=== PATIENT | female | born 1935 | race Caucasian/White ===

== ENCOUNTER → 2019-11-18 11:30 | Outpatient (BNVA) | payer MEDICARE, OTHER, SELFPAY | PROVIDERS: PCP Internal Medicine; Referring Provider Internal Medicine; Visit Provider Internal Medicine | DX: Z95.2 Presence of prosthetic heart valve (principal); Z51.81 Encounter for therapeutic drug level monitoring; Z79.01 Long term (current) use of anticoagulants | CPT/HCPCS: 85610; 99211 ==

== ENCOUNTER → 2019-12-05 10:07 | Outpatient (BNVA) | payer MEDICARE, OTHER, SELFPAY | PROVIDERS: PCP Internal Medicine; Referring Provider Internal Medicine; Visit Provider Internal Medicine | DX: Z95.2 Presence of prosthetic heart valve (principal); Z51.81 Encounter for therapeutic drug level monitoring; Z79.01 Long term (current) use of anticoagulants | CPT/HCPCS: 85610; 99211 ==

== ENCOUNTER → 2019-12-26 10:04 | Outpatient (BNVA) | payer MEDICARE, OTHER, SELFPAY | PROVIDERS: PCP Internal Medicine; Visit Provider Internal Medicine | DX: Z95.2 Presence of prosthetic heart valve (principal); Z51.81 Encounter for therapeutic drug level monitoring; Z79.01 Long term (current) use of anticoagulants | CPT/HCPCS: 85610; 99211 ==

== ENCOUNTER → 2020-01-22 09:48 | Outpatient (BNVA) | payer MEDICARE, OTHER, SELFPAY | PROVIDERS: PCP Internal Medicine; Visit Provider Internal Medicine | DX: Z95.2 Presence of prosthetic heart valve (principal); Z51.81 Encounter for therapeutic drug level monitoring; Z79.01 Long term (current) use of anticoagulants | CPT/HCPCS: 85610; 99211 ==

== ENCOUNTER → 2020-02-12 10:02 | Outpatient (BNVA) | payer MEDICARE, OTHER, SELFPAY | PROVIDERS: PCP Internal Medicine; Visit Provider Internal Medicine | DX: Z95.2 Presence of prosthetic heart valve (principal); Z51.81 Encounter for therapeutic drug level monitoring; Z79.01 Long term (current) use of anticoagulants | CPT/HCPCS: 85610; 99211 ==

== ENCOUNTER → 2020-03-11 10:12 | Outpatient (BNVA) | payer MEDICARE, OTHER, SELFPAY | PROVIDERS: PCP Internal Medicine; Visit Provider Internal Medicine | DX: Z95.2 Presence of prosthetic heart valve (principal); Z51.81 Encounter for therapeutic drug level monitoring; Z79.01 Long term (current) use of anticoagulants | CPT/HCPCS: 85610; 99211 ==

== ENCOUNTER → 2020-04-01 10:33 | Outpatient (BNVA) | payer MEDICARE, OTHER, SELFPAY | PROVIDERS: PCP Internal Medicine; Visit Provider Internal Medicine | DX: Z95.2 Presence of prosthetic heart valve (principal); Z51.81 Encounter for therapeutic drug level monitoring; Z79.01 Long term (current) use of anticoagulants | CPT/HCPCS: 85610; 99211 ==

== ENCOUNTER → 2020-04-22 10:35 | Outpatient (BNVA) | payer MEDICARE, OTHER, SELFPAY | PROVIDERS: PCP Internal Medicine; Visit Provider Internal Medicine | DX: Z95.2 Presence of prosthetic heart valve (principal); Z51.81 Encounter for therapeutic drug level monitoring; Z79.01 Long term (current) use of anticoagulants | CPT/HCPCS: 85610; 99211 ==

== ENCOUNTER → 2020-04-24 14:15 | Outpatient (BNVA) | payer MEDICARE, OTHER, SELFPAY | PROVIDERS: PCP Internal Medicine; Visit Provider Internal Medicine | DX: Z95.2 Presence of prosthetic heart valve (principal); Z51.81 Encounter for therapeutic drug level monitoring; Z79.01 Long term (current) use of anticoagulants | CPT/HCPCS: 85610; 99211 ==

== ENCOUNTER → 2020-04-29 11:00 | Outpatient (BNVA) | payer MEDICARE, OTHER, SELFPAY | PROVIDERS: PCP Internal Medicine; Visit Provider Internal Medicine | DX: Z95.2 Presence of prosthetic heart valve (principal); Z51.81 Encounter for therapeutic drug level monitoring; Z79.01 Long term (current) use of anticoagulants | CPT/HCPCS: 85610; 99211 ==

== ENCOUNTER → 2020-05-07 11:15 | Outpatient (BNVA) | payer MEDICARE, OTHER, SELFPAY | PROVIDERS: PCP Internal Medicine; Visit Provider Internal Medicine | DX: Z95.2 Presence of prosthetic heart valve (principal); Z51.81 Encounter for therapeutic drug level monitoring; Z79.01 Long term (current) use of anticoagulants | CPT/HCPCS: 85610; 99211 ==

== ENCOUNTER → 2020-05-21 11:20 | Outpatient (BNVA) | payer MEDICARE, OTHER, SELFPAY | PROVIDERS: PCP Internal Medicine; Visit Provider Internal Medicine | DX: Z95.2 Presence of prosthetic heart valve (principal); Z79.01 Long term (current) use of anticoagulants; Z51.81 Encounter for therapeutic drug level monitoring | CPT/HCPCS: 85610; 99211 ==

== ENCOUNTER → 2020-06-11 11:15 | Outpatient (BNVA) | payer MEDICARE, OTHER, SELFPAY | PROVIDERS: PCP Internal Medicine; Visit Provider Internal Medicine | DX: Z95.2 Presence of prosthetic heart valve (principal); Z51.81 Encounter for therapeutic drug level monitoring; Z79.01 Long term (current) use of anticoagulants | CPT/HCPCS: 85610; 99211 ==

== ENCOUNTER → 2020-07-02 11:05 | Outpatient (BNVA) | payer MEDICARE, OTHER, SELFPAY | PROVIDERS: PCP Internal Medicine; Visit Provider Internal Medicine | DX: Z95.2 Presence of prosthetic heart valve (principal); Z51.81 Encounter for therapeutic drug level monitoring; Z79.01 Long term (current) use of anticoagulants | CPT/HCPCS: 85610; 99211 ==

== ENCOUNTER → 2020-07-23 11:04 | Outpatient (BNVA) | payer MEDICARE, OTHER, SELFPAY | PROVIDERS: PCP Internal Medicine; Visit Provider Internal Medicine | DX: Z95.2 Presence of prosthetic heart valve (principal); Z51.81 Encounter for therapeutic drug level monitoring; Z79.01 Long term (current) use of anticoagulants | CPT/HCPCS: 85610; 99211 ==

== ENCOUNTER → 2020-08-05 11:15 | Outpatient (BNVA) | payer MEDICARE, OTHER, SELFPAY | PROVIDERS: PCP Internal Medicine; Visit Provider Internal Medicine | DX: Z95.2 Presence of prosthetic heart valve (principal); Z51.81 Encounter for therapeutic drug level monitoring; Z79.01 Long term (current) use of anticoagulants | CPT/HCPCS: 85610; 99211 ==

== ENCOUNTER → 2020-08-19 10:54 | Outpatient (BNVA) | payer MEDICARE, OTHER, SELFPAY | PROVIDERS: PCP Internal Medicine; Visit Provider Internal Medicine | DX: Z95.2 Presence of prosthetic heart valve (principal); Z51.81 Encounter for therapeutic drug level monitoring; Z79.01 Long term (current) use of anticoagulants | CPT/HCPCS: 85610; 99211 ==

== ENCOUNTER → 2020-09-02 11:11 | Outpatient (BNVA) | payer MEDICARE, OTHER, SELFPAY | PROVIDERS: PCP Internal Medicine; Visit Provider Internal Medicine | DX: Z95.2 Presence of prosthetic heart valve (principal); Z51.81 Encounter for therapeutic drug level monitoring; Z79.01 Long term (current) use of anticoagulants | CPT/HCPCS: 85610; 99211 ==

== ENCOUNTER → 2020-09-09 09:13 | Outpatient (BNVA) | payer MEDICARE, OTHER, SELFPAY | PROVIDERS: PCP Internal Medicine; Visit Provider Internal Medicine | DX: Z95.2 Presence of prosthetic heart valve (principal); Z51.81 Encounter for therapeutic drug level monitoring; Z79.01 Long term (current) use of anticoagulants | CPT/HCPCS: 85610; 99211 ==

== ENCOUNTER → 2020-09-14 10:35 | Outpatient (BNVA) | payer MEDICARE, OTHER, SELFPAY | PROVIDERS: PCP Internal Medicine; Visit Provider Internal Medicine | DX: Z95.2 Presence of prosthetic heart valve (principal); Z51.81 Encounter for therapeutic drug level monitoring; Z79.01 Long term (current) use of anticoagulants | CPT/HCPCS: 85610; 99211 ==

== ENCOUNTER → 2020-09-28 11:21 | Outpatient (BNVA) | payer MEDICARE, OTHER, SELFPAY | PROVIDERS: PCP Internal Medicine; Visit Provider Internal Medicine | DX: Z95.2 Presence of prosthetic heart valve (principal); Z51.81 Encounter for therapeutic drug level monitoring; Z79.01 Long term (current) use of anticoagulants | CPT/HCPCS: 85610; 99211 ==

== ENCOUNTER → 2020-10-21 11:13 | Outpatient (BNVA) | payer MEDICARE, OTHER, SELFPAY | PROVIDERS: PCP Internal Medicine; Visit Provider Internal Medicine | DX: Z95.2 Presence of prosthetic heart valve (principal); Z51.81 Encounter for therapeutic drug level monitoring; Z79.01 Long term (current) use of anticoagulants | CPT/HCPCS: 85610; 99211 ==

== ENCOUNTER → 2020-10-23 10:37 | Outpatient (BNVA) | payer MEDICARE, OTHER, SELFPAY | PROVIDERS: PCP Internal Medicine; Visit Provider Internal Medicine | DX: Z95.2 Presence of prosthetic heart valve (principal); Z51.81 Encounter for therapeutic drug level monitoring; Z79.01 Long term (current) use of anticoagulants | CPT/HCPCS: 85610; 99211 ==

== ENCOUNTER → 2020-11-06 10:48 | Outpatient (BNVA) | payer MEDICARE, OTHER, SELFPAY | PROVIDERS: PCP Internal Medicine; Visit Provider Internal Medicine | DX: Z95.2 Presence of prosthetic heart valve (principal); Z51.81 Encounter for therapeutic drug level monitoring; Z79.01 Long term (current) use of anticoagulants | CPT/HCPCS: 85610; 99211 ==

== ENCOUNTER → 2020-11-20 11:04 | Outpatient (BNVA) | payer MEDICARE, OTHER, SELFPAY | PROVIDERS: PCP Internal Medicine; Visit Provider Internal Medicine | DX: Z95.2 Presence of prosthetic heart valve (principal); Z51.81 Encounter for therapeutic drug level monitoring; Z79.01 Long term (current) use of anticoagulants | CPT/HCPCS: 85610; 99211 ==

== ENCOUNTER → 2020-11-27 11:12 | Outpatient (BNVA) | payer MEDICARE, OTHER, SELFPAY | PROVIDERS: PCP Internal Medicine; Visit Provider Internal Medicine | DX: Z95.2 Presence of prosthetic heart valve (principal); Z51.81 Encounter for therapeutic drug level monitoring; Z79.01 Long term (current) use of anticoagulants | CPT/HCPCS: 85610; 99211 ==

== ENCOUNTER → 2020-12-11 11:19 | Outpatient (BNVA) | payer MEDICARE, OTHER, SELFPAY | PROVIDERS: PCP Internal Medicine; Visit Provider Internal Medicine | DX: Z95.2 Presence of prosthetic heart valve (principal); Z51.81 Encounter for therapeutic drug level monitoring; Z79.01 Long term (current) use of anticoagulants | CPT/HCPCS: 85610; 99211 ==

== ENCOUNTER → 2020-12-17 11:17 | Outpatient (BNVA) | payer MEDICARE, OTHER, SELFPAY | PROVIDERS: PCP Internal Medicine; Visit Provider Internal Medicine | DX: Z95.2 Presence of prosthetic heart valve (principal); Z51.81 Encounter for therapeutic drug level monitoring; Z79.01 Long term (current) use of anticoagulants | CPT/HCPCS: 85610; 99211 ==

== ENCOUNTER → 2020-12-25 11:05 | Outpatient (BNVA) | payer MEDICARE, OTHER, SELFPAY | PROVIDERS: PCP Internal Medicine; Visit Provider Internal Medicine | DX: Z95.2 Presence of prosthetic heart valve (principal); Z51.81 Encounter for therapeutic drug level monitoring; Z79.01 Long term (current) use of anticoagulants | CPT/HCPCS: 85610; 99211 ==

== ENCOUNTER → 2021-01-04 11:33 | Outpatient (BNVA) | payer MEDICARE, OTHER, SELFPAY | PROVIDERS: PCP Internal Medicine; Visit Provider Internal Medicine | DX: Z95.2 Presence of prosthetic heart valve (principal); Z51.81 Encounter for therapeutic drug level monitoring; Z79.01 Long term (current) use of anticoagulants | CPT/HCPCS: 85610; 99211 ==

== ENCOUNTER → 2021-01-21 11:05 | Outpatient (BNVA) | payer MEDICARE, OTHER, SELFPAY | PROVIDERS: PCP Internal Medicine; Visit Provider Internal Medicine | DX: Z95.2 Presence of prosthetic heart valve (principal); Z51.81 Encounter for therapeutic drug level monitoring; Z79.01 Long term (current) use of anticoagulants | CPT/HCPCS: 85610; 99211 ==

== ENCOUNTER → 2021-02-04 11:20 | Outpatient (BNVA) | payer MEDICARE, OTHER, SELFPAY | PROVIDERS: PCP Internal Medicine; Visit Provider Internal Medicine | DX: Z95.2 Presence of prosthetic heart valve (principal); Z51.81 Encounter for therapeutic drug level monitoring; Z79.01 Long term (current) use of anticoagulants | CPT/HCPCS: 85610; 99211 ==

== ENCOUNTER → 2021-02-18 11:06 | Outpatient (BNVA) | payer MEDICARE, OTHER, SELFPAY | PROVIDERS: PCP Internal Medicine; Visit Provider Internal Medicine | DX: Z95.2 Presence of prosthetic heart valve (principal); Z51.81 Encounter for therapeutic drug level monitoring; Z79.01 Long term (current) use of anticoagulants | CPT/HCPCS: 85610; 99211 ==

== ENCOUNTER → 2021-03-11 10:59 | Outpatient (BNVA) | payer MEDICARE, OTHER, SELFPAY | PROVIDERS: PCP Internal Medicine; Visit Provider Internal Medicine | DX: Z95.2 Presence of prosthetic heart valve (principal); Z51.81 Encounter for therapeutic drug level monitoring; Z79.01 Long term (current) use of anticoagulants | CPT/HCPCS: 85610; 99211 ==

== ENCOUNTER → 2021-03-29 09:49 | Outpatient (BNVA) | payer MEDICARE, OTHER, SELFPAY | PROVIDERS: PCP Internal Medicine; Visit Provider Internal Medicine | DX: Z95.2 Presence of prosthetic heart valve (principal); Z51.81 Encounter for therapeutic drug level monitoring; Z79.01 Long term (current) use of anticoagulants | CPT/HCPCS: 85610; 99211 ==

== ENCOUNTER → 2021-04-22 10:58 | Outpatient (BNVA) | payer MEDICARE, OTHER, SELFPAY | PROVIDERS: PCP Internal Medicine; Visit Provider Internal Medicine | DX: Z95.2 Presence of prosthetic heart valve (principal); Z51.81 Encounter for therapeutic drug level monitoring; Z79.01 Long term (current) use of anticoagulants | CPT/HCPCS: 85610; 99211 ==

== ENCOUNTER → 2021-04-29 11:17 | Outpatient (BNVA) | payer MEDICARE, OTHER, SELFPAY | PROVIDERS: PCP Internal Medicine; Visit Provider Internal Medicine | DX: Z95.2 Presence of prosthetic heart valve (principal); Z79.01 Long term (current) use of anticoagulants; Z51.81 Encounter for therapeutic drug level monitoring | CPT/HCPCS: 85610; 99211 ==

== ENCOUNTER → 2021-05-10 11:49 | Outpatient (BNVA) | payer MEDICARE, OTHER, SELFPAY | PROVIDERS: PCP Internal Medicine; Visit Provider Internal Medicine | DX: Z95.2 Presence of prosthetic heart valve (principal); Z51.81 Encounter for therapeutic drug level monitoring; Z79.01 Long term (current) use of anticoagulants | CPT/HCPCS: Q3014 ==

== ENCOUNTER 2021-05-13 11:35 | Outpatient (REF) | payer MEDICARE, OTHER, SELFPAY ==
[2021-05-13 11:47] LABS: INTERNATIONAL NORM RATIO 2.8 (0.9-1.1); Prothrombin Time 32.8 SEC (9.9-13.0)
== END 2021-05-13 11:36 | disposition home or self-care (01) ==
LOC: HO.LHD 11:35
PROVIDERS: Visit Provider Internal Medicine
DX: I48.91 Unspecified atrial fibrillation (principal); Z95.2 Presence of prosthetic heart valve; Z51.81 Encounter for therapeutic drug level monitoring; Z79.01 Long term (current) use of anticoagulants
CPT/HCPCS: 36415; 85610; Q3014

== ENCOUNTER 2021-05-21 10:42 | Emergency (ER) | payer MEDICARE, OTHER, SELFPAY ==
--- NOTE | ~2021-05-21 | CT_ITS ---
EXAMINATION: CT CERVICAL SPINE WITHOUT CONTRAST CLINICAL INFORMATION: Atraumatic neck pain for 3 weeks. COMPARISON: None TECHNIQUE: Multiple axial images of the cervical spine were obtained without the administration of intravenous contrast. Coronal and sagittal reformatted images were obtained. This CT examination was performed using dose optimization techniques as appropriate, variously including the following: *Automated exposure control *Adjustment of mA and/or kV according to patient size (this includes techniques or standardized protocols for targeted exams where dose is matched to indication/reason for exam; i.e. extremities or head) *Use of iterative reconstruction technique DLP: 314.36 mGy-cm FINDINGS: There is normal cervical lordosis and spinal alignment. Mild multilevel degenerative disc disease is seen from C4-C5 to C7-T1 with disc space narrowing and marginal osteophyte formation. Small posterior osteophytes are seen at C5-C6 and C7-T1 mildly narrowing the spinal canal at those levels. Mild bilateral neural foraminal narrowing is seen at C5-C6. Multilevel mild to moderate bilateral facet arthropathy is seen. Facet fusion is seen on the left at C3-C4 and on the right at C5-C6. The spinous processes are intact. Corticated nuchal calcifications are noted at several levels. The odontoid process is intact with mild articular degenerative changes. The prevertebral soft tissues and cervical soft tissues are unremarkable. There is no lymphadenopathy. The thyroid gland is unremarkable. The visualized lung apices are clear. CT/CT cervical spine wo con IMPRESSION: 1. Multilevel degenerative changes as detailed above without acute abnormality. If pain persists or worsens, MRI should be considered to better assess the spinal canal and nerve roots. Fleischner guidelines were followed.
--- NOTE | ~2021-05-21 | CT_ITS ---
EXAMINATION: CT LUMBAR SPINE WITHOUT CONTRAST CLINICAL INFORMATION: Atraumatic low back pain for 3 weeks. COMPARISON: CTA of the abdomen and pelvis dated 10/14/2015 TECHNIQUE: Multiple axial images of the lumbar spine were obtained without the administration of intravenous contrast. Coronal and sagittal reformatted images were obtained. This CT examination was performed using dose optimization techniques as appropriate, variously including the following: *Automated exposure control *Adjustment of mA and/or kV according to patient size (this includes techniques or standardized protocols for targeted exams where dose is matched to indication/reason for exam; i.e. extremities or head) *Use of iterative reconstruction technique DLP; 318.38 mGy-cm FINDINGS: There is generalized osteopenia. Mild multilevel degenerative disc disease is seen at T11-T12, T12-L1, L3-L4 and L4-L5. There is a superior endplate compression deformity at L1 of approximately 35% and inferior compression deformity at L3 of approximately 20%. Adjacent vacuum discs are seen at these levels as well as at T11-T12. The remainder the vertebral bodies are intact. Small generalized disc bulge with disc osteophyte complexes are seen at L3-L4 and L4-L5 causing mild narrowing of the spinal canal and neural foramina bilaterally. Mild to moderate multilevel bilateral facet arthropathy is seen from L2-L3 and L5-S1. The spinous processes are intact. Mild bilateral sacroiliac degenerative joint changes are seen. Moderate to severe atherosclerosis is seen in the abdominal aorta and iliac vessels without significant dilatation. No significant intra-abdominal abnormality. CT/CT lumbar spine wo con IMPRESSION: 1. Generalized osteopenia. L1 and L3 vertebral body compression deformities do not demonstrate acute features, but were not seen on the 2016 CT scan. 2. Multilevel degenerative changes as detailed above have not mildly increased compared to the 2016 CT scan as well.
[2021-05-21 11:06] VITALS: BP 108/50; PULSE 65; RESP 17; TEMP 36.9; O2SAT 96; BMI 23.0
[2021-05-21] MEDS: diazePAM 2 MG TABLET 5 MG PO (12:07)
--- NOTE | 2021-05-21 12:20 | ED.BACK ---
HPI - Back Pain/Injury General Chief Complaint: Back Pain/Injury <EMILEE Osuna Last Filed: 05/21/21 14:01> Stated Complaint: neck and back pain, diff moving <EMILEE Osuna Last Filed: 05/21/21 14:01> Time Seen by Provider: 05/21/21 11:28 <EMILEE Osuna Last Filed: 05/21/21 14:01> Source: patient <EMILEE Osuna Last Filed: 05/21/21 14:01> Mode of arrival: wheelchair <EMILEE Osuna Last Filed: 05/21/21 14:01> Limitations: no limitations <EMILEE Osuna Last Filed: 05/21/21 14:01> History of Present Illness HPI Narrative: 85-year-old female with a past medical history of hypertension, atrial fibrillation currently on warfarin taking as prescribed, hypothyroidism, pseudogout an arthritis presenting to the ED with complaints of atraumatic neck pain and atraumatic lower back pain for the past 3 weeks that has been persistent and unchanged. She reports that she cannot recall what she was doing with this pain started. Although she denies any actual falls. She reports that she was seen by her primary care provider and they told her that it was all muscular in sent her home with tizanidine and oxycodone she reports she has been taking as prescribed and she is having mild to no symptomatic relief. She denies any fevers, chills, dizziness, headaches, neck stiffness, sore throat, nasal congestion, rhinorrhea, chest pain or shortness of breath, dyspnea on exertion, orthopnea, palpitations, paresthesias, nausea/vomiting/diarrhea constipation, black or bloody stools, urinary/bowel incontinence, urinary/bowel retention, dysuria, hematuria, abnormal vaginal discharge, recent falls or trauma, recent travel, recent sick contacts, rashes, saddle anesthesias, focal weakness or general weakness, lower extremity edema or calf tenderness or any other symptoms complaints or concerns at this time. She denies any IV drug usage. <EMILEE Osuna Last Filed: 05/21/21 14:01> MD elicited complaint: other (neck and back pain ) <EMILEE Osuna Last Filed: 05/21/21 14:01> Pertinent past history: arthritis <EMILEE Osuna - Last Filed: 05/21/21 14:01> Onset (ago): week(s) (3) <EMILEE Osuna - Last Filed: 05/21/21 14:01> Timing: constant <EMILEE Osuna - Last Filed: 05/21/21 14:01> Severity: moderate <EMILEE Osuna - Last Filed: 05/21/21 14:01> Quality: aching <EMILEE Osuna - Last Filed: 05/21/21 14:01> Location: lumbar spine (and cervical spine ) <EMILEE Osuna - Last Filed: 05/21/21 14:01> Radiation: none <EMILEE Osuna - Last Filed: 05/21/21 14:01> Exacerbating factors: movement, supine positioning, sitting upright, walking and lifting <EMILEE Osuna - Last Filed: 05/21/21 14:01> Relieving factors: none <EMILEE Osuna - Last Filed: 05/21/21 14:01> Context: unknown <EMILEE Osuna - Last Filed: 05/21/21 14:01> Associated symptoms: denies other symptoms <EMILEE Osuna - Last Filed: 05/21/21 14:01> Treatments prior to arrival: other (he has tried tizanidine and oxycodone and mild to no symptomatic relief per patient ) <EMILEE Osuna - Last Filed: 05/21/21 14:01> Work related injury: No <EMILEE Osuna - Last Filed: 05/21/21 14:01> Related Data Home Medications: Home Medications Medication Instructions Recorded Confirmed atorvastatin 40 mg tablet mg PO 12/26/19 05/13/21 fluticasone 250 mcg-salmeterol 50 1 ea PO Q12H 12/26/19 05/13/21 mcg/dose blistr powdr for inhalation levothyroxine 50 mcg tablet 50 mcg PO DAILY 12/26/19 05/13/21 sacubitril 97 mg-valsartan 103 mg 1 tab PO BID 12/26/19 05/13/21 tablet amoxicillin 500 mg capsule 2,000 mg PO 07/23/20 05/13/21 carvedilol 25 mg tablet 25 mg PO BID 12/25/20 05/13/21 dapagliflozin 10 mg tablet 10 mg PO DAILY 12/25/20 05/13/21 (Farxiga) furosemide 40 mg tablet 40 mg PO DAILY 12/25/20 05/13/21 sacubitril 49 mg-valsartan 51 mg 1 tab PO BID 02/18/21 05/13/21 tablet (Entresto) tizanidine 2 mg capsule 2 mg PO DAILY PRN cap 05/06/21 05/13/21 Previous Rx's Medication Instructions Recorded warfarin 2.5 mg tablet 2.5 mg PO DAILY #90 tab 11/18/19 diazepam 5 mg tablet (Valium) 5 mg PO TID PRN #14 tab 05/21/21 <EMILEE Osuna - Last Filed: 05/21/21 14:01> Allergies/Adverse Reactions: Allergies Allergy/AdvReac Type Severity Reaction Status Date / Time Iodinated Contrast Media Allergy Unknown HIVES Verified 05/21/21 11:11 [CONTRAST, IV] mite-Dermatophagoides Allergy Unknown UNKNOWN Verified 05/21/21 11:11 farinae, joleen [DUST MITES] mold [MOLD] Allergy Unknown UNKNOWN Verified 05/21/21 11:11 Sulfa (Sulfonamide AdvReac Intermediate UNKNOWN Verified 05/21/21 11:11 Antibiotics) DUST Allergy Unknown UNKNOWN Uncoded 05/21/21 11:11 <EMILEE Osuna - Last Filed: 05/21/21 14:01> Review of Systems Review of Systems: Constitutional : No trauma, No Weight loss, No Fever, No Chills, ENT/Mouth : No Hearing loss, No Ear Pain, No Nasal Congestion, No Sinus Pain, No Hoarseness, No sore throat, No Rhinorrhea, No Swallowing Difficulty Cardiovascular : No Chest Pain, No SOB Respiratory : No Cough, No Dyspnea Gastrointestinal : No Nausea, No Vomiting, No Diarrhea, No abdominal Pain, No Hematochezia, No Melena Genitourinary : No Dysuria, No Urinary Frequency, No Hematuria, No Urinary or Bowel Incontinence/retention Musculoskeletal : + Back pain, + neck pain, No joint stiffness, No joint swelling Skin : No Skin Lesions, No rash or signs of infection Neuro : No Weakness, No radiation, No Numbness, No Paresthesias, No headache, no loss of bowel or bladder incontinence, no saddle anesthesia, Focal weakness, No radiation Denies history of IV drug usage. <EMILEE Osuna - Last Filed: 05/21/21 14:01> Yes all other systems are reviewed and are negative <EMILEE Osuna - Last Filed: 05/21/21 14:01> [facility] Past Medical History Attestation statement: The following information was validated with the patient. <EMILEE Osuna - Last Filed: 05/21/21 14:01> Medical History: Medical History A-fib Active asthma <EMILEE Osuna - Last Filed: 05/21/21 14:01> Surgical History: Surgical History Heart valve replaced <EMILEE Osuna - Last Filed: 05/21/21 14:01> Social History Social History: Social History Advance Directives: Yes Advance Directives Information Provided: Yes Advance Directives on File: No <EMILEE Osuna - Last Filed: 05/21/21 14:01> Physical Exam Vital Signs: Vital Signs: Last Vital Signs Temp 98.5 F 05/21/21 15:37 Pulse 68 05/21/21 15:37 Resp 16 05/21/21 15:37 BP 133/49 L 05/21/21 15:37 Pulse Ox 97 05/21/21 15:37 BMI result Body Mass Index 23.0 vital signs have been reviewed as normal and appeared to be correct. Blood pressure 108/50. Heart rate normal. Respiration rate normal. Temperature normal. Oxygen saturation normal. <EMILEE Osuna - Last Filed: 05/21/21 14:01> Vital Signs: Last Vital Signs Temp 98.5 F 05/21/21 15:37 Pulse 68 05/21/21 15:37 Resp 16 05/21/21 15:37 BP 133/49 L 05/21/21 15:37 Pulse Ox 97 05/21/21 15:37 BMI result Body Mass Index 23.0 <EMILEE Osborne Last Filed: 05/21/21 16:07> Appearance: Alert. Oriented X3. No acute distress. Head: Normal external exam. Normocephalic. Atraumatic. Eyes: PERRLA. EOMI. Conjunctiva and sclera normal. Eyelids normal. ENT: Pharynx normal. Uvula midline. Moist mucous membranes. No trismus noted. No drooling noted. No muffled voice noted. Neck: Normal inspection. Neck supple. FROM. No adenopathy. Thyroid Normal. Trachea midline. No meningeal signs. No neck mass noted. Tender to palpation of bilateral paracervical musculature and mid cervical tenderness. No step-offs or deformities noted. Patient neuro intact bilaterally and distally on all 4 extremities. Reflexes intact bilaterally and distally in all 4 extremities. No rashes/lesion/induration/fluctuance or signs of infection noted. No edema noted. CVS: Normal heart rate and rhythm. Heart sound normal. No murmurs noted. Pulses normal throughout. Respiratory: No respiratory distress. Painless inspiration. Breath sounds normal. No wheezes/rales/rhonchi noted. Chest nontender. No accessory muscle usage noted or decreased air movement noted. Abdomen: Soft and nontender. Bowel sounds normal in all 4 quadrants. No distention noted. No organomegaly noted. No visible injury noted. Back: No CVA tenderness. Full range of motion noted. No obvious deformities, or edema. Mild para-spinal muscular tenderness from lumbar region to coccyx. Full ROM in back and lower extremities. 5/5 strength hip extension/flexion, abduction, adduction. Mild Lumbar pain with hip flexion against resistance. Straight leg raise test negative on right; Straight leg raise test negative on left; Reflexes normal ankle and knee bilaterally; EHL motor strength normal bilaterally. No rashes/lesion/induration/fluctuance or signs infection noted. Skin: Skin warm and dry. Normal skin color. Normal skin turgor. No rashes/lesions/lacerations noted. Extremities: No lower extremity edema. No calf tenderness is noted. Extremities exhibit normal range of motion. Extremities nontender. Neuro: Oriented X 3. No motor deficit. No sensory deficit. Reflexes normal. Patient has a normal steady gait. Vascular: +2 radial pulses bilaterally. +2 distal pedal pulses bilateral. No cyanosis noted to upper lower extremity fingernails or toenails. Normal capillary refill noted to upper and lower extremity. <EMILEE Osuna Last Filed: 05/21/21 14:01> Course Course Course Narrative: 11:50am - Pt c likely muscular pain, but could be herniated disc. Neuro exam shows no deficits. Not c/w vascular etiology, perivertebral / other soft tissue neck / airway infection, or spinal fx / process. Not c/w AAA/epidural abscess/dissection.No high risk Hx (Incont, fever, immunosupp, recent surgery/LP, coag, signif trauma, wt loss, puls mass, hx/o Ca, TB, or IVDU) to warrant MRI. Not c/w Pyelo/UTI/kidney stone/spinal fx. Not cauda equina syndrome. Will obtain a CT scan of cervical spine and CT scan of lumbar spine. Provide 5 mg of Valium then re-evaluate. <EMILEE Osuna - Last Filed: 05/21/21 14:01> Reevaluation(s) Reevaluation #1: - Sign out to PIERCE Gotti pending CT scan of cervical spine and CT scan of lumbar spine and UA. <EMILEE Osuna - Last Filed: 05/21/21 14:01> Time: 13:59 <EMILEE Osuna - Last Filed: 05/21/21 14:01> Reevaluation #2: CT of the cervical spine with multilevel degenerative changes however no acute abnormalities noted. Recommend MRI of pain persists. CT of the lumbar spine shows generalized osteopenia there are L1 and L3 vertebral body compression deformities that do not demonstrate acute fractures. Again multilevel degenerative changes noted on CT of the lumbar spine. I have attached resolved to patient's discharge. Low suspicion for cauda equina as patient has no saddle paresthesias no changes in bowel habits no weakness. At this time patient will be discharged home with PCP follow-up. Advised to return with new or worsening symptoms. Patient unable to give us a urine, no urinary symptoms. She will be discharged at this time. <EMILEE Osborne Last Filed: 05/21/21 16:07> Time: 16:06 <EMILEE Osborne Last Filed: 05/21/21 16:07> MDM - Back Pain/Injury Medical Records Attestation: I reviewed the patient's medical records. <MEILEE Osuna Last Filed: 05/21/21 14:01> Lab Data Labs: Lab Results 05/21/21 Range/Units 14:54 PT 29.3 H (9.9-13.0) SEC INR 2.5 H (0.9-1.1) <EMILEE Osuna - Last Filed: 05/21/21 14:01> Lab Results 05/21/21 Range/Units 14:54 PT 29.3 H (9.9-13.0) SEC INR 2.5 H (0.9-1.1) <EMILEE Osborne Last Filed: 05/21/21 16:07> Imaging Data CT scan cervical spine/lumbar spine without contrast: Attestation: I personally reviewed and interpreted this imaging study as follows: <EMILEE Osuna Last Filed: 05/21/21 14:01> Critical Care Time Critical Care Time Critical Care Time: No <EMILEE Osborne - Last Filed: 05/21/21 16:07> Discharge Plan Discharge Clinical Impression: Cervical muscle strain, Lumbar spine strain <EMILEE Osuna Last Filed: 05/21/21 14:01> Patient Disposition: Home, Self-Care <EMILEE Osuna - Last Filed: 05/21/21 14:01> Instructions: Cervical Strain (DC), Back Pain (ED) <EMILEE Osuna Last Filed: 05/21/21 14:01> Additional Instructions: Take your medications as prescribed. If you were prescribed antibiotics today, it is important that you take your medication to their entirety, do not skip any doses, do not finish them early. Follow-up with your primary care provider this week. Return to the emergency department with new or worsening symptoms. Such as fevers, chills, chest pain, shortness of breath, nausea, vomiting, dizziness, headache, vision changes, lethargy, changes in bowel habits, inability to control urine or bowel, numbness or tingling. In case of emergency call 911 Your PT today was 29.3 Your INR today was 2.5 <EMILEE Osuna Last Filed: 05/21/21 14:01> Prescriptions: New diazepam [Valium] 5 mg tablet 5 mg PO TID PRN (Reason: muscle spasm) Qty: 14 0RF No Action tizanidine 2 mg capsule 2 mg PO DAILY PRN0RF warfarin 2.5 mg tablet 2.5 mg PO DAILY Qty: 90 0RF Protocol: Dose Management Condition: Monday (Week One) Dose/Route: 5 mg Instruction: 2 x 2.5 mg tablets Condition: Monday Dose/Route: 5 mg Instruction: 2 x 2.5 mg tablets Condition: Monday Dose/Route: 2.5 mg Instruction: 1 x 2.5 mg tablet Condition: Monday Dose/Route: 5 mg Instruction: 2 x 2.5 mg tablets Condition: Dose/Route: 5 mg Instruction: 2 x 2.5 mg tablets Condition: Monday Dose/Route: 5 mg Instruction: 2 x 2.5 mg tablets Condition: Monday Dose/Route: 5 mg Instruction: 2 x 2.5 mg tablets Condition: Monday (Week Two) Dose/Route: 5 mg Instruction: 2 x 2.5 mg tablets Condition: Monday Dose/Route: 5 mg Instruction: 2 x 2.5 mg tablets Condition: Monday Dose/Route: 2.5 mg Instruction: 1 x 2.5 mg tablet Condition: Monday Dose/Route: 5 mg Instruction: 2 x 2.5 mg tablets Condition: Dose/Route: 5 mg Instruction: 2 x 2.5 mg tablets Condition: Monday Dose/Route: 5 mg Instruction: 2 x 2.5 mg tablets Condition: Monday Dose/Route: 5 mg Instruction: 2 x 2.5 mg tablets Protocol Text: Adjustment Start Date: 05/13/21 INR Value: 2.8 INR Date: 05/13/21 Recheck Date: 05/20/21 Additional Instructions: KEEP DOSE THE SAME WHILE TAKING TYLENOL / EAT A MIX OF REDS AND GREENS Rx Instructions: 5MG DAILY EXCEPT 2.5MG fluticasone propion-salmeterol 250-50 mcg/dose blister with device 1 ea PO Q12H 0RF levothyroxine 50 mcg tablet 50 mcg PO DAILY 0RF atorvastatin 40 mg tablet PO 0RF Entresto 97-103 mg tablet 1 tab PO BID 0RF amoxicillin 500 mg capsule 2,000 mg PO 0RF furosemide 40 mg tablet 40 mg PO DAILY 0RF carvedilol 25 mg tablet 25 mg PO BID 0RF Farxiga 10 mg tablet 10 mg PO DAILY 0RF Entresto 49-51 mg tablet 1 tab PO BID 0RF <EMILEE Osuna - Last Filed: 05/21/21 14:01> Referrals: Ilsa Green MD [Primary Care Provider] - 2 days <EMILEE Osuna - Last Filed: 05/21/21 14:01> Print Language: Hungarian <EMILEE Osuna - Last Filed: 05/21/21 14:01>
[2021-05-21 15:18] LABS: INTERNATIONAL NORM RATIO 2.5 (0.9-1.1); Prothrombin Time 29.3 SEC (9.9-13.0)
[2021-05-21 15:37] VITALS: BP 133/49; PULSE 68; RESP 16; TEMP 36.9; O2SAT 97
--- NOTE | 2021-05-21 16:21 | PC.NURSE ---
PT AMBULATORY TO THE BATHROOM, GAIT STEADY. FRIEND AT BEDSIDE. PROVIDER UPDATED PATIENT ON RESULTS OF SCAN. PLAN IS FOR DC HOME. PT AGREEABLE TO PLAN. PT AWAKE, ALERT AND ORIENTED X 3. SKIN WARM AND DRY. RESP UNLABORED. DENIES N/V. DENIES PAIN PRESENTLY.
== END 2021-05-21 16:24 | disposition home or self-care (01) ==
PROVIDERS: Physician Assistant; Emergency Provider Emergency Medicine; PCP Internal Medicine
DX: M54.2 Cervicalgia (principal); M54.50 Low back pain, unspecified; Z79.899 Other long term (current) drug therapy; Z79.01 Long term (current) use of anticoagulants
CPT/HCPCS: 36415; 72125; 72131; 85610; 99283; 99284

== ENCOUNTER → 2021-05-24 15:19 | Outpatient (BNVA) | payer MEDICARE, OTHER, SELFPAY | PROVIDERS: PCP Internal Medicine; Visit Provider Internal Medicine | DX: Z95.2 Presence of prosthetic heart valve (principal); Z79.01 Long term (current) use of anticoagulants; Z51.81 Encounter for therapeutic drug level monitoring | CPT/HCPCS: Q3014 ==

== ENCOUNTER 2021-05-28 12:23 | Outpatient (REF) | payer MEDICARE, OTHER, SELFPAY ==
[2021-05-28 11:28] LABS: Prothrombin Time 46.5 SEC (9.9-13.0)
== END 2021-05-28 12:24 | disposition home or self-care (01) ==
LOC: HO.LHD 12:23
PROVIDERS: Visit Provider Internal Medicine
DX: I48.91 Unspecified atrial fibrillation (principal)
CPT/HCPCS: 36415; 85610

== ENCOUNTER 2021-06-01 14:48 | Emergency (ER) | payer MEDICARE, OTHER, SELFPAY ==
--- NOTE | ~2021-06-01 | XR_ITS ---
EXAMINATION: XR KNEE, RIGHT CLINICAL INFORMATION: Pain, swelling, pseudogout COMPARISON: Radiographs right knee 09/27/2018 TECHNIQUE: Four views of the right knee. FINDINGS: No fracture, dislocation, destructive process. No focal joint narrowing or erosive change or definite chondrocalcinosis. There is mild thickening distal quadriceps with spurring at the superior patellar pole similar to prior imaging. There is likely small suprapatellar effusion. Hoffa's fat pad appears normal. 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 XR/XR knee RT 4V IMPRESSION: 1. No fracture, destructive process, or focal joint narrowing. 2. Probable small suprapatellar effusion with mild thickening distal quadriceps and spurring superior patellar pole.
[2021-06-01 14:57] VITALS: BP 118/64; BP 146/61; PULSE 64; PULSE 69; RESP 16; TEMP 36.9; O2SAT 94; O2SAT 95; BMI 23.0
--- NOTE | 2021-06-01 15:00 | PC.NURSE ---
pt a&ox3, vss, c/o back and neck pain for ~3w worse today, decreased mobility at home. pt lives at home w . labs drawn, IV placed - infiltrated, and removed.
--- NOTE | 2021-06-01 15:14 | ED_ITS ---
HPI - General Adult General Chief complaint: Back Pain/Injury <EMILEE Griffiths - Last Filed: 06/01/21 23:58> Stated complaint: BACK/NECK PAIN NO KNOWN INJURY <EMILEE Griffiths - Last Filed: 06/01/21 23:58> Time Seen by Provider: 06/01/21 15:12 <EMILEE Griffiths - Last Filed: 06/01/21 23:58> Source: patient, EMS and old records reviewed <EMILEE Griffiths - Last Filed: 06/01/21 23:58> Mode of arrival: EMS <EMILEE Griffiths - Last Filed: 06/01/21 23:58> Limitations: no limitations <EMILEE Griffiths Last Filed: 06/01/21 23:58> History of Present Illness HPI narrative: 85 y/o female with a history of aortic valve replacement on Coumadin, HTN, hypothyroidism, AFib, asthma, history of pseudogout in the knee who presents to the ER with ongoing nontraumatic neck pain, lower back pain and right knee pain that has been going on for several weeks. She states she had to call 911 today because the pain was so bad she could not get up out of her recliner chair. She denies any falls or trauma. She was recently seen in this ER on May 21 with similar complaints. She had CT scans of the cervical spine, lumbar spine which showed multilevel degenerative changes of the neck and osteopenia with L1 and L3 vertebral body compression deformities but no acute fractures. She was discharged with oral diazepam and oxycodone for muscle spasm and pain control. She reports mild and brief improvement with these measures but pain has per sisted overall. <EMILEE Griffiths - Last Filed: 06/01/21 23:58> MD complaint: Neck pain, back pain, knee pain <EMILEE Griffiths Last Filed: 06/01/21 23:58> Onset (ago): week(s) <EMILEE Griffiths - Last Filed: 06/01/21 23:58> Location: neck, back, right and lower extremity <EMILEE Griffiths Last Filed: 06/01/21 23:58> Radiation: non-radiation <EMILEE Griffiths - Last Filed: 06/01/21 23:58> Severity: severe <EMILEE Griffiths - Last Filed: 06/01/21 23:58> Severity scale (1-10): 8 <EMILEE Griffiths - Last Filed: 06/01/21 23:58> Quality: aching and sharp <EMILEE Griffiths - Last Filed: 06/01/21 23:58> Pain Consistency: constant <EMILEE Griffiths - Last Filed: 06/01/21 23:58> Relieving factors: medication <EMILEE Griffiths - Last Filed: 06/01/21 23:58> Exacerbating factors: movement <EMILEE Griffiths - Last Filed: 06/01/21 23:58> Associated symptoms: denies other symptoms <EMILEE Griffiths Last Filed: 06/01/21 23:58> Treatments prior to arrival: other (Acetaminophen) <EMILEE Griffiths - Last Filed: 06/01/21 23:58> Related Data Home medications: Home Medications Medication Instructions Recorded Confirmed atorvastatin 40 mg tablet 40 mg PO BEDTIME 12/26/19 06/01/21 fluticasone 250 mcg-salmeterol 50 1 ea PO Q12H 12/26/19 06/01/21 mcg/dose blistr powdr for inhalation levothyroxine 50 mcg tablet 50 mcg PO SUMOTUWETH12/26/19 06/01/21 sacubitril 97 mg-valsartan 103 mg 1 tab PO BID 12/26/19 06/01/21 tablet carvedilol 25 mg tablet 25 mg PO BID 12/25/20 06/01/21 dapagliflozin 10 mg tablet 10 mg PO DAILY 12/25/20 06/01/21 (Farxiga) furosemide 20 mg tablet 20 mg PO DAILY 05/24/21 06/01/21 acetaminophen 500 mg tablet 500 mg PO BID 06/01/21 06/01/21 fexofenadine 180 mg tablet 180 mg PO DAILY 06/01/21 06/01/21 ketorolac 0.5 % eye drops 1 drp OPHTHALMIC-LEFT BID 06/01/21 06/01/21 warfarin 2.5 mg tablet 5 mg PO SUMOWETHFRSA 06/01/21 06/01/21 warfarin 2.5 mg tablet (Jantoven) 2.5 tab PO TU 06/01/21 06/01/21 <EMILEE Griffiths - Last Filed: 06/01/21 23:58> Allergies/adverse reactions: Allergies Allergy/AdvReac Type Severity Reaction Status Date / Time Iodinated Contrast Media Allergy Unknown HIVES Verified 06/01/21 14:56 [CONTRAST, IV] mite-Dermatophagoides Allergy Unknown UNKNOWN Verified 06/01/21 14:56 farinae, joleen [DUST MITES] mold [MOLD] Allergy Unknown UNKNOWN Verified 06/01/21 14:56 Sulfa (Sulfonamide AdvReac Intermediate UNKNOWN Verified 06/01/21 14:56 Antibiotics) DUST Allergy Unknown UNKNOWN Uncoded 05/24/21 15:20 <EMILEE Griffiths - Last Filed: 06/01/21 23:58> PMFSH Past Medical History Medical History: Medical History A-fib Active asthma Hypothyroid Pacemaker <EMILEE Griffiths - Last Filed: 06/01/21 23:58> Surgical History: Surgical History Heart valve replaced <EMILEE Griffiths - Last Filed: 06/01/21 23:58> Social History Social History: Social History Alcohol intake: current Alcohol type: wine Patient Tobacco Use Status: Never used Tobacco Use of substances other than those prescribed or required for medical reasons: No Advance Directives: No Advance Directives Information Provided: No <EMILEE Griffiths - Last Filed: 06/01/21 23:58> Physical Exam ED Vital Signs: Vital Signs - 24 hr 06/01/21 16:35 06/01/21 18:39 06/01/21 19:04 Temperature 99.5 F Pulse Rate 71 75 95 Respiratory Rate 18 14 16 Blood Pressure 147/65 H 146/69 H 148/63 H Pulse Oximetry 97 93 94 06/01/21 20:16 06/01/21 22:21 06/02/21 00:38 Temperature Pulse Rate 70 70 Respiratory Rate 16 16 18 Blood Pressure 147/67 H 123/44 L Pulse Oximetry 95 94 95 06/02/21 07:03 06/02/21 07:46 06/02/21 10:03 Temperature 98.0 F 97.8 F Pulse Rate 73 73 61 Respiratory Rate 16 15 Blood Pressure 137/58 L 137/58 L 133/62 Pulse Oximetry 96 96 95 06/02/21 15:14 Temperature 97.6 F Pulse Rate 67 Respiratory Rate 16 Blood Pressure 117/52 L Pulse Oximetry 95 BMI result Body Mass Index 23.0 <EMILEE Griffiths - Last Filed: 06/01/21 23:58> Vital Signs - 24 hr 06/01/21 16:35 06/01/21 18:39 06/01/21 19:04 Temperature 99.5 F Pulse Rate 71 75 95 Respiratory Rate 18 14 16 Blood Pressure 147/65 H 146/69 H 148/63 H Pulse Oximetry 97 93 94 06/01/21 20:16 06/01/21 22:21 06/02/21 00:38 Temperature Pulse Rate 70 70 Respiratory Rate 16 16 18 Blood Pressure 147/67 H 123/44 L Pulse Oximetry 95 94 95 06/02/21 07:03 06/02/21 07:46 06/02/21 10:03 Temperature 98.0 F 97.8 F Pulse Rate 73 73 61 Respiratory Rate 16 15 Blood Pressure 137/58 L 137/58 L 133/62 Pulse Oximetry 96 96 95 06/02/21 15:14 Temperature 97.6 F Pulse Rate 67 Respiratory Rate 16 Blood Pressure 117/52 L Pulse Oximetry 95 BMI result Body Mass Index 23.0 <EMILEE Dotson - Last Filed: 06/02/21 08:55> Appearance: Alert. Oriented X3. No acute distress. Kyphotic Eyes: Pupils equal, round and reactive to light. ENT: Pharynx normal. Neck: Patient is sitting and kyphotic position with extreme limited motion of the neck, pain with rotation of the head to the right more than left. She has palpable muscle spasm of the superior trapezius, no midline tenderness. CVS: Normal heart rate and rhythm. Audible systolic click murmur Respiratory: No respiratory distress. Breath sounds normal. Abdomen: Soft and nontender. +BS x4 Back: Diffuse soft tissue and midline tenderness of the lumbar area. Skin: Skin warm and dry. Normal skin color. Normal skin turgor. No rashes. Extremities: Distal lower extremities with chronic venous stasis changes, trace lower extremity edema. Mild bilateral knee swelling with significant tenderness of the right knee joint. Right knee is warm with minimal erythema medially. Pain with movement beyond 30 degrees and when fully extending. Neuro: Oriented X 3. No motor deficit. No sensory deficit. Gait not tested due to pain <EMILEE Griffiths - Last Filed: 06/01/21 23:58> Course Course Course Narrative: 85-year-old female with multiple comorbidities including aortic valve replacement on Coumadin, HTN, hypothyroidism, arthritis, asthma, AFib, ps eudogout who presents to the ER from home via EMS with multiple acute on chronic pain complaints including pain in the neck, lower back, knee joints. She was here for the same on 05/[address] scans done. She was discharged home with benzodiazepines and narcotic pain medication to help with her pain. She reported brief improvement. Today pain is so severe she is unable to mobilize at home. Her right knee is slightly warm with minimal erythema, does not appear to be a septic joint. Will plan to get x-rays to assess for effusion. Will get basic lab workup. Anticipate she will require placement to short-term rehab given her significant low limited mobility at home. <EMILEE Griffiths - Last Filed: 06/01/21 23:58> Reevaluation(s) Reevaluation #1: H&H is at her baseline mild anemia. Chemistry showing mild hypokalemia, 3.1. Will give 40 mEq use of oral KCl. Her renal function is normal. Her urinalysis is still pending. Her COVID screening is positive for COVID. She did get 2 COVID vaccinations and is not exhibiting any signs or symptoms of COVID at this time. She is saturating 95-97% on room air and has no cough or respiratory complaints. She denies fever or chills. X-ray of the right knee shows no fracture, destructive process, or focal joint narrowing. There is a probable small suprapatellar effusion with mild thickening distal quadriceps and spurring superior patellar pole. Her INR today is 4.0. She has a history of pseudogout. Unsafe to attempt to tap of a small effusion. Will treat with pain control and immobilization. Will also give short trial of prednisone given age and limited use of NSAIDS. She will need physical therapy. At this time she feels unsafe for discharge home given her pain and limited mobility. Will get physical therapy consult for tomorrow and get case management consult. Physician observation started at 6:35. Patient placed in physician observation because patient is awaiting PT evaluation for possible placement to short-term rehab, jail facility At the time observation was started patient's vital signs were stable. Patient is alert and oriented. Neuro exam is non-focal. CV: RRR and lungs are clear. Will continue to monitor. <EMILEE Griffiths - Last Filed: 06/01/21 23:58> H&H is at her baseline mild anemia. Chemistry showing mild hypokalemia, 3.1. Will give 40 mEq use of oral KCl. Her renal function is normal. Her urinalysis is still pending. Her COVID screening is positive for COVID. She did get 2 COVID vaccinations and is not exhibiting any signs or symptoms of COVID at this time. She is saturating 95-97% on room air and has no cough or respiratory complaints. She denies fever or chills. X-ray of the right knee shows no fracture, destructive process, or focal joint narrowing. There is a probable small suprapatellar effusion with mild thickening distal quadriceps and spurring superior patellar pole. Her INR today is 4.0. She has a history of pseudogout. Unsafe to attempt to tap of a small effusion. Will treat with pain control and immobilization. Will also give short trial of prednisone given age and limited use of NSAIDS. She will need physical therapy. At this time she feels unsafe for discharge home given her pain and limited mobility. Will get physical therapy consult for tomorrow and get case management consult. Physician observation started at 6:35. Patient placed in physician observation because patient is awaiting PT evaluation for possible placement to short-term rehab, jail facility At the time observation was started patient's vital signs were stable. Patient is alert and oriented. Neuro exam is non-focal. CV: RRR and lungs are clear. Will continue to monitor. 06/02/2021 0854: Patient is still under physician observation as we await a PT evaluation and CM placement. Repeat CBC, CMP, and coag studies ordered. Patient has no complaints at this time. Patient is COVID+ as of 06/01/2021. <EMILEE Dotson - Last Filed: 06/02/21 08:55> Medical Decision Making Lab Data Result diagrams: : 06/02/21 10:01 06/02/21 10:01 <EMILEE Griffiths - Last Filed: 06/01/21 23:58> Labs: Lab Results 06/01/21 06/01/21 06/01/21 Range/Units 15:23 15:49 15:49 WBC 6.8 (4.8-10.8) X10*3/uL RBC 3.72 L (4.20-5.50) X10*6/uL Hgb 11.5 L (12.0-16.0) g/dl Hct 36.2 L (37.0-47.0) % MCV 97.3 (80.0-98.0) fL MCH 30.9 (27.0-33.0) pg MCHC 31.8 (31.0-35.0) g/dl RDW 14.0 (11.0-16.0) % Plt Count 292 (160-400) X10*3/uL MPV 10.8 (9.4-12.3) fL Immature Gran % (Auto) 0.3 (0.0-0.4) % Neut % (Auto) 72.7 (45-73) % Lymph % (Auto) 10.8 L (20-40) % Stanton % (Auto) 12.3 H (2-11) % Eos % (Auto) 3.5 (0-4) % Baso % (Auto) 0.4 (0-2) % Lymph # (Auto) 0.7 L (1.2-4.9) X10*3/uL Stanton # (Auto) 0.8 (0.1-1.2) X10*3/uL Eos # (Auto) 0.2 (0.0-0.4) X10*3/uL Baso # (Auto) 0.0 (0.0-0.2) X10*3/uL Abs Immat Gran (auto) 0.02 (0.00-0.03) X10*3/uL Absolute Neuts (auto) 4.9 (2.0-8.3) x10*3/uL Absolute Nucleated RBC 0.000 (0.0-0.012) X10*3/uL Nucleated RBC % (auto) 0.0 (0.0-0.2) /100WBC PT 47.0 H (9.9-13.0) SEC INR 4.0 H (0.9-1.1) APTT 50.8 H (24.1-38.0) SEC Sodium (135-145) mmol/L Potassium (3.3-5.1) mmol/L Chloride (96-108) mmol/L Carbon Dioxide (22-29) mmol/L Anion Gap (12-20) BUN (9-16) mg/dL Creatinine (0.5-1.4) mg/dL Estim Creat Clear Calc Estimated GFR Random Glucose (60-115) mg/dL Calcium (8.4-10.2) mg/dL Magnesium (1.6-2.6) mg/dL Total Bilirubin (0.0-1.0) mg/dL Direct Bilirubin (0.0-0.5) mg/dL AST (5-31) U/L ALT (0-31) U/L Alkaline Phosphatase (39-117) U/L Total Protein (6.5-8.0) g/dL Albumin (3.5-5.0) g/dL COVID-19 (KADY) Positive A (Negative) COVID-19 Clin Com See Note 06/01/21 06/02/21 06/02/21 Range/Units 15:50 10:01 10:01 WBC 7.5 (4.8-10.8) X10*3/uL RBC 3.41 L (4.20-5.50) X10*6/uL Hgb 10.6 L (12.0-16.0) g/dl Hct 33.0 L (37.0-47.0) % MCV 96.8 (80.0-98.0) fL MCH 31.1 (27.0-33.0) pg MCHC 32.1 (31.0-35.0) g/dl RDW 13.8 (11.0-16.0) % Plt Count 256 (160-400) X10*3/uL MPV 11.0 (9.4-12.3) fL Immature Gran % (Auto) 0.3 (0.0-0.4) % Neut % (Auto) 80.2 H (45-73) % Lymph % (Auto) 7.4 L (20-40) % Stanton % (Auto) 12.0 H (2-11) % Eos % (Auto) 0.0 (0-4) % Baso % (Auto) 0.1 (0-2) % Lymph # (Auto) 0.6 L (1.2-4.9) X10*3/uL Stanton # (Auto) 0.9 (0.1-1.2) X10*3/uL Eos # (Auto) 0.0 (0.0-0.4) X10*3/uL Baso # (Auto) 0.0 (0.0-0.2) X10*3/uL Abs Immat Gran (auto) 0.02 (0.00-0.03) X10*3/uL Absolute Neuts (auto) 6.0 (2.0-8.3) x10*3/uL Absolute Nucleated RBC 0.000 (0.0-0.012) X10*3/uL Nucleated RBC % (auto) 0.0 (0.0-0.2) /100WBC PT Cancelled (9.9-13.0) SEC INR Cancelled (0.9-1.1) APTT (24.1-38.0) SEC Sodium 138 (135-145) mmol/L Potassium 3.1 L (3.3-5.1) mmol/L Chloride 102 (96-108) mmol/L Carbon Dioxide 23 (22-29) mmol/L Anion Gap 16 (12-20) BUN 16 (9-16) mg/dL Creatinine 0.76 (0.5-1.4) mg/dL Estim Creat Clear Calc 46.3 Estimated GFR > 60 Random Glucose 98 (60-115) mg/dL Calcium 9.6 (8.4-10.2) mg/dL Magnesium 1.9 (1.6-2.6) mg/dL Total Bilirubin 0.9 (0.0-1.0) mg/dL Direct Bilirubin 0.3 (0.0-0.5) mg/dL AST 22 (5-31) U/L ALT 10 (0-31) U/L Alkaline Phosphatase 112 (39-117) U/L Total Protein 7.7 (6.5-8.0) g/dL Albumin 4.1 (3.5-5.0) g/dL COVID-19 (KADY) (Negative) COVID-19 Clin Com 06/02/21 06/02/21 Range/Units 10:01 10:01 WBC (4.8-10.8) X10*3/uL RBC (4.20-5.50) X10*6/uL Hgb (12.0-16.0) g/dl Hct (37.0-47.0) % MCV (80.0-98.0) fL MCH (27.0-33.0) pg MCHC (31.0-35.0) g/dl RDW (11.0-16.0) % Plt Count (160-400) X10*3/uL MPV (9.4-12.3) fL Immature Gran % (Auto) (0.0-0.4) % Neut % (Auto) (45-73) % Lymph % (Auto) (20-40) % Stanton % (Auto) (2-11) % Eos % (Auto) (0-4) % Baso % (Auto) (0-2) % Lymph # (Auto) (1.2-4.9) X10*3/uL Stanton # (Auto) (0.1-1.2) X10*3/uL Eos # (Auto) (0.0-0.4) X10*3/uL Baso # (Auto) (0.0-0.2) X10*3/uL Abs Immat Gran (auto) (0.00-0.03) X10*3/uL Absolute Neuts (auto) (2.0-8.3) x10*3/uL Absolute Nucleated RBC (0.0-0.012) X10*3/uL Nucleated RBC % (auto) (0.0-0.2) /100WBC PT 44.1 H (9.9-13.0) SEC INR 3.8 H (0.9-1.1) APTT 46.4 H (24.1-38.0) SEC Sodium 138 (135-145) mmol/L Potassium 4.6 D (3.3-5.1) mmol/L Chloride 103 (96-108) mmol/L Carbon Dioxide 25 (22-29) mmol/L Anion Gap 15 (12-20) BUN 19 H (9-16) mg/dL Creatinine 0.73 (0.5-1.4) mg/dL Estim Creat Clear Calc 48.3 Estimated GFR > 60 Random Glucose 134 H (60-115) mg/dL Calcium 9.3 (8.4-10.2) mg/dL Magnesium (1.6-2.6) mg/dL Total Bilirubin 0.8 (0.0-1.0) mg/dL Direct Bilirubin (0.0-0.5) mg/dL AST 23 (5-31) U/L ALT 11 (0-31) U/L Alkaline Phosphatase 98 (39-117) U/L Total Protein 7.1 (6.5-8.0) g/dL Albumin 3.6 (3.5-5.0) g/dL COVID-19 ([facility]Y) (Negative) COVID-19 Clin Com <EMILEE Griffiths - Last Filed: 06/01/21 23:58> Lab Results 06/01/21 06/01/21 06/01/21 Range/Units 15:23 15:49 15:49 WBC 6.8 (4.8-10.8) X10*3/uL RBC 3.72 L (4.20-5.50) X10*6/uL Hgb 11.5 L (12.0-16.0) g/dl Hct 36.2 L (37.0-47.0) % MCV 97.3 (80.0-98.0) fL MCH 30.9 (27.0-33.0) pg MCHC 31.8 (31.0-35.0) g/dl RDW 14.0 (11.0-16.0) % Plt Count 292 (160-400) X10*3/uL MPV 10.8 (9.4-12.3) fL Immature Gran % (Auto) 0.3 (0.0-0.4) % Neut % (Auto) 72.7 (45-73) % Lymph % (Auto) 10.8 L (20-40) % Stanton % (Auto) 12.3 H (2-11) % Eos % (Auto) 3.5 (0-4) % Baso % (Auto) 0.4 (0-2) % Lymph # (Auto) 0.7 L (1.2-4.9) X10*3/uL Stanton # (Auto) 0.8 (0.1-1.2) X10*3/uL Eos # (Auto) 0.2 (0.0-0.4) X10*3/uL Baso # (Auto) 0.0 (0.0-0.2) X10*3/uL Abs Immat Gran (auto) 0.02 (0.00-0.03) X10*3/uL Absolute Neuts (auto) 4.9 (2.0-8.3) x10*3/uL Absolute Nucleated RBC 0.000 (0.0-0.012) X10*3/uL Nucleated RBC % (auto) 0.0 (0.0-0.2) /100WBC PT 47.0 H (9.9-13.0) SEC INR 4.0 H (0.9-1.1) APTT 50.8 H (24.1-38.0) SEC Sodium (135-145) mmol/L Potassium (3.3-5.1) mmol/L Chloride (96-108) mmol/L Carbon Dioxide (22-29) mmol/L Anion Gap (12-20) BUN (9-16) mg/dL Creatinine (0.5-1.4) mg/dL Estim Creat Clear Calc Estimated GFR Random Glucose (60-115) mg/dL Calcium (8.4-10.2) mg/dL Magnesium (1.6-2.6) mg/dL Total Bilirubin (0.0-1.0) mg/dL Direct Bilirubin (0.0-0.5) mg/dL AST (5-31) U/L ALT (0-31) U/L Alkaline Phosphatase (39-117) U/L Total Protein (6.5-8.0) g/dL Albumin (3.5-5.0) g/dL COVID-19 ([facility]) Positive A (Negative) COVID-19 Clin Com See Note 06/01/21 06/02/21 06/02/21 Range/Units 15:50 10:01 10:01 WBC 7.5 (4.8-10.8) X10*3/uL RBC 3.41 L (4.20-5.50) X10*6/uL Hgb 10.6 L (12.0-16.0) g/dl Hct 33.0 L (37.0-47.0) % MCV 96.8 (80.0-98.0) fL MCH 31.1 (27.0-33.0) pg MCHC 32.1 (31.0-35.0) g/dl RDW 13.8 (11.0-16.0) % Plt Count 256 (160-400) X10*3/uL MPV 11.0 (9.4-12.3) fL Immature Gran % (Auto) 0.3 (0.0-0.4) % Neut % (Auto) 80.2 H (45-73) % Lymph % (Auto) 7.4 L (20-40) % Stanton % (Auto) 12.0 H (2-11) % Eos % (Auto) 0.0 (0-4) % Baso % (Auto) 0.1 (0-2) % Lymph # (Auto) 0.6 L (1.2-4.9) X10*3/uL Stanton # (Auto) 0.9 (0.1-1.2) X10*3/uL Eos # (Auto) 0.0 (0.0-0.4) X10*3/uL Baso # (Auto) 0.0 (0.0-0.2) X10*3/uL Abs Immat Gran (auto) 0.02 (0.00-0.03) X10*3/uL Absolute Neuts (auto) 6.0 (2.0-8.3) x10*3/uL Absolute Nucleated RBC 0.000 (0.0-0.012) X10*3/uL Nucleated RBC % (auto) 0.0 (0.0-0.2) /100WBC PT Cancelled (9.9-13.0) SEC INR Cancelled (0.9-1.1) APTT (24.1-38.0) SEC Sodium 138 (135-145) mmol/L Potassium 3.1 L (3.3-5.1) mmol/L Chloride 102 (96-108) mmol/L Carbon Dioxide 23 (22-29) mmol/L Anion Gap 16 (12-20) BUN 16 (9-16) mg/dL Creatinine 0.76 (0.5-1.4) mg/dL Estim Creat Clear Calc 46.3 Estimated GFR > 60 Random Glucose 98 (60-115) mg/dL Calcium 9.6 (8.4-10.2) mg/dL Magnesium 1.9 (1.6-2.6) mg/dL Total Bilirubin 0.9 (0.0-1.0) mg/dL Direct Bilirubin 0.3 (0.0-0.5) mg/dL AST 22 (5-31) U/L ALT 10 (0-31) U/L Alkaline Phosphatase 112 (39-117) U/L Total Protein 7.7 (6.5-8.0) g/dL Albumin 4.1 (3.5-5.0) g/dL COVID-19 ([facility]) (Negative) COVID-19 Clin Com 06/02/21 06/02/21 Range/Units 10:01 10:01 WBC (4.8-10.8) X10*3/uL RBC (4.20-5.50) X10*6/uL Hgb (12.0-16.0) g/dl Hct (37.0-47.0) % MCV (80.0-98.0) fL MCH (27.0-33.0) pg MCHC (31.0-35.0) g/dl RDW (11.0-16.0) % Plt Count (160-400) X10*3/uL MPV (9.4-12.3) fL Immature Gran % (Auto) (0.0-0.4) % Neut % (Auto) (45-73) % Lymph % (Auto) (20-40) % Stanton % (Auto) (2-11) % Eos % (Auto) (0-4) % Baso % (Auto) (0-2) % Lymph # (Auto) (1.2-4.9) X10*3/uL Stanton # (Auto) (0.1-1.2) X10*3/uL Eos # (Auto) (0.0-0.4) X10*3/uL Baso # (Auto) (0.0-0.2) X10*3/uL Abs Immat Gran (auto) (0.00-0.03) X10*3/uL Absolute Neuts (auto) (2.0-8.3) x10*3/uL Absolute Nucleated RBC (0.0-0.012) X10*3/uL Nucleated RBC % (auto) (0.0-0.2) /100WBC PT 44.1 H (9.9-13.0) SEC INR 3.8 H (0.9-1.1) APTT 46.4 H (24.1-38.0) SEC Sodium 138 (135-145) mmol/L Potassium 4.6 D (3.3-5.1) mmol/L Chloride 103 (96-108) mmol/L Carbon Dioxide 25 (22-29) mmol/L Anion Gap 15 (12-20) BUN 19 H (9-16) mg/dL Creatinine 0.73 (0.5-1.4) mg/dL Estim Creat Clear Calc 48.3 Estimated GFR > 60 Random Glucose 134 H (60-115) mg/dL Calcium 9.3 (8.4-10.2) mg/dL Magnesium (1.6-2.6) mg/dL Total Bilirubin 0.8 (0.0-1.0) mg/dL Direct Bilirubin (0.0-0.5) mg/dL AST 23 (5-31) U/L ALT 11 (0-31) U/L Alkaline Phosphatase 98 (39-117) U/L Total Protein 7.1 (6.5-8.0) g/dL Albumin 3.6 (3.5-5.0) g/dL COVID-19 ([facility]) (Negative) COVID-19 Clin Com <EMILEE Dotson - Last Filed: 06/02/21 08:55> Discharge Plan Discharge Clinical Impression: Effusion of right knee, Supratherapeutic INR, Chronic low back pain, Cer vical muscle strain, COVID-19 <EMILEE Griffiths - Last Filed: 06/01/21 23:58> Patient Disposition: Still a Patient <EMILEE Griffiths - Last Filed: 06/01/21 23:58> Prescriptions: No Action warfarin [Jantoven] 2.5 mg tablet 2.5 tab PO TU 0RF warfarin 2.5 mg tablet 5 mg PO 0RF Protocol: Dose Management Condition: Monday (Week One) Dose/Route: 5 mg Instruction: 2 x 2.5 mg tablets Condition: Monday Dose/Route: 5 mg Instruction: 2 x 2.5 mg tablets Condition: Monday Dose/Route: 2.5 mg Instruction: 1 x 2.5 mg tablet Condition: Monday Dose/Route: 5 mg Instruction: 2 x 2.5 mg tablets Condition: Dose/Route: 5 mg Instruction: 2 x 2.5 mg tablets Condition: Monday Dose/Route: 5 mg Instruction: 2 x 2.5 mg tablets Condition: Monday Dose/Route: 5 mg Instruction: 2 x 2.5 mg tablets Condition: Monday (Week Two) Dose/Route: 5 mg Instruction: 2 x 2.5 mg tablets Condition: Monday Dose/Route: 5 mg Instruction: 2 x 2.5 mg tablets Condition: Monday Dose/Route: 2.5 mg Instruction: 1 x 2.5 mg tablet Condition: Monday Dose/Route: 5 mg Instruction: 2 x 2.5 mg tablets Condition: Dose/Route: 5 mg Instruction: 2 x 2.5 mg tablets Condition: Monday Dose/Route: 5 mg Instruction: 2 x 2.5 mg tablets Condition: Monday Dose/Route: 5 mg Instruction: 2 x 2.5 mg tablets Protocol Text: Adjustment Start Date: Monday05/24/21 INR Value: 2.5 INR Date: 05/21/21 Recheck Date: 05/31/21 Additional Instructions: CONT SAME DOSE , MODIFY DIET , CALL [facility] FOR FURTHER ASSESSMENT Rx Instructions: 5MG DAILY EXCEPT 2.5MG fexofenadine [Harini] 180 mg Tablet 180 mg PO DAILY 0RF acetaminophen 500 mg Tablet 500 mg PO BID 0RF ketorolac 0.5 % Drops 1 drp ophthalmic-Left BID 0RF fluticasone propion-salmeterol 250-50 mcg/dose blister with device 1 ea PO Q12H 0RF levothyroxine 50 mcg tablet 50 mcg PO SUMOTUWETHFR 0RF Label Comments: doesn't take on saturdays atorvastatin 40 mg tablet 40 mg PO BEDTIME 0RF Entresto 97-103 mg tablet 1 tab PO BID 0RF furosemide 20 mg tablet 20 mg PO DAILY 0RF carvedilol 25 mg tablet 25 mg PO BID 0RF Farxiga 10 mg tablet 10 mg PO DAILY 0RF <EMILEE Griffiths - Last Filed: 06/01/21 23:58>
[2021-06-01] MEDS: oxyCODONE HCl Immed Release 5 MG TABLET PO (15:34)
[2021-06-01] MEDS: Lidocaine 4 % Patch ADH..PATCH 1 PATCH TRANSDERMA (15:35)
[2021-06-01 15:42] LABS: COVID-19 Test Positive (Negative)
[2021-06-01 15:53] LABS: MANUAL DIFF FLAG NO
[2021-06-01 15:55] LABS: Basophils Percent Auto 0.4 % (0-2); Eosinophils Absolute Auto 0.2 X10*3/uL (0.0-0.4); Eosinophils Percent Auto 3.5 % (0-4); Hematocrit 36.2 % (37.0-47.0); Hemoglobin 11.5 g/dl (12.0-16.0); Imm Gran Abs Auto 0.02 X10*3/uL (0.00-0.03); Imm Gran Pct Auto 0.3 % (0.0-0.4); Lymphocytes Absolute Auto 0.7 X10*3/uL (1.2-4.9); Lymphocytes Percent Auto 10.8 % (20-40); Mean Corpuscular HGB Conc 31.8 g/dl (31.0-35.0); Mean Corpuscular Hemoglobin 30.9 pg (27.0-33.0); Mean Corpuscular Volume 97.3 fL (80.0-98.0); Mean Platelet Volume 10.8 fL (9.4-12.3); Monocytes Absolute Auto 0.8 X10*3/uL (0.1-1.2); Monocytes Percent Auto 12.3 % (2-11); Neutrophils Absolute Auto 4.9 x10*3/uL (2.0-8.3); Neutrophils Percent Auto 72.7 % (45-73); Platelet Count 292 X10*3/uL (160-400); Red Blood Count 3.72 X10*6/uL (4.20-5.50); White Blood Count 6.8 X10*3/uL (4.8-10.8)
[2021-06-01 16:04] LABS: Partial Thromboplastin Time 50.8 SEC (24.1-38.0)
[2021-06-01 16:20] LABS: Alanine Aminotransferase 10 U/L (0-31); Albumin Level 4.1 g/dL (3.5-5.0); Alkaline Phosphatase 112 U/L (39-117); Anion Gap 16 (12-20); Aspartate Amino Transferase 22 U/L (5-31); Bilirubin Direct 0.3 mg/dL (0.0-0.5); Bilirubin Total 0.9 mg/dL (0.0-1.0); Blood Urea Nitrogen 16 mg/dL (9-16); Calcium 9.6 mg/dL (8.4-10.2); Carbon Dioxide 23 mmol/L (22-29); Chloride 102 mmol/L (96-108); Creatinine Clr Calc Pharmacy 46.3; Estimated Glomerular Filt Rate > 60; Glucose Random 98 mg/dL (60-115); Magnesium 1.9 mg/dL (1.6-2.6); Potassium 3.1 mmol/L (3.3-5.1); Sodium 138 mmol/L (135-145); Total Protein 7.7 g/dL (6.5-8.0)
[2021-06-01 16:35] VITALS: BP 147/65; PULSE 71; RESP 18; O2SAT 97
[2021-06-01 18:39] VITALS: BP 146/69; PULSE 75; RESP 14; O2SAT 93
[2021-06-01 19:04] VITALS: BP 148/63; PULSE 95; RESP 16; TEMP 37.5; O2SAT 94
[2021-06-01] MEDS: Potassium Chloride Packet 20 MEQ PACKET 40 MEQ PO (19:10)
[2021-06-01] MEDS: predniSONE 20 MG TABLET PO (19:10)
--- NOTE | 2021-06-01 19:13 | PC.NURSE ---
pt a&ox3, vss - pt warm to touch, but not febrile, medicated per provider order. pt requesting phone to call . case management is attempting to find placement, pt consult in am, provider notified re diet request. no new orders at this time.
[2021-06-01 20:16] VITALS: BP 147/67; PULSE 70; RESP 16; O2SAT 95
--- NOTE | 2021-06-01 20:18 | MHC.CM.ED ---
Addendum entered by Rahel Obregon 06/01/21 21:22: Referrals placed with [facility] [place] and [place], the facilities that are contracted with [facility] and accept covid positive patients. Pt aware. Will follow in am. Original Note: CM met with A&Ox3 patient who lives with her , cares for him, uses no DME or services, but has them for her . Pt still drives locally. Daughter's live in [place] and [place]. Has HCP at home, but is unsure where. HCP reviewed, completed and signed. HCP/daughter Gabriella Charles ([phone]).Pt is Covid positive today. Asymptomatic. Fully vax/boosted x1/Pfizer. PT pending. Pt agreeable to STR. Pt tells CM that her is a bilateral LL amputation and has RECREATION LEADER M_F from 8-12 and 4-8pm through [employer]. Pt tells CM there is a cane, walker and wheelchair in her home and she used the walker today. Pt requested that CM call her with update and plan of care. CM called and spoke with , Hermes, who tells me the RECREATION LEADER is speaking with his maintenance and engineering manager to provide overnight care for her stacy. is aware of plan of care. CM suggested he call his daughter's, as if recommended, his will go to rehab for 1-2 weeks. aware that CM will call him in the morning with PT recommendations and plan of care for his . CM spoke with patient and explained that CM is caring for her and not her at this time and cannot make care arrangements for him. D/C plan pending PT recommendations, probably STR. Referrals placed that accept [facility] and Covid positive patients. Will need transportation. CM to follow for d/c needs.
--- NOTE | 2021-06-01 20:54 | PHA.MEDREC ---
Pharmacy Consult ? Medication Reconciliation Pharmacy has completed the medication reconciliation. No remarkable issues. Ashleigh Bah, JenniferD
[2021-06-01 22:21] VITALS: BP 123/44; PULSE 70; RESP 16; O2SAT 94
--- NOTE | 2021-06-01 22:36 | PC.NURSE ---
pt c/o increased pain with movement.
[2021-06-02] VITALS (7 sets, daily range): BP systolic 114–137; BP diastolic 52–62; PULSE 61–73; RESP 14–18; TEMP 36.4–36.7; O2SAT 95–96
[2021-06-02] MEDS: Levothyroxine Sodium 50 MCG TABLET PO (06:17)
--- NOTE | 2021-06-02 06:24 | PC.NURSE ---
I assumed nursing care of Raven at 2300. Since that time Raven has been sleeping. She wakes when I enter the room, however she has otherwise slept throughout the night. She continue to complain of neck pain - Lidocaine patch in place since prior to I assumed care. pt is awaiting a PT eval and verbalizes an understanding of this.
[2021-06-02] MEDS: Fluticasone/Vilanterol 100/25 BLST.W.DEV 1 PUFF INHALE (07:32)
[2021-06-02] MEDS: Furosemide 20 MG TABLET PO (07:33)
[2021-06-02] MEDS: predniSONE 20 MG TABLET PO (07:33)
[2021-06-02] MEDS: Sacubitril/Valsartan 97/103 1 TAB TABLET PO ×2 (07:33→23:07)
[2021-06-02] MEDS: Empagliflozin 10 MG TABLET PO (07:33)
[2021-06-02] MEDS: Loratadine 10 MG TABLET PO (07:34)
[2021-06-02] MEDS: Acetaminophen 325 MG TABLET 650 MG PO ×2 (07:34→22:31)
--- NOTE | 2021-06-02 08:41 | MHC.CM.ED ---
Addendum entered by Leslie Prince 06/02/21 13:14: [facility] doesn't have a bed today. But will re-eval tomorrow. [facility] and [facility] are both currently reviewing. Both of these are located in [place]. Original Note: Patient remains in ER. Physical therapy eval completed. Short term rehab is recommended. [place] has no bed availabity for Covid positive patients. Referral has been broadcasted within 50 miles of patient's residence. Continue to monitor for d/c needs.
[2021-06-02] MEDS: oxyCODONE HCl Immed Release 5 MG TABLET PO (09:45)
[2021-06-02 10:09] LABS: MANUAL DIFF FLAG NO
[2021-06-02 10:12] LABS: Basophils Percent Auto 0.1 % (0-2); Hemoglobin 10.6 g/dl (12.0-16.0); Imm Gran Abs Auto 0.02 X10*3/uL (0.00-0.03); Imm Gran Pct Auto 0.3 % (0.0-0.4); Lymphocytes Absolute Auto 0.6 X10*3/uL (1.2-4.9); Lymphocytes Percent Auto 7.4 % (20-40); Mean Corpuscular HGB Conc 32.1 g/dl (31.0-35.0); Mean Corpuscular Hemoglobin 31.1 pg (27.0-33.0); Mean Corpuscular Volume 96.8 fL (80.0-98.0); Monocytes Absolute Auto 0.9 X10*3/uL (0.1-1.2); Neutrophils Percent Auto 80.2 % (45-73); Platelet Count 256 X10*3/uL (160-400); Red Blood Count 3.41 X10*6/uL (4.20-5.50); Red Cell Distribution Width 13.8 % (11.0-16.0); White Blood Count 7.5 X10*3/uL (4.8-10.8)
[2021-06-02 10:22] LABS: INTERNATIONAL NORM RATIO 3.8 (0.9-1.1); Prothrombin Time 44.1 SEC (9.9-13.0)
[2021-06-02 10:24] LABS: Partial Thromboplastin Time 46.4 SEC (24.1-38.0)
[2021-06-02 10:33] LABS: Alanine Aminotransferase 11 U/L (0-31); Albumin Level 3.6 g/dL (3.5-5.0); Alkaline Phosphatase 98 U/L (39-117); Anion Gap 15 (12-20); Aspartate Amino Transferase 23 U/L (5-31); Bilirubin Total 0.8 mg/dL (0.0-1.0); Blood Urea Nitrogen 19 mg/dL (9-16); Calcium 9.3 mg/dL (8.4-10.2); Carbon Dioxide 25 mmol/L (22-29); Chloride 103 mmol/L (96-108); Creatinine Clr Calc Pharmacy 48.3; Estimated Glomerular Filt Rate > 60; Glucose Random 134 mg/dL (60-115); Potassium 4.6 mmol/L (3.3-5.1); Sodium 138 mmol/L (135-145); Total Protein 7.1 g/dL (6.5-8.0)
--- NOTE | 2021-06-02 15:58 | MHC.CM.ED ---
CM met with patient with regards to plan of care. Pt aware that [facility] is still working on a STR for her. Pt agreeable to search in [place]. [facility] will re-evaluate in the morning. Pt in good spirits, c/o only knee, back and neck pain. No Covid symptoms. Pt states she has spoken with her and her daughter. Her daughter is working on overnight CHAIR for him while he is in rehab. CM then called Hermes and updated him on plan of care. Hermes tells JAYNE that his daughter is working on CHAIR overnight coverage for him and that he had someone stay last night. CM told Hermes if he feels unsafe at home, he should come to the emergency room. Hermes acknowledges understanding. Hermes tells JAYNE he completed a home test and he is still negative Covid. CM to follow for d/c needs.
--- NOTE | 2021-06-02 22:05 | PC.NURSE ---
Pt is resting comfortably. Awaiting placement for short term rehab. No needs at this time. Will continue to monitor.
[2021-06-02 22:29] LABS: Appearance Urine CLEAR; Color Urine YELLOW; Glucose Urine UA >=1000 MG/DL (NEG); Leukocyte Esterase Urine NEG (NEG); Nitrite Urine NEG (NEG); PH 5.5 (5.0-8.0); UACC Culture Trigger NO; Urine Blood 2+ (NEG); Urine Ketones 5 MG/DL (NEG); Urine Protein NEG (NEG-TRACE)
[2021-06-02] MEDS: Atorvastatin Calcium 40 MG TABLET PO (22:32)
[2021-06-02 22:47] LABS: Bacteria Urine 1+ /LPF; Squamous Epithelial Cell Urine TRACE /LPF; WBC Urine 0-2 /HPF (0-4)
--- NOTE | 2021-06-03 02:49 | PC.NURSE ---
Pt used bed lynn and was boosted and bed. No further needs. Will continue to monitor.
[2021-06-03 05:14] VITALS: BP 106/44; PULSE 65; RESP 14; TEMP 36.7; O2SAT 94
[2021-06-03] MEDS: Levothyroxine Sodium 50 MCG TABLET PO (06:19)
[2021-06-03] MEDS: Acetaminophen 325 MG TABLET 650 MG PO (08:14)
[2021-06-03] MEDS: Sacubitril/Valsartan 97/103 1 TAB TABLET PO (08:14)
[2021-06-03] MEDS: predniSONE 20 MG TABLET PO (08:14)
[2021-06-03] MEDS: Furosemide 20 MG TABLET PO (08:15)
[2021-06-03] MEDS: Loratadine 10 MG TABLET PO (08:15)
[2021-06-03] MEDS: Fluticasone/Vilanterol 100/25 BLST.W.DEV 1 PUFF INHALE (08:16)
[2021-06-03] MEDS: Empagliflozin 10 MG TABLET PO (08:16)
[2021-06-03 08:25] VITALS: BP 117/84; PULSE 61; RESP 14; TEMP 36.6; O2SAT 98
--- NOTE | 2021-06-03 09:35 | PC.NURSE ---
PT WAS ABLE TO GET OOB TO BEDSIDE COMMODE WITH ASSIST OF ONE. SHE STATES SHE HAS BASELINE PAIN IN HER KNEE AND NECK
[2021-06-03 10:23] LABS: INTERNATIONAL NORM RATIO 3.8 (0.9-1.1); Prothrombin Time 44.8 SEC (9.9-13.0)
--- NOTE | 2021-06-03 10:38 | MHC.CM.ED ---
[facility] is unable to offer a bed. [facility] in [place] is able to offer a bed. Patient agreeable to bed. Patient can leave at 1230pm. Patient, Trey Mirza RN and Annabella HEBERT aware. [facility] booked. Med nec with chart. Continue to monitor for d/c needs.
--- NOTE | 2021-06-03 11:21 | PC.NURSE ---
report called to [facility] pt awaiting ambulace transfer to facility
--- NOTE | 2021-06-03 11:52 | PC.NURSE ---
ACCEPTED @ [facility], BY DR GONCALVES, [address] [place] [address], PHONE: [phone]
[2021-06-03 12:00] VITALS: BP 131/59; PULSE 65; RESP 18; O2SAT 96
[2021-06-03] MEDS: Lidocaine 4 % Patch ADH..PATCH 1 PATCH TRANSDERMA (12:29)
--- NOTE | 2021-06-03 12:30 | PC.NURSE ---
pt a&ox3, vss, lidocaine patch applied, pt awaiting transport.
== END 2021-06-03 12:58 | disposition skilled nursing facility (03) ==
PROVIDERS: Physician Assistant; Physician Assistant Medical; Emergency Provider Emergency Medicine; PCP Internal Medicine
DX: U07.1 COVID-19 (principal); M54.50 Low back pain, unspecified; M54.2 Cervicalgia; M25.461 Effusion, right knee; I10 Essential (primary) hypertension; Z79.899 Other long term (current) drug therapy; Z79.01 Long term (current) use of anticoagulants
CPT/HCPCS: 36415; 73564; 80048; 80053; 80076; 81001; 83735; 85025; 85610; 85730; 87635; 97162; 99285

== ENCOUNTER 2021-06-22 16:53 | Inpatient (IN) | payer MEDICARE, OTHER, SELFPAY ==
[2021-06-22] VITALS (11 sets, daily range): BP systolic 70–97; BP diastolic 38–53; PULSE 62–126; RESP 14–18; TEMP 36.5–36.6; O2SAT 96–100; BMI 22.6
--- NOTE | ~2021-06-22 | XR_ITS ---
EXAMINATION: XR CHEST CLINICAL INFORMATION: Pneumonia COMPARISON: CT chest 06/04/2020 TECHNIQUE: Frontal portable view of the chest was obtained. 5:55 PM FINDINGS: Status post median sternotomy. Annuloplasty ring. Pacemaker leads in right atrium and right ventricle. Heart size is normal. There are vascular calcifications of aorta. No acute abnormality. No pulmonary vascular congestion. No focal consolidation, pleural effusion or pneumothorax. XR/XR chest 1V IMPRESSION: No acute abnormality of the chest.
--- NOTE | ~2021-06-22 | XR_ITS ---
EXAMINATION: XR KNEE, RIGHT CLINICAL INFORMATION: Pain COMPARISON: Radiographs of the right knee 06/01/2021 TECHNIQUE: AP and lateral views of the right knee. FINDINGS: There is normal alignment. No acute fracture or dislocation. There is patellofemoral joint space narrowing with associated osteophyte formation. Again demonstrated is mild thickening of the distal quadriceps tendon and likely small suprapatellar joint effusion. Overlying soft tissues are intact. There are vascular calcifications. XR/XR knee RT 2V IMPRESSION: No acute bony abnormality of the right knee. Degenerative changes of the patellofemoral joint are again demonstrated. Unchanged mild thickening of the distal quadriceps tendon.
--- NOTE | ~2021-06-22 | CT_ITS ---
EXAMINATION: CT HEAD WITHOUT CONTRAST CLINICAL INFORMATION: High INR. Generalized weakness. COMPARISON: None. TECHNIQUE: Contiguous axial imaging was performed from the skull base to vertex without intravenous contrast. This CT examination was performed using dose optimization techniques as appropriate, variously including the following: * Automated exposure control * Adjustment of mA and/or kV according to patient size (this includes techniques or standardized protocols for targeted exams where dose is matched to indication/reason for exam; i.e. extremities or head) Use of iterative reconstruction technique DLP: 641 mGy-cm. FINDINGS: There is no evidence of acute intracranial hemorrhage or territorial infarction. No abnormal mass effect or midline shift is seen. Fraser to white matter differentiation is well preserved. No extra-axial fluid collections are identified. No hydrocephalus. Proportional prominence of the ventricles and sulcal spaces is consistent with mild volume loss. Patchy periventricular and deep white matter hypoattenuation is consistent with mild small vessel ischemic changes. The osseous structures and soft tissues are normal. The mastoid air cells and visualized portions of the paranasal sinuses are well aerated. CT/CT head/brain wo con IMPRESSION: No acute intracranial pathology.
--- NOTE | ~2021-06-22 | CT_ITS ---
EXAMINATION: CT ABDOMEN AND PELVIS WITHOUT CONTRAST CLINICAL INFORMATION: Acute kidney injury with colitis COMPARISON: CT abdomen pelvis 10/14/2015 TECHNIQUE: Multidetector volumetric imaging was performed from the superior aspect of the liver through the pubic symphysis. Sagittal and coronal reformatted images were obtained on the technologist's workstation. This CT examination was performed using dose optimization techniques as appropriate, variously including the following: *Automated exposure control *Adjustment of mA and/or kV according to patient size (this includes techniques or standardized protocols for targeted exams where dose is matched to indication/reason for exam; i.e. extremities or head) *Use of iterative reconstruction technique DLP: 703 mGy-cm FINDINGS: LUNG BASES: Bibasilar atelectasis. Cardiomegaly with marked left atrial enlargement. Partially imaged cardiac pacemaker leads terminating in the right atrium and ventricle. Coronary artery calcification. Partially imaged aortic valve prosthesis. ABDOMINAL AND PELVIC WALL: Unremarkable. LIVER AND BILIARY TREE: Unremarkable. GALLBLADDER: Unremarkable. PANCREAS: Unremarkable. SPLEEN: Unremarkable. ADRENAL GLANDS: Unremarkable. KIDNEYS AND URETERS: Right kidney is relatively atrophic with respect to the contralateral side which may reflect sequelae of chronic medical renal disease. Kidney is unremarkable. GASTROINTESTINAL TRACT: Colonic diverticulosis without findings to suggest diverticulitis. There is short segment focal colonic wall thickening involving the cecum new from remote priors with subtle infiltration of mesenteric fat. No findings to suggest appendicitis. VASCULAR: Atherosclerosis of the abdominal aorta and major branch vessels. LYMPH NODES/PERITONEUM: No lymphadenopathy. FREE FLUID: None. BLADDER: Unremarkable. PELVIC VISCERA: Unremarkable. OSSEOUS STRUCTURES: New age-indeterminate wedge compression deformities of the L3 vertebral body with approximately 50% height loss and the L1 vertebral body with approximately 20% height loss. Stable wedge compression deformity of the T11 vertebral body with 75% height loss. CT/CT abdomen pelvis wo con IMPRESSION: Focal short segment colonic wall thickening involving the cecum new from priors with subtle infiltration of the mesenteric fat. Differential considerations would include primary colonic malignancy or focal colitis. Correlation with colonoscopy is recommended when clinically appropriate. Right kidney is relatively atrophic with respect to the contralateral side which may reflect sequelae of chronic medical renal disease. New age-indeterminate wedge compression deformities of the L3 vertebral body with approximately 50% height loss and the L1 vertebral body with approximately 20% height loss. Cardiomegaly with marked left atrial enlargement.
--- NOTE | ~2021-06-22 | CT_ITS ---
EXAMINATION: CT ABDOMEN AND PELVIS WITHOUT CONTRAST CLINICAL INFORMATION: Ischemic colitis. COMPARISON: CT abdomen and pelvis from 06/22/2021. TECHNIQUE: Multidetector volumetric imaging was performed from the superior aspect of the liver through the pubic symphysis. Sagittal and coronal reformatted images were obtained on the technologist's workstation. This CT examination was performed using dose optimization techniques as appropriate, variously including the following: *Automated exposure control *Adjustment of mA and/or kV according to patient size (this includes techniques or standardized protocols for targeted exams where dose is matched to indication/reason for exam; i.e. extremities or head) *Use of iterative reconstruction technique DLP: 374 mGy-cm FINDINGS: LUNG BASES: Again noted is the cardiomegaly, replaced aortic and mitral valves and dual-chamber cardiac pacing leads in place. There is atherosclerotic disease of coronary arteries and thoracic aorta. No pericardial effusion. Small right pleural effusion is new compared to 06/22/2021. Mild atelectasis in lower lobes. Subsegmental atelectasis in the partially visualized middle lobe and inferior lingula. LIVER: The liver has normal size, shape, and attenuation. No evidence of liver mass. GALLBLADDER AND BILIARY TREE: Gallbladder is underdistended. No dilated bile ducts. No dilated bile ducts. PANCREAS: No acute findings within the atrophied pancreas. No edema, pancreatic ductal dilatation or mass. SPLEEN: Normal. ADRENAL GLANDS: Normal. KIDNEYS AND URETERS: No nephrolithiasis or hydronephrosis. Chronic moderate atrophy of the right kidney. BLADDER: Unremarkable. BOWEL AND PERITONEUM: Stomach and small bowel are unremarkable. No dilated bowel loops. No bowel wall edema or bowel wall hemorrhage. No residual wall thickening of the cecum. There are diverticula of the sigmoid colon without diverticulitis. No wall thickening of the rectum, which is mildly distended with fecal material. No bowel wall pneumatosis or pneumoperitoneum. No abdominal free fluid. ABDOMINAL WALL: Unremarkable. VASCULATURE: Atherosclerotic calcification of the abdominal aorta and iliofemoral vessels. No aortic aneurysm. There is atherosclerotic calcification of the SMA, splenic artery and renal arteries. LYMPH NODES: No pathologic sized lymph nodes in the abdomen or pelvis. No inguinal lymphadenopathy. PELVIC VISCERA: Uterus and adnexa are unremarkable. No pelvic free fluid. SKELETAL: No acute findings in the degenerated spine. Old, severe at T11 vertebral body compression fracture with approximately 75% anterior height loss. Mild anterior compression fracture of L1 vertebral body is unchanged compared to 06/22/2021. Again noted is moderate compression deformity involving superior and inferior endplates of L3. No new fractures. CT/CT abdomen pelvis wo con IMPRESSION: * No acute imaging abnormalities along the gastrointestinal tract. No evidence of enteritis, colitis or bowel obstruction. There are diverticula of the sigmoid colon without diverticulitis. * Cardiomegaly and atherosclerotic disease of coronary arteries. Small right pleural effusion is new compared to 06/22/2021. * Again noted are vertebral compression fractures. These are unchanged compared to 06/22/2021. * Chronic moderate atrophy of right kidney is likely secondary to vascular insufficiency.
--- NOTE | 2021-06-22 17:33 | ECG_ITS ---
Test Reason : HYPOTENSION Blood Pressure : / mmHG Vent. Rate : 062 BPM Atrial Rate : 064 BPM P-R Int : 000 ms QRS Dur : 170 ms QT Int : 534 ms P-R-T Axes : 000 051 232 degrees QTc Int : 542 ms Possible Atrial-paced rhythm Ventricular-paced rhythm Abnormal ECG No previous ECGs available Referred By: Generic ED Physician Electronically Signed By:ERICK NORMAN MD
--- NOTE | 2021-06-22 17:50 | ED.WEAKNESS ---
HPI - Weakness General Chief complaint: Weakness Stated complaint: n/v, weakness Time Seen by Provider: 06/22/21 17:45 Source: patient Mode of arrival: ambulatory Limitations: no limitations History of Present Illness HPI Narrative: Patient with history of aortic valve replacement on Coumadin, hypertension, hypothyroidism, AFib status post pacemaker, asthma, recent COVID 06/01 got better for last 1 week having diarrhea and increased weakness on arrival patient's blood pressure was 88/49 says she is not eating much no abdominal pain also complaining of slight nausea no vomiting no fever no chills no shortness of breath no cough Related Data Home Medications Medication Instructions Recorded Confirmed atorvastatin 40 mg tablet 40 mg PO BEDTIME 12/26/19 06/22/21 fluticasone 250 mcg-salmeterol 50 1 ea PO BID 12/26/19 06/22/21 mcg/dose blistr powdr for inhalation levothyroxine 50 mcg tablet 50 mcg PO SUMOTUWETHFR 12/26/19 06/22/21 sacubitril 97 mg-valsartan 103 mg 1 tab PO BID 12/26/19 06/22/21 tablet carvedilol 25 mg tablet 25 mg PO BID 12/25/20 06/22/21 furosemide 20 mg tablet 20 mg PO DAILY 05/24/21 06/22/21 acetaminophen 500 mg tablet 500 mg PO BID 06/01/21 06/22/21 fexofenadine 180 mg tablet 180 mg PO DAILY 06/01/21 06/22/21 ketorolac 0.5 % eye drops 1 drp OPHTHALMIC-LEFT BID 06/01/21 06/22/21 warfarin 2.5 mg tablet 5 mg PO SUMOWETHFRSA 06/01/21 06/22/21 warfarin 2.5 mg tablet (Jantoven) 2.5 tab PO TU 06/01/21 06/22/21 dapagliflozin 10 mg tablet 1 tab PO DAILY 06/22/21 06/22/21 (Farxiga) Allergies Allergy/AdvReac Type Severity Reaction Status Date / Time Iodinated Contrast Media Allergy Unknown HIVES Verified 06/22/21 17:26 [CONTRAST, IV] mite-Dermatophagoides Allergy Unknown UNKNOWN Verified 06/22/21 17:26 farinae, joleen [DUST MITES] mold [MOLD] Allergy Unknown UNKNOWN Verified 06/22/21 17:26 Sulfa (Sulfonamide AdvReac Intermediate UNKNOWN Verified 06/22/21 17:26 Antibiotics) DUST Allergy Unknown UNKNOWN Uncoded 05/24/21 15:20 [facility] Past Medical History Medical History A-fib Active asthma Hypothyroid Pacemaker Surgical History Heart valve replaced Social History Social History Alcohol intake: current Alcohol intake frequency: a few times a month Alcohol type: wine Patient Tobacco Use Status: Never used Tobacco Use of substances other than those prescribed or required for medical reasons: No Advance Directives: Yes Advance Directives on File: Yes Advance Directives Date on File: 06/02/21 Physical Exam Vital Signs: Vital Signs: Last Vital Signs Temp 97.8 F 06/22/21 19:42 Pulse 63 06/22/21 22:35 Resp 15 06/22/21 22:35 BP 89/41 L 06/22/21 22:35 Pulse Ox 99 06/22/21 23:16 BMI result Body Mass Index 22.6 Appearance: Alert. Oriented X3. No acute distress. Eyes: No pallor or icterus ENT: Pharynx normal. Oral Mucosa moist Neck: Normal inspection. Neck supple. CVS: Normal heart rate and rhythm. Pulses normal. Respiratory: No respiratory distress. Equal air entry bilateral, no wheezing/rales/rhonchi Abdomen: Soft and nontender. Bowel sounds are present, no mass palpable, no CVA tenderness Skin: Skin warm and dry. Normal skin color. Normal skin turgor. Extremities: No lower extremity edema. No calf tenderness Neuro: Oriented X 3. No motor deficit. No sensory deficit.No cerebellar signs , cranial nerves II-XII intact MDM - Weakness MDM Narrative Medical decision making narrative: Patient with increased weakness status post COVID infection the workup showed GEORGIE with creatinine of 1.61 from baseline of 0.7 received IV fluids blood pressure slightly improved patient asymptomatic with hypertension patient is not septic and cause of hypertension his medications and hypovolemia patient continued to have IV fluids slow hydration and p.o. fluids patient had urinated few times in the ER feels much better now had elevated INR of 15 but no active bleeding noticed will give p.o. vitamin K. Will admit the patient for observation after hydration patient's creatinine improved from 1.61to 1.34 CT scan of the head was negative CT of her abdomen also without any significant acute changes Lab Data Attestation: I reviewed the patient's lab results. Result diagrams: 06/22/21 18:15 06/22/21 21:37 Labs: Lab Results 06/22/21 06/22/21 06/22/21 Range/Units 18:15 18:15 18:15 WBC 5.1 (4.8-10.8) X10*3/uL RBC 3.49 L (4.20-5.50) X10*6/uL Hgb 10.8 L (12.0-16.0) g/dl Hct 32.6 L (37.0-47.0) % MCV 93.4 (80.0-98.0) fL MCH 30.9 (27.0-33.0) pg MCHC 33.1 (31.0-35.0) g/dl RDW 14.6 (11.0-16.0) % Plt Count 131 L D (160-400) X10*3/uL MPV 12.8 H (9.4-12.3) fL Immature Gran % (Auto) 0.4 (0.0-0.4) % Neut % (Auto) 74.5 H (45-73) % Lymph % (Auto) 13.3 L (20-40) % [place] % (Auto) 9.8 (2-11) % Eos % (Auto) 2.0 (0-4) % Baso % (Auto) 0.0 (0-2) % Lymph # (Auto) 0.7 L (1.2-4.9) X10*3/uL [place] # (Auto) 0.5 (0.1-1.2) X10*3/uL Eos # (Auto) 0.1 (0.0-0.4) X10*3/uL Baso # (Auto) 0.0 (0.0-0.2) X10*3/uL Abs Immat Gran (auto) 0.02 (0.00-0.03) X10*3/uL Absolute Neuts (auto) 3.8 (2.0-8.3) x10*3/uL Absolute Nucleated RBC 0.000 (0.0-0.012) X10*3/uL Nucleated RBC % (auto) 0.0 (0.0-0.2) /100WBC PT (9.9-13.0) SEC INR (0.9-1.1) Sodium 131 L (135-145) mmol/L Potassium 3.7 (3.3-5.1) mmol/L Chloride 100 (96-108) mmol/L Carbon Dioxide 19 L (22-29) mmol/L Anion Gap 16 (12-20) BUN 45 H D (9-16) mg/dL Creatinine 1.61 H (0.5-1.4) mg/dL Estim Creat Clear Calc 24.7 Estimated GFR 31 Random Glucose 98 (60-115) mg/dL Lactic Acid (0.5-2.0) mmol/L Calcium 8.1 L D (8.4-10.2) mg/dL Total Bilirubin 0.6 (0.0-1.0) mg/dL AST 26 (5-31) U/L ALT 13 (0-31) U/L Alkaline Phosphatase 91 (39-117) U/L Troponin I High Sens 31.0 H (<3.5-17.0) ng/L Total Protein 6.3 L (6.5-8.0) g/dL Albumin 3.4 L (3.5-5.0) g/dL Urine Color Urine Appearance Urine pH (5.0-8.0) Ur Specific [place] (1.005-1.025) Urine Protein (NEG-TRACE) MG/DL Urine Glucose (UA) (NEG) MG/DL Urine Ketones (NEG) MG/DL Urine Blood (NEG) Urine Nitrite (NEG) Ur Leukocyte Esterase (NEG) Urine RBC (0) /HPF Urine WBC (0-4) /HPF Ur Squamous Epith Cells /LPF Urine Bacteria /LPF COVID-19 (KADY) (Negative) COVID-19 Clin Com Influenza Type A (DEREK) (Negative) Influenza Type B (DEREK) (Negative) Influenza A & B Note 06/22/21 06/22/21 06/22/21 Range/Units 18:35 20:56 20:56 WBC (4.8-10.8) X10*3/uL RBC (4.20-5.50) X10*6/uL Hgb (12.0-16.0) g/dl Hct (37.0-47.0) % MCV (80.0-98.0) fL MCH (27.0-33.0) pg MCHC (31.0-35.0) g/dl RDW (11.0-16.0) % Plt Count (160-400) X10*3/uL MPV (9.4-12.3) fL Immature Gran % (Auto) (0.0-0.4) % Neut % (Auto) (45-73) % Lymph % (Auto) (20-40) % [place] % (Auto) (2-11) % Eos % (Auto) (0-4) % Baso % (Auto) (0-2) % Lymph # (Auto) (1.2-4.9) X10*3/uL [place] # (Auto) (0.1-1.2) X10*3/uL Eos # (Auto) (0.0-0.4) X10*3/uL Baso # (Auto) (0.0-0.2) X10*3/uL Abs Immat Gran (auto) (0.00-0.03) X10*3/uL Absolute Neuts (auto) (2.0-8.3) x10*3/uL Absolute Nucleated RBC (0.0-0.012) X10*3/uL Nucleated RBC % (auto) (0.0-0.2) /100WBC PT (9.9-13.0) SEC INR (0.9-1.1) Sodium (135-145) mmol/L Potassium (3.3-5.1) mmol/L Chloride (96-108) mmol/L Carbon Dioxide (22-29) mmol/L Anion Gap (12-20) BUN (9-16) mg/dL Creatinine (0.5-1.4) mg/dL Estim Creat Clear Calc Estimated GFR Random Glucose (60-115) mg/dL Lactic Acid 1.2 (0.5-2.0) mmol/L Calcium (8.4-10.2) mg/dL Total Bilirubin (0.0-1.0) mg/dL AST (5-31) U/L ALT (0-31) U/L Alkaline Phosphatase (39-117) U/L Troponin I High Sens (<3.5-17.0) ng/L Total Protein (6.5-8.0) g/dL Albumin (3.5-5.0) g/dL Urine Color Urine Appearance Urine pH (5.0-8.0) Ur Specific [place] (1.005-1.025) Urine Protein (NEG-TRACE) MG/DL Urine Glucose (UA) (NEG) MG/DL Urine Ketones (NEG) MG/DL Urine Blood (NEG) Urine Nitrite (NEG) Ur Leukocyte Esterase (NEG) Urine RBC (0) /HPF Urine WBC (0-4) /HPF Ur Squamous Epith Cells /LPF Urine Bacteria /LPF COVID-19 (KADY) Negative (Negative) COVID-19 Clin Com See Note Influenza Type A (DEREK) Negative (Negative) Influenza Type B (DEREK) Negative (Negative) Influenza A & B Note See Note 06/22/21 06/22/21 06/22/21 Range/Units 21:28 21:37 21:37 WBC (4.8-10.8) X10*3/uL RBC (4.20-5.50) X10*6/uL Hgb (12.0-16.0) g/dl Hct (37.0-47.0) % MCV (80.0-98.0) fL MCH (27.0-33.0) pg MCHC (31.0-35.0) g/dl RDW (11.0-16.0) % Plt Count (160-400) X10*3/uL MPV (9.4-12.3) fL Immature Gran % (Auto) (0.0-0.4) % Neut % (Auto) (45-73) % Lymph % (Auto) (20-40) % [place] % (Auto) (2-11) % Eos % (Auto) (0-4) % Baso % (Auto) (0-2) % Lymph # (Auto) (1.2-4.9) X10*3/uL [place] # (Auto) (0.1-1.2) X10*3/uL Eos # (Auto) (0.0-0.4) X10*3/uL Baso # (Auto) (0.0-0.2) X10*3/uL Abs Immat Gran (auto) (0.00-0.03) X10*3/uL Absolute Neuts (auto) (2.0-8.3) x10*3/uL Absolute Nucleated RBC (0.0-0.012) X10*3/uL Nucleated RBC % (auto) (0.0-0.2) /100WBC PT 181.7 H (9.9-13.0) SEC INR 15.1 H* D (0.9-1.1) Sodium 136 (135-145) mmol/L Potassium 4.3 (3.3-5.1) mmol/L Chloride 105 (96-108) mmol/L Carbon Dioxide 20 L (22-29) mmol/L Anion Gap 15 (12-20) BUN 40 H (9-16) mg/dL Creatinine 1.34 (0.5-1.4) mg/dL Estim Creat Clear Calc 29.8 Estimated GFR 38 Random Glucose 95 (60-115) mg/dL Lactic Acid (0.5-2.0) mmol/L Calcium 8.0 L (8.4-10.2) mg/dL Total Bilirubin (0.0-1.0) mg/dL AST (5-31) U/L ALT (0-31) U/L Alkaline Phosphatase (39-117) U/L Troponin I High Sens (<3.5-17.0) ng/L Total Protein (6.5-8.0) g/dL Albumin (3.5-5.0) g/dL Urine Color YELLOW Urine Appearance HAZY Urine pH 5.5 (5.0-8.0) Ur Specific [place] 1.010 (1.005-1.025) Urine Protein NEG (NEG-TRACE) MG/DL Urine Glucose (UA) 250 H (NEG) MG/DL Urine Ketones NEG (NEG) MG/DL Urine Blood TRACE (NEG) Urine Nitrite NEG (NEG) Ur Leukocyte Esterase 2+ H (NEG) Urine RBC 1-4 (0) /HPF Urine WBC 5-9 H (0-4) /HPF Ur Squamous Epith Cells TRACE /LPF Urine Bacteria TRACE /LPF COVID-19 (KADY) (Negative) COVID-19 Clin Com Influenza Type A (DEREK) (Negative) Influenza Type B (DEREK) (Negative) Influenza A & B Note ECG Data Attestation: I personally reviewed and interpreted this ECG as follows: Interpretation: Ventricularly paced rhythm with ventricular rate of 62 beats per no acute ST wave changes no acute ischemia Discharge Plan Discharge Clinical Impression: GEORGIE (acute kidney injury), Post-acute sequelae of COVID-19 (PASC), Warfarin-induced coagulopathy, Weakness Patient Disposition: Admitted As Inpatient
[2021-06-22 18:23] LABS: MANUAL DIFF FLAG NO
--- NOTE | 2021-06-22 18:29 | PC.NURSE ---
remains hypotensive. doc anwer aware. pt denies dizziness, lightheadedness. skin pwd. paced rythm on monitor. axox3.
[2021-06-22 18:47] LABS: Alanine Aminotransferase 13 U/L (0-31); Albumin Level 3.4 g/dL (3.5-5.0); Alkaline Phosphatase 91 U/L (39-117); Anion Gap 16 (12-20); Aspartate Amino Transferase 26 U/L (5-31); Bilirubin Total 0.6 mg/dL (0.0-1.0); Blood Urea Nitrogen 45 mg/dL (9-16); Calcium 8.1 mg/dL (8.4-10.2); Carbon Dioxide 19 mmol/L (22-29); Chloride 100 mmol/L (96-108); Creatinine Clr Calc Pharmacy 24.7; Estimated Glomerular Filt Rate 31; Glucose Random 98 mg/dL (60-115); Potassium 3.7 mmol/L (3.3-5.1); Sodium 131 mmol/L (135-145); Total Protein 6.3 g/dL (6.5-8.0)
[2021-06-22 18:52] LABS: Lactic Acid 1.2 mmol/L (0.5-2.0)
[2021-06-22 18:54] LABS: Eosinophils Absolute Auto 0.1 X10*3/uL (0.0-0.4); Hematocrit 32.6 % (37.0-47.0); Hemoglobin 10.8 g/dl (12.0-16.0); Imm Gran Abs Auto 0.02 X10*3/uL (0.00-0.03); Imm Gran Pct Auto 0.4 % (0.0-0.4); Lymphocytes Absolute Auto 0.7 X10*3/uL (1.2-4.9); Lymphocytes Percent Auto 13.3 % (20-40); Mean Corpuscular HGB Conc 33.1 g/dl (31.0-35.0); Mean Corpuscular Hemoglobin 30.9 pg (27.0-33.0); Mean Corpuscular Volume 93.4 fL (80.0-98.0); Mean Platelet Volume 12.8 fL (9.4-12.3); Monocytes Absolute Auto 0.5 X10*3/uL (0.1-1.2); Monocytes Percent Auto 9.8 % (2-11); Neutrophils Absolute Auto 3.8 x10*3/uL (2.0-8.3); Neutrophils Percent Auto 74.5 % (45-73); Platelet Count 131 X10*3/uL (160-400); Red Blood Count 3.49 X10*6/uL (4.20-5.50); Red Cell Distribution Width 14.6 % (11.0-16.0); White Blood Count 5.1 X10*3/uL (4.8-10.8)
--- NOTE | 2021-06-22 19:00 | PC.NURSE ---
Addendum entered by Brigid Sanchez 06/23/21 07:06: report given to KWAME Nation Addendum entered by Brigid Sanchez 06/22/21 19:43: pt is alert and oriented. resting in bed comfortably. no signs of acute distress notice. breathing equally unlabored. denies any chest pain or sob. pt on continous cardiac montiroing Original Note: report received from KWAME Ambrose
[2021-06-22] MEDS: 0.9 % Sodium Chloride 1,000 ML 999 ML IV (19:10)
--- NOTE | 2021-06-22 19:15 | PC.NURSE ---
fluids running. pt remains alert. repositioned in bed. report to night RN.
[2021-06-22 21:23] LABS: Influenza A Negative (Negative); Influenza B2 Negative (Negative)
[2021-06-22 21:24] LABS: COVID-19 Test Negative (Negative); IDNOW Serial# 16C4AD1C
[2021-06-22 21:39] LABS: Appearance Urine HAZY; Color Urine YELLOW; Glucose Urine UA 250 MG/DL (NEG); Leukocyte Esterase Urine 2+ (NEG); Nitrite Urine NEG (NEG); PH 5.5 (5.0-8.0); UACC Culture Trigger YES; Urine Blood TRACE (NEG); Urine Ketones NEG (NEG); Urine Protein NEG (NEG-TRACE)
[2021-06-22] MEDS: 0.9 % Sodium Chloride 500 ML 250 ML IVCONT (21:40)
[2021-06-22 21:54] LABS: Bacteria Urine TRACE /LPF; Squamous Epithelial Cell Urine TRACE /LPF
[2021-06-22] MEDS: Midodrine HCl 5 MG TABLET PO (21:57)
--- NOTE | 2021-06-22 22:02 | PHA.MEDREC ---
Pharmacy Consult ? Medication Reconciliation Pharmacy has completed the medication reconciliation. Pt had list on hand, stated she did not take her warfarin today and is unsure is she took her PM medications yesterday.
[2021-06-22 22:03] LABS: Prothrombin Time 181.7 SEC (9.9-13.0)
[2021-06-22 22:05] LABS: Anion Gap 15 (12-20); Blood Urea Nitrogen 40 mg/dL (9-16); Carbon Dioxide 20 mmol/L (22-29); Chloride 105 mmol/L (96-108); Creatinine Clr Calc Pharmacy 29.8; Estimated Glomerular Filt Rate 38; Glucose Random 95 mg/dL (60-115); Potassium 4.3 mmol/L (3.3-5.1); Sodium 136 mmol/L (135-145)
[2021-06-22 22:26] LABS: INTERNATIONAL NORM RATIO 15.1 (0.9-1.1)
--- NOTE | 2021-06-22 22:31 | MHC.CM.ED ---
Received update from Halie PUENTE regarding this patient. Pt thought she was scheduled for home PT when she left STR on 06/17. No agency has contacted pt. Per CM notes on prior admission, [place] [facility] [place] [facility] [place] for [facility]. Vax/boosted. Was Covid positive on 06/01. HCP/daughter Gabriella Charles ([phone]). 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 Family was working on overnight [employer]CTOR coverage when pt was in rehab recently. Medical work-up pending. CM to follow for d/c needs.
[2021-06-22] MEDS: Phytonadione (Vit K1) Oral 10 MG/ML AMPUL 5 MG PO (23:19)
--- NOTE | 2021-06-22 23:20 | PM.IMHP ---
History of Present Illness Date of Service: 06/22/21 Chief Complaint: Generalized weakness 85-year-old female with a past medical history of hypertension, hyperlipidemia, diabetes, CHF, AFib, aortic valve replaced on Coumadin, hypothyroidism, recent diagnosis of COVID-19 positive; presented to the hospital today with a chief complaint of generalized weakness. Patient reported that 3 weeks ago she presented to the hospital because of the neck pain; noted to have COVID-19 positive; patient was discharged to rehab; patient reports that after she finished rehab for 2 weeks she went home about a week ago; ever since she has continued to feel generally weak; says been having episodes of diarrhea; denies any fevers or cough. Reports she has decreased oral intake; has gradually becoming more and more weak every day hence decided to come to the ER today for further evaluation. Denies any chest pain or palpitations. Denies any headaches blurry visions numbness tingling or focal weakness. Denies any falls. Review of all other systems is negative except mentioned above ER course: Per ER team patient noted to be generally weak; exam grossly nonfocal; COVID-19 came back negative this time; chest x-ray showed no acute findings; ; CT scan showed colonic wall thickening concerning for malignancy versus focal colitis. Also noted to have age-indeterminate compression fracture of L3 vertebral body; admitted to the hospital for further management. Also on labs noted to have supratherapeutic INR of 15; patient was given low dose of vitamin K. [facility] Medical History A-fib Active asthma Hypothyroid Pacemaker Surgical History Heart valve replaced Social History Alcohol intake: current Alcohol intake frequency: a few times a month Alcohol type: wine Patient Tobacco Use Status: Never used Tobacco Use of substances other than those prescribed or required for medical reasons: No Advance Directives: Yes Advance Directives on File: Yes Advance Directives Date on File: 06/02/21 Meds Allergies Allergy/AdvReac Type Severity Reaction Status Date / Time Iodinated Contrast Media Allergy Unknown HIVES Verified 06/22/21 17:26 [CONTRAST, IV] mite-Dermatophagoides Allergy Unknown UNKNOWN Verified 06/22/21 17:26 farinae, joleen [DUST MITES] mold [MOLD] Allergy Unknown UNKNOWN Verified 06/22/21 17:26 Sulfa (Sulfonamide AdvReac Intermediate UNKNOWN Verified 06/22/21 17:26 Antibiotics) DUST Allergy Unknown UNKNOWN Uncoded 05/24/21 15:20 Active Medications: Current Medications Acetaminophen (Acetaminophen 325 Mg Tablet) 650 mg PO Q6H PRN PRN Reason: Pain, Mild (Pain Scale 1-3) Atorvastatin Calcium (Atorvastatin Calcium 40 Mg Tablet) 40 mg PO BEDTIME [facility] Dextrose (Dextrose 50 % 25 Gm/50 Ml Syringe) 25 gm IVPUSH Q15M PRN; Protocol PRN Reason: per Hypoglycemia Standing Ord. Glucose (Glucose Gel 15 Gm Gel..Gram.) 15 gm PO Q15M PRN; Protocol PRN Reason: per Hypoglycemia Standing Ord. Sodium Chloride (Ns) 1,000 mls @ 75 mls/hr IVCONT .[id number] [facility] Insulin Human Lispro (Insulin Lispro 100 Unit/Ml 3 Ml Vial) 0 unit SUBCUT QIDACHS [facility]; Protocol Ketorolac Tromethamine (Ketorolac Tromethamine 0.5% Op 3 Ml Drops) 1 drop EYE-LEFT BID [facility] Levothyroxine Sodium (Levothyroxine Sodium 50 Mcg Tablet) 50 mcg PO SUMOTUWETHFR [facility] Melatonin (Melatonin 3 Mg Tablet) 6 mg PO BEDTIME PRN PRN Reason: Insomnia Non-Formulary Medication (Fexofenadine) 180 mg PO DAILY [facility] Non-Formulary Medication (Fluticasone Propion-Salmeterol) 1 each PO BID [facility] Sacubitril/Valsartan (Sacubitril/Valsartan 97/103 1 Tab Tablet) 1 tab PO BID [facility]; Protocol Senna (Sennosides 8.6 Mg Tablet) 17.2 mg PO BEDTIME PRN PRN Reason: Constipation Sodium Chloride (0.9 % Sodium Chloride Flush 3 Ml Syringe) 3 ml IVFLUSH QSHIFT [facility] Home Medications Medication Instructions Recorded Confirmed Last Taken Type atorvastatin 40 mg tablet 40 mg PO BEDTIME 12/26/19 06/22/21 05/31/21 History fluticasone 250 mcg-salmeterol 50 1 ea PO BID 12/26/19 06/22/21 06/22/21 History mcg/dose blistr powdr for inhalation levothyroxine 50 mcg tablet 50 mcg PO SUMOTUWETHFR 12/26/19 06/22/21 06/22/21 History sacubitril 97 mg-valsartan 103 mg 1 tab PO BID 12/26/19 06/22/21 06/22/21 History tablet carvedilol 25 mg tablet 25 mg PO BID 12/25/20 06/22/21 06/22/21 History furosemide 20 mg tablet 20 mg PO DAILY 05/24/21 06/22/21 06/22/21 History acetaminophen 500 mg tablet 500 mg PO BID 06/01/21 06/22/21 06/22/21 History fexofenadine 180 mg tablet 180 mg PO DAILY 06/01/21 06/22/21 06/22/21 History ketorolac 0.5 % eye drops 1 drp OPHTHALMIC-LEFT BID 06/01/21 06/22/21 06/22/21 History warfarin 2.5 mg tablet 5 mg PO SUMOWETHFR06/01/21 06/22/21 06/21/21 History warfarin 2.5 mg tablet (Jantoven) 2.5 tab PO TU 06/01/21 06/22/21 06/15/21 History dapagliflozin 10 mg tablet 1 tab PO DAILY 06/22/21 06/22/21 06/22/21 History ([facility]) Physical Exam Vital Signs and Narrative: Vital Signs: Last Vital Signs Temp 97.8 F 06/22/21 19:42 Pulse 63 06/22/21 22:35 Resp 15 06/22/21 22:35 BP 89/41 L 06/22/21 22:35 Pulse Ox 96 06/22/21 22:35 BMI result Body Mass Index 22.6 Gen: Appears be in no acute distress HEENT: NCAT, dry mucosa. Pulmonary: Vesicular breath sounds, fair air entry CVS: Normal S1-S2 Abdomen: BS+, Soft, Nontender Extremities: Warm well perfused Neuro: Alert and awake. Grossly nonfocal Results Labs CBC and Chem 7: 06/22/21 18:15 06/22/21 21:37 Labs: Laboratory Results - last 24 hr 06/22/21 06/22/21 06/22/21 18:15 18:15 18:15 MCV 93.4 MCH 30.9 MCHC 33.1 RDW 14.6 Plt Count 131 L D MPV 12.8 H Immature Gran % (Auto) 0.4 Neut % (Auto) 74.5 H Lymph % (Auto) 13.3 L [place] % (Auto) 9.8 Eos % (Auto) 2.0 Baso % (Auto) 0.0 Lymph # (Auto) 0.7 L [place] # (Auto) 0.5 Eos # (Auto) 0.1 Baso # (Auto) 0.0 Abs Immat Gran (auto) 0.02 Absolute Neuts (auto) 3.8 Absolute Nucleated RBC 0.000 Nucleated RBC % (auto) 0.0 PT INR Anion Gap 16 Estim Creat Clear Calc 24.7 Estimated GFR 31 Random Glucose 98 Lactic Acid Calcium 8.1 L D Total Bilirubin 0.6 AST 26 ALT 13 Alkaline Phosphatase 91 Troponin I High Sens 31.0 H Total Protein 6.3 L Albumin 3.4 L Urine Color Urine Appearance Urine pH Ur Specific [place] Urine Protein Urine Glucose (UA) Urine Ketones Urine Blood Urine Nitrite Ur Leukocyte Esterase Urine RBC Urine WBC Ur Squamous Epith Cells Urine Bacteria COVID-19 (KADY) COVID-19 Clin Com Influenza Type A (DEREK) Influenza Type B (DEREK) Influenza A & B Note 06/22/21 06/22/21 06/22/21 18:35 20:56 20:56 MCV MCH MCHC RDW Plt Count MPV Immature Gran % (Auto) Neut % (Auto) Lymph % (Auto) [place] % (Auto) Eos % (Auto) Baso % (Auto) Lymph # (Auto) [place] # (Auto) Eos # (Auto) Baso # (Auto) Abs Immat Gran (auto) Absolute Neuts (auto) Absolute Nucleated RBC Nucleated RBC % (auto) PT INR Anion Gap Estim Creat Clear Calc Estimated GFR Random Glucose Lactic Acid 1.2 Calcium Total Bilirubin AST ALT Alkaline Phosphatase Troponin I High Sens Total Protein Albumin Urine Color Urine Appearance Urine pH Ur Specific [place] Urine Protein Urine Glucose (UA) Urine Ketones Urine Blood Urine Nitrite Ur Leukocyte Esterase Urine RBC Urine WBC Ur Squamous Epith Cells Urine Bacteria COVID-19 (KADY) Negative COVID-19 Clin Com See Note Influenza Type A (DEREK) Negative Influenza Type B (DEREK) Negative Influenza A & B Note See Note 06/22/21 06/22/21 06/22/21 21:28 21:37 21:37 MCV MCH MCHC RDW Plt Count MPV Immature Gran % (Auto) Neut % (Auto) Lymph % (Auto) [place] % (Auto) Eos % (Auto) Baso % (Auto) Lymph # (Auto) [place] # (Auto) Eos # (Auto) Baso # (Auto) Abs Immat Gran (auto) Absolute Neuts (auto) Absolute Nucleated RBC Nucleated RBC % (auto) PT 181.7 H INR 15.1 H* D Anion Gap 15 Estim Creat Clear Calc 29.8 Estimated GFR 38 Random Glucose 95 Lactic Acid Calcium 8.0 L Total Bilirubin AST ALT Alkaline Phosphatase Troponin I High Sens Total Protein Albumin Urine Color YELLOW Urine Appearance HAZY Urine pH 5.5 Ur Specific [place] 1.010 Urine Protein NEG Urine Glucose (UA) 250 H Urine Ketones NEG Urine Blood TRACE Urine Nitrite NEG Ur Leukocyte Esterase 2+ H Urine RBC 1-4 Urine WBC 5-9 H Ur Squamous Epith Cells TRACE Urine Bacteria TRACE COVID-19 (KADY) COVID-19 Clin Com Influenza Type A (DEREK) Influenza Type B (DEREK) Influenza A & B Note Imaging Radiologist's Impressions: Impressions Chest X-Ray 06/22/21 17:55 IMPRESSION: No acute abnormality of the chest. Abdomen/Pelvis CT 06/22/21 21:22 IMPRESSION: Focal short segment colonic wall thickening involving the cecum new from priors with subtle infiltration of the mesenteric fat. Differential considerations would include primary colonic malignancy or focal colitis. Correlation with colonoscopy is recommended when clinically appropriate. Right kidney is relatively atrophic with respect to the contralateral side which may reflect sequelae of chronic medical renal disease. New age-indeterminate wedge compression deformities of the L3 vertebral body with approximately 50% height loss and the L1 vertebral body with approximately 20% height loss. Cardiomegaly with marked left atrial enlargement. Assessment and Plan (1) GEORGIE (acute kidney injury): Status: Acute (2) Aortic valve replaced: Status: Acute (3) Supratherapeutic INR: Status: Acute Plan 85-year-old female with a past medical history of hypertension, hyperlipidemia, diabetes, CHF, AFib, aortic valve replaced on Coumadin, hypothyroidism, recent diagnosis of COVID-19 positive; presented to the hospital today with a chief complaint of generalized weakness. Nausea/diarrhea: CT scan showed colonic wall thickening concerning for malignancy versus focal colitis. Will consult GI for further recommendations. NPO. Gentle IV fluids. Stool studies ordered GEORGIE: Likely prerenal in the setting of volume loss from diarrhea. Patient is being given gentle IV fluids. Monitor for signs of fluid overload. UTI: Urinalysis abnormal consistent with UTI. Patient empirically given ceftriaxone. Follow up cultures. Recent COVID-19 positive: Repeat COVID-19 negative. Patient saturating 96% on room air. Chest x-ray showed no acute findings. Supratherapeutic INR: Patient received low-dose vitamin K 2.5 mg x 1 in the ER. Will monitor INR levels in the morning. Hold Coumadin for now. Patient denies any signs of bleeding. Exam grossly nonfocal CT head negative for spontaneous bleeds Hypotension: Patient blood pressure currently on the soft side. Received 1500 cc of IV fluids and midodrine in the ER. Good capillary refill. Peripheral pulses palpable. Patient denies any lightheadedness or dizziness. Hold home carvedilol, Lasix. History of AFib/AVR: Patient on Coumadin-> on hold for now. Monitor INR levels. History of CHF: Stable. Hold home furosemide, Entresto for now. History of hyperlipidemia: Continue home statin History of hypothyroidism: Continue home levothyroxine History of diabetes: Hold home depaglifazolin. Insulin sliding scale for now. DVT prophylaxis: Patient on Coumadin Code status: DNR/DNI. Spoke to the patient in detail. She wanted to be DNR/DNI. Quality Stroke Does the patient have a stroke diagnosis?: No VTE Prior VTE?: No VTE Risk Level:: Medical - moderate - high VTE Device Contraindication: N/A - Device Ordered VTE Drug Contraindication: Treatment Not Indicated
[2021-06-23] VITALS (10 sets, daily range): BP systolic 86–117; BP diastolic 38–70; PULSE 60–66; RESP 14–20; TEMP 36.1–37; O2SAT 93–96
[2021-06-23] MEDS: 0.9 % Sodium Chloride 1,000 ML 75 ML IVCONT ×2 (00:33→13:02)
[2021-06-23] MEDS: cefTRIAXone sodium 1 GM in 0.9 % Sodium Chloride 50 ML IV ×2 (00:39→23:13)
[2021-06-23 02:04] LABS: MANUAL DIFF FLAG NO
[2021-06-23 02:05] LABS: Basophils Percent Auto 0.2 % (0-2); Eosinophils Absolute Auto 0.1 X10*3/uL (0.0-0.4); Eosinophils Percent Auto 2.6 % (0-4); Hematocrit 29.1 % (37.0-47.0); Hemoglobin 9.7 g/dl (12.0-16.0); Imm Gran Abs Auto 0.01 X10*3/uL (0.00-0.03); Imm Gran Pct Auto 0.2 % (0.0-0.4); Lymphocytes Absolute Auto 0.9 X10*3/uL (1.2-4.9); Lymphocytes Percent Auto 17.1 % (20-40); Mean Corpuscular HGB Conc 33.3 g/dl (31.0-35.0); Mean Corpuscular Hemoglobin 31.3 pg (27.0-33.0); Mean Corpuscular Volume 93.9 fL (80.0-98.0); Mean Platelet Volume 11.7 fL (9.4-12.3); Monocytes Absolute Auto 0.6 X10*3/uL (0.1-1.2); Monocytes Percent Auto 11.8 % (2-11); Neutrophils Absolute Auto 3.4 x10*3/uL (2.0-8.3); Neutrophils Percent Auto 68.1 % (45-73); Platelet Count 107 X10*3/uL (160-400); Red Cell Distribution Width 14.6 % (11.0-16.0)
[2021-06-23] MEDS: Levothyroxine Sodium 50 MCG TABLET PO (06:52)
--- NOTE | 2021-06-23 07:11 | PM.GICN ---
History of Present Illness Data of Consult Service Date: 06/23/21 Requesting physician: Alli Juarez Primary Care Provider: Ilsa Green MD HPI Reason for consult: abn imaging [id number] female with a past medical history of hypertension, hyperlipidemia, diabetes, CHF, AFib, aortic valve replaced on Coumadin, hypothyroidism, recent diagnosis of COVID-19 positive; who I am seeing for abn imaging She initially presented w generalized weakness and diarrhea which she had for 1 week but has now resolved. She denies abdominal pain. No rectal bleeding, no melena, no nose lbeeds, and no nausea or vomiting, does have poor appetite She was here with COVID 1-2 months ago but has recovered from this now. Labs revealed mild anemia, INR 15. given Vit K CT scan showed colonic wall thickening concerning for malignancy versus focal colitis.? Also noted to have age-indeterminate compression fracture of L3 vertebral body; she did say she had a colonoscopy many years ago and wa normal, can't recall when Review of Systems Review of Systems: Constitutional : + Weight loss, No Fever, No Chills ENT/Mouth : No sore throat, No Rhinorrhea Eyes: No Swelling, No Redness Cardiovascular : No Chest Pain, No SOB, No Edema Respiratory : No Cough, No Sputum, No Wheezing Gastrointestinal : see HPI Genitourinary : NO Dysuria, No Urinary Frequency, No Hematuria, No Urgency Musculoskeletal : No joint pain, No Myalgias, No Joint Swelling Skin : No Skin Lesions, No rash Neuro : + Weakness, No Numbness, No Dizziness, No Headache Psych : No Anxiety/Panic, No Depression Heme/Lymph: No Bruising, No Lymphadenopathy Endocrine : No Polyuria, No Polydipsia All other systems reviewed and are negative. [facility] Past Medical History Medical History A-fib Active asthma Hypothyroid Pacemaker Family History Pertinent family history: denies family hx of colon cancer Family history: reviewed and not pertinent Surgical History Surgical History Heart valve replaced Social History Social History Alcohol intake: current Alcohol intake frequency: a few times a month Alcohol type: wine Patient Tobacco Use Status: Never used Tobacco Advance Directives Date on File: 06/02/21 service: No Current occupational status: retired Meds Allergies Allergy/AdvReac Type Severity Reaction Status Date / Time Iodinated Contrast Media Allergy Unknown HIVES Verified 06/22/21 17:26 [CONTRAST, IV] mite-Dermatophagoides Allergy Unknown UNKNOWN Verified 06/22/21 17:26 farinae, joleen [DUST MITES] mold [MOLD] Allergy Unknown UNKNOWN Verified 06/22/21 17:26 Sulfa (Sulfonamide AdvReac Intermediate UNKNOWN Verified 06/22/21 17:26 Antibiotics) DUST Allergy Unknown UNKNOWN Uncoded 05/24/21 15:20 Active Medications: Current Medications Acetaminophen (Acetaminophen 325 Mg Tablet) 650 mg PO Q6H PRN PRN Reason: Pain, Mild (Pain Scale 1-3) Atorvastatin Calcium (Atorvastatin Calcium 40 Mg Tablet) 40 mg PO BEDTIME [facility] Dextrose (Dextrose 50 % 25 Gm/50 Ml Syringe) 25 gm IVPUSH Q15M PRN; Protocol PRN Reason: per Hypoglycemia Standing Ord. Fluticasone/Vilanterol (Fluticasone/Vilanterol 100/25 Blst.W.Dev) 1 puff INHALE RDAILY [facility] Glucose (Glucose Gel 15 Gm Gel..Gram.) 15 gm PO Q15M PRN; Protocol PRN Reason: per Hypoglycemia Standing Ord. Sodium Chloride (Ns) 1,000 mls @ 75 mls/hr IVCONT .[id number] [facility] Last Admin: 06/23/21 00:33 Dose: 75 mls/hr Documented by: Ceftriaxone Sodium 1 gm/ (Sodium Chloride) 50 mls @ 100 mls/hr IV Q24H [facility] Last Infusion: 06/23/21 01:22 Dose: Infused Documented by: Insulin Human Lispro (Insulin Lispro 100 Unit/Ml 3 Ml Vial) 0 unit SUBCUT QIDACHS [facility]; Protocol Ketorolac Tromethamine (Ketorolac Tromethamine 0.5% Op 3 Ml Drops) 1 drop EYE-LEFT BID [facility] Levothyroxine Sodium (Levothyroxine Sodium 50 Mcg Tablet) 50 mcg PO [id number] [facility] Last Admin: 06/23/21 06:52 Dose: 50 mcg Documented by: Loratadine (Loratadine 10 Mg Tablet) 10 mg PO DAILY [facility] Melatonin (Melatonin 3 Mg Tablet) 6 mg PO BEDTIME PRN PRN Reason: Insomnia Sacubitril/Valsartan (Sacubitril/Valsartan 97/103 1 Tab Tablet) 1 tab PO BID [facility]; Protocol Senna (Sennosides 8.6 Mg Tablet) 17.2 mg PO BEDTIME PRN PRN Reason: Constipation Sodium Chloride (0.9 % Sodium Chloride Flush 3 Ml Syringe) 3 ml IVFLUSH QSHIFT DOROTEO Last Admin: 06/23/21 00:33 Dose: Not Given Documented by: Home Medications Medication Instructions Recorded Confirmed Last Taken Type atorvastatin 40 mg tablet 40 mg PO BEDTIME 12/26/19 06/22/21 05/31/21 History fluticasone 250 mcg-salmeterol 50 1 ea PO BID 12/26/19 06/22/21 06/22/21 History mcg/dose blistr powdr for inhalation levothyroxine 50 mcg tablet 50 mcg PO SUMOTUWETHFR 12/26/19 06/22/21 06/22/21 History sacubitril 97 mg-valsartan 103 mg 1 tab PO BID 12/26/19 06/22/21 06/22/21 History tablet carvedilol 25 mg tablet 25 mg PO BID 12/25/20 06/22/21 06/22/21 History furosemide 20 mg tablet 20 mg PO DAILY 05/24/21 06/22/21 06/22/21 History acetaminophen 500 mg tablet 500 mg PO BID 06/01/21 06/22/21 06/22/21 History fexofenadine 180 mg tablet 180 mg PO DAILY 06/01/21 06/22/21 06/22/21 History ketorolac 0.5 % eye drops 1 drp OPHTHALMIC-LEFT BID 06/01/21 06/22/21 06/22/21 History warfarin 2.5 mg tablet 5 mg PO SUMOWETHFRSA 06/01/21 06/22/21 06/21/21 History warfarin 2.5 mg tablet (Febtoven) 2.5 tab PO TU 06/01/21 06/22/21 06/15/21 History dapagliflozin 10 mg tablet 1 tab PO DAILY 06/22/21 06/22/21 06/22/21 History ([facility]) Physical Exam Vital Signs: Vital Signs: Last Vital Signs Temp 98.2 F 06/23/21 07:08 Pulse 64 06/23/21 07:08 Resp 15 06/23/21 07:08 BP 98/45 L 06/23/21 07:08 Pulse Ox 96 06/23/21 07:08 BMI result Body Mass Index 22.6 EXAM: GENERAL: The patient is frail but relaxed VITAL SIGNS:see workflow HEENT: Nonicteric sclerae, PERRLA, EOMI. Oropharynx clear. Moist mucous membranes. Conjunctivae appear well perfused. No thyroid mass. CHEST: Chest wall is nontender. HEART: irregular rate and rhythm without murmurs. S2 metallic click LUNGS: Clear to auscultation bilaterally. ABDOMEN: Soft, positive bowel sounds, nontender, no organomegaly.no flank tenderness SKIN: No rash, no excessive bruising, petechiae, or purpura. NEUROLOGIC: Cranial nerves II-XII intact without motor/sensory deficit. Pscyh--normal affect Results Labs CBC & Chem 7: 06/23/21 06:55 06/23/21 06:55 Labs: Short CBC 06/22/21 06/23/21 Range/Units 18:15 02:00 WBC 5.1 5.0 (4.8-10.8) X10*3/uL Hgb 10.8 L 9.7 L (12.0-16.0) g/dl Hct 32.6 L 29.1 L (37.0-47.0) % Plt Count 131 L D 107 L (160-400) X10*3/uL BMP 06/22/21 06/22/21 18:15 21:37 Sodium 131 L 136 Potassium 3.7 4.3 Chloride 100 105 Carbon Dioxide 19 L 20 L BUN 45 H D 40 H Creatinine 1.61 H 1.34 Calcium 8.1 L D 8.0 L Liver Function 06/22/21 Range/Units 18:15 Total Bilirubin 0.6 (0.0-1.0) mg/dL AST 26 (5-31) U/L ALT 13 (0-31) U/L Alkaline Phosphatase 91 (39-117) U/L Albumin 3.4 L (3.5-5.0) g/dL Urine 06/22/21 Range/Units 21:28 Urine Color YELLOW Urine Appearance HAZY Urine pH 5.5 (5.0-8.0) Ur Specific [place] 1.010 (1.005-1.025) Urine Protein NEG (NEG-TRACE) MG/DL Urine Glucose (UA) 250 H (NEG) MG/DL Imaging CT scan - abdomen: Attestation: I personally reviewed and interpreted this imaging study as follows: (colonic thickness noted cecum also hypodense areas in liver ) Assessment and Plan (1) Colon wall thickening: Status: Acute (2) Warfarin-induced coagulopathy: Status: Acute Plan 1/ Abn imaging wiht possible cecal mass, INR is too high right now. PLAN: 1/ Discussed with patient about doing colonoscopy, she is uncertain and will let her nurse know if she agrees to it. In any case she needs the INR to be least around 2.5 2/ if she agrees can keep on clears tomorrow with possible colonoscopy Monday, if INR not in target range by then, then will prob have colonoscopy deferred to next monday Procedures Date of Service Date of Service: 06/23/21
[2021-06-23 07:18] LABS: Glucose, Whole Blood 82 mg/dL (60-115)
[2021-06-23 07:23] LABS: MANUAL DIFF FLAG NO
[2021-06-23 07:27] LABS: Basophils Percent Auto 0.2 % (0-2); Eosinophils Absolute Auto 0.2 X10*3/uL (0.0-0.4); Eosinophils Percent Auto 2.9 % (0-4); Hematocrit 31.2 % (37.0-47.0); Hemoglobin 10.1 g/dl (12.0-16.0); Imm Gran Abs Auto 0.01 X10*3/uL (0.00-0.03); Imm Gran Pct Auto 0.2 % (0.0-0.4); Lymphocytes Absolute Auto 0.7 X10*3/uL (1.2-4.9); Lymphocytes Percent Auto 12.6 % (20-40); Mean Corpuscular HGB Conc 32.4 g/dl (31.0-35.0); Mean Corpuscular Hemoglobin 31.1 pg (27.0-33.0); Mean Platelet Volume 12.2 fL (9.4-12.3); Monocytes Absolute Auto 0.6 X10*3/uL (0.1-1.2); Monocytes Percent Auto 11.6 % (2-11); Neutrophils Absolute Auto 3.8 x10*3/uL (2.0-8.3); Neutrophils Percent Auto 72.5 % (45-73); Platelet Count 112 X10*3/uL (160-400); Red Blood Count 3.25 X10*6/uL (4.20-5.50); Red Cell Distribution Width 14.6 % (11.0-16.0); White Blood Count 5.3 X10*3/uL (4.8-10.8)
[2021-06-23 07:37] LABS: Prothrombin Time 137.3 SEC (9.9-13.0)
[2021-06-23 07:39] LABS: INTERNATIONAL NORM RATIO 11.5 (0.9-1.1)
[2021-06-23 07:49] LABS: Blood Urea Nitrogen 28 mg/dL (9-16); Creatinine Clr Calc Pharmacy 44.8; Estimated Glomerular Filt Rate > 60; Glucose Random 85 mg/dL (60-115)
[2021-06-23] MEDS: 0.9 % Sodium Chloride Flush 3 ML SYRINGE IVFLUSH (08:00)
--- NOTE | 2021-06-23 09:03 | MHC.CM.PN ---
PT REPORTS SHE LIVES WITH HER AND THEY HAVE DAILY [facility]BR[employer] SERVICES FROM 0800 TO 1200 AND 1600 TO 2000. PT DENIES USING ANY DME OTHER THAN THE STAIR LIFT, BUT REPORTS THERE IS DME IN THE HOME FOR HER PT CONFIRMS HER PCP IS [facility] HCP ON FILE: DAUGHTER HARRISON ALONZO [phone] PT REPORTS SHE IS COVID-19 VACCINATED AND BOOSTED PT REPORTS SHE WAS RECENTLY AT STR AT [facility] IN [place]. SHE REPORTS SHE WOULD NOT WANT TO RETURN SHE SAYS THEY WERE SUPPOSED TO SET HER UP WITH A VNA AT [place] SHE HAS SEVERAL NEW MEDS, HOWEVER THEY FAILED TO DO SO. SHE REQUESTS [place] AT [place] AND DENIES HAVING A PREFERRED AGENCY. IMM DELIVERED, COPY SENT TO [facility] CURRENT [place] PLAN IS HOME VS HOME WITH VNA TRANSPORT TBD (UNABLE TO ASSESS DUE TO PT NEEDING NURSE)
[2021-06-23] MEDS: Sacubitril/Valsartan 97/103 1 TAB TABLET PO ×2 (09:37→21:49)
[2021-06-23] MEDS: Loratadine 10 MG TABLET PO (09:37)
[2021-06-23] MEDS: Phytonadione (Vit K1) Oral 10 MG/ML AMPUL 2.5 MG PO (09:39)
--- NOTE | 2021-06-23 10:15 | PC.NURSE ---
dr. mercer at bedside pt aware of plan of care.
[2021-06-23 11:48] LABS: Anion Gap 9 (12-20); Calcium 7.8 mg/dL (8.4-10.2); Chloride 110 mmol/L (96-108); Potassium 3.4 mmol/L (3.3-5.1); Sodium 138 mmol/L (135-145)
[2021-06-23 11:55] LABS: Carbon Dioxide 22 mmol/L (22-29)
--- NOTE | 2021-06-23 12:00 | P.PNIM_ITS ---
Subjective Subjective Date of Service: 06/23/21 Interval History: the patient was seen and evaluated this morning Laying in bed, feels better with no reported episodes of diarrhea Denies any fever, chills or shortness of breath No reported other overnight events. Systemic review: No fever, chills or weakness No chest pain, palpitation No shortness of breath or coughing No abdominal pain, nausea or vomiting No urinary symptoms No any rash or wounds Physical Exam Vital Signs: Vital Signs: Last Vital Signs Temp 98.2 F 06/23/21 07:08 Pulse 64 06/23/21 07:08 Resp 15 06/23/21 07:08 BP 100/44 L 06/23/21 09:45 Pulse Ox 96 06/23/21 07:08 BMI result Body Mass Index 22.6 Const: Other: Constitutional : Alert, oriented, not in distress Neck : Normal inspection, Supple Cardiovascular : RRR, no JVP, no lower extremity edema, pacemaker in place Respiratory : fair bilateral air entry, no crackles, wheezes or rhonchi Gastrointestinal: soft, lax, Normal bowel sounds, Non tender Skin : Warm, Dry Neurological : Alert & oriented x3, No focal deficit , CN 2-12 within normal Objective Data Active Medications Acetaminophen (Acetaminophen 325 Mg Tablet) 650 mg PO Q6H PRN PRN Reason: Pain, Mild (Pain Scale 1-3) Atorvastatin Calcium (Atorvastatin Calcium 40 Mg Tablet) 40 mg PO BEDTIME [facility] Dextrose (Dextrose 50 % 25 Gm/50 Ml Syringe) 25 gm IVPUSH Q15M PRN; Protocol PRN Reason: per Hypoglycemia Standing Ord. Fluticasone/Vilanterol (Fluticasone/Vilanterol 100/25 Blst.W.Dev) 1 puff INHALE RDAILY [facility] Last Admin: 06/23/21 08:34 Dose: Not Given Documented by: BEVERLY Non-Admin Reason: Med Not Available Glucose (Glucose Gel 15 Gm Gel..Gram.) 15 gm PO Q15M PRN; Protocol PRN Reason: per Hypoglycemia Standing Ord. Sodium Chloride (Ns) 1,000 mls @ 75 mls/hr IVCONT .[id number] [facility] Last Admin: 06/23/21 00:33 Dose: 75 mls/hr Documented by: BRYAN-GULSHAN Ceftriaxone Sodium 1 gm/ (Sodium Chloride) 50 mls @ 100 mls/hr IV Q24H [facility] Last Infusion: 06/23/21 01:22 Dose: 0 mls/hr Documented by: BRYAN-ANICL Insulin Human Lispro (Insulin Lispro 100 Unit/Ml 3 Ml Vial) 0 unit SUBCUT QIDACHS [facility]; Protocol Last Admin: 06/23/21 08:00 Dose: Not Given Documented by: MARY KAY Non-Admin Reason: No Insulin Coverage Ketorolac Tromethamine (Ketorolac Tromethamine 0.5% Op 3 Ml Drops) 1 drop EYE- LEFT BID [facility] Last Admin: 06/23/21 10:43 Dose: Not Given Documented by: MARY KAY Non-Admin Reason: unavailable Levothyroxine Sodium (Levothyroxine Sodium 50 Mcg Tablet) 50 mcg PO [id number]@0630 [facility] Last Admin: 06/23/21 06:52 Dose: 50 mcg Documented by: BRYAN-GALINAICL Loratadine (Loratadine 10 Mg Tablet) 10 mg PO DAILY [facility] Last Admin: 06/23/21 09:37 Dose: 10 mg Documented by: HARESH Melatonin (Melatonin 3 Mg Tablet) 6 mg PO BEDTIME PRN PRN Reason: Insomnia Sacubitril/Valsartan (Sacubitril/Valsartan 97/103 1 Tab Tablet) 1 tab PO BID [facility]; Protocol Last Admin: 06/23/21 09:37 Dose: 1 tab Documented by: HARESH Senna (Sennosides 8.6 Mg Tablet) 17.2 mg PO BEDTIME PRN PRN Reason: Constipation Sodium Chloride (0.9 % Sodium Chloride Flush 3 Ml Syringe) 3 ml IVFLUSH QSHIFT [facility] Last Admin: 06/23/21 08:00 Dose: 3 ml Documented by: MARY KAY Labs CBC & Chem 7: 06/23/21 06:55 06/23/21 06:55 Labs: Laboratory Results - last 24 hr 06/22/21 06/22/21 06/22/21 18:15 18:15 18:15 MCV 93.4 MCH 30.9 MCHC 33.1 RDW 14.6 Plt Count 131 L D MPV 12.8 H Immature Gran % (Auto) 0.4 Neut % (Auto) 74.5 H Lymph % (Auto) 13.3 L Hinds % (Auto) 9.8 Eos % (Auto) 2.0 Baso % (Auto) 0.0 Lymph # (Auto) 0.7 L [place] # (Auto) 0.5 Eos # (Auto) 0.1 Baso # (Auto) 0.0 Abs Immat Gran (auto) 0.02 Absolute Neuts (auto) 3.8 Absolute Nucleated RBC 0.000 Nucleated RBC % (auto) 0.0 PT INR Anion Gap 16 Estim Creat Clear Calc 24.7 Estimated GFR 31 POC Glucose Random Glucose 98 Lactic Acid Calcium 8.1 L D Total Bilirubin 0.6 AST 26 ALT 13 Alkaline Phosphatase 91 Troponin I High Sens 31.0 H Total Protein 6.3 L Albumin 3.4 L Urine Color Urine Appearance Urine pH Ur Specific [place] Urine Protein Urine Glucose (UA) Urine Ketones Urine Blood Urine Nitrite Ur Leukocyte Esterase Urine RBC Urine WBC Ur Squamous Epith Cells Urine Bacteria COVID-19 (KADY) COVID-19 Clin Com Influenza Type A (DEREK) Influenza Type B (DEREK) Influenza A & B Note 06/22/21 06/22/21 06/22/21 18:35 20:56 20:56 MCV MCH MCHC RDW Plt Count MPV Immature Gran % (Auto) Neut % (Auto) Lymph % (Auto) Hind[place] % (Auto) Eos % (Auto) Baso % (Auto) Lymph # (Auto) Hinds # (Auto) Eos # (Auto) Baso # (Auto) Abs Immat Gran (auto) Absolute Neuts (auto) Absolute Nucleated RBC Nucleated RBC % (auto) PT INR Anion Gap Estim Creat Clear Calc Estimated GFR POC Glucose Random Glucose Lactic Acid 1.2 Calcium Total Bilirubin AST ALT Alkaline Phosphatase Troponin I High Sens Total Protein Albumin Urine Color Urine Appearance Urine pH Ur Specific [place] Urine Protein Urine Glucose (UA) Urine Ketones Urine Blood Urine Nitrite Ur Leukocyte Esterase Urine RBC Urine WBC Ur Squamous Epith Cells Urine Bacteria COVID-19 (KADY) Negative COVID-19 Clin Com See Note Influenza Type A (DEREK) Negative Influenza Type B (DEREK) Negative Influenza A & B Note See Note 06/22/21 06/22/21 06/22/21 21:28 21:37 21:37 MCV MCH MCHC RDW Plt Count MPV Immature Gran % (Auto) Neut % (Auto) Lymph % (Auto) Hind[place] % (Auto) Eos % (Auto) Baso % (Auto) Lymph # (Auto) Hinds # (Auto) Eos # (Auto) Baso # (Auto) Abs Immat Gran (auto) Absolute Neuts (auto) Absolute Nucleated RBC Nucleated RBC % (auto) PT 181.7 H INR 15.1 H* D Anion Gap 15 Estim Creat Clear Calc 29.8 Estimated GFR 38 POC Glucose Random Glucose 95 Lactic Acid Calcium 8.0 L Total Bilirubin AST ALT Alkaline Phosphatase Troponin I High Sens Total Protein Albumin Urine Color YELLOW Urine Appearance HAZY Urine pH 5.5 Ur Specific [place] 1.010 Urine Protein NEG Urine Glucose (UA) 250 H Urine Ketones NEG Urine Blood TRACE Urine Nitrite NEG Ur Leukocyte Esterase 2+ H Urine RBC 1-4 Urine WBC 5-9 H Ur Squamous Epith Cells TRACE Urine Bacteria TRACE COVID-19 (KADY) COVID-19 Clin Com Influenza Type A (DEREK) Influenza Type B (DEREK) Influenza A & B Note 06/23/21 06/23/21 06/23/21 02:00 06:55 06:55 MCV 93.9 96.0 MCH 31.3 31.1 MCHC 33.3 32.4 RDW 14.6 14.6 Plt Count 107 L 112 L MPV 11.7 12.2 Immature Gran % (Auto) 0.2 0.2 Neut % (Auto) 68.1 72.5 Lymph % (Auto) 17.1 L 12.6 L Hind[place] % (Auto) 11.8 H 11.6 H Eos % (Auto) 2.6 2.9 Baso % (Auto) 0.2 0.2 Lymph # (Auto) 0.9 L 0.7 L Hind[place] # (Auto) 0.6 0.6 Eos # (Auto) 0.1 0.2 Baso # (Auto) 0.0 0.0 Abs Immat Gran (auto) 0.01 0.01 Absolute Neuts (auto) 3.4 3.8 Absolute Nucleated RBC 0.000 0.000 Nucleated RBC % (auto) 0.0 0.0 PT 137.3 H INR 11.5 H* D Anion Gap Estim Creat Clear Calc Estimated GFR POC Glucose Random Glucose Lactic Acid Calcium Total Bilirubin AST ALT Alkaline Phosphatase Troponin I High Sens Total Protein Albumin Urine Color Urine Appearance Urine pH Ur Specific [place] Urine Protein Urine Glucose (UA) Urine Ketones Urine Blood Urine Nitrite Ur Leukocyte Esterase Urine RBC Urine WBC Ur Squamous Epith Cells Urine Bacteria COVID-19 (KADY) COVID-19 Clin Com Influenza Type A (DEREK) Influenza Type B (DEREK) Influenza A & B Note 06/23/21 06/23/21 06:55 06:59 MCV MCH MCHC RDW Plt Count MPV Immature Gran % (Auto) Neut % (Auto) Lymph % (Auto) Hind[place] % (Auto) Eos % (Auto) Baso % (Auto) Lymph # (Auto) Hind[place] # (Auto) Eos # (Auto) Baso # (Auto) Abs Immat Gran (auto) Absolute Neuts (auto) Absolute Nucleated RBC Nucleated RBC % (auto) PT INR Anion Gap 9 L Estim Creat Clear Calc 44.8 Estimated GFR > 60 POC Glucose 82 Random Glucose 85 Lactic Acid Calcium 7.8 L Total Bilirubin AST ALT Alkaline Phosphatase Troponin I High Sens Total Protein Albumin Urine Color Urine Appearance Urine pH Ur Specific [place] Urine Protein Urine Glucose (UA) Urine Ketones Urine Blood Urine Nitrite Ur Leukocyte Esterase Urine RBC Urine WBC Ur Squamous Epith Cells Urine Bacteria COVID-19 (KADY) COVID-19 Clin Com Influenza Type A (DEREK) Influenza Type B (DEREK) Influenza A & B Note Microbiology Microbiology Results: Microbiology 06/22/21 21:28 Urine Culture - Preliminary Urine clean catch - Urine arango top Culture too young to evaluate. Assessment and Plan (1) Supratherapeutic INR: Status: Acute (2) GEORGIE (acute kidney injury): Status: Acute (3) Colon wall thickening: Status: Acute (4) UTI (urinary tract infection): Status: Acute Plan 85-year-old female with a past medical history of hypertension, hyperlipidemia, diabetes, CHF, AFib, aortic valve replaced on Coumadin, hypothyroidism, recent diagnosis of COVID-19 positive; presented to the hospital today with a chief complaint of generalized weakness. Diarrhea Colon Wall thickening CT scan showed colonic wall thickening concerning for malignancy versus focal colitis GI to consider colonoscopy by Monday if INR improves Start low sodium diet Gentle IV fluids Stool studies pending GEORGIE Likely prerenal in the setting of volume loss from diarrhea Resolving Monitor for signs of fluid overload. UTI Urinalysis abnormal consistent with UTI empirically given ceftriaxone Follow up cultures. Supratherapeutic INR Patient denies any signs of bleeding. INR still high at 11 Give a 2nd unit of vitamin K 2.5 mg monitor INR. Hold Coumadin for now. Hypotension: Patient blood pressure currently on the soft side. Received 1500 cc of IV fluids and midodrine in the ER. Good capillary refill. Peripheral pulses palpable. Patient denies any lightheadedness or dizziness. Hold home carvedilol, Lasix. History of AFib/AVR: Patient on Coumadin-> on hold for now. Monitor INR levels. History of CHF: Stable. Hold home furosemide, Entresto for now. History of hyperlipidemia: Continue home statin History of hypothyroidism: Continue home levothyroxine History of diabetes: Hold home depaglifazolin. Insulin sliding scale for now. DVT prophylaxis: Patient on Coumadin Patient will need overnight hospital stay for further evaluation of diarrhea possible colitis pending improvement of INR to do GI procedure to prevent any possible decompensation in to bleeding Quality Stroke Does the patient have a stroke diagnosis?: No VTE Prior VTE?: No VTE Risk Level:: Medical - moderate - high VTE Device Contraindication: N/A - Device Ordered VTE Drug Contraindication: Treatment Not Indicated
[2021-06-23 12:53] LABS: Glucose, Whole Blood 70 mg/dL (60-115)
--- NOTE | 2021-06-23 13:03 | PC.NURSE ---
pt's poc 72 given oj.
[2021-06-23] MEDS: Atorvastatin Calcium 40 MG TABLET PO (21:49)
[2021-06-24] VITALS (7 sets, daily range): BP systolic 94–113; BP diastolic 42–63; PULSE 62–88; RESP 18–20; TEMP 36.3–37.2; O2SAT 92–98
[2021-06-24 00:41] LABS: Glucose, Whole Blood 84 mg/dL (60-115)
[2021-06-24] MEDS: Levothyroxine Sodium 50 MCG TABLET PO (05:56)
[2021-06-24 07:21] LABS: Hematocrit 31.2 % (37.0-47.0); Hemoglobin 9.9 g/dl (12.0-16.0); INTERNATIONAL NORM RATIO 4.9 (0.9-1.1); Mean Corpuscular HGB Conc 31.7 g/dl (31.0-35.0); Mean Corpuscular Hemoglobin 30.7 pg (27.0-33.0); Mean Corpuscular Volume 96.6 fL (80.0-98.0); Mean Platelet Volume 12.2 fL (9.4-12.3); Platelet Count 109 X10*3/uL (160-400); Prothrombin Time 57.6 SEC (9.9-13.0); Red Blood Count 3.23 X10*6/uL (4.20-5.50); Red Cell Distribution Width 14.9 % (11.0-16.0); White Blood Count 6.4 X10*3/uL (4.8-10.8)
[2021-06-24 07:38] LABS: Anion Gap 9 (12-20); Blood Urea Nitrogen 17 mg/dL (9-16); Calcium 7.8 mg/dL (8.4-10.2); Carbon Dioxide 23 mmol/L (22-29); Chloride 112 mmol/L (96-108); Creatinine Clr Calc Pharmacy 53.1; Estimated Glomerular Filt Rate > 60; Glucose Random 120 mg/dL (60-115); Potassium 3.1 mmol/L (3.3-5.1); Sodium 141 mmol/L (135-145)
[2021-06-24] MEDS: Fluticasone/Vilanterol 100/25 BLST.W.DEV 1 PUFF INHALE (08:14)
[2021-06-24] MEDS: Potassium Chloride Packet 20 MEQ PACKET 40 MEQ PO (10:04)
[2021-06-24] MEDS: Loratadine 10 MG TABLET PO (10:04)
[2021-06-24] MEDS: Sacubitril/Valsartan 97/103 1 TAB TABLET PO ×2 (10:04→20:59)
--- NOTE | 2021-06-24 11:45 | P.PNIM_ITS ---
Subjective Subjective Date of Service: 06/24/21 Interval History: seen and examined this morning follow up for weakness, diarrhea ?cecal mass vs colitis no abdominal pain, fever or chills feeling overall weakness and stressed as her is in the ED with a UTI no further diarrhea overnight Review of Systems Review of Systems: Yes all other systems are reviewed and are negative Constitutional Constitutional: Denies chills, Reports fatigue and Denies fever(s) Cardiovascular Cardiovascular: Denies chest pain and Denies palpitations Respiratory Respiratory: Denies cough Gastrointestinal Gastrointestinal: Denies abdominal pain, Denies nausea and Denies vomiting Endocrine Endocrine: Reports fatigue and Denies palpitations Physical Exam Vital Signs: Vital Signs: Last Vital Signs Temp 97.4 F 06/24/21 11:06 Pulse 88 06/24/21 11:06 Resp 20 06/24/21 11:06 BP 113/54 L 06/24/21 11:06 Pulse Ox 95 06/24/21 11:06 BMI result Body Mass Index 22.6 Const: General: alert and awake Nutritional Appearance: average body habitus Orientation/consciousness: patient oriented x3 Eyes: Pupils: Equal, round and reactive pupils present EOM: EOMs intact bilaterally Resp: Effort & Inspection: normal respiratory effort and able to speak in complete sentences GI: Inspection: No distended Palpation (GI): Soft to palpation and nontender Neuro: General: patient oriented x3 Cranial nerves: Yes Equal, round and reactive pupils present Extrem: General: Yes no pedal edema Objective Data Active Medications Acetaminophen (Acetaminophen 325 Mg Tablet) 650 mg PO Q6H PRN PRN Reason: Pain, Mild (Pain Scale 1-3) Atorvastatin Calcium (Atorvastatin Calcium 40 Mg Tablet) 40 mg PO BEDTIME [facility] Last Admin: 06/23/21 21:49 Dose: 40 mg Documented by: JENNIFER Fluticasone/Vilanterol (Fluticasone/Vilanterol 100/25 Blst.W.Dev) 1 puff INHALE RDAILY [facility] Last Admin: 06/24/21 08:14 Dose: 1 puff Documented by: SUSANA Sodium Chloride (Ns) 1,000 mls @ 75 mls/hr IVCONT .[id number] [facility] Last Infusion: 06/24/21 10:22 Dose: 0 mls/hr Documented by: ANCELMO Ceftriaxone Sodium 1 gm/ (Sodium Chloride) 50 mls @ 100 mls/hr IV Q24H [facility] Last Infusion: 06/24/21 00:06 Dose: 0 mls/hr Documented by: JENNIFER Ketorolac Tromethamine (Ketorolac Tromethamine 0.5% Op 3 Ml Drops) 1 drop EYE-LEFT BID [facility] Last Admin: 06/24/21 10:18 Dose: 1 drop Documented by: ANCELMO Levothyroxine Sodium (Levothyroxine Sodium 50 Mcg Tablet) 50 mcg PO [id number] [facility] Last Admin: 06/24/21 05:56 Dose: 50 mcg Documented by: JENNIFER Loratadine (Loratadine 10 Mg Tablet) 10 mg PO DAILY [facility] Last Admin: 06/24/21 10:04 Dose: 10 mg Documented by: ANCELMO Melatonin (Melatonin 3 Mg Tablet) 6 mg PO BEDTIME PRN PRN Reason: Insomnia Sacubitril/Valsartan (Sacubitril/Valsartan 97/103 1 Tab Tablet) 1 tab PO BID [facility]; Protocol Last Admin: 06/24/21 10:04 Dose: 1 tab Documented by: ANCELMO Senna (Sennosides 8.6 Mg Tablet) 17.2 mg PO BEDTIME PRN PRN Reason: Constipation Sodium Chloride (0.9 % Sodium Chloride Flush 3 Ml Syringe) 3 ml IVFLUSH QSHIFT [facility] Last Admin: 06/24/21 10:06 Dose: Not Given Documented by: ANCELMO Non-Admin Reason: IV Running Labs CBC & Chem 7: 06/24/21 06:55 06/24/21 06:55 Labs: Laboratory Results - last 24 hr 06/23/21 06/23/21 06/23/21 06:55 12:50 15:48 MCV MCH MCHC RDW Plt Count MPV Absolute Nucleated RBC Nucleated RBC % (auto) PT INR Anion Gap 9 L Estim Creat Clear Calc Estimated GFR POC Glucose 70 84 Random Glucose Calcium 7.8 L 06/24/21 06/24/21 06/24/21 06:55 06:55 06:55 MCV 96.6 MCH 30.7 MCHC 31.7 RDW 14.9 Plt Count 109 L MPV 12.2 Absolute Nucleated RBC 0.000 Nucleated RBC % (auto) 0.0 PT 57.6 H INR 4.9 H D Anion Gap 9 L Estim Creat Clear Calc 53.1 Estimated GFR > 60 POC Glucose Random Glucose 120 H Calcium 7.8 L Microbiology Microbiology Results: Microbiology 06/22/21 18:35 Blood Culture - Preliminary Blood - Venous No growth after 24 hours. 06/22/21 18:15 Blood Culture - Preliminary Blood - Venous No growth after 24 hours. 06/22/21 21:28 Urine Culture - Preliminary Urine clean catch - Urine arango top Culture too young to evaluate. Assessment and Plan (1) UTI (urinary tract infection): Status: Acute (2) Colon wall thickening: Status: Acute Plan 85-year-old female with a past medical history of hypertension, hyperlipidemia, diabetes, CHF, AFib, aortic valve replaced on Coumadin, hypothyroidism, recent diagnosis of COVID-19 positive; presented to the hospital today with a chief complaint of generalized weakness. Diarrhea CT scan showed colonic wall thickening concerning for malignancy versus focal colitis Seen by GI, recommend colonoscopy however patient is not sure she wants to peruse this as an inpatient No further diarrhea overnight, no stool studies collected UTI Urinalysis abnormal consistent with UTI continue empiric ceftriaxone Urine culture pending BCx negative x24 hrs Hypokalemia will replace and follow BMP Supratherapeutic INR Patient denies any signs of bleeding. s/p vitamin K INR trending down, 4.9 today monitor INR. Hold Coumadin for now. Thrombocytopenia appears new, Platelets stable follow CBC Hypotension: Patient blood pressure still soft Hold home carvedilol, Lasix. GEORGIE Resolved with IVF. Likely prerenal in the setting of volume loss from diarrhea Will d/c IVF History of AFib/AVR: Patient on Coumadin Coumadin on hold for now for supratheraputic INR. Monitor INR levels. History of CHF: Stable. Hold home furosemide, carvedilol Continue entresto History of hyperlipidemia: Continue home statin History of hypothyroidism: Continue home levothyroxine History of diabetes: Hold home depaglifazolin. SSI, follow POCs DVT prophylaxis: Patient on Coumadin Attending: dr. aguilar Patient need continued hospitalization due for further evaluation of diarrhea possible colitis pending improvement of INR to do GI procedure to prevent any possible decompensation in to bleeding. close blood pressure monitoring Quality Stroke Does the patient have a stroke diagnosis?: No VTE Prior VTE?: No VTE Risk Level:: Medical - moderate - high VTE Device Contraindication: N/A - Device Ordered VTE Drug Contraindication: Treatment Not Indicated
[2021-06-24 15:49] LABS: Glucose, Whole Blood 110 mg/dL (60-115)
[2021-06-24] MEDS: Magnesium Citrate 300 ML SOLUTION PO (18:35)
[2021-06-24 20:00] LABS: Glucose, Whole Blood 97 mg/dL (60-115)
[2021-06-24] MEDS: Atorvastatin Calcium 40 MG TABLET PO (20:59)
[2021-06-24] MEDS: 0.9 % Sodium Chloride Flush 3 ML SYRINGE IVFLUSH (21:00)
[2021-06-24] MEDS: cefTRIAXone sodium 1 GM in 0.9 % Sodium Chloride 50 ML IV (23:46)
[2021-06-25] VITALS (12 sets, daily range): BP systolic 92–129; BP diastolic 41–67; PULSE 60–80; RESP 16–20; TEMP 35.8–37.3; O2SAT 94–99
[2021-06-25] MEDS: Levothyroxine Sodium 50 MCG TABLET PO (05:28)
[2021-06-25 06:18] LABS: Prothrombin Time 59.8 SEC (9.9-13.0)
[2021-06-25 07:25] LABS: Glucose, Whole Blood 94 mg/dL (60-115)
[2021-06-25 07:33] LABS: INTERNATIONAL NORM RATIO 5.1 (0.9-1.1)
[2021-06-25] MEDS: Fluticasone/Vilanterol 100/25 BLST.W.DEV 1 PUFF INHALE (07:36)
[2021-06-25 08:54] LABS: Hematocrit 30.9 % (37.0-47.0); Hemoglobin 9.8 g/dl (12.0-16.0); Mean Corpuscular HGB Conc 31.7 g/dl (31.0-35.0); Mean Corpuscular Hemoglobin 31.1 pg (27.0-33.0); Mean Corpuscular Volume 98.1 fL (80.0-98.0); Mean Platelet Volume 12.7 fL (9.4-12.3); Platelet Count 102 X10*3/uL (160-400); Red Blood Count 3.15 X10*6/uL (4.20-5.50); Red Cell Distribution Width 15.1 % (11.0-16.0); White Blood Count 6.8 X10*3/uL (4.8-10.8)
[2021-06-25 09:08] LABS: Anion Gap 11 (12-20); Blood Urea Nitrogen 8 mg/dL (9-16); Calcium 8.1 mg/dL (8.4-10.2); Carbon Dioxide 22 mmol/L (22-29); Chloride 109 mmol/L (96-108); Creatinine Clr Calc Pharmacy 65.4; Estimated Glomerular Filt Rate > 60; Glucose Random 91 mg/dL (60-115); Potassium 3.7 mmol/L (3.3-5.1); Sodium 138 mmol/L (135-145)
[2021-06-25] MEDS: Loratadine 10 MG TABLET PO (09:23)
[2021-06-25] MEDS: Sacubitril/Valsartan 97/103 1 TAB TABLET PO ×2 (09:23→21:24)
[2021-06-25] MEDS: 0.9 % Sodium Chloride Flush 3 ML SYRINGE IVFLUSH ×3 (09:23→21:24)
--- NOTE | 2021-06-25 10:52 | HO.ANESPROP2 ---
[facility] Active Problems Active Problems: All Active Problems (Updated 06/23/21 @ 12:13 by Lana Castelan MD) UTI (urinary tract infection) (Acute) Colon wall thickening (Acute) GEORGIE (acute kidney injury) (Acute) Post-acute sequelae of COVID-19 (PASC) (Acute) Warfarin-induced coagulopathy (Acute) Weakness (Acute) Supratherapeutic INR (Acute) GEORGIE (acute kidney injury) (Acute) Current use of anticoagulant therapy (Acute) Aortic valve replaced (Acute) Hypothyroidism (Acute) Hypertension (Acute) Pseudogout (Acute) Arthritis (Acute) COVID-19 (Acute) Active asthma (Acute) A-fib (Acute) Past Medical History Medical History A-fib Active asthma Hypothyroid Pacemaker Family History Family history of problems with anesthesia: No Surgical History Surgical History Heart valve replaced History of Problems with Anesthesia: No Social History Social History Household Members: Spouse Housing: House Do you presently have visiting nurse or other home services: Yes ([facility]) Alcohol intake: current Alcohol intake frequency: a few times a month Alcohol type: wine Patient Tobacco Use Status: Never used Tobacco Advance Directives Date on File: 06/02/21 service: No Current occupational status: retired Meds Allergies Allergy/AdvReac Type Severity Reaction Status Date / Time Iodinated Contrast Media Allergy Unknown HIVES Verified 06/24/21 15:38 [CONTRAST, IV] mite-Dermatophagoides Allergy Unknown UNKNOWN Verified 06/24/21 15:38 farinae, joleen [DUST MITES] mold [MOLD] Allergy Unknown UNKNOWN Verified 06/24/21 15:38 Sulfa (Sulfonamide AdvReac Intermediate UNKNOWN Verified 06/24/21 15:38 Antibiotics) DUST Allergy Unknown UNKNOWN Uncoded 06/24/21 15:38 Active Medications: Current Medications Acetaminophen (Acetaminophen 325 Mg Tablet) 650 mg PO Q6H PRN PRN Reason: Pain, Mild (Pain Scale 1-3) Atorvastatin Calcium (Atorvastatin Calcium 40 Mg Tablet) 40 mg PO BEDTIME [facility] Last Admin: 06/24/21 20:59 Dose: 40 mg Documented by: Bisacodyl (Bisacodyl 5 Mg Tablet.Dr) 10 mg PO ONCE ONE Stop: 06/25/21 13:01 Dextrose (Dextrose 50 % 25 Gm/50 Ml Syringe) 25 gm IVPUSH Q15M PRN; Protocol PRN Reason: per Hypoglycemia Standing Ord. Fluticasone/Vilanterol (Fluticasone/Vilanterol 100/25 Blst.W.Dev) 1 puff INHALE RDAILY [facility] Last Admin: 06/25/21 07:36 Dose: 1 puff Documented by: Glucose (Glucose Gel 15 Gm Gel..Gram.) 15 gm PO Q15M PRN; Protocol PRN Reason: per Hypoglycemia Standing Ord. Ceftriaxone Sodium 1 gm/ (Sodium Chloride) 50 mls @ 100 mls/hr IV Q24H [facility] Last Infusion: 06/25/21 00:22 Dose: Infused Documented by: Insulin Human Lispro (Insulin Lispro 100 Unit/Ml 3 Ml Vial) 0 unit SUBCUT QIDACHS [facility]; Protocol Last Admin: 06/25/21 08:03 Dose: Not Given Documented by: Ketorolac Tromethamine (Ketorolac Tromethamine 0.5% Op 3 Ml Drops) 1 drop EYE-LEFT BID [facility] Last Admin: 06/25/21 09:23 Dose: 1 drop Documented by: Levothyroxine Sodium (Levothyroxine Sodium 50 Mcg Tablet) 50 mcg PO [id number] [facility] Last Admin: 06/25/21 05:28 Dose: 50 mcg Documented by: Loratadine (Loratadine 10 Mg Tablet) 10 mg PO DAILY [facility] Last Admin: 06/25/21 09:23 Dose: 10 mg Documented by: Melatonin (Melatonin 3 Mg Tablet) 6 mg PO BEDTIME PRN PRN Reason: Insomnia Sacubitril/Valsartan (Sacubitril/Valsartan 97/103 1 Tab Tablet) 1 tab PO BID [facility]; Protocol Last Admin: 06/25/21 09:23 Dose: 1 tab Documented by: Senna (Sennosides 8.6 Mg Tablet) 17.2 mg PO BEDTIME PRN PRN Reason: Constipation Sodium Chloride (0.9 % Sodium Chloride Flush 3 Ml Syringe) 3 ml IVFLUSH QSHIFT [facility] Last Admin: 06/25/21 09:23 Dose: 3 ml Documented by: Home Medications Medication Instructions Recorded Confirmed Last Taken Type atorvastatin 40 mg tablet 40 mg PO BEDTIME 12/26/19 06/24/21 05/31/21 History fluticasone 250 mcg-salmeterol 50 1 ea PO BID 12/26/19 06/24/21 06/22/21 History mcg/dose blistr powdr for inhalation levothyroxine 50 mcg tablet 50 mcg PO SUMOTUWETHFR 12/26/19 06/24/21 06/22/21 History sacubitril 97 mg-valsartan 103 mg 1 tab PO BID 12/26/19 06/24/21 06/22/21 History tablet carvedilol 25 mg tablet 25 mg PO BID 12/25/20 06/24/21 06/22/21 History furosemide 20 mg tablet 20 mg PO DAILY 05/24/21 06/24/21 06/22/21 History acetaminophen 500 mg tablet 500 mg PO BID 06/01/21 06/24/21 06/22/21 History fexofenadine 180 mg tablet 180 mg PO DAILY 06/01/21 06/24/21 06/22/21 History ketorolac 0.5 % eye drops 1 drp OPHTHALMIC-LEFT BID 06/01/21 06/24/21 06/22/21 History warfarin 2.5 mg tablet 5 mg PO SUMOWETHFRSA 06/01/21 06/24/21 06/21/21 History warfarin 2.5 mg tablet (Jantoven) 2.5 tab PO TU 06/01/21 06/24/21 06/15/21 History dapagliflozin 10 mg tablet 1 tab PO DAILY 06/22/21 06/24/21 06/22/21 History ([facility]) Exam Exam Date and Time: June 25, 2021 1052 Height,Weight and Vital Signs: Height 5 ft 6 in Weight 63.5 kg Last Vital Signs Temp 96.4 F L 06/25/21 07:35 Pulse 62 06/25/21 10:37 Resp 18 06/25/21 07:37 BP 100/55 L 06/25/21 07:35 Pulse Ox 96 06/25/21 07:35 Pertinent Lab Results Pertinent Lab Results: Laboratory Tests 06/22/21 06/22/21 06/22/21 18:15 18:15 18:15 WBC 5.1 RBC 3.49 L Hgb 10.8 L Hct 32.6 L MCV 93.4 MCH 30.9 MCHC 33.1 RDW 14.6 Plt Count 131 L D MPV 12.8 H Immature Gran % (Auto) 0.4 Neut % (Auto) 74.5 H Lymph % (Auto) 13.3 L [place] % (Auto) 9.8 Eos % (Auto) 2.0 Baso % (Auto) 0.0 Lymph # (Auto) 0.7 L [place] # (Auto) 0.5 Eos # (Auto) 0.1 Baso # (Auto) 0.0 Abs Immat Gran (auto) 0.02 Absolute Neuts (auto) 3.8 Absolute Nucleated RBC 0.000 Nucleated RBC % (auto) 0.0 PT INR Sodium 131 L Potassium 3.7 Chloride 100 Carbon Dioxide 19 L Anion Gap 16 BUN 45 H D Creatinine 1.61 H Estim Creat Clear Calc 24.7 Estimated GFR 31 POC Glucose Random Glucose 98 Lactic Acid Calcium 8.1 L D Total Bilirubin 0.6 AST 26 ALT 13 Alkaline Phosphatase 91 Troponin I High Sens 31.0 H Total Protein 6.3 L Albumin 3.4 L Urine Color Urine Appearance Urine pH Ur Specific [place] Urine Protein Urine Glucose (UA) Urine Ketones Urine Blood Urine Nitrite Ur Leukocyte Esterase Urine RBC Urine WBC Ur Squamous Epith Cells Urine Bacteria COVID-19 (KADY) COVID-19 Clin Com Influenza Type A (DEREK) Influenza Type B (DEREK) Influenza A & B Note 06/22/21 06/22/21 06/22/21 18:35 20:56 20:56 WBC RBC Hgb Hct MCV MCH MCHC RDW Plt Count MPV Immature Gran % (Auto) Neut % (Auto) Lymph % (Auto) [place] % (Auto) Eos % (Auto) Baso % (Auto) Lymph # (Auto) [place] # (Auto) Eos # (Auto) Baso # (Auto) Abs Immat Gran (auto) Absolute Neuts (auto) Absolute Nucleated RBC Nucleated RBC % (auto) PT INR Sodium Potassium Chloride Carbon Dioxide Anion Gap BUN Creatinine Estim Creat Clear Calc Estimated GFR POC Glucose Random Glucose Lactic Acid 1.2 Calcium Total Bilirubin AST ALT Alkaline Phosphatase Troponin I High Sens Total Protein Albumin Urine Color Urine Appearance Urine pH Ur Specific [place] Urine Protein Urine Glucose (UA) Urine Ketones Urine Blood Urine Nitrite Ur Leukocyte Esterase Urine RBC Urine WBC Ur Squamous Epith Cells Urine Bacteria COVID-19 (KADY) Negative COVID-19 Clin Com See Note Influenza Type A (DEREK) Negative Influenza Type B (DEREK) Negative Influenza A & B Note See Note 06/22/21 06/22/21 06/22/21 21:28 21:37 21:37 WBC RBC Hgb Hct MCV MCH MCHC RDW Plt Count MPV Immature Gran % (Auto) Neut % (Auto) Lymph % (Auto) [place] % (Auto) Eos % (Auto) Baso % (Auto) Lymph # (Auto) [place] # (Auto) Eos # (Auto) Baso # (Auto) Abs Immat Gran (auto) Absolute Neuts (auto) Absolute Nucleated RBC Nucleated RBC % (auto) PT 181.7 H INR 15.1 H* D Sodium 136 Potassium 4.3 Chloride 105 Carbon Dioxide 20 L Anion Gap 15 BUN 40 H Creatinine 1.34 Estim Creat Clear Calc 29.8 Estimated GFR 38 POC Glucose Random Glucose 95 Lactic Acid Calcium 8.0 L Total Bilirubin AST ALT Alkaline Phosphatase Troponin I High Sens Total Protein Albumin Urine Color YELLOW Urine Appearance HAZY Urine pH 5.5 Ur Specific [place] 1.010 Urine Protein NEG Urine Glucose (UA) 250 H Urine Ketones NEG Urine Blood TRACE Urine Nitrite NEG Ur Leukocyte Esterase 2+ H Urine RBC 1-4 Urine WBC 5-9 H Ur Squamous Epith Cells TRACE Urine Bacteria TRACE COVID-19 (KADY) COVID-19 Clin Com Influenza Type A (DEREK) Influenza Type B (DEREK) Influenza A & B Note 06/23/21 06/23/21 06/23/21 02:00 06:55 06:55 WBC 5.0 5.3 RBC 3.10 L 3.25 L Hgb 9.7 L 10.1 L Hct 29.1 L 31.2 L MCV 93.9 96.0 MCH 31.3 31.1 MCHC 33.3 32.4 RDW 14.6 14.6 Plt Count 107 L 112 L MPV 11.7 12.2 Immature Gran % (Auto) 0.2 0.2 Neut % (Auto) 68.1 72.5 Lymph % (Auto) 17.1 L 12.6 L [place] % (Auto) 11.8 H 11.6 H Eos % (Auto) 2.6 2.9 Baso % (Auto) 0.2 0.2 Lymph # (Auto) 0.9 L 0.7 L [place] # (Auto) 0.6 0.6 Eos # (Auto) 0.1 0.2 Baso # (Auto) 0.0 0.0 Abs Immat Gran (auto) 0.01 0.01 Absolute Neuts (auto) 3.4 3.8 Absolute Nucleated RBC 0.000 0.000 Nucleated RBC % (auto) 0.0 0.0 PT 137.3 H INR 11.5 H* D Sodium Potassium Chloride Carbon Dioxide Anion Gap BUN Creatinine Estim Creat Clear Calc Estimated GFR POC Glucose Random Glucose Lactic Acid Calcium Total Bilirubin AST ALT Alkaline Phosphatase Troponin I High Sens Total Protein Albumin Urine Color Urine Appearance Urine pH Ur Specific [place] Urine Protein Urine Glucose (UA) Urine Ketones Urine Blood Urine Nitrite Ur Leukocyte Esterase Urine RBC Urine WBC Ur Squamous Epith Cells Urine Bacteria COVID-19 (KADY) COVID-19 Clin Com Influenza Type A (DEREK) Influenza Type B (DEREK) Influenza A & B Note 06/23/21 06/23/21 06/23/21 06:55 06:59 12:50 WBC RBC Hgb Hct MCV MCH MCHC RDW Plt Count MPV Immature Gran % (Auto) Neut % (Auto) Lymph % (Auto) [place] % (Auto) Eos % (Auto) Baso % (Auto) Lymph # (Auto) [place] # (Auto) Eos # (Auto) Baso # (Auto) Abs Immat Gran (auto) Absolute Neuts (auto) Absolute Nucleated RBC Nucleated RBC % (auto) PT INR Sodium 138 Potassium 3.4 D Chloride 110 H Carbon Dioxide 22 Anion Gap 9 L BUN 28 H Creatinine 0.89 Estim Creat Clear Calc 44.8 Estimated GFR > 60 POC Glucose 82 70 Random Glucose 85 Lactic Acid Calcium 7.8 L Total Bilirubin AST ALT Alkaline Phosphatase Troponin I High Sens Total Protein Albumin Urine Color Urine Appearance Urine pH Ur Specific [place] Urine Protein Urine Glucose (UA) Urine Ketones Urine Blood Urine Nitrite Ur Leukocyte Esterase Urine RBC Urine WBC Ur Squamous Epith Cells Urine Bacteria COVID-19 (KADY) COVID-19 Clin Com Influenza Type A (DEREK) Influenza Type B (DEREK) Influenza A & B Note 06/23/21 06/24/21 06/24/21 15:48 06:55 06:55 WBC 6.4 RBC 3.23 L Hgb 9.9 L Hct 31.2 L MCV 96.6 MCH 30.7 MCHC 31.7 RDW 14.9 Plt Count 109 L MPV 12.2 Immature Gran % (Auto) Neut % (Auto) Lymph % (Auto) [place] % (Auto) Eos % (Auto) Baso % (Auto) Lymph # (Auto) [place] # (Auto) Eos # (Auto) Baso # (Auto) Abs Immat Gran (auto) Absolute Neuts (auto) Absolute Nucleated RBC 0.000 Nucleated RBC % (auto) 0.0 PT INR Sodium 141 Potassium 3.1 L Chloride 112 H Carbon Dioxide 23 Anion Gap 9 L BUN 17 H Creatinine 0.75 Estim Creat Clear Calc 53.1 Estimated GFR > 60 POC Glucose 84 Random Glucose 120 H Lactic Acid Calcium 7.8 L Total Bilirubin AST ALT Alkaline Phosphatase Troponin I High Sens Total Protein Albumin Urine Color Urine Appearance Urine pH Ur Specific [place] Urine Protein Urine Glucose (UA) Urine Ketones Urine Blood Urine Nitrite Ur Leukocyte Esterase Urine RBC Urine WBC Ur Squamous Epith Cells Urine Bacteria COVID-19 (KADY) COVID-19 Clin Com Influenza Type A (DEREK) Influenza Type B (DEREK) Influenza A & B Note 06/24/21 06/24/21 06/24/21 06:55 15:44 19:26 WBC RBC Hgb Hct MCV MCH MCHC RDW Plt Count MPV Immature Gran % (Auto) Neut % (Auto) Lymph % (Auto) [place] % (Auto) Eos % (Auto) Baso % (Auto) Lymph # (Auto) [place] # (Auto) Eos # (Auto) Baso # (Auto) Abs Immat Gran (auto) Absolute Neuts (auto) Absolute Nucleated RBC Nucleated RBC % (auto) PT 57.6 H INR 4.9 H D Sodium Potassium Chloride Carbon Dioxide Anion Gap BUN Creatinine Estim Creat Clear Calc Estimated GFR POC Glucose 110 97 Random Glucose Lactic Acid Calcium Total Bilirubin AST ALT Alkaline Phosphatase Troponin I High Sens Total Protein Albumin Urine Color Urine Appearance Urine pH Ur Specific [place] Urine Protein Urine Glucose (UA) Urine Ketones Urine Blood Urine Nitrite Ur Leukocyte Esterase Urine RBC Urine WBC Ur Squamous Epith Cells Urine Bacteria COVID-19 (KADY) COVID-19 Clin Com Influenza Type A (DEREK) Influenza Type B (DEREK) Influenza A & B Note 06/25/21 06/25/21 06/25/21 05:39 07:17 08:24 WBC RBC Hgb Hct MCV MCH MCHC RDW Plt Count MPV Immature Gran % (Auto) Neut % (Auto) Lymph % (Auto) [place] % (Auto) Eos % (Auto) Baso % (Auto) Lymph # (Auto) [place] # (Auto) Eos # (Auto) Baso # (Auto) Abs Immat Gran (auto) Absolute Neuts (auto) Absolute Nucleated RBC Nucleated RBC % (auto) PT 59.8 H INR 5.1 H* Sodium 138 Potassium 3.7 Chloride 109 H Carbon Dioxide 22 Anion Gap 11 L BUN 8 L D Creatinine 0.61 Estim Creat Clear Calc 65.4 Estimated GFR > 60 POC Glucose 94 Random Glucose 91 Lactic Acid Calcium 8.1 L Total Bilirubin AST ALT Alkaline Phosphatase Troponin I High Sens Total Protein Albumin Urine Color Urine Appearance Urine pH Ur Specific [place] Urine Protein Urine Glucose (UA) Urine Ketones Urine Blood Urine Nitrite Ur Leukocyte Esterase Urine RBC Urine WBC Ur Squamous Epith Cells Urine Bacteria COVID-19 (KADY) COVID-19 [employer] Com Influenza Type A (DEREK) Influenza Type B (DEREK) Influenza A & B Note 06/25/21 08:24 WBC 6.8 RBC 3.15 L Hgb 9.8 L Hct 30.9 L MCV 98.1 H MCH 31.1 MCHC 31.7 RDW 15.1 Plt Count 102 L MPV 12.7 H Immature Gran % (Auto) Neut % (Auto) Lymph % (Auto) [place] % (Auto) Eos % (Auto) Baso % (Auto) Lymph # (Auto) [place] # (Auto) Eos # (Auto) Baso # (Auto) Abs Immat Gran (auto) Absolute Neuts (auto) Absolute Nucleated RBC 0.000 Nucleated RBC % (auto) 0.0 PT INR Sodium Potassium Chloride Carbon Dioxide Anion Gap BUN Creatinine Estim Creat Clear Calc Estimated GFR POC Glucose Random Glucose Lactic Acid Calcium Total Bilirubin AST ALT Alkaline Phosphatase Troponin I High Sens Total Protein Albumin Urine Color Urine Appearance Urine pH Ur Specific [place] Urine Protein Urine Glucose (UA) Urine Ketones Urine Blood Urine Nitrite Ur Leukocyte Esterase Urine RBC Urine WBC Ur Squamous Epith Cells Urine Bacteria COVID-19 (KADY) COVID-19 Intent Media Com Influenza Type A (DEREK) Influenza Type B (DEREK) Influenza A & B Note Airway Mallampati Class: II (Bridge lower front permanent) TM Dist: >3cm Neck ROM: Full Heart: rrr Lungs: ct Assessment and Plan Assessment Anesthesia Assessment: Anesthesia Plan Discussed and Chart Reviewed Final Anesthetic Review Family History of Problems with Anesthesia: No History of Problems with Anesthesia: No NPO: Yes ASA Class: III Final Preanesthetic Review: No Changes in Pt Med Stat, Meds/Allgs Chart Reviewed and Consent Obtained/Reviewed Patient Risk: Intermediate Procedure Risk: Intermediate Anesthetic Plan Anesthetic Plan: MAC: Disposition: Standard PACU
--- NOTE | 2021-06-25 10:57 | MHC.SHP ---
Pre-Procedural Eval Section A Date of Service: 06/25/21 The patient is an INPATIENT: Yes Changes since office visit: Yes New Medical Problems, Yes Changes in Medication and Yes Patient answered all questions; No Cold of Flu in the past 2 weeks The History & Physical has been completed within 30 days and I have reviewed it.: Yes Section B Chief Complaint: GEORGIE Allergies: Allergies Allergy/AdvReac Type Severity Reaction Status Date / Time Iodinated Contrast Media Allergy Unknown HIVES Verified 06/24/21 15:38 [CONTRAST, IV] mite-Dermatophagoides Allergy Unknown UNKNOWN Verified 06/24/21 15:38 farinae, joleen [DUST MITES] mold [MOLD] Allergy Unknown UNKNOWN Verified 06/24/21 15:38 Sulfa (Sulfonamide AdvReac Intermediate UNKNOWN Verified 06/24/21 15:38 Antibiotics) DUST Allergy Unknown UNKNOWN Uncoded 06/24/21 15:38 Plan I have reviewed the history and physical and performed a pertinent physical examination on my patient. No changes have occurred unless specified.
--- NOTE | 2021-06-25 11:52 | P.BOP_ITS ---
Brief Operative Note Date of Service: 06/25/21 Pre-op diagnosis: abnormal CT scan of the abdomen Post-op diagnosis: other (Colitis AC, diverticulosis, hemorrhoids) Procedure: COLONOSCOPY TILL CECUM Consent: Indications for the procedure and potential complications of bleeding, perforation, reaction to medications and missed diagnosis were discussed with the patient and informed consent was obtained. Instrument: Olympus PCF H 190 L variable stiffness pediatric colonoscope Monitoring: Vital signs and clinical assessment, intermittent blood pressure monitoring, continuous EKG monitoring, Pulse oximetry and Carbon Dioxide monitoring were done throughout the procedure. Colon withdrawl time was 28 minutes. Procedure: The patient was placed in the left lateral decubitis position and pre-procedure medications were administered. After a digital rectal examination of the ano-rectum, the video colonoscope was inserted into the rectum and advanced through the colon to the cecum. The colonoscope was slowly withdrawn in a retrograde panoramic fashion and the colon mucosa was carefully examined including a retroflexed view of the rectum. Findings and interventions are described below. Procedure Difficulty: Without difficulty Findings: Terminal Ileum: Not evaluated Cecum: Normal - no mass was visualized Ascending Colon: A focal area of edema, erythema and ulcerations in mid ascending colon from 55 to 60 cms. covering 50% of the colon circumference. No obvious mass seen. No biopsies were obtained due to elevated INR Transverse Colon: Normal Descending Colon: Moderate diverticulosis Sigmoid Colon: Moderate diverticulosis Rectum: Normal Ano-rectum: Small internal hemorrhoids Colon preparation: Good to Fair despite copious irrigation (since pt only took less than half of the Golytely and refused Mag Citrate prep) Impression and Post Procedure Diagnosis: Colonoscopy Findings: A focal area of edema, erythema and ulcerations in mid AC from 55 to 60 cms. covering 50% of the colon circumference - likely resolving ischemic or infectious colitis. No obvious mass seen. No biopsies were obtained due to elevated INR Moderate diverticulosis seen in the left colon Moderate hemorrhoids on retroflexed exam. Plan: Continue IV antibiotics. Repeat CT scan next week to ensure changes seen on CT scan have resolved. Patient to schedule a FU appt in the GI [facility] with Dr Watson. Repeat colonoscopy can be considered in 1 year due to suboptimal prep. Above findings were reviewed with the patient. Surgeon: Anderson Vicente MD Anesthesia: MAC (Dr Hawkins) Was an Crown Assembly Machine Operator used for this Procedure?: Yes Crown Assembly Machine Operator: Brenda Schumacher Estimated blood loss (mL): 0 Pathology: none sent Condition: stable Disposition: PACU
--- NOTE | 2021-06-25 12:01 | W.PM.OPN ---
Operative Note Operative Note Date of Service: 06/25/21 Narrative: Pre-op diagnosis: abnormal CT scan of the abdomen Post-op diagnosis:?other (Colitis AC, diverticulosis, hemorrhoids) Procedure: COLONOSCOPY TILL CECUM Consent: Indications for the procedure and potential complications of bleeding, perforation, reaction to medications and missed diagnosis were discussed with the patient and informed consent was obtained. Instrument: Olympus PCF H 190 L variable stiffness pediatric colonoscope Monitoring: Vital signs and clinical assessment, intermittent blood pressure monitoring, continuous EKG monitoring, Pulse oximetry and Carbon Dioxide monitoring were done throughout the procedure. Colon withdrawl time was 28 minutes. Procedure: The patient was placed in the left lateral decubitis position and pre-procedure medications were administered. After a digital rectal examination of the ano-rectum, the video colonoscope was inserted into the rectum and advanced through the colon to the cecum. The colonoscope was slowly withdrawn in a retrograde panoramic fashion and the colon mucosa was carefully examined including a retroflexed view of the rectum. Findings and interventions are described below. Procedure Difficulty: Without difficulty Findings: Terminal Ileum: Not evaluated Cecum:? Normal - no mass was visualized Ascending Colon:? A focal area of edema, erythema and ulcerations in mid ascending colon from 55 to 60 cms.? covering 50% of the colon circumference. No obvious mass seen.? No biopsies were obtained due to elevated INR Transverse Colon:? Normal Descending Colon:? Moderate diverticulosis Sigmoid Colon:? Moderate diverticulosis Rectum:? Normal Ano-rectum:? Small internal hemorrhoids Colon preparation:? Good to Fair despite copious irrigation (since pt only took less than half of the Golytely and refused Mag Citrate prep) Impression and Post Procedure Diagnosis: Colonoscopy Findings: A focal area of edema, erythema and ulcerations in mid AC from 55 to 60 cms.? covering 50% of the colon circumference - likely resolving ischemic or infectious colitis. No obvious mass seen.? No biopsies were obtained due to elevated INR Moderate diverticulosis seen in the left colon Moderate hemorrhoids on retroflexed exam. Plan: Continue IV antibiotics. Repeat CT scan next week to ensure changes seen on CT scan have resolved. Patient to schedule a FU appt in the GI Clinic with Dr Watson. Repeat colonoscopy can be considered in 1 year due to suboptimal prep. Above findings were reviewed with the patient. Surgeon: Anderson Vicente MD Anesthesia:?MAC (Dr Hawkins) Was an Supervisor Jewelry Department used for this Procedure?:?Yes Supervisor Jewelry Department:?Brenda cShumacher Estimated blood loss (mL):?0 Pathology:?none sent Condition:?stable Disposition:?PACU
--- NOTE | 2021-06-25 12:32 | P.CONGS_ITS ---
History of Present Illness Consult details Consult date: 06/25/21 Requesting physician: Jenn Chung Narrative: 85-year-old female patient presenting with a one-week history of diarrhea, weakness, anorexia, nausea without vomiting presenting to the emergency department found to be hypotensive with blood pressure of 80/49. She was diagnosis positive COVID on 06/01 for symptoms have subsequently resolved. She denies shortness of breath or cough. She also has a history of AFib , aortic valve replacement and is currently on anticoagulation. CT of the abdomen and pelvis obtained in the emergency department revealed evidence of a thickened cecal wall suspicious for malignancy. Surgical consultation was requested for management of this wall thickening. Patient has subsequently undergone colonoscopy today by Dr. Grey. This reveals a focal area of edema, ulceration and erythema in the ascending colon suggestive of ischemic colitis. No colonic masses identified. Review of Systems Review of Systems: Yes all other systems are reviewed and are negative Constitutional: Constitutional: Reports anorexia, Reports fatigue and Reports lethargy Cardiovascular: Cardiovascular: Denies chest pain and Reports irregular heart rhythm Gastrointestinal: Gastrointestinal: Reports abdominal pain, Reports diarrhea, Reports nausea, Denies vomiting and Denies hematemesis Endocrine: Endocrine: Reports fatigue Hematologic/Lymphatic: Hematologic/Lymphatic: Reports easy bleeding, Reports easy bruising and Denies lymphadenopathy PMFSH Past Medical History Medical History A-fib Active asthma Hypothyroid Pacemaker Family History Family history: reviewed and not pertinent Surgical History Surgical History Heart valve replaced History of appendectomy Hx of colonoscopy Social History Social History Household Members: Spouse Housing: House Do you presently have visiting nurse or other home services: Yes ([facility]) Alcohol intake: current Alcohol intake frequency: a few times a month Alcohol type: wine Patient Tobacco Use Status: Never used Tobacco Advance Directives Date on File: 06/02/21 service: No Current occupational status: retired Meds Allergies Allergy/AdvReac Type Severity Reaction Status Date / Time Iodinated Contrast Media Allergy Unknown HIVES Verified 06/24/21 15:38 [CONTRAST, IV] mite-Dermatophagoides Allergy Unknown UNKNOWN Verified 06/24/21 15:38 farinae, joleen [DUST MITES] mold [MOLD] Allergy Unknown UNKNOWN Verified 06/24/21 15:38 Sulfa (Sulfonamide AdvReac Intermediate UNKNOWN Verified 06/24/21 15:38 Antibiotics) DUST Allergy Unknown UNKNOWN Uncoded 06/24/21 15:38 Active Medications: Current Medications Acetaminophen (Acetaminophen 325 Mg Tablet) 650 mg PO Q6H PRN PRN Reason: Pain, Mild (Pain Scale 1-3) Atorvastatin Calcium (Atorvastatin Calcium 40 Mg Tablet) 40 mg PO BEDTIME [facility] Last Admin: 06/24/21 20:59 Dose: 40 mg Documented by: Bisacodyl (Bisacodyl 5 Mg Tablet.Dr) 10 mg PO ONCE ONE Stop: 06/25/21 13:01 Dextrose (Dextrose 50 % 25 Gm/50 Ml Syringe) 25 gm IVPUSH Q15M PRN; Protocol PRN Reason: per Hypoglycemia Standing Ord. Fluticasone/Vilanterol (Fluticasone/Vilanterol 100/25 Blst.W.Dev) 1 puff INHALE RDAILY [facility] Last Admin: 06/25/21 07:36 Dose: 1 puff Documented by: Glucose (Glucose Gel 15 Gm Gel..Gram.) 15 gm PO Q15M PRN; Protocol PRN Reason: per Hypoglycemia Standing Ord. Ceftriaxone Sodium 1 gm/ (Sodium Chloride) 50 mls @ 100 mls/hr IV Q24H [facility] Last Infusion: 06/25/21 00:22 Dose: Infused Documented by: Insulin Human Lispro (Insulin Lispro 100 Unit/Ml 3 Ml Vial) 0 unit SUBCUT QIDAC HS [facility]; Protocol Last Admin: 06/25/21 08:03 Dose: Not Given Documented by: Ketorolac Tromethamine (Ketorolac Tromethamine 0.5% Op 3 Ml Drops) 1 drop EYE- LEFT BID [facility] Last Admin: 06/25/21 09:23 Dose: 1 drop Documented by: Levothyroxine Sodium (Levothyroxine Sodium 50 Mcg Tablet) 50 mcg PO [id number] [facility] Last Admin: 06/25/21 05:28 Dose: 50 mcg Documented by: Loratadine (Loratadine 10 Mg Tablet) 10 mg PO DAILY [facility] Last Admin: 06/25/21 09:23 Dose: 10 mg Documented by: Melatonin (Melatonin 3 Mg Tablet) 6 mg PO BEDTIME PRN PRN Reason: Insomnia Sacubitril/Valsartan (Sacubitril/Valsartan 97/103 1 Tab Tablet) 1 tab PO BID [facility]; Protocol Last Admin: 06/25/21 09:23 Dose: 1 tab Documented by: Zakiya (Sennosides 8.6 Mg Tablet) 17.2 mg PO BEDTIME PRN PRN Reason: Constipation Sodium Chloride (0.9 % Sodium Chloride Flush 3 Ml Syringe) 3 ml IVFLUSH QSHIFT [facility] Last Admin: 06/25/21 09:23 Dose: 3 ml Documented by: Home Medications Medication Instructions Recorded Confirmed Last Taken Type atorvastatin 40 mg tablet 40 mg PO BEDTIME 12/26/19 06/24/21 05/31/21 History fluticasone 250 mcg-salmeterol 50 1 ea PO BID 12/26/19 06/24/21 06/22/21 History mcg/dose blistr powdr for inhalation levothyroxine 50 mcg tablet 50 mcg PO SUMOTUWETHFR 12/26/19 06/24/21 06/22/21 History sacubitril 97 mg-valsartan 103 mg 1 tab PO BID 12/26/19 06/24/21 06/22/21 History tablet carvedilol 25 mg tablet 25 mg PO BID 12/25/20 06/24/21 06/22/21 History furosemide 20 mg tablet 20 mg PO DAILY 05/24/21 06/24/21 06/22/21 History acetaminophen 500 mg tablet 500 mg PO BID 06/01/21 06/24/21 06/22/21 History fexofenadine 180 mg tablet 180 mg PO DAILY 06/01/21 06/24/21 06/22/21 History ketorolac 0.5 % eye drops 1 drp OPHTHALMIC-LEFT BID 06/01/21 06/24/21 06/22/21 History warfarin 2.5 mg tablet 5 mg PO SUMOWETHFRSA 06/01/21 06/24/21 06/21/21 History warfarin 2.5 mg tablet (Febtoven) 2.5 tab PO TU 06/01/21 06/24/21 06/15/21 History dapagliflozin 10 mg tablet 1 tab PO DAILY 06/22/21 06/24/21 06/22/21 [facility] Physical Exam Vital Signs: Vital Signs: Last Vital Signs Temp 97.1 F 06/25/21 11:58 Pulse 60 06/25/21 11:58 Resp 16 06/25/21 11:58 BP 92/41 L 06/25/21 11:58 Pulse Ox 97 06/25/21 11:58 BMI result Body Mass Index 22.6 Const: General: no acute distress Nutritional Appearance: thin Orientation/consciousness: patient oriented x3 HEENT: Head: Yes normocephalic and Yes atraumatic Resp: Effort & Inspection: normal respiratory effort, no audible wheezes, no cough and no respiratory distress GI: Palpation (GI): Soft to palpation, nontender, no guarding and not rigid Percussion: Yes normal to percussion Neuro: General: patient oriented x3 Extrem: General: Yes no clubbing, cyanosis or edema Results Labs Result diagrams: 06/25/21 08:24 06/25/21 08:24 Labs: Abnormal lab results 06/25/21 06/25/21 06/25/21 Range/Units 05:39 08:24 08:24 RBC 3.15 L (4.20-5.50) X10*6/uL Hgb 9.8 L (12.0-16.0) g/dl Hct 30.9 L (37.0-47.0) % MCV 98.1 H (80.0-98.0) fL Plt Count 102 L (160-400) X10*3/uL MPV 12.7 H (9.4-12.3) fL PT 59.8 H (9.9-13.0) SEC INR 5.1 H* (0.9-1.1) Chloride 109 H (96-108) mmol/L Anion Gap 11 L (12-20) BUN 8 L D (9-16) mg/dL Calcium 8.1 L (8.4-10.2) mg/dL Short CBC 06/25/21 Range/Units 08:24 WBC 6.8 (4.8-10.8) X10*3/uL Hgb 9.8 L (12.0-16.0) g/dl Hct 30.9 L (37.0-47.0) % Plt Count 102 L (160-400) X10*3/uL BMP 06/25/21 08:24 Sodium 138 Potassium 3.7 Chloride 109 H Carbon Dioxide 22 BUN 8 L D Creatinine 0.61 Calcium 8.1 L Urine 06/22/21 Range/Units 21:28 Urine Color YELLOW Urine Appearance HAZY Urine pH 5.5 (5.0-8.0) Ur Specific [place] 1.010 (1.005-1.025) Urine Protein NEG (NEG-TRACE) MG/DL Urine Glucose (UA) 250 H (NEG) MG/DL All other labs normal. Assessment and Plan (1) Colon wall thickening: Status: Acute Plan 85-year-old female with multiple medical problems presenting with weakness and diarrhea, hypotensive upon presentation. Patient with a prior history of atrial fibrillation and aortic valve replacement on Coumadin. Patient was found to have a thickened cecal wall on CT suspicious for malignancy. Colonoscopy however revealed evidence of focal colonic edema, ulceration and erythema in the right colon suggestive of a colitis. No malignancy Was identified. Findings are most suggestive of ischemic colitis brought on by diarrhea and hypotension. Recommend supportive care; no surgical intervention required at this time. Procedures Date of Service Date of Service: 06/25/21
[2021-06-25 13:57] LABS: Glucose, Whole Blood 81 mg/dL (60-115)
--- NOTE | 2021-06-25 14:05 | P.PNIM_ITS ---
Subjective Subjective Date of Service: 06/25/21 Interval History: seen and examined this morning follow up for diarrhea ?cecal mass tired from overnight prep no abdominal pain Review of Systems Review of Systems: Yes all other systems are reviewed and are negative Constitutional Constitutional: Denies chills and Denies fever(s) Cardiovascular Cardiovascular: Denies chest pain, Denies palpitations and Denies dyspnea Respiratory Respiratory: Denies cough and Denies dyspnea Gastrointestinal Gastrointestinal: Denies abdominal pain Endocrine Endocrine: Denies palpitations Physical Exam Vital Signs: Vital Signs: Last Vital Signs Temp 97.2 F 06/25/21 14:00 Pulse 63 06/25/21 14:00 Resp 18 06/25/21 14:00 BP 117/61 06/25/21 14:00 Pulse Ox 96 06/25/21 14:00 BMI result Body Mass Index 22.6 Const: General: alert and awake Nutritional Appearance: average body habitus Orientation/consciousness: patient oriented x3 Eyes: Pupils: Equal, round and reactive pupils present EOM: EOMs intact bilaterally Resp: Effort & Inspection: normal respiratory effort and able to speak in complete sentences GI: Inspection: No distended Palpation (GI): Soft to palpation and nontender Neuro: General: patient oriented x3 Cranial nerves: Yes Equal, round and reactive pupils present Extrem: General: Yes no pedal edema Objective Data Active Medications Acetaminophen (Acetaminophen 325 Mg Tablet) 650 mg PO Q6H PRN PRN Reason: Pain, Mild (Pain Scale 1-3) Atorvastatin Calcium (Atorvastatin Calcium 40 Mg Tablet) 40 mg PO BEDTIME [facility] Last Admin: 06/24/21 20:59 Dose: 40 mg Documented by: CHRISTIANO Dextrose (Dextrose 50 % 25 Gm/50 Ml Syringe) 25 gm IVPUSH Q15M PRN; Protocol PRN Reason: per Hypoglycemia Standing Ord. Fluticasone/Vilanterol (Fluticasone/Vilanterol 100/25 Blst.W.Dev) 1 puff INHALE RDAILY [facility] Last Admin: 06/25/21 07:36 Dose: 1 puff Documented by: SUSANA Glucose (Glucose Gel 15 Gm Gel..Gram.) 15 gm PO Q15M PRN; Protocol PRN Reason: per Hypoglycemia Standing Ord. Ceftriaxone Sodium 1 gm/ (Sodium Chloride) 50 mls @ 100 mls/hr IV Q24H [facility] Last Infusion: 06/25/21 00:22 Dose: 0 mls/hr Documented by: CHRISTIANO Insulin Human Lispro (Insulin Lispro 100 Unit/Ml 3 Ml Vial) 0 unit SUBCUT QIDACHS [facility]; Protocol Last Admin: 06/25/21 08:03 Dose: Not Given Documented by: DEISY Non-Admin Reason: No Insulin Coverage Ketorolac Tromethamine (Ketorolac Tromethamine 0.5% Op 3 Ml Drops) 1 drop EYE- LEFT BID [facility] Last Admin: 06/25/21 09:23 Dose: 1 drop Documented by: DEISY Levothyroxine Sodium (Levothyroxine Sodium 50 Mcg Tablet) 50 mcg PO [id number] [facility] Last Admin: 06/25/21 05:28 Dose: 50 mcg Documented by: CHRISTIANO Loratadine (Loratadine 10 Mg Tablet) 10 mg PO DAILY [facility] Last Admin: 06/25/21 09:23 Dose: 10 mg Documented by: DEISY Melatonin (Melatonin 3 Mg Tablet) 6 mg PO BEDTIME PRN PRN Reason: Insomnia Sacubitril/Valsartan (Sacubitril/Valsartan 97/103 1 Tab Tablet) 1 tab PO BID [facility]; Protocol Last Admin: 06/25/21 09:23 Dose: 1 tab Documented by: DEISY Senna (Sennosides 8.6 Mg Tablet) 17.2 mg PO BEDTIME PRN PRN Reason: Constipation Sodium Chloride (0.9 % Sodium Chloride Flush 3 Ml Syringe) 3 ml IVFLUSH QSHIFT [facility] Last Admin: 06/25/21 09:23 Dose: 3 ml Documented by: DEISY Labs CBC & Chem 7: 06/25/21 08:24 06/25/21 08:24 Labs: Laboratory Results - last 24 hr 06/24/21 06/24/21 06/25/21 15:44 19:26 05:39 MCV MCH MCHC RDW Plt Count MPV Absolute Nucleated RBC Nucleated RBC % (auto) PT 59.8 H INR 5.1 H* Anion Gap Estim Creat Clear Calc Estimated GFR POC Glucose 110 97 Random Glucose Calcium 06/25/21 06/25/21 06/25/21 07:17 08:24 08:24 MCV 98.1 H MCH 31.1 MCHC 31.7 RDW 15.1 Plt Count 102 L MPV 12.7 H Absolute Nucleated RBC 0.000 Nucleated RBC % (auto) 0.0 PT INR Anion Gap 11 L Estim Creat Clear Calc 65.4 Estimated GFR > 60 POC Glucose 94 Random Glucose 91 Calcium 8.1 L 06/25/21 13:54 MCV MCH MCHC RDW Plt Count MPV Absolute Nucleated RBC Nucleated RBC % (auto) PT INR Anion Gap Estim Creat Clear Calc Estimated GFR POC Glucose 81 Random Glucose Calcium Microbiology Microbiology Results: Microbiology 06/22/21 18:35 Blood Culture - Preliminary Blood - Venous No growth after 48 hours. 06/22/21 18:15 Blood Culture - Preliminary Blood - Venous No growth after 48 hours. 06/22/21 21:28 Urine Culture - Final Urine clean catch - Urine arango top Assessment and Plan (1) Ischemic colitis: Status: Acute Plan 85-year-old female with a past medical history of hypertension, hyperlipidemia, diabetes, CHF, AFib, aortic valve replaced on Coumadin, hypothyroidism, recent diagnosis of COVID-19 positive; presented to the hospital today with a chief complaint of generalized weakness. Diarrhea CT scan showed colonic wall thickening concerning for malignancy versus focal colitis Seen by GI, s/p colonoscopy today showing no mass but focal area of edema and ulceration of the mid ascending colon suggestive of resolving ischemic colitis. GI recommend 10 day course of ceftriaxone; will need repeat CT in about 1 week with contrast to ensure resolution No further diarrhea overnight, no stool studies collected UTI ruled out UCx with mixed stephanie BCx negative x24 hrs Hypokalemia resolved Supratherapeutic INR Patient denies any signs of bleeding. s/p vitamin K INR trending down, 5.1 today monitor INR. Hold Coumadin for now. Thrombocytopenia appears new, Platelets stable follow CBC Hypotension: Improving Hold home carvedilol, Lasix. GEORGIE Resolved with IVF. Likely prerenal in the setting of volume loss from diarrhea History of AFib/AVR: Patient on Coumadin Coumadin on hold for now for supratheraputic INR. Monitor INR levels. History of CHF: Stable. Hold home furosemide, carvedilol Continue entresto History of hyperlipidemia: Continue home statin History of hypothyroidism: Continue home levothyroxine History of diabetes: Hold home depaglifazolin. SSI, follow POCs DVT prophylaxis: Patient on Coumadin Attending: dr. aguilar dispo: PT eval rec STR vs home with PT, at this time patient does not want to return to [facility] Patient need continued hospitalization for close blood pressure monitoring. monitor for bleeding/pain post-procedure Quality Stroke Does the patient have a stroke diagnosis?: No VTE Prior VTE?: No VTE Risk Level:: Medical - moderate - high VTE Device Contraindication: N/A - Device Ordered VTE Drug Contraindication: Treatment Not Indicated
[2021-06-25 16:02] LABS: Glucose, Whole Blood 120 mg/dL (60-115)
--- NOTE | 2021-06-25 16:16 | MHC.CM.PN ---
Female 85 DX GEOR[place]IE Patient was scoped today. DP home with [facility]. Son in law will transport at [place].
[2021-06-25] MEDS: bisacodyL 5 MG TABLET.DR 10 MG PO (17:13)
[2021-06-25 20:49] LABS: Glucose, Whole Blood 121 mg/dL (60-115)
[2021-06-25] MEDS: Atorvastatin Calcium 40 MG TABLET PO (21:24)
[2021-06-25] MEDS: cefTRIAXone sodium 1 GM in 0.9 % Sodium Chloride 50 ML IV (23:33)
[2021-06-26] VITALS (7 sets, daily range): BP systolic 90–149; BP diastolic 48–70; PULSE 58–67; RESP 14–20; TEMP 36.1–37.3; O2SAT 93–96
[2021-06-26] MEDS: Acetaminophen 325 MG TABLET 650 MG PO ×2 (01:02→15:18)
[2021-06-26 07:07] LABS: INTERNATIONAL NORM RATIO 2.7 (0.9-1.1); Prothrombin Time 31.5 SEC (9.9-13.0)
[2021-06-26 07:09] LABS: Hematocrit 31.9 % (37.0-47.0); Mean Corpuscular HGB Conc 31.3 g/dl (31.0-35.0); Mean Corpuscular Hemoglobin 30.5 pg (27.0-33.0); Mean Corpuscular Volume 97.3 fL (80.0-98.0); Mean Platelet Volume 12.7 fL (9.4-12.3); Platelet Count 139 X10*3/uL (160-400); Red Blood Count 3.28 X10*6/uL (4.20-5.50); Red Cell Distribution Width 14.9 % (11.0-16.0); White Blood Count 7.3 X10*3/uL (4.8-10.8)
[2021-06-26 08:03] LABS: Glucose, Whole Blood 87 mg/dL (60-115)
[2021-06-26] MEDS: Fluticasone/Vilanterol 100/25 BLST.W.DEV 1 PUFF INHALE (08:15)
[2021-06-26] MEDS: 0.9 % Sodium Chloride Flush 3 ML SYRINGE IVFLUSH ×2 (09:48→15:18)
[2021-06-26] MEDS: Loratadine 10 MG TABLET PO (09:48)
[2021-06-26] MEDS: Sacubitril/Valsartan 97/103 1 TAB TABLET PO ×2 (09:48→20:43)
--- NOTE | 2021-06-26 11:29 | P.PNIM_ITS ---
Subjective Subjective Date of Service: 06/26/21 Review of Systems follow up for diarrhea ?cecal mass no abdominal pain unable to say if she has had any bloody stool Physical Exam Vital Signs: Vital Signs: Last Vital Signs Temp 98.1 F 06/26/21 07:09 Pulse 62 06/26/21 08:17 Resp 18 06/26/21 08:17 BP 125/59 L 06/26/21 07:09 Pulse Ox 95 06/26/21 07:09 BMI result Body Mass Index 22.6 Appearing in no acute distress lung sounds are clear to auscultation heart regular rate rhythm, clear S1, S2 positive bowel sounds, abdomen is soft, nontender neuro patient is alert x3, no focal deficits Objective Data Active Medications Acetaminophen (Acetaminophen 325 Mg Tablet) 650 mg PO Q6H PRN PRN Reason: Pain, Mild (Pain Scale 1-3) Last Admin: 06/26/21 01:02 Dose: 650 mg Documented by: ESE Atorvastatin Calcium (Atorvastatin Calcium 40 Mg Tablet) 40 mg PO BEDTIME [facility] Last Admin: 06/25/21 21:24 Dose: 40 mg Documented by: ESE Dextrose (Dextrose 50 % 25 Gm/50 Ml Syringe) 25 gm IVPUSH Q15M PRN; Protocol PRN Reason: per Hypoglycemia Standing Ord. Fluticasone/Vilanterol (Fluticasone/Vilanterol 100/25 Blst.W.Dev) 1 puff INHALE RDAILY [facility] Last Admin: 06/26/21 08:15 Dose: 1 puff Documented by: RODRICK Glucose (Glucose Gel 15 Gm Gel..Gram.) 15 gm PO Q15M PRN; Protocol PRN Reason: per Hypoglycemia Standing Ord. Ceftriaxone Sodium 1 gm/ (Sodium Chloride) 50 mls @ 100 mls/hr IV Q24H [facility] Last Infusion: 06/26/21 00:12 Dose: 0 mls/hr Documented by: ESE Insulin Human Lispro (Insulin Lispro 100 Unit/Ml 3 Ml Vial) 0 unit SUBCUT QIDACHS [facility]; Protocol Last Admin: 06/26/21 08:42 Dose: Not Given Documented by: COTEMA Non-Admin Reason: No Insulin Coverage Ketorolac Tromethamine (Ketorolac Tromethamine 0.5% Op 3 Ml Drops) 1 drop EYE-LEFT BID [facility] Last Admin: 06/26/21 09:48 Dose: 1 drop Documented by: REBA Levothyroxine Sodium (Levothyroxine Sodium 50 Mcg Tablet) 50 mcg PO [id number]@[id number] [facility] Last Admin: 06/25/21 05:28 Dose: 50 mcg Documented by: CASTILM Loratadine (Loratadine 10 Mg Tablet) 10 mg PO DAILY [facility] Last Admin: 06/26/21 09:48 Dose: 10 mg Documented by: REBA Melatonin (Melatonin 3 Mg Tablet) 6 mg PO BEDTIME PRN PRN Reason: Insomnia Sacubitril/Valsartan (Sacubitril/Valsartan 97/103 1 Tab Tablet) 1 tab PO BID [facility]; Protocol Last Admin: 06/26/21 09:48 Dose: 1 tab Documented by: REBA Senna (Sennosides 8.6 Mg Tablet) 17.2 mg PO BEDTIME PRN PRN Reason: Constipation Sodium Chloride (0.9 % Sodium Chloride Flush 3 Ml Syringe) 3 ml IVFLUSH QSHIFT [facility] Last Admin: 06/26/21 09:48 Dose: 3 ml Documented by: REBA Labs CBC & Chem 7: 06/26/21 06:32 06/25/21 08:24 Labs: Laboratory Results - last 24 hr 06/25/21 06/25/21 06/25/21 13:54 15:49 20:41 MCV MCH MCHC RDW Plt Count MPV Absolute Nucleated RBC Nucleated RBC % (auto) PT INR POC Glucose 81 120 H 121 H 06/26/21 06/26/21 06/26/21 06:32 06:32 07:12 MCV 97.3 MCH 30.5 MCHC 31.3 RDW 14.9 Plt Count 139 L D MPV 12.7 H Absolute Nucleated RBC 0.000 Nucleated RBC % (auto) 0.0 PT 31.5 H INR 2.7 H D POC Glucose 87 Assessment and Plan (1) Ischemic colitis: Status: Acute Plan 85-year-old female with a past medical history of hypertension, hyperlipidemia, diabetes, CHF, AFib, aortic valve replaced on Coumadin, hypothyroidism, recent diagnosis of COVID-19 positive; presented to the hospital today with a chief complaint of generalized weakness. Ischemic colitis CT scan showed colonic wall thickening concerning for malignancy versus focal colitis Seen by GI, s/p colonoscopy today showing no mass but focal area of edema and ulceration of the mid ascending colon suggestive of resolving ischemic colitis. GI recommend 10 day course of ceftriaxone will need repeat CT in about 1 week with contrast to ensure resolution No further diarrhea overnight, no stool studies collected UTI ruled out UCx with mixed stephanie BCx negative x24 hrs Hypokalemia resolved Supratherapeutic INR Patient denies any signs of bleeding. s/p vitamin K INR trending down, 2.7 today monitor INR. Hold Coumadin for now. Thrombocytopenia appears new, Platelets stable follow CBC Hypotension Improving Hold home carvedilol, Lasix. GEORGIE Resolved with IVF. Likely prerenal in the setting of volume loss from diarrhea History of AFib/AVR Patient on Coumadin Coumadin on hold for now for supratheraputic INR. Monitor INR levels. History of CHF Stable. Hold home furosemide, carvedilol Continue entresto History of hyperlipidemia Continue home statin History of hypothyroidism: Continue home levothyroxine History of diabetes: Hold home depaglifazolin. SSI, follow POCs DVT prophylaxis: Patient on Coumadin Attending: Dr. Parker dispo: PT eval rec STR vs home with PT, at this time patient does not want to return to STR, not medically ready for dc Patient need continued hospitalization for close blood pressure monitoring. monitor for bleeding/pain post-procedure Quality Stroke Does the patient have a stroke diagnosis?: No VTE Prior VTE?: No VTE Risk Level:: Medical - moderate - high VTE Device Contraindication: N/A - Device Ordered VTE Drug Contraindication: Treatment Not Indicated
[2021-06-26 12:12] LABS: Glucose, Whole Blood 100 mg/dL (60-115)
[2021-06-26] MEDS: Cyclobenzaprine HCl 5 MG TABLET PO (12:43)
[2021-06-26 15:59] LABS: Glucose, Whole Blood 105 mg/dL (60-115)
[2021-06-26 20:35] LABS: Glucose, Whole Blood 111 mg/dL (60-115)
[2021-06-26] MEDS: Atorvastatin Calcium 40 MG TABLET PO (20:43)
[2021-06-27] VITALS (8 sets, daily range): BP systolic 92–149; BP diastolic 54–68; PULSE 53–70; RESP 16–20; TEMP 36.7–37.9; O2SAT 94–98
[2021-06-27] MEDS: cefTRIAXone sodium 1 GM in 0.9 % Sodium Chloride 50 ML IV ×2 (00:45→21:31)
[2021-06-27] MEDS: 0.9 % Sodium Chloride Flush 3 ML SYRINGE IVFLUSH ×4 (00:45→21:31)
[2021-06-27] MEDS: Acetaminophen 325 MG TABLET 650 MG PO ×2 (01:39→09:15)
[2021-06-27] MEDS: Levothyroxine Sodium 50 MCG TABLET PO (06:04)
[2021-06-27 07:15] LABS: Hematocrit 33.5 % (37.0-47.0); Hemoglobin 10.8 g/dl (12.0-16.0); Mean Corpuscular HGB Conc 32.2 g/dl (31.0-35.0); Mean Corpuscular Hemoglobin 31.1 pg (27.0-33.0); Mean Corpuscular Volume 96.5 fL (80.0-98.0); Platelet Count 127 X10*3/uL (160-400); Red Blood Count 3.47 X10*6/uL (4.20-5.50); Red Cell Distribution Width 14.7 % (11.0-16.0)
[2021-06-27 07:20] LABS: INTERNATIONAL NORM RATIO 1.8 (0.9-1.1); Prothrombin Time 20.8 SEC (9.9-13.0); Prothrombin Time 21.2 SEC (9.9-13.0)
[2021-06-27 07:39] LABS: Glucose, Whole Blood 80 mg/dL (60-115)
[2021-06-27 07:41] LABS: Anion Gap 12 (12-20); Blood Urea Nitrogen 10 mg/dL (9-16); Calcium 8.3 mg/dL (8.4-10.2); Carbon Dioxide 25 mmol/L (22-29); Chloride 102 mmol/L (96-108); Creatinine Clr Calc Pharmacy 64.3; Estimated Glomerular Filt Rate > 60; Glucose Random 93 mg/dL (60-115); Potassium 3.4 mmol/L (3.3-5.1); Sodium 136 mmol/L (135-145)
--- NOTE | 2021-06-27 07:41 | P.PNIM_ITS ---
Subjective Subjective Date of Service: 06/27/21 Review of Systems follow up for diarrhea ?cecal mass no abdominal pain unable to say if she has had any bloody stool Physical Exam Vital Signs: Vital Signs: Last Vital Signs Temp 98.1 F 06/27/21 04:00 Pulse 64 06/27/21 04:00 Resp 18 06/27/21 04:00 BP 107/54 L 06/27/21 04:00 Pulse Ox 98 06/27/21 04:00 BMI result Body Mass Index 22.6 Appearing in no acute distress lung sounds are clear to auscultation heart regular rate rhythm, clear S1, S2 positive bowel sounds, abdomen is soft, nontender neuro patient is alert x3, no focal deficits Objective Data Active Medications Acetaminophen (Acetaminophen 325 Mg Tablet) 650 mg PO Q6H PRN PRN Reason: Pain, Mild (Pain Scale 1-3) Last Admin: 06/27/21 01:39 Dose: 650 mg Documented by: NUZHAT Atorvastatin Calcium (Atorvastatin Calcium 40 Mg Tablet) 40 mg PO BEDTIME [facility] Last Admin: 06/26/21 20:43 Dose: 40 mg Documented by: PARTH Dextrose (Dextrose 50 % 25 Gm/50 Ml Syringe) 25 gm IVPUSH Q15M PRN; Protocol PRN Reason: per Hypoglycemia Standing Ord. Fluticasone/Vilanterol (Fluticasone/Vilanterol 100/25 Blst.W.Dev) 1 puff INHALE RDAILY [facility] Last Admin: 06/26/21 08:15 Dose: 1 puff Documented by: RODRICK Glucose (Glucose Gel 15 Gm Gel..Gram.) 15 gm PO Q15M PRN; Protocol PRN Reason: per Hypoglycemia Standing Ord. Ceftriaxone Sodium 1 gm/ (Sodium Chloride) 50 mls @ 100 mls/hr IV Q24H [facility] Last Infusion: 06/27/21 01:35 Dose: 0 mls/hr Documented by: NUZHAT Insulin Human Lispro (Insulin Lispro 100 Unit/Ml 3 Ml Vial) 0 unit SUBCUT QIDACHS [facility]; Protocol Last Admin: 06/26/21 20:42 Dose: Not Given Documented by: PARTH Non-Admin Reason: No Insulin Coverage Ketorolac Tromethamine (Ketorolac Tromethamine 0.5% Op 3 Ml Drops) 1 drop EYE- LEFT BID [facility] Last Admin: 06/26/21 20:42 Dose: 1 drop Documented by: PARTH Levothyroxine Sodium (Levothyroxine Sodium 50 Mcg Tablet) 50 mcg PO [id number]@[id number] [facility] Last Admin: 06/27/21 06:04 Dose: 50 mcg Documented by: JONATHON Loratadine (Loratadine 10 Mg Tablet) 10 mg PO DAILY [facility] Last Admin: 06/26/21 09:48 Dose: 10 mg Documented by: REBA Melatonin (Melatonin 3 Mg Tablet) 6 mg PO BEDTIME PRN PRN Reason: Insomnia Sacubitril/Valsartan (Sacubitril/Valsartan 97/103 1 Tab Tablet) 1 tab PO BID [facility]; Protocol Last Admin: 06/26/21 20:43 Dose: 1 tab Documented by: PARTH Senna (Sennosides 8.6 Mg Tablet) 17.2 mg PO BEDTIME PRN PRN Reason: Constipation Sodium Chloride (0.9 % Sodium Chloride Flush 3 Ml Syringe) 3 ml IVFLUSH QSHIFT [facility] Last Admin: 06/27/21 00:45 Dose: 3 ml Documented by: JONATHON Labs CBC & Chem 7: 06/27/21 06:36 06/27/21 06:36 Labs: Laboratory Results - last 24 hr 06/26/21 06/26/21 06/26/21 07:12 11:38 15:47 MCV MCH MCHC RDW Plt Count MPV Absolute Nucleated RBC Nucleated RBC % (auto) PT INR POC Glucose 87 100 105 06/26/21 06/27/21 06/27/21 20:30 06:36 06:36 MCV 96.5 MCH 31.1 MCHC 32.2 RDW 14.7 Plt Count 127 L MPV 13.0 H Absolute Nucleated RBC 0.000 Nucleated RBC % (auto) 0.0 PT 21.2 H INR 1.8 H POC Glucose 111 06/27/21 06/27/21 06:36 07:35 MCV MCH MCHC RDW Plt Count MPV Absolute Nucleated RBC Nucleated RBC % (auto) PT 20.8 H INR 1.8 H POC Glucose 80 Assessment and Plan (1) Ischemic colitis: Status: Acute Plan 85-year-old female with a past medical history of hypertension, hyperlipidemia, diabetes, CHF, AFib, aortic valve replaced on Coumadin, hypothyroidism, recent diagnosis of COVID-19 positive; presented to the hospital today with a chief complaint of generalized weakness. Ischemic colitis CT scan showed colonic wall thickening concerning for malignancy versus focal colitis Seen by GI, s/p colonoscopy today showing no mass but focal area of edema and ulceration of the mid ascending colon suggestive of resolving ischemic colitis. GI recommend 10 day course of ceftriaxone will need repeat CT in about 1 week with contrast to ensure resolution No further diarrhea overnight, no stool studies collected UTI ruled out UCx with mixed stephanie BCx negative x24 hrs Hypokalemia resolved Supratherapeutic INR Patient denies any signs of bleeding. s/p vitamin K INR trending down, 1.8 today monitor INR. Restart warfarin Thrombocytopenia appears new, Platelets stable follow CBC Hypotension Improving Hold home carvedilol, Lasix. GEORGIE Resolved with IVF. Likely prerenal in the setting of volume loss from diarrhea History of AFib/AVR Patient on Coumadin Monitor INR levels. History of CHF Stable. Hold home furosemide, carvedilol Continue entresto History of hyperlipidemia Continue home statin History of hypothyroidism: Continue home levothyroxine History of diabetes: Hold home depaglifazolin. SSI, follow POCs DVT prophylaxis: Patient on Coumadin Attending: Dr. Parker dispo: PT eval rec STR vs home with PT, at this time patient does not want to return to STR, medically ready Patient need continued hospitalization for close blood pressure monitoring. monitor for bleeding/pain post-procedure Quality Stroke Does the patient have a stroke diagnosis?: No VTE Prior VTE?: No VTE Risk Level:: Medical - moderate - high VTE Device Contraindication: N/A - Device Ordered VTE Drug Contraindication: Treatment Not Indicated
[2021-06-27] MEDS: Fluticasone/Vilanterol 100/25 BLST.W.DEV 1 PUFF INHALE (08:19)
[2021-06-27] MEDS: Loratadine 10 MG TABLET PO (09:14)
[2021-06-27] MEDS: Warfarin Sodium 5 MG TABLET PO (09:14)
[2021-06-27] MEDS: Sacubitril/Valsartan 97/103 1 TAB TABLET PO ×2 (09:14→21:31)
[2021-06-27 11:33] LABS: Glucose, Whole Blood 142 mg/dL (60-115)
--- NOTE | 2021-06-27 12:02 | MHC.CM.PN ---
Met with patient and ; they are requesting placement at [facility], [facility], [facility] or [facility]. The caveat is a 2-for-1 deal. Referrals placed for both patients. Pending responses.
--- NOTE | 2021-06-27 14:14 | MHC.CM.PN ---
Patient has been accepted at [facility] and [facility]. Both require updated COVID test. First choice is [facility]. Decision will be based on if can go to the same facility. Pending outcomes.
--- NOTE | 2021-06-27 14:15 | MHC.CM.PN ---
Updated COVID test request from . Pending.
--- NOTE | 2021-06-27 14:45 | MHC.CM.PN ---
Met w/patient and . Updated them on bed search status (see previous notes), as well as the need for updated COVID testing to complete the process. Patient and in agreement. CM to follow.
[2021-06-27 16:05] LABS: COVID-19 Test Positive (Negative)
--- NOTE | 2021-06-27 16:13 | MHC.CM.PN ---
Spoke w/nurse; patient COVID positive. Will notify facilities.
--- NOTE | 2021-06-27 16:18 | MHC.CM.PN ---
MD notified of COVID positive result and it's potential effect on placement. Will follow up in am.
[2021-06-27 16:50] LABS: Glucose, Whole Blood 97 mg/dL (60-115)
[2021-06-27 21:00] LABS: Glucose, Whole Blood 105 mg/dL (60-115)
[2021-06-27] MEDS: Atorvastatin Calcium 40 MG TABLET PO (21:31)
[2021-06-28] VITALS (7 sets, daily range): BP systolic 90–126; BP diastolic 48–69; PULSE 52–86; RESP 16–20; TEMP 36.3–37.7; O2SAT 93–97
[2021-06-28 06:13] LABS: INTERNATIONAL NORM RATIO 2.2 (0.9-1.1); Prothrombin Time 25.6 SEC (9.9-13.0)
[2021-06-28] MEDS: Levothyroxine Sodium 50 MCG TABLET PO (06:30)
[2021-06-28 07:52] LABS: Glucose, Whole Blood 126 mg/dL (60-115)
--- NOTE | 2021-06-28 08:47 | P.PNIM_ITS ---
Subjective Subjective Date of Service: 06/28/21 Review of Systems follow up for diarrhea ?cecal mass no abdominal pain unable to say if she has had any bloody stool Feeling tired Physical Exam Vital Signs: Vital Signs: Last Vital Signs Temp 99.2 F 06/28/21 07:22 Pulse 84 06/28/21 07:22 Resp 20 06/28/21 07:22 BP 126/69 06/28/21 07:22 Pulse Ox 95 06/28/21 07:22 BMI result Body Mass Index 22.6 Appearing in no acute distress lung sounds are clear to auscultation heart regular rate rhythm, clear S1, S2 positive bowel sounds, abdomen is soft, nontender neuro patient is alert x3, no focal deficits Objective Data Active Medications Acetaminophen (Acetaminophen 325 Mg Tablet) 650 mg PO Q6H PRN PRN Reason: Pain, Mild (Pain Scale 1-3) Last Admin: 06/27/21 09:15 Dose: 650 mg Documented by: COTEMA Atorvastatin Calcium (Atorvastatin Calcium 40 Mg Tablet) 40 mg PO BEDTIME [facility] Last Admin: 06/27/21 21:31 Dose: 40 mg Documented by: ZULY Dextrose (Dextrose 50 % 25 Gm/50 Ml Syringe) 25 gm IVPUSH Q15M PRN; Protocol PRN Reason: per Hypoglycemia Standing Ord. Fluticasone/Vilanterol (Fluticasone/Vilanterol 100/25 Blst.W.Dev) 1 puff INHALE RDAILY [facility] Last Admin: 06/27/21 08:19 Dose: 1 puff Documented by: RODRICK Glucose (Glucose Gel 15 Gm Gel..Gram.) 15 gm PO Q15M PRN; Protocol PRN Reason: per Hypoglycemia Standing Ord. Ceftriaxone Sodium 1 gm/ (Sodium Chloride) 50 mls @ 100 mls/hr IV Q24H [facility] Last Infusion: 06/27/21 22:25 Dose: 0 mls/hr Documented by: ZULY Insulin Human Lispro (Insulin Lispro 100 Unit/Ml 3 Ml Vial) 0 unit SUBCUT QIDACHS [facility]; Protocol Last Admin: 06/28/21 07:59 Dose: Not Given Documented by: SABA Non-Admin Reason: No Insulin Coverage Ketorolac Tromethamine (Ketorolac Tromethamine 0.5% Op 3 Ml Drops) 1 drop EYE- LEFT BID [facility] Last Admin: 06/27/21 21:31 Dose: Not Given Documented by: ANTOIC Non-Admin Reason: Med Not Available Levothyroxine Sodium (Levothyroxine Sodium 50 Mcg Tablet) 50 mcg PO [id number]@0630 [facility] Last Admin: 06/28/21 06:30 Dose: 50 mcg Documented by: ANTOIC Loratadine (Loratadine 10 Mg Tablet) 10 mg PO DAILY [facility] Last Admin: 06/27/21 09:14 Dose: 10 mg Documented by: COTEMA Melatonin (Melatonin 3 Mg Tablet) 6 mg PO BEDTIME PRN PRN Reason: Insomnia Sacubitril/Valsartan (Sacubitril/Valsartan 97/103 1 Tab Tablet) 1 tab PO BID [facility]; Protocol Last Admin: 06/27/21 21:31 Dose: 1 tab Documented by: ANTOIC Senna (Sennosides 8.6 Mg Tablet) 17.2 mg PO BEDTIME PRN PRN Reason: Constipation Sodium Chloride (0.9 % Sodium Chloride Flush 3 Ml Syringe) 3 ml IVFLUSH QSHIFT [facility] Last Admin: 06/27/21 21:31 Dose: 3 ml Documented by: ANTOIC Warfarin Sodium (Warfarin Sodium 2.5 Mg Tablet) 2.5 mg PO TU [facility] Warfarin Sodium (Warfarin Sodium 5 Mg Tablet) 5 mg PO SUMOWETHFR [facility] Last Admin: 06/27/21 09:14 Dose: 5 mg Documented by: REBA Labs CBC & Chem 7: 06/27/21 06:36 06/27/21 06:36 Labs: Laboratory Results - last 24 hr 06/27/21 06/27/21 06/27/21 11:13 15:42 16:26 PT INR POC Glucose 142 H 97 COVID-19 (KADY) Positive A COVID-19 Clin Com See Note 06/27/21 06/28/21 06/28/21 20:56 06:00 07:21 PT 25.6 H INR 2.2 H POC Glucose 105 126 H COVID-19 (KADY) COVID-19 Clin Com Microbiology Microbiology Results: Microbiology 06/22/21 18:35 Blood Culture - Final Blood - Venous No growth after 5 days. 06/22/21 18:15 Blood Culture - Final Blood - Venous No growth after 5 days. Assessment and Plan (1) Ischemic colitis: Status: Acute Plan 85-year-old female with a past medical history of hypertension, hyperlipidemia, diabetes, CHF, AFib, aortic valve replaced on Coumadin, hypothyroidism, recent diagnosis of COVID-19 positive; presented to the hospital today with a chief complaint of generalized weakness. Covid 19 now covid positive Asymptomatic supportive care Hold SNF tx for now Ischemic colitis CT scan showed colonic wall thickening concerning for malignancy versus focal colitis Seen by GI, s/p colonoscopy today showing no mass but focal area of edema and ulceration of the mid ascending colon suggestive of resolving ischemic colitis. GI recommend 10 day course of ceftriaxone will need repeat CT in about 1 week with contrast to ensure resolution (initial on 06/22/21) No further diarrhea overnight, no stool studies collected UTI ruled out UCx with mixed stephanie BCx negative x24 hrs Hypokalemia resolved Supratherapeutic INR Patient denies any signs of bleeding. s/p vitamin K INR trending down, 1.8 today monitor INR. Restart warfarin Thrombocytopenia appears new, Platelets stable follow CBC Hypotension Improving Hold home carvedilol, Lasix. GEORGIE Resolved with IVF. Likely prerenal in the setting of volume loss from diarrhea History of AFib/AVR Patient on Coumadin Monitor INR levels. History of CHF Stable. Hold home furosemide, carvedilol Continue entresto History of hyperlipidemia Continue home statin History of hypothyroidism: Continue home levothyroxine History of diabetes: Hold home depaglifazolin. SSI, follow POCs DVT prophylaxis: Patient on Coumadin Attending: Dr. Fischer dispo: PT eval rec STR vs home with PT, at this time patient does not want to return to STR, medically ready Patient need continued hospitalization for close blood pressure monitoring. monitor for bleeding/pain post-procedure, no w covid positive will need to monitor for adverse effects. Quality Stroke Does the patient have a stroke diagnosis?: No VTE Prior VTE?: No VTE Risk Level:: Medical - moderate - high VTE Device Contraindication: N/A - Device Ordered VTE Drug Contraindication: Treatment Not Indicated
[2021-06-28] MEDS: Sacubitril/Valsartan 97/103 1 TAB TABLET PO ×2 (09:32→20:18)
[2021-06-28] MEDS: 0.9 % Sodium Chloride Flush 3 ML SYRINGE IVFLUSH ×3 (09:32→20:19)
[2021-06-28] MEDS: Loratadine 10 MG TABLET PO (09:32)
[2021-06-28] MEDS: Warfarin Sodium 5 MG TABLET PO (09:32)
[2021-06-28 12:08] LABS: Glucose, Whole Blood 133 mg/dL (60-115)
[2021-06-28] MEDS: Fluticasone/Vilanterol 100/25 BLST.W.DEV 1 PUFF INHALE (12:31)
--- NOTE | 2021-06-28 12:35 | MHC.CM.PN ---
Female 85 DX GEORGIE Covid+ Per MD rounds Patient ready to discharge today. Bed offer [facility] has been rescinded. [facility] does not have a bed offer today. [facility] info was sent to assist with isolation needs. Patient will transport via BLS when a bed is found.
[2021-06-28 16:13] LABS: Glucose, Whole Blood 107 mg/dL (60-115)
[2021-06-28] MEDS: Acetaminophen 325 MG TABLET 650 MG PO (16:58)
[2021-06-28] MEDS: Atorvastatin Calcium 40 MG TABLET PO (20:18)
[2021-06-28 22:10] LABS: Glucose, Whole Blood 96 mg/dL (60-115)
[2021-06-29] VITALS (8 sets, daily range): BP systolic 89–109; BP diastolic 39–55; PULSE 61–78; RESP 15–22; TEMP 34.8–36.9; O2SAT 93–99
[2021-06-29] MEDS: cefTRIAXone sodium 1 GM in 0.9 % Sodium Chloride 50 ML IV ×2 (00:04→23:26)
[2021-06-29] MEDS: Levothyroxine Sodium 50 MCG TABLET PO (05:45)
[2021-06-29 07:30] LABS: INTERNATIONAL NORM RATIO 2.8 (0.9-1.1)
[2021-06-29 08:01] LABS: Glucose, Whole Blood 82 mg/dL (60-115)
[2021-06-29] MEDS: 0.9 % Sodium Chloride Flush 3 ML SYRINGE IVFLUSH ×3 (08:06→20:18)
[2021-06-29] MEDS: Sacubitril/Valsartan 97/103 1 TAB TABLET PO (08:07)
[2021-06-29] MEDS: Loratadine 10 MG TABLET PO (08:07)
[2021-06-29] MEDS: Fluticasone/Vilanterol 100/25 BLST.W.DEV 1 PUFF INHALE (08:27)
--- NOTE | 2021-06-29 10:32 | HO.PM.IMPN ---
Subjective Subjective Date of Service: 06/29/21 Review of Systems Follow up ischemic colitis sitting up in the chair shoulder and neck pain Physical Exam Vital Signs: Vital Signs: Last Vital Signs Temp 97.2 F 06/29/21 07:54 Pulse 78 06/29/21 08:32 Resp 22 H 06/29/21 08:32 BP 93/44 L 06/29/21 07:54 Pulse Ox 94 06/29/21 07:54 BMI result Body Mass Index 22.6 Appearing in no acute distress lung sounds are clear to auscultation heart regular rate rhythm, clear S1, S2 positive bowel sounds, abdomen is soft, nontender neuro patient is alert x3, no focal deficits Objective Data Active Medications Acetaminophen (Acetaminophen 325 Mg Tablet) 650 mg PO Q6H PRN PRN Reason: Pain, Mild (Pain Scale 1-3) Last Admin: 06/28/21 16:58 Dose: 650 mg Documented by: SABA Atorvastatin Calcium (Atorvastatin Calcium 40 Mg Tablet) 40 mg PO BEDTIME [facility] Last Admin: 06/28/21 20:18 Dose: 40 mg Documented by: JENNIFER Dextrose (Dextrose 50 % 25 Gm/50 Ml Syringe) 25 gm IVPUSH Q15M PRN; Protocol PRN Reason: per Hypoglycemia Standing Ord. Fluticasone/Vilanterol (Fluticasone/Vilanterol 100/25 Blst.W.Dev) 1 puff INHALE RDAILY [facility] Last Admin: 06/29/21 08:27 Dose: 1 puff Documented by: RODRICK Glucose (Glucose Gel 15 Gm Gel..Gram.) 15 gm PO Q15M PRN; Protocol PRN Reason: per Hypoglycemia Standing Ord. Ceftriaxone Sodium 1 gm/ (Sodium Chloride) 50 mls @ 100 mls/hr IV Q24H [facility] Last Infusion: 06/29/21 02:47 Dose: 0 mls/hr Documented by: JENNIFER Insulin Human Lispro (Insulin Lispro 100 Unit/Ml 3 Ml Vial) 0 unit SUBCUT QIDACHS [facility]; Protocol Last Admin: 06/29/21 08:05 Dose: Not Given Documented by: LIAM Non-Admin Reason: No Insulin Coverage Ketorolac Tromethamine (Ketorolac Tromethamine 0.5% Op 3 Ml Drops) 1 drop EYE-LEFT BID [facility] Last Admin: 06/29/21 08:40 Dose: 1 drop Documented by: LIAM Levothyroxine Sodium (Levothyroxine Sodium 50 Mcg Tablet) 50 mcg PO [id number]@0630 [facility] Last Admin: 06/29/21 05:45 Dose: 50 mcg Documented by: JENNIFER Loratadine (Loratadine 10 Mg Tablet) 10 mg PO DAILY [facility] Last Admin: 06/29/21 08:07 Dose: 10 mg Documented by: LIAM Melatonin (Melatonin 3 Mg Tablet) 6 mg PO BEDTIME PRN PRN Reason: Insomnia Sacubitril/Valsartan (Sacubitril/Valsartan 97/103 1 Tab Tablet) 1 tab PO BID [facility]; Protocol Last Admin: 06/29/21 08:07 Dose: 1 tab Documented by: LIAM Senna (Sennosides 8.6 Mg Tablet) 17.2 mg PO BEDTIME PRN PRN Reason: Constipation Sodium Chloride (0.9 % Sodium Chloride Flush 3 Ml Syringe) 3 ml IVFLUSH QSHIFT [facility] Last Admin: 06/29/21 08:06 Dose: 3 ml Documented by: LIAM Warfarin Sodium (Warfarin Sodium 2.5 Mg Tablet) 2.5 mg PO Tu@1800 [facility] Warfarin Sodium (Warfarin Sodium 5 Mg Tablet) 5 mg PO SuMoWeThFrSa@1800 [facility] Labs CBC & Chem 7: 06/27/21 06:36 06/27/21 06:36 Labs: Laboratory Results - last 24 hr 06/28/21 06/28/21 06/28/21 11:38 16:02 22:06 PT INR POC Glucose 133 H 107 96 06/29/21 06/29/21 06:55 07:58 PT 32.0 H INR 2.8 H POC Glucose 82 Assessment and Plan (1) Ischemic colitis: Status: Acute Plan 85-year-old female with a past medical history of hypertension, hyperlipidemia, diabetes, CHF, AFib, aortic valve replaced on Coumadin, hypothyroidism, recent diagnosis of COVID-19 positive; presented to the hospital today with a chief complaint of generalized weakness. Covid 19 now covid positive Asymptomatic supportive care Can be dc on the after 5 days of quaratine Knee pain xray neg lidocaine patch supportive care Neck pain chronic flexeril seems to work, will try warm compresses lidocaine patch Ischemic colitis CT scan showed colonic wall thickening concerning for malignancy versus focal colitis Seen by GI, s/p colonoscopy today showing no mass but focal area of edema and ulceration of the mid ascending colon suggestive of resolving ischemic colitis. GI recommend 10 day course of ceftriaxone will need repeat CT in about 1 week with contrast to ensure resolution (initial on 06/22/21) No further diarrhea overnight, no stool studies collected UTI ruled out UCx with mixed stephanie BCx negative x24 hrs Hypokalemia resolved Supratherapeutic INR Patient denies any signs of bleeding. s/p vitamin K INR trending down, 1.8 today monitor INR. Restart warfarin Thrombocytopenia appears new, Platelets stable follow CBC Hypotension Improving Hold home carvedilol, Lasix. GEORGIE Resolved with IVF. Likely prerenal in the setting of volume loss from diarrhea History of AFib/AVR Patient on Coumadin Monitor INR levels. History of CHF Stable. Hold home furosemide, carvedilol Continue entresto History of hyperlipidemia Continue home statin History of hypothyroidism Continue home levothyroxine History of diabetes Hold home depaglifazolin. SSI, follow POCs DVT prophylaxis: Patient on Coumadin Attending: Dr. Fischer dispo: PT eval rec STR vs home with PT, at this time patient does not want to return to [facility], medically ready Patient need continued hospitalization for close blood pressure monitoring. monitor for bleeding/pain post-procedure, now with covid will need to monitor for adverse effects. Quality Stroke Does the patient have a stroke diagnosis?: No VTE Prior VTE?: No VTE Risk Level:: Medical - moderate - high VTE Device Contraindication: N/A - Device Ordered VTE Drug Contraindication: Treatment Not Indicated
[2021-06-29] MEDS: Tamsulosin HCL 0.4 MG CAPSULE PO (11:37)
[2021-06-29] MEDS: Lidocaine 4 % Patch ADH..PATCH 1 PATCH TRANSDERMA (11:37)
[2021-06-29 12:07] LABS: Glucose, Whole Blood 106 mg/dL (60-115)
[2021-06-29 16:28] LABS: Glucose, Whole Blood 83 mg/dL (60-115)
[2021-06-29] MEDS: Warfarin Sodium 2.5 MG TABLET PO (18:38)
[2021-06-29] MEDS: Atorvastatin Calcium 40 MG TABLET PO (20:15)
[2021-06-29 20:28] LABS: Glucose, Whole Blood 101 mg/dL (60-115)
[2021-06-30 03:45] VITALS: BP 106/51; PULSE 64; RESP 18; TEMP 36.7; O2SAT 96
[2021-06-30] MEDS: Cyclobenzaprine HCl 5 MG TABLET PO ×3 (03:54→17:47)
[2021-06-30] MEDS: Levothyroxine Sodium 50 MCG TABLET PO (05:30)
[2021-06-30 07:20] LABS: INTERNATIONAL NORM RATIO 3.2 (0.9-1.1)
[2021-06-30 07:23] VITALS: BP 108/50; PULSE 59; RESP 18; TEMP 36.6; O2SAT 96
[2021-06-30 07:37] LABS: Glucose, Whole Blood 91 mg/dL (60-115)
[2021-06-30 10:00] VITALS: O2SAT 95
[2021-06-30] MEDS: Sacubitril/Valsartan 97/103 1 TAB TABLET PO ×2 (10:46→21:57)
[2021-06-30] MEDS: Tamsulosin HCL 0.4 MG CAPSULE PO (10:47)
[2021-06-30] MEDS: Loratadine 10 MG TABLET PO (10:47)
[2021-06-30] MEDS: Lidocaine 4 % Patch ADH..PATCH 1 PATCH TRANSDERMA (10:48)
[2021-06-30] MEDS: 0.9 % Sodium Chloride Flush 3 ML SYRINGE IVFLUSH ×3 (10:57→21:53)
--- NOTE | 2021-06-30 11:02 | HO.PM.IMPN ---
Subjective Subjective Date of Service: 06/30/21 Review of Systems Follow up ischemic colitis sitting up in the chair shoulder and neck pain Physical Exam Vital Signs: Vital Signs: Last Vital Signs Temp 97.9 F 06/30/21 07:23 Pulse 59 06/30/21 07:23 Resp 18 06/30/21 07:23 BP 108/50 L 06/30/21 07:23 Pulse Ox 95 06/30/21 10:00 BMI result Body Mass Index 22.6 Appearing in no acute distress lung sounds are clear to auscultation heart regular rate rhythm, clear S1, S2 positive bowel sounds, abdomen is soft, nontender neuro patient is alert x3, no focal deficits Objective Data Active Medications Acetaminophen (Acetaminophen 325 Mg Tablet) 650 mg PO Q6H PRN PRN Reason: Pain, Mild (Pain Scale 1-3) Last Admin: 06/28/21 16:58 Dose: 650 mg Documented by: SABA Atorvastatin Calcium (Atorvastatin Calcium 40 Mg Tablet) 40 mg PO BEDTIME [facility] Last Admin: 06/29/21 20:15 Dose: 40 mg Documented by: JIM Cyclobenzaprine HCl (Cyclobenzaprine Hcl 5 Mg Tablet) 5 mg PO TID PRN PRN Reason: shoulder and neck pain Last Admin: 06/30/21 10:50 Dose: 5 mg Documented by: TAN Dextrose (Dextrose 50 % 25 Gm/50 Ml Syringe) 25 gm IVPUSH Q15M PRN; Protocol PRN Reason: per Hypoglycemia Standing Ord. Fluticasone/Vilanterol (Fluticasone/Vilanterol 100/25 Blst.W.Dev) 1 puff INHALE RDAILY [facility] Last Admin: 06/30/21 07:38 Dose: Not Given Documented by: SUSANA Non-Admin Reason: Patient Asleep Glucose (Glucose Gel 15 Gm Gel..Gram.) 15 gm PO Q15M PRN; Protocol PRN Reason: per Hypoglycemia Standing Ord. Insulin Human Lispro (Insulin Lispro 100 Unit/Ml 3 Ml Vial) 0 unit SUBCUT QIDACHS [facility]; Protocol Last Admin: 06/30/21 07:42 Dose: Not Given Documented by: TAN Non-Admin Reason: No Insulin Coverage Ketorolac Tromethamine (Ketorolac Tromethamine 0.5% Op 3 Ml Drops) 1 drop EYE-LEFT BID [facility] Last Admin: 06/29/21 20:22 Dose: 1 drop Documented by: JIM Levothyroxine Sodium (Levothyroxine Sodium 50 Mcg Tablet) 50 mcg PO [id number] [facility] Last Admin: 06/30/21 05:30 Dose: 50 mcg Documented by: JIM Lidocaine (Lidocaine 4 % Patch Adh..Patch) 1 patch TRANSDERMA DAILY [facility]; Protocol Last Admin: 06/30/21 10:48 Dose: 1 patch Documented by: TAN Loratadine (Loratadine 10 Mg Tablet) 10 mg PO DAILY [facility] Last Admin: 06/30/21 10:47 Dose: 10 mg Documented by: TAN Melatonin (Melatonin 3 Mg Tablet) 6 mg PO BEDTIME PRN PRN Reason: Insomnia Sacubitril/Valsartan (Sacubitril/Valsartan 97/103 1 Tab Tablet) 1 tab PO BID [facility]; Protocol Last Admin: 06/30/21 10:46 Dose: 1 tab Documented by: TAN Senna (Sennosides 8.6 Mg Tablet) 17.2 mg PO BEDTIME PRN PRN Reason: Constipation Sodium Chloride (0.9 % Sodium Chloride Flush 3 Ml Syringe) 3 ml IVFLUSH QSHIFT [facility] Last Admin: 06/30/21 10:57 Dose: 3 ml Documented by: TAN Tamsulosin HCl (Tamsulosin Hcl 0.4 Mg Capsule) 0.4 mg PO DAILY [facility] Last Admin: 06/30/21 10:47 Dose: 0.4 mg Documented by: TAN Warfarin Sodium (Warfarin Sodium 2.5 Mg Tablet) 2.5 mg PO Tu@1800 [facility] Last Admin: 06/29/21 18:38 Dose: 2.5 mg Documented by: LIAM Warfarin Sodium (Warfarin Sodium 5 Mg Tablet) 5 mg PO [id number] [facility] Labs CBC & Chem 7: 06/27/21 06:36 06/27/21 06:36 Labs: Laboratory Results - last 24 hr 06/29/21 06/29/21 06/29/21 11:41 16:22 20:23 PT INR POC Glucose 106 83 101 06/30/21 06/30/21 06:53 07:26 PT 37.0 H INR 3.2 H POC Glucose 91 Assessment and Plan (1) Ischemic colitis: Status: Acute Plan 85-year-old female with a past medical history of hypertension, hyperlipidemia, diabetes, CHF, AFib, aortic valve replaced on Coumadin, hypothyroidism, recent diagnosis of COVID-19 positive; presented to the hospital today with a chief complaint of generalized weakness. Covid 19 now covid positive Asymptomatic supportive care Can be dc on the after 5 days of quaratine Knee pain xray neg lidocaine patch supportive care Neck pain chronic flexeril seems to work, will try warm compresses lidocaine patch Ischemic colitis. Symptoms resolved CT scan showed colonic wall thickening concerning for malignancy versus focal colitis Seen by GI, s/p colonoscopy today showing no mass but focal area of edema and ulceration of the mid ascending colon suggestive of resolving ischemic colitis. Rocephin completed repeat abd CT pending to assess for resolution UTI ruled out UCx with mixed stephanie BCx negative x24 hrs Hypokalemia resolved Supratherapeutic INR Patient denies any signs of bleeding. s/p vitamin K INR trending down, 1.8 today monitor INR. Restart warfarin Thrombocytopenia appears new, Platelets stable follow CBC Hypotension Improving Hold home carvedilol, Lasix. GEORGIE Resolved with IVF. Likely prerenal in the setting of volume loss from diarrhea History of AFib/AVR Patient on Coumadin Monitor INR levels. History of CHF Stable. Hold home furosemide, carvedilol Continue entresto History of hyperlipidemia Continue home statin History of hypothyroidism Continue home levothyroxine History of diabetes Hold home depaglifazolin. SSI, follow POCs DVT prophylaxis: Patient on Coumadin Attending: Dr. Fischer dispo: PT eval rec STR vs home with PT, at this time patient does not want to return to [facility], medically ready Patient need continued hospitalization for close blood pressure monitoring. monitor for bleeding/pain post-procedure, now with covid will need to monitor for adverse effects. Quality Stroke Does the patient have a stroke diagnosis?: No VTE Prior VTE?: No VTE Risk Level:: Medical - moderate - high VTE Device Contraindication: N/A - Device Ordered VTE Drug Contraindication: Treatment Not Indicated
[2021-06-30 11:05] VITALS: BP 107/51; PULSE 65; RESP 18; TEMP 36.3; O2SAT 96
[2021-06-30 11:18] LABS: Glucose, Whole Blood 98 mg/dL (60-115)
--- NOTE | 2021-06-30 13:49 | MHC.CM.PN ---
Female 85 DX Covid+ She requested [facility] PCP contact info pamphlet. She and her were both provided the list. [facility] via BLS. An updated clinical update was provided. Anticiapate discharge 07/02 to [facility]. Delay r/t Covid+ status.
--- NOTE | 2021-06-30 13:50 | P.DS_ITS ---
DS: Providers Provider Date of Service: 07/02/21 <EMILEE Maher - Last Filed: 07/02/21 15:40> Date of admission: 06/22/21 23:17 <Emily Campbell NP - Last Filed: 07/05/21 13:06> Date of discharge: 07/02/21 <EMILEE Maher - Last Filed: 07/02/21 15:40> Primary care physician: Ilsa Green MD <Emily Campbell NP - Last Filed: 07/05/21 13:06> Consults: 06/22/21 23:29 Consult to Gastroenterology Routine Consulting Provider: Levy Watson Reason for consultation: Abnormal CT abdomen; patient presented with diarrhea. 06/25/21 07:47 Consult to General Surgery Routine Consulting Provider: Darrian Carpenter Reason for consultation: ?cecal mass, colonoscopy planned today Has provider been notified: No <Emily Campbell NP - Last Filed: 07/05/21 13:06> Attending physician on discharge: Becca Negron <EMILEE Maher - Last Filed: 07/02/21 15:40> Discharging clinician: Jenn Chung <EMILEE Maher - Last Filed: 07/02/21 15:40> DS: Diagnosis Discharge Diagnosis (1) Ischemic colitis: Status: Acute <Emily Campbell NP - Last Filed: 07/05/21 13:06> DS: Summary Hospital Course Hospital Course: HP as per admitting provider 85-year-old female with a past medical history of hypertension, hyperlipidemia, diabetes, CHF, AFib, aortic valve replaced on Coumadin, hypothyroidism, recent diagnosis of COVID-19 positive; presented to the hospital today with a chief complaint of generalized weakness.?Patient reported that 3 weeks ago she presented to the hospital because of the neck pain; noted to have COVID-19 positive; patient was discharged to rehab; patient reports that after she finished rehab for 2 weeks she went home about a week ago; ever since she has continued to feel generally weak; says been having episodes of diarrhea; denies any fevers or cough.? Reports she has decreased oral intake; has gradually becoming more and more weak every day hence decided to come to the ER today for further evaluation.?Denies any chest pain or palpitations.?Denies any headaches blurry visions numbness tingling or focal weakness.?Denies any falls.?Review of all other systems is negative except mentioned above ER course: Per ER team patient noted to be generally weak; exam grossly nonfocal; COVID-19 came back negative this time; chest x-ray showed no acute findings; ; CT scan showed colonic wall thickening concerning for malignancy versus focal colitis.? Also noted to have age- indeterminate compression fracture of L3 vertebral body; admitted to the hospital for further management. Also on labs noted to have supratherapeutic INR of 15; patient was given low dose of vitamin K . Ischemic colitis. Initial CT scan showed colonic wall thickening concerning for malignancy versus focal colitis. Seen by GI, s/p colonoscopy 06/25 showing no mass but focal area of edema and ulceration of the mid ascending colon suggestive of resolving ischemic colitis. Gi recommended 10 day course of Rocephin which was completed. She had repeat abd CT which showed resolution of previous abnormalities. She has been tolerating a diet. She has had no nausea, vomiting, diarrhea. Supratherapeutic INR. On admission her INR was elevated at 15.1. She received vitamin K in the emergency department. Her Coumadin was held and eventually trended down to 1.8 on June 27. Her Coumadin was resumed at her home dose and is 2.5 on the day of discharge. She takes Coumadin for both atrial fibrillation as well as an aortic valve replacement. INR goal around 2.5. Urinary retention - failed voiding trial. odom was replaced 07/02. Keep odom in place for one week and then repeat voiding trial. if fails voiding trial again, will need outpatient urology evaluation. Covid 19, Asymptomatic, supportive care, no hypoxia, fever, cough. 5 days of quarantine completed on 07/02/21. Knee pain. xray neg. Arthritis, lidocaine patch Neck pain. chronic. warm compresses, lidocaine patch Hypokalemia. repleted and resolved Thrombocytopenia. May have been related to acute illness as platelets have improved and up to 245 on the day of discharge Hypotension. Improving but still remains low. carvedilol and Lasix have been on hold. Recommend to resume as blood pressure allows. Recommend follow-up with PCP as outpatient GEORGIE Resolved with IVF. Likely prerenal in the setting of volume loss from diarrhea. Creatinine on day of admission was 1.61, trended down to 0.54 with IV fluid. History of AFib/AVR. Coumadin resumed. INR 2.5. Coreg on hold for soft BP. History of CHF. No evidence of acute exacerbation. Currently euvolemic. Has been Continued on entresto. Coreg and Lasix have been on hold. Resume coreg when bp allows. History of hyperlipidemia. Continue home statin History of hypothyroidism. Continue home levothyroxine History of diabetes. Covered with sliding scale while hospitalized, blood sugars have been controlled. <Emily Campbell NP - Last Filed: 07/05/21 13:06> Time Spent with Patient Time attestation: Total time spent providing and/or coordinating discharge services: <Emily Campbell NP - Last Filed: 07/05/21 13:06> Discharge coordination time: Greater than 30 minutes <EMILEE Maher - Last Filed: 07/02/21 15:40> Quality: Safe Use of Opioids Does Pt have an Active Cancer Diagnosis on the Problem List?: No <EMILEE Maher - Last Filed: 07/02/21 15:40> Quality: Stroke Does the patient have a stroke diagnosis?: No <EMILEE Maher - Last Filed: 07/02/21 15:40> Physical Exam 2 Vital Signs: Vital Signs: Last Vital Signs Temp 97.4 F 06/30/21 11:05 Pulse 65 06/30/21 11:05 Resp 18 06/30/21 11:05 BP 107/51 L 06/30/21 11:05 Pulse Ox 96 06/30/21 11:05 BMI result Body Mass Index 22.6 <Emily Campbell NP - Last Filed: 07/05/21 13:06> Const: General: cooperative, comfortable, alert and awake <EMILEE Maher Last Filed: 07/02/21 15:40> Nutritional Appearance: average body habitus <EMILEE Maher - Last Filed: 07/02/21 15:40> Orientation/consciousness: patient oriented x3 <EMILEE Maher - Last Filed: 07/02/21 15:40> Resp: Effort & Inspection: normal respiratory effort and able to speak in complete sentences <EMILEE Maher - Last Filed: 07/02/21 15:40> Cardio: Rate: regular rate <EMILEE Maher - Last Filed: 07/02/21 15:40> Heart sounds: Murmur heart sound present <EMILEE Maher - Last Filed: 07/02/21 15:40> GI: Inspection: No distended <EMILEE Maher - Last Filed: 07/02/21 15:40> Palpation (GI): Soft to palpation and nontender <EMILEE Maher - Last Filed: 07/02/21 15:40> : Other: odom in place <EMILEE Maher - Last Filed: 07/02/21 15:40> Neuro: General: patient oriented x3 <EMILEE Maher - Last Filed: 07/02/21 15:40> Extrem: General: Yes no pedal edema <EMILEE Maher - Last Filed: 07/02/21 15:40> DS: Data Data Completed and Pending Labs on day of discharge: Laboratory Results - last 24 hr 06/29/21 06/29/21 06/30/21 16:22 20:23 06:53 PT 37.0 H INR 3.2 H POC Glucose 83 101 06/30/21 06/30/21 07:26 11:09 PT INR POC Glucose 91 98 <Emily Campbell NP - Last Filed: 07/05/21 13:06> Discharge Plan Discharge Patient Disposition: Xf SNF <Emily Campbell NP - Last Filed: 07/05/21 13:06> Discharge Diagnosis: Ischemic colitis Hypokalemia GEORGIE Supratherapeutic INR <Emily Campbell NP - Last Filed: 07/05/21 13:06> Ischemic colitis Hypokalemia GEORGIE Supratherapeutic INR <EMILEE Maher - Last Filed: 07/02/21 15:40> Referrals: [facility] [Outside] - 1 Week Ilsa Green MD [Primary Care Provider] - 1 Week <Emily Campbell NP - Last Filed: 07/05/21 13:06> Discharge Medications: New lidocaine [Lidocaine Pain Relief] 4 % Adhesive Patch,Medicated 1 patch transdermal DAILY Qty: 10 0RF Protocol: Apply to: Apply to: knee Continued warfarin [Febtoven] 2.5 mg tablet 2.5 mg PO warfarin 2.5 mg tablet 5 mg PO 0RF Protocol: Dose Management Condition: Monday (Week One) Dose/Route: 5 mg Instruction: 2 x 2.5 mg tablets Condition: Monday Dose/Route: 5 mg Instruction: 2 x 2.5 mg tablets Condition: Monday Dose/Route: 2.5 mg Instruction: 1 x 2.5 mg tablet Condition: Monday Dose/Route: 5 mg Instruction: 2 x 2.5 mg tablets Condition: Dose/Route: 5 mg Instruction: 2 x 2.5 mg tablets Condition: Monday Dose/Route: 5 mg Instruction: 2 x 2.5 mg tablets Condition: Monday Dose/Route: 5 mg Instruction: 2 x 2.5 mg tablets Condition: Monday (Week Two) Dose/Route: 5 mg Instruction: 2 x 2.5 mg tablets Condition: Monday Dose/Route: 5 mg Instruction: 2 x 2.5 mg tablets Condition: Monday Dose/Route: 2.5 mg Instruction: 1 x 2.5 mg tablet Condition: Monday Dose/Route: 5 mg Instruction: 2 x 2.5 mg tablets Condition: Dose/Route: 5 mg Instruction: 2 x 2.5 mg tablets Condition: Monday Dose/Route: 5 mg Instruction: 2 x 2.5 mg tablets Condition: Monday Dose/Route: 5 mg Instruction: 2 x 2.5 mg tablets Protocol Text: Adjustment Start Date: Monday05/24/21 INR Value: 2.5 INR Date: 05/21/21 Recheck Date: 05/31/21 Additional Instructions: CONT SAME DOSE , MODIFY DIET , CALL [facility] FOR FURTHER ASSESSMENT Rx Instructions: 5MG DAILY EXCEPT 2.5MG fexofenadine 180 mg Tablet 180 mg PO DAILY 0RF ketorolac 0.5 % Drops 1 drp ophthalmic-Left BID 0RF Farxiga 10 mg tablet 1 tab PO DAILY 0RF fluticasone propion-salmeterol 250-50 mcg/dose blister with device 1 ea PO BID 0RF levothyroxine 50 mcg tablet 50 mcg PO SUMOTUWETHFR 0RF Label Comments: doesn't take on saturdays atorvastatin 40 mg tablet 40 mg PO BEDTIME 0RF sacubitril-valsartan 97-103 mg tablet 1 tab PO BID 0RF Held furosemide 20 mg tablet 20 mg PO DAILY 0RF Hold Instructions: until follow up with PCP carvedilol 25 mg tablet 25 mg PO BID 0RF Hold Instructions: until follow up with PCP Discontinued acetaminophen 500 mg Tablet 500 mg PO BID 0RF <Emily Campbell NP - Last Filed: 07/05/21 13:06> Discharge Orders: Discharge Order (Routine); Ordered 07/02/21 Ordered By: Jenn Chung <Emily Campbell NP - Last Filed: 07/05/21 13:06> Activity on Discharge: As tolerated <Emily Campbell NP - Last Filed: 07/05/21 13:06> As tolerated <EMILEE Maher - Last Filed: 07/02/21 15:40> Stand Alone Forms: Patient Portal Discharge page <Emily Campbell NP - Last Filed: 07/05/21 13:06> Care Plan Goals: see below <Emily Campbell NP - Last Filed: 07/05/21 13:06> Health Concerns: ischemic colitis - compleated abx GEORGIE - resolved low blood pressure - improving elevated INR - resolved urinary retention - odom placed 07/02/2021 <Emily Campbell NP - Last Filed: 07/05/21 13:06> Plan of Treatment: Follow up with PCP. Lasix and Coreg are on hold for low BP. Resume as BP tolerates urinary retention - failed voiding trail, odom catheter placed 07/02. Keep in place for one week and repeat voiding trial. afib/AVR - INR on day of discharge 2.5. monitor per protocol with goal to keep INR around 2.5 <Emily Campbell NP - Last Filed: 07/05/21 13:06> Assessment: see discharge summary <Emily Campbell NP - Last Filed: 07/05/21 13:06> Discharge Date/Time: 07/02/21 13:04 <Emily Campbell NP - Last Filed: 07/05/21 13:06>
[2021-06-30 15:04] VITALS: BP 94/44; PULSE 73; RESP 18; TEMP 36.7; O2SAT 98
[2021-06-30 16:15] LABS: Glucose, Whole Blood 107 mg/dL (60-115)
--- NOTE | 2021-06-30 16:23 | PC.NURSE ---
Addendum entered by Charlotte Peña RN 07/01/21 05:15: Patient did not void by 1900. Bladder scanned at 1945 for 245ml, pt dry and denies any urge to void. MD notified via [facility], will notify once bladder scan is >350mL. At 0330 pt bladder scanned for 297ml, pt has no urge to void. Original Note: Pt's odom catheter was removed 1300 per MD order.
[2021-06-30 19:18] VITALS: BP 120/65; PULSE 64; RESP 19; TEMP 37.1; O2SAT 94
[2021-06-30 20:20] LABS: Glucose, Whole Blood 106 mg/dL (60-115)
[2021-06-30] MEDS: Atorvastatin Calcium 40 MG TABLET PO (21:53)
[2021-07-01] VITALS (8 sets, daily range): BP systolic 90–125; BP diastolic 49–58; PULSE 77–88; RESP 17–20; TEMP 36–37.3; O2SAT 91–96
[2021-07-01] MEDS: Levothyroxine Sodium 50 MCG TABLET PO (05:24)
[2021-07-01] MEDS: Acetaminophen 325 MG TABLET 650 MG PO (05:24)
[2021-07-01 07:34] LABS: Hematocrit 25.9 % (37.0-47.0); Hemoglobin 8.5 g/dl (12.0-16.0); Mean Corpuscular HGB Conc 32.8 g/dl (31.0-35.0); Mean Corpuscular Hemoglobin 30.9 pg (27.0-33.0); Mean Corpuscular Volume 94.2 fL (80.0-98.0); Mean Platelet Volume 11.5 fL (9.4-12.3); Platelet Count 223 X10*3/uL (160-400); Red Blood Count 2.75 X10*6/uL (4.20-5.50); Red Cell Distribution Width 14.9 % (11.0-16.0); White Blood Count 6.9 X10*3/uL (4.8-10.8)
[2021-07-01 07:47] LABS: Glucose, Whole Blood 106 mg/dL (60-115)
[2021-07-01 07:54] LABS: Anion Gap 8 (12-20); Blood Urea Nitrogen 10 mg/dL (9-16); Calcium 7.9 mg/dL (8.4-10.2); Carbon Dioxide 27 mmol/L (22-29); Chloride 101 mmol/L (96-108); Creatinine Clr Calc Pharmacy 73.9; Estimated Glomerular Filt Rate > 60; Glucose Random 95 mg/dL (60-115); Potassium 3.7 mmol/L (3.3-5.1); Sodium 132 mmol/L (135-145)
[2021-07-01 09:08] LABS: INTERNATIONAL NORM RATIO 2.6 (0.9-1.1); Prothrombin Time 30.7 SEC (9.9-13.0)
[2021-07-01] MEDS: Tamsulosin HCL 0.4 MG CAPSULE PO (09:33)
[2021-07-01] MEDS: Cyclobenzaprine HCl 5 MG TABLET PO (09:33)
[2021-07-01] MEDS: Lidocaine 4 % Patch ADH..PATCH 1 PATCH TRANSDERMA (09:33)
[2021-07-01] MEDS: Loratadine 10 MG TABLET PO (09:33)
[2021-07-01] MEDS: 0.9 % Sodium Chloride Flush 3 ML SYRINGE IVFLUSH ×3 (09:34→21:29)
--- NOTE | 2021-07-01 11:02 | HO.PM.IMPN ---
Subjective Subjective Date of Service: 07/01/21 Interval History: seen and examined this morning follow up for ischemic colitis no cough, shortness of breath, fever, abdominal pain Review of Systems Review of Systems: Yes all other systems are reviewed and are negative Constitutional Constitutional: Denies chills and Denies fever(s) Cardiovascular Cardiovascular: Denies chest pain, Denies palpitations and Denies dyspnea Respiratory Respiratory: Denies cough and Denies dyspnea Gastrointestinal Gastrointestinal: Denies abdominal pain, Denies nausea and Denies vomiting Endocrine Endocrine: Denies palpitations Physical Exam Vital Signs: Vital Signs: Last Vital Signs Temp 98.7 F 07/01/21 07:42 Pulse 77 07/01/21 07:42 Resp 20 07/01/21 07:42 BP 97/50 L 07/01/21 07:42 Pulse Ox 93 07/01/21 10:00 BMI result Body Mass Index 22.6 Const: General: cooperative, comfortable, no acute distress, alert and awake Nutritional Appearance: average body habitus Orientation/consciousness: patient oriented x3 Eyes: Pupils: Equal, round and reactive pupils present EOM: EOMs intact bilaterally Resp: Effort & Inspection: normal respiratory effort and able to speak in complete sentences Cardio: Rate: regular rate Heart sounds: S1 normal heart sound present and S2 normal heart sound present GI: Inspection: No distended Palpation (GI): Soft to palpation and nontender Neuro: General: patient oriented x3 Cranial nerves: Yes Equal, round and reactive pupils present Extrem: General: Yes no pedal edema Objective Data Active Medications Acetaminophen (Acetaminophen 325 Mg Tablet) 650 mg PO Q6H PRN PRN Reason: Pain, Mild (Pain Scale 1-3) Last Admin: 07/01/21 05:24 Dose: 650 mg Documented by: JENNIFER Atorvastatin Calcium (Atorvastatin Calcium 40 Mg Tablet) 40 mg PO BEDTIME DOROTEO Last Admin: 06/30/21 21:53 Dose: 40 mg Documented by: JENNIFER Cyclobenzaprine HCl (Cyclobenzaprine Hcl 5 Mg Tablet) 5 mg PO TID PRN PRN Reason: shoulder and neck pain Last Admin: 07/01/21 09:33 Dose: 5 mg Documented by: JAVY Dextrose (Dextrose 50 % 25 Gm/50 Ml Syringe) 25 gm IVPUSH Q15M PRN; Protocol PRN Reason: per Hypoglycemia Standing Ord. Fluticasone/Vilanterol (Fluticasone/Vilanterol 100/25 Blst.W.Dev) 1 puff INHALE RDAILY [facility] Last Admin: 07/01/21 09:34 Dose: Not Given Documented by: JAVY Non-Admin Reason: Med Not Available Glucose (Glucose Gel 15 Gm Gel..Gram.) 15 gm PO Q15M PRN; Protocol PRN Reason: per Hypoglycemia Standing Ord. Insulin Human Lispro (Insulin Lispro 100 Unit/Ml 3 Ml Vial) 0 unit SUBCUT QIDACHS [facility]; Protocol Last Admin: 07/01/21 07:54 Dose: Not Given Documented by: JAVY Non-Admin Reason: No Insulin Coverage Ketorolac Tromethamine (Ketorolac Tromethamine 0.5% Op 3 Ml Drops) 1 drop EYE-LEFT BID [facility] Last Admin: 07/01/21 09:33 Dose: 1 drop Documented by: JAVY Levothyroxine Sodium (Levothyroxine Sodium 50 Mcg Tablet) 50 mcg PO SuMoTuWeThFr@0630 [facility] Last Admin: 07/01/21 05:24 Dose: 50 mcg Documented by: JENNIFER Lidocaine (Lidocaine 4 % Patch Adh..Patch) 1 patch TRANSDERMA DAILY [facility]; Protocol Last Admin: 07/01/21 09:33 Dose: 1 patch Documented by: JAVY Loratadine (Loratadine 10 Mg Tablet) 10 mg PO DAILY [facility] Last Admin: 07/01/21 09:33 Dose: 10 mg Documented by: JAVY Melatonin (Melatonin 3 Mg Tablet) 6 mg PO BEDTIME PRN PRN Reason: Insomnia Sacubitril/Valsartan (Sacubitril/Valsartan 97/103 1 Tab Tablet) 1 tab PO BID [facility]; Protocol Last Admin: 07/01/21 09:32 Dose: Not Given Documented by: JAVY Non-Admin Reason: Decreased Blood Pressure Senna (Sennosides 8.6 Mg Tablet) 17.2 mg PO BEDTIME PRN PRN Reason: Constipation Sodium Chloride (0.9 % Sodium Chloride Flush 3 Ml Syringe) 3 ml IVFLUSH QSHIFT [facility] Last Admin: 07/01/21 09:34 Dose: 3 ml Documented by: JAVY Tamsulosin HCl (Tamsulosin Hcl 0.4 Mg Capsule) 0.4 mg PO DAILY [facility] Last Admin: 07/01/21 09:33 Dose: 0.4 mg Documented by: JAVY Warfarin Sodium (Warfarin Sodium 2.5 Mg Tablet) 2.5 mg PO Tu@1800 [facility] Last Admin: 06/29/21 18:38 Dose: 2.5 mg Documented by: LIAM Warfarin Sodium (Warfarin Sodium 5 Mg Tablet) 5 mg PO SuMoWeThFrSa@1800 [facility] Labs CBC & Chem 7: 07/01/21 07:18 07/01/21 07:18 Labs: Laboratory Results - last 24 hr 06/30/21 06/30/21 06/30/21 11:09 16:10 20:17 MCV MCH MCHC RDW Plt Count MPV Absolute Nucleated RBC Nucleated RBC % (auto) PT INR Anion Gap Estim Creat Clear Calc Estimated GFR POC Glucose 98 107 106 Random Glucose Calcium 07/01/21 07/01/21 07/01/21 07:18 07:18 07:46 MCV 94.2 MCH 30.9 MCHC 32.8 RDW 14.9 Plt Count 223 D MPV 11.5 Absolute Nucleated RBC 0.000 Nucleated RBC % (auto) 0.0 PT INR Anion Gap 8 L Estim Creat Clear Calc 73.9 Estimated GFR > 60 POC Glucose 106 Random Glucose 95 Calcium 7.9 L 07/01/21 08:47 MCV MCH MCHC RDW Plt Count MPV Absolute Nucleated RBC Nucleated RBC % (auto) PT 30.7 H INR 2.6 H Anion Gap Estim Creat Clear Calc Estimated GFR POC Glucose Random Glucose Calcium Assessment and Plan (1) Ischemic colitis: Status: Acute Plan 85-year-old female with a past medical history of hypertension, hyperlipidemia, diabetes, CHF, AFib, aortic valve replaced on Coumadin, hypothyroidism, recent diagnosis of COVID-19 positive; presented to the hospital today with a chief complaint of generalized weakness. Acute on chronic normocytic anemia H/H trending down no evidence of overt bleeding repeat CBC this afternoon Covid 19 tested postive for covid (recently had covid in may) not likely active case Asymptomatic supportive care Can be dc on the after 5 days of quarantine Knee pain xray neg lidocaine patch supportive care Neck pain chronic flexeril seems to work, will try warm compresses lidocaine patch Ischemic colitis. Symptoms resolved CT scan showed colonic wall thickening concerning for malignancy versus focal colitis Seen by GI, s/p colonoscopy today showing no mass but focal area of edema and ulceration of the mid ascending colon suggestive of resolving ischemic colitis. Rocephin completed repeat abd CT shows resolution UTI ruled out UCx with mixed stephanie BCx negative x24 hrs Hypokalemia resolved Supratherapeutic INR s/p Vit K. INR now in therapeutic range Thrombocytopenia appears new, Platelets stable follow CBC Hypotension Improving Hold home carvedilol, Lasix. GEORGIE Resolved with IVF. Likely prerenal in the setting of volume loss from diarrhea History of AFib/AVR INR 2.6 Continue Coumadin Follow INR levels. History of CHF Stable. Hold home furosemide, carvedilol Continue entresto History of hyperlipidemia Continue home statin History of hypothyroidism Continue home levothyroxine History of diabetes Hold home depaglifazolin. SSI, follow POCs DVT prophylaxis: Patient on Coumadin Attending: Dr. Fischer dispo: PT eval rec STR vs home with PT, plan for STR tomorrow Patient need continued hospitalization for close blood pressure monitoring. monitor for bleeding; H/H Quality Stroke Does the patient have a stroke diagnosis?: No VTE Prior VTE?: No VTE Risk Level:: Medical - moderate - high VTE Device Contraindication: N/A - Device Ordered VTE Drug Contraindication: Treatment Not Indicated
[2021-07-01 11:32] LABS: Glucose, Whole Blood 118 mg/dL (60-115)
--- NOTE | 2021-07-01 12:07 | P.CDIC_ITS ---
CDI Concurrent Query Documentation Clarification: PHYSICIAN'S DOCUMENTATION REQUEST Date of Query: 07/01/21 1208 Patient Name: Raven Carbajal Admit Date: 06/22/21 Dear Doctor, A review of the medical record indicates additional documentation may be needed. Please review below and update the documentation accordingly. Clinical Indicators: Risk Factors/Clinical Indicators/Treatments Per H&P: History of CHF:? Stable.? Treated with Lasix at home, held during this hospitalization Entresto BID ordered No ECHO, no Cardiology consult in EMR Please provide further specificity regarding the most likely type and acuity of CHF you are evaluating, treating, or monitoring. Examples include: Type: * Systolic * Diastolic * Combined Systolic/Diastolic * Other ? please specify * Unable to determine Acuity: * Acute * Chronic * Acute on chronic * Unable to determine Use of terms such as suspected, likely, concern for, or probable (associated with a specific diagnosis that is being evaluated, monitored, or treated as if it exists) are acceptable and can be coded in the inpatient setting, when documented at the time of discharge. Thank you, Sakina Arreguin RN Extension: [phone] Please use your independent medical judgment in providing your response. THIS QUERY IS PART OF THE PERMANENT MEDICAL RECORD Provider Response: CHF (chronic heart failure, unable to determine systolic or diastolic)
[2021-07-01 12:24] LABS: Hematocrit 28.3 % (37.0-47.0); Mean Corpuscular HGB Conc 31.8 g/dl (31.0-35.0); Mean Corpuscular Hemoglobin 30.8 pg (27.0-33.0); Mean Corpuscular Volume 96.9 fL (80.0-98.0); Mean Platelet Volume 11.5 fL (9.4-12.3); Platelet Count 245 X10*3/uL (160-400); Red Blood Count 2.92 X10*6/uL (4.20-5.50); Red Cell Distribution Width 14.9 % (11.0-16.0); White Blood Count 5.9 X10*3/uL (4.8-10.8)
[2021-07-01 16:34] LABS: Glucose, Whole Blood 99 mg/dL (60-115)
[2021-07-01] MEDS: Warfarin Sodium 5 MG TABLET PO (18:03)
[2021-07-01] MEDS: Sacubitril/Valsartan 97/103 1 TAB TABLET PO (21:29)
[2021-07-01] MEDS: Atorvastatin Calcium 40 MG TABLET PO (21:29)
[2021-07-01 21:40] LABS: Glucose, Whole Blood 98 mg/dL (60-115)
[2021-07-02 04:00] VITALS: BP 103/54; PULSE 83; RESP 16; TEMP 36.8; O2SAT 94
[2021-07-02] MEDS: Levothyroxine Sodium 50 MCG TABLET PO (06:06)
[2021-07-02 06:50] LABS: INTERNATIONAL NORM RATIO 2.5 (0.9-1.1); Prothrombin Time 28.7 SEC (9.9-13.0)
[2021-07-02 07:06] VITALS: BP 112/54; PULSE 84; RESP 16; TEMP 36.9; O2SAT 92
[2021-07-02 07:24] LABS: Glucose, Whole Blood 91 mg/dL (60-115)
--- NOTE | 2021-07-02 07:36 | PC.NURSE ---
Per report from day RN on 07/01, pt was straight cath at 1630 for 700ml yellow urine. This RN bladder scanned pt at 2300 on 07/01 for 171ml. Pt remained dry all night and was bladder scanned at 0600 for 406ml, Dr. Parker notified via [facility] [employer] [facility]. Order for odom. Odom has been placed at this time and is draining yellow urine.
[2021-07-02] MEDS: Sacubitril/Valsartan 97/103 1 TAB TABLET PO (08:20)
[2021-07-02] MEDS: Tamsulosin HCL 0.4 MG CAPSULE PO (08:20)
[2021-07-02] MEDS: Loratadine 10 MG TABLET PO (08:20)
[2021-07-02] MEDS: Lidocaine 4 % Patch ADH..PATCH 1 PATCH TRANSDERMA (08:21)
[2021-07-02] MEDS: 0.9 % Sodium Chloride Flush 3 ML SYRINGE IVFLUSH (08:21)
--- NOTE | 2021-07-02 10:17 | MHC.CM.PN ---
IMM 07/02/21 Female COVID+ and GEORGIE She is discharged to [facility] for STR. BLS is booked for 12pm. All info has been sent to the facility.
[2021-07-02 11:04] VITALS: BP 103/59; PULSE 76; RESP 16; TEMP 37.2; O2SAT 94
[2021-07-02 11:25] LABS: Glucose, Whole Blood 126 mg/dL (60-115)
[2021-07-02] MEDS: Cyclobenzaprine HCl 5 MG TABLET PO (11:32)
[2021-07-02 11:36] VITALS: BP 103/59; PULSE 76; O2SAT 94
[2021-07-02] MEDS: Sennosides 8.6 MG TABLET 17.2 MG PO (11:58)
== END 2021-07-02 13:04 | disposition skilled nursing facility (03) | DRG 393 ==
LOC: HO.ED 17:56 → HO.EDOVER 23:25 → HO.IMC 06-23 12:24
PROVIDERS: Internal Medicine Gastroenterology; Nurse Practitioner Acute Care; Student in an Organized Health Care Education/Training Program; Admitting Provider Hospitalist; Emergency Provider Internal Medicine; PCP Internal Medicine; Visit Provider Physician Assistant Medical
PROC: 0DJD8ZZ Inspection of Lower Intestinal Tract, Via Natural or Artificial Opening Endoscopic (ICD-10-PCS; CPT 45378; principal; 2021-06-25 15:20)
DX: K55.039 Acute (reversible) ischemia of large intestine, extent unspecified (principal); U07.1 COVID-19; N17.9 Acute kidney failure, unspecified; I48.20 Chronic atrial fibrillation, unspecified; E03.9 Hypothyroidism, unspecified; J45.909 Unspecified asthma, uncomplicated; Z95.0 Presence of cardiac pacemaker; U09.9 Post COVID-19 condition, unspecified; Z95.2 Presence of prosthetic heart valve; E78.5 Hyperlipidemia, unspecified; I95.9 Hypotension, unspecified; E11.9 Type 2 diabetes mellitus without complications; E87.6 Hypokalemia; D69.6 Thrombocytopenia, unspecified; R79.1 Abnormal coagulation profile; Z91.041 Radiographic dye allergy status; Z88.2 Allergy status to sulfonamides; Z79.01 Long term (current) use of anticoagulants; Z79.51 Long term (current) use of inhaled steroids; Z79.890 Hormone replacement therapy; Z79.899 Other long term (current) drug therapy
CPT/HCPCS: 36415; 70450; 71045; 73560; 74176; 80048; 80053; 81001; 82947; 83605; 84484; 85025; 85027; 85610; 87040; 87086; 87502; 87635; 93005; 94640; 96360; 96361; 97162; 97530; 99285; C1758; J0696

== ENCOUNTER → 2021-06-24 15:36 | Outpatient (BNVA) | payer MEDICARE, OTHER, SELFPAY | PROVIDERS: PCP Internal Medicine; Visit Provider Internal Medicine | DX: Z13.89 Encounter for screening for other disorder (principal) ==

== ENCOUNTER 2021-07-23 10:23 | Emergency (ER) | payer MEDICARE, OTHER, SELFPAY ==
--- NOTE | 2021-07-23 10:27 | ED.AMS ---
HPI - Altered Mental Status General Chief Complaint: General Medical Stated Complaint: Altered Mental Status, increased confusion Time Seen by Provider: 07/23/21 10:27 Source: other (assisted) Mode of arrival: EMS Limitations: altered mental status History of Present Illness HPI narrative: patient with 24 hours of urinary retention, now with increased agitation and altered mental status, patient with hyponatremia MD complaint: altered mental status Onset (ago): hour(s) Severity: mild Associated symptoms: denies other symptoms Related Data Home Medications Medication Instructions Recorded Confirmed atorvastatin 40 mg tablet 40 mg PO BEDTIME 12/26/19 06/24/21 fluticasone 250 mcg-salmeterol 50 1 ea PO BID 12/26/19 06/24/21 mcg/dose blistr powdr for inhalation levothyroxine 50 mcg tablet 50 mcg PO SUMOTUWETHFR 12/26/19 06/24/21 sacubitril 97 mg-valsartan 103 mg 1 tab PO BID 12/26/19 06/24/21 tablet carvedilol 25 mg tablet 25 mg PO BID 12/25/20 06/24/21 furosemide 20 mg tablet 20 mg PO DAILY 05/24/21 06/24/21 fexofenadine 180 mg tablet 180 mg PO DAILY 06/01/21 06/24/21 ketorolac 0.5 % eye drops 1 drp ophthalmic-Left BID 06/01/21 06/24/21 warfarin 2.5 mg tablet 5 mg PO SUMOWETHFRSA 06/01/21 06/24/21 warfarin 2.5 mg tablet (Jantoven) 2.5 mg PO TU 06/01/21 06/27/21 dapagliflozin 10 mg tablet 1 tab PO DAILY 06/22/21 06/24/21 (Farxiga) Previous Rx's Medication Instructions Recorded lidocaine 4 % topical patch 1 patch transdermal DAILY #10 ea 07/02/21 (Lidocaine Pain Relief) cephalexin 500 mg capsule 500 mg PO Q6H 7 days #28 caps 07/23/21 Allergies Allergy/AdvReac Type Severity Reaction Status Date / Time Iodinated Contrast Media Allergy Unknown HIVES Verified 06/24/21 15:38 [CONTRAST, IV] mite-Dermatophagoides Allergy Unknown UNKNOWN Verified 06/24/21 15:38 farinae, joleen [DUST MITES] mold [MOLD] Allergy Unknown UNKNOWN Verified 06/24/21 15:38 Sulfa (Sulfonamide AdvReac Intermediate UNKNOWN Verified 06/24/21 15:38 Antibiotics) DUST Allergy Unknown UNKNOWN Uncoded 06/24/21 15:38 [facility] Past Medical History Medical History A-fib Active asthma Hypothyroid Pacemaker Surgical History Heart valve replaced History of appendectomy Hx of colonoscopy Social History Social History Household Members: Spouse Housing: House Do you presently have visiting nurse or other home services: Yes ([facility]) Alcohol intake: current Alcohol intake frequency: a few times a month Alcohol type: wine Patient Tobacco Use Status: Never used Tobacco Advance Directives: Yes Advance Directives on File: Yes Advance Directives Date on File: 06/02/21 service: No Current occupational status: retired Physical Exam ED Vital Signs: Vital Signs - 24 hr 07/23/21 10:30 Temperature 99.4 F Pulse Rate 64 Respiratory Rate 18 Blood Pressure 126/70 Pulse Oximetry 98 Oxygen Delivery Method Room Air BMI result Body Mass Index 20.9 Const Other: frail elderly thin female Orientation/consciousness: oriented to person and oriented to place Limitations: altered mental status HENMT Other: dry oral mucosa Ears: external ears normal General nose exam: Normal external nose present Mouth: Normal oral and palatal mucosa present and oropharynx normal Throat: Yes posterior oropharynx normal Eyes General: appearance normal, both eyes and all related structures Neck Neck: Yes normal visual inspection Chest Chest palpation & inspection: normal inspection of the chest Resp Auscultation: clear to auscultation bilaterally Cardio Jugular venous distension: no JVD Rate: regular rate Rhythm: regular rhythm Heart sounds: S1 normal heart sound present and S2 normal heart sound present GI Inspection: Yes normal to inspection Palpation (GI): Soft to palpation, nontender and No hepatosplenomegaly present Auscultation: normal bowel sounds General: Yes no CVA tenderness Back/Spine/Pelvis Back: no CVA tenderness Skin General skin exam: no rashes or lesions noted Neuro General: oriented to person and oriented to place Cranial nerves: Yes CN's II-XII intact bilaterally Motor exam (neuro): 5/5 motor strength present throughout Extrem General: Yes normal to inspection Psych Appearance: grossly normal Course Reevaluation(s) Reevaluation #1: patient with 50-75 WBC in her urine with a catheter. Will treat with keflex. Her hyponatremia is chronic Time: 12:58 MDM - Altered Mental Status Lab Data Result diagrams: 07/23/21 10:52 07/23/21 11:15 Labs: Lab Results 07/23/21 07/23/21 07/23/21 Range/Units 10:52 10:52 10:52 WBC 9.0 (4.8-10.8) X10*3/uL RBC 3.41 L (4.20-5.50) X10*6/uL Hgb 10.3 L (12.0-16.0) g/dl Hct 31.2 L (37.0-47.0) % MCV 91.5 (80.0-98.0) fL MCH 30.2 (27.0-33.0) pg MCHC 33.0 (31.0-35.0) g/dl RDW 15.3 (11.0-16.0) % Plt Count 338 (160-400) X10*3/uL MPV 10.4 (9.4-12.3) fL Immature Gran % (Auto) 0.4 (0.0-0.4) % Neut % (Auto) 73.0 (45-73) % Lymph % (Auto) 13.6 L (20-40) % Heard % (Auto) 10.9 (2-11) % Eos % (Auto) 1.8 (0-4) % Baso % (Auto) 0.3 (0-2) % Lymph # (Auto) 1.2 (1.2-4.9) X10*3/uL Heard # (Auto) 1.0 (0.1-1.2) X10*3/uL Eos # (Auto) 0.2 (0.0-0.4) X10*3/uL Baso # (Auto) 0.0 (0.0-0.2) X10*3/uL Abs Immat Gran (auto) 0.04 H (0.00-0.03) X10*3/uL Absolute Neuts (auto) 6.6 (2.0-8.3) x10*3/uL Absolute Nucleated RBC 0.000 (0.0-0.012) X10*3/uL Nucleated RBC % (auto) 0.0 (0.0-0.2) /100WBC PT 29.9 H (9.9-13.0) SEC INR 2.6 H (0.9-1.1) Sodium (135-145) mmol/L Potassium (3.3-5.1) mmol/L Chloride (96-108) mmol/L Carbon Dioxide (22-29) mmol/L Anion Gap (12-20) BUN (9-16) mg/dL Creatinine (0.5-1.4) mg/dL Estim Creat Clear Calc Estimated GFR Random Glucose (60-115) mg/dL Calcium (8.4-10.2) mg/dL Urine Color YELLOW Urine Appearance CLOUDY Urine pH 6.0 (5.0-8.0) Ur Specific Swain 1.010 (1.005-1.025) Urine Protein TRACE (NEG-TRACE) MG/DL Urine Glucose (UA) >=1000 H (NEG) MG/DL Urine Ketones NEG (NEG) MG/DL Urine Blood 1+ H (NEG) Urine Nitrite NEG (NEG) Ur Leukocyte Esterase 2+ H (NEG) Urine RBC 1-4 (0) /HPF Urine WBC 50-75 H (0-4) /HPF Urine WBC Clumps NOTED Ur Squamous Epith Cells NONE /LPF Urine Bacteria 2+ /LPF Urine Yeast 1+ /HPF 06/12/04 Range/Units 11:15 WBC (4.8-10.8) X10*3/uL RBC (4.20-5.50) X10*6/uL Hgb (12.0-16.0) g/dl Hct (37.0-47.0) % MCV (80.0-98.0) fL MCH (27.0-33.0) pg MCHC (31.0-35.0) g/dl RDW (11.0-16.0) % Plt Count (160-400) X10*3/uL MPV (9.4-12.3) fL Immature Gran % (Auto) (0.0-0.4) % Neut % (Auto) (45-73) % Lymph % (Auto) (20-40) % Heard % (Auto) (2-11) % Eos % (Auto) (0-4) % Baso % (Auto) (0-2) % Lymph # (Auto) (1.2-4.9) X10*3/uL Heard # (Auto) (0.1-1.2) X10*3/uL Eos # (Auto) (0.0-0.4) X10*3/uL Baso # (Auto) (0.0-0.2) X10*3/uL Abs Immat Gran (auto) (0.00-0.03) X10*3/uL Absolute Neuts (auto) (2.0-8.3) x10*3/uL Absolute Nucleated RBC (0.0-0.012) X10*3/uL Nucleated RBC % (auto) (0.0-0.2) /100WBC PT (9.9-13.0) SEC INR (0.9-1.1) Sodium 128 L (135-145) mmol/L Potassium 3.3 (3.3-5.1) mmol/L Chloride 95 L (96-108) mmol/L Carbon Dioxide 24 (22-29) mmol/L Anion Gap 12 (12-20) BUN 8 L (9-16) mg/dL Creatinine 0.56 (0.5-1.4) mg/dL Estim Creat Clear Calc 70.9 Estimated GFR > 60 Random Glucose 96 (60-115) mg/dL Calcium 8.3 L (8.4-10.2) mg/dL Urine Color Urine Appearance Urine pH (5.0-8.0) Ur Specific Swain (1.005-1.025) Urine Protein (NEG-TRACE) MG/DL Urine Glucose (UA) (NEG) MG/DL Urine Ketones (NEG) MG/DL Urine Blood (NEG) Urine Nitrite (NEG) Ur Leukocyte Esterase (NEG) Urine RBC (0) /HPF Urine WBC (0-4) /HPF Urine WBC Clumps Ur Squamous Epith Cells /LPF Urine Bacteria /LPF Urine Yeast /HPF Discharge Plan Discharge Clinical Impression: Acute UTI, Chronic hyponatremia Patient Disposition: Home, Self-Care Instructions: Hyponatremia (ED), Urinary Tract Infection in Older Adults (ED) Prescriptions: New cephalexin 500 mg capsule 500 mg PO Q6H 7 Days Qty: 28 0RF No Action warfarin [Febtoven] 2.5 mg tablet 2.5 mg PO warfarin 2.5 mg tablet 5 mg PO Protocol: Dose Management Condition: Monday (Week One) Dose/Route: 5 mg Instruction: 2 x 2.5 mg tablets Condition: Monday Dose/Route: 5 mg Instruction: 2 x 2.5 mg tablets Condition: Monday Dose/Route: 2.5 mg Instruction: 1 x 2.5 mg tablet Condition: Monday Dose/Route: 5 mg Instruction: 2 x 2.5 mg tablets Condition: Dose/Route: 5 mg Instruction: 2 x 2.5 mg tablets Condition: Monday Dose/Route: 5 mg Instruction: 2 x 2.5 mg tablets Condition: Monday Dose/Route: 5 mg Instruction: 2 x 2.5 mg tablets Condition: Monday (Week Two) Dose/Route: 5 mg Instruction: 2 x 2.5 mg tablets Condition: Monday Dose/Route: 5 mg Instruction: 2 x 2.5 mg tablets Condition: Monday Dose/Route: 2.5 mg Instruction: 1 x 2.5 mg tablet Condition: Monday Dose/Route: 5 mg Instruction: 2 x 2.5 mg tablets Condition: Dose/Route: 5 mg Instruction: 2 x 2.5 mg tablets Condition: Monday Dose/Route: 5 mg Instruction: 2 x 2.5 mg tablets Condition: Monday Dose/Route: 5 mg Instruction: 2 x 2.5 mg tablets Protocol Text: Adjustment Start Date: Monday05/24/21 INR Value: 2.5 INR Date: 05/21/21 Recheck Date: 05/31/21 Additional Instructions: CONT SAME DOSE , MODIFY DIET , CALL [facility] FOR FURTHER ASSESSMENT Rx Instructions: 5MG DAILY EXCEPT 2.5MG fexofenadine 180 mg Tablet 180 mg PO DAILY ketorolac 0.5 % Drops 1 drp ophthalmic-Left BID Farxiga 10 mg tablet 1 tab PO DAILY lidocaine [Lidocaine Pain Relief] 4 % Adhesive Patch,Medicated 1 patch transdermal DAILY Qty: 10 0RF Protocol: Apply to: Apply to: knee fluticasone propion-salmeterol 250-50 mcg/dose blister with device 1 ea PO BID levothyroxine 50 mcg tablet 50 mcg PO SUMOTUWETH Label Comments: doesn't take on saturdays atorvastatin 40 mg tablet 40 mg PO BEDTIME sacubitril-valsartan 97-103 mg tablet 1 tab PO BID furosemide 20 mg tablet 20 mg PO DAILY Hold Instructions: until follow up with PCP carvedilol 25 mg tablet 25 mg PO BID Hold Instructions: until follow up with PCP Referrals: Del Mancia MD [Primary Care Provider] - 1 week
[2021-07-23 10:30] VITALS: BP 126/70; PULSE 64; RESP 18; TEMP 37.4; O2SAT 98; BMI 20.9
[2021-07-23] MEDS: 0.9 % Sodium Chloride 500 ML 250 ML IVCONT (10:55)
[2021-07-23 10:59] LABS: MANUAL DIFF FLAG NO
[2021-07-23 11:04] LABS: Basophils Percent Auto 0.3 % (0-2); Eosinophils Absolute Auto 0.2 X10*3/uL (0.0-0.4); Eosinophils Percent Auto 1.8 % (0-4); Hematocrit 31.2 % (37.0-47.0); Hemoglobin 10.3 g/dl (12.0-16.0); Imm Gran Abs Auto 0.04 X10*3/uL (0.00-0.03); Imm Gran Pct Auto 0.4 % (0.0-0.4); Lymphocytes Absolute Auto 1.2 X10*3/uL (1.2-4.9); Lymphocytes Percent Auto 13.6 % (20-40); Mean Corpuscular Hemoglobin 30.2 pg (27.0-33.0); Mean Corpuscular Volume 91.5 fL (80.0-98.0); Mean Platelet Volume 10.4 fL (9.4-12.3); Monocytes Percent Auto 10.9 % (2-11); Neutrophils Absolute Auto 6.6 x10*3/uL (2.0-8.3); Platelet Count 338 X10*3/uL (160-400); Red Blood Count 3.41 X10*6/uL (4.20-5.50); Red Cell Distribution Width 15.3 % (11.0-16.0)
[2021-07-23 11:06] LABS: Appearance Urine CLOUDY; Color Urine YELLOW; Glucose Urine UA >=1000 MG/DL (NEG); Leukocyte Esterase Urine 2+ (NEG); Nitrite Urine NEG (NEG); UACC Culture Trigger YES; Urine Blood 1+ (NEG); Urine Ketones NEG (NEG); Urine Protein TRACE MG/DL (NEG-TRACE)
[2021-07-23 11:09] LABS: INTERNATIONAL NORM RATIO 2.6 (0.9-1.1); Prothrombin Time 29.9 SEC (9.9-13.0)
[2021-07-23 11:25] LABS: Bacteria Urine 2+ /LPF; WBC Urine 50-75 /HPF (0-4)
[2021-07-23 11:26] LABS: WBC Clumps Urine NOTED
[2021-07-23 11:39] LABS: Anion Gap 12 (12-20); Blood Urea Nitrogen 8 mg/dL (9-16); Calcium 8.3 mg/dL (8.4-10.2); Carbon Dioxide 24 mmol/L (22-29); Chloride 95 mmol/L (96-108); Creatinine Clr Calc Pharmacy 70.9; Estimated Glomerular Filt Rate > 60; Glucose Random 96 mg/dL (60-115); Potassium 3.3 mmol/L (3.3-5.1); Sodium 128 mmol/L (135-145)
[2021-07-23] MEDS: cephALEXin 500 MG CAPSULE PO (13:24)
[2021-07-23 17:14] VITALS: BP 132/84; PULSE 81; RESP 18; TEMP 36.8; O2SAT 97
== END 2021-07-23 17:16 | disposition home or self-care (01) ==
PROVIDERS: Emergency Provider Emergency Medicine; PCP Family Medicine
DX: N39.0 Urinary tract infection, site not specified (principal); E87.1 Hypo-osmolality and hyponatremia; I48.91 Unspecified atrial fibrillation; J45.909 Unspecified asthma, uncomplicated; Z95.0 Presence of cardiac pacemaker
CPT/HCPCS: 36415; 80048; 81001; 81003; 85025; 85610; 87086; 96360; 96361; 99283; 99284

== ENCOUNTER 2021-08-21 12:56 | Emergency (ER) | payer MEDICARE, OTHER, SELFPAY ==
--- NOTE | ~2021-08-21 | CT_ITS ---
EXAMINATION: CT HEAD WITHOUT CONTRAST CLINICAL INFORMATION: Acute mental status change COMPARISON: Previous head CT most recent June 2021 TECHNIQUE: Contiguous axial imaging was performed from the skull base to vertex without intravenous administration of contrast. This CT examination was performed using dose optimization techniques as appropriate, variously including the following: *Automated exposure control *Adjustment of mA and/or kV according to patient size (this includes techniques or standardized protocols for targeted exams where dose is matched to indication/reason for exam; i.e. extremities or head) *Use of iterative reconstruction technique DLP: 861 mGy-cm FINDINGS: There is no evidence of an extra-axial collection. There is no evidence of intra-axial or extra-axial hemorrhage. The ventricles and extra-axial CSF spaces are prominent compatible with age-related changes. There is nonspecific periventricular white matter disease. No mass, mass effect or infarct. There is atherosclerotic disease. Review at bone windows is normal. Paranasal sinuses, mastoid air cells and middle ears are clear. CT/CT head/brain wo con IMPRESSION: No acute findings. Generalized atrophy and nonspecific periventricular white matter disease similar to previous exam.
--- NOTE | ~2021-08-21 | CT_ITS ---
EXAMINATION: CT ABDOMEN AND PELVIS WITHOUT CONTRAST CLINICAL INFORMATION: Abdominal discomfort COMPARISON: CT abdomen pelvis 06/30/2021 and 06/22/2021 TECHNIQUE: Multidetector volumetric imaging was performed from the superior aspect of the liver through the pubic symphysis. Sagittal and coronal reformatted images were obtained on the technologist's workstation. This CT examination was performed using dose optimization techniques as appropriate, variously including the following: *Automated exposure control *Adjustment of mA and/or kV according to patient size (this includes techniques or standardized protocols for targeted exams where dose is matched to indication/reason for exam; i.e. extremities or head) *Use of iterative reconstruction technique DLP: 404 mGy-cm FINDINGS: LUNG BASES: The ascending aorta is only partially included but appears to measure at least 5 cm in greatest dimension perpendicular to the center line. On a 07/04/2020 study, the dimension was felt to be about the same. Status post aVR and MVR. 3-lead pacemaker is only partially visualized. Previously seen right pleural effusion and right lower lobe atelectasis has resolved. LIVER, GALLBLADDER, AND BILIARY TREE: The liver is normal in size, shape, and attenuation. No focal hepatic lesion or biliary ductal dilatation is present. The gallbladder is unremarkable with no evidence of radiopaque gallstones, gallbladder wall thickening, or obvious pericholecystic inflammatory changes. PANCREAS: Unremarkable. SPLEEN: Unremarkable. ADRENAL GLANDS: Unremarkable. KIDNEYS AND URETERS: The right kidney is slightly small and atrophic compared to the more normal-appearing left. No renal calculi or renal masses are seen no hydronephrosis. BLADDER: The bladder is fairly distended. Air bubbles are present within the bladder. Please correlate with history of catheterization. GASTROINTESTINAL TRACT: The small and large bowel are unremarkable aside from colonic diverticula without diverticulitis.. The appendix is not seen and there is no evidence of appendicitis. ABDOMINAL WALL: No significant hernia is appreciated. LYMPH NODES: No retroperitoneal lymphadenopathy. VASCULAR: Unremarkable. PELVIC VISCERA: Unremarkable. OSSEOUS STRUCTURES: There is a compression fracture of the superior endplate of T11, the superior endplate of L1 and the superior and inferior endplates of L3. Appearances are unchanged from the prior exam. CT/CT abdomen pelvis wo con IMPRESSION: 1. Resolution of previously noted right pleural effusion. 2. Cardiomegaly with valve replacements and pacemaker as described. 3. Unchanged atrophic right kidney. 4. Distended bladder containing a small amount of air. Please correlate with history of catheterization and the possible presence of cystitis. 5. Stable appearance of compression fractures. Fleischner guidelines were followed.
[2021-08-21 13:28] VITALS: BP 122/60; PULSE 68; PULSE 80; RESP 16; TEMP 36.8; O2SAT 95; O2SAT 96; BMI 22.8
[2021-08-21 13:36] VITALS: BP 116/66; PULSE 68; RESP 16; TEMP 36.8; O2SAT 96
--- NOTE | 2021-08-21 13:47 | PC.NURSE ---
PATIENT A/OX 4. PEARRLA. HEART RATE REGULAR AT 66 . LUNGS CLEAR . SKIN PINK WARM AND DRY . ABDOMEN SOFT . NON-DISTENDED . NON-TENDER .POSITIVE BOWEL SOUNDS IN ALL FOUR QUADRANTS . PRESSURE WOUND SIZE OF A QUARTER COVERED IN BLACK ESCHAR ON HEAL OF LEFT HEEL . DRESSED WITH NON STICK DRESSING AND CLING , HEEL ELEVATED OFF OF BED WITH PILLOW . PATIENT HAS CATHETER PLACED SINCE BEING IN FACILITY THREE MONTHS AGO . PATIENT REQUESTING PLACEMENT IN ANOTHER REHAB UNABLE TO CARE FOR SELF AT HOME . PATIENT AWARE OF PLAN OF CARE .
--- NOTE | 2021-08-21 14:13 | ED_ITS ---
HPI - General Adult General Chief complaint: General Medical Stated complaint: weakness Time Seen by Provider: 08/21/21 13:49 Source: patient and EMS Mode of arrival: EMS Limitations: no limitations History of Present Illness HPI narrative: 86-year-old female with a history of AFib he was anticoagulated, hypothyroidism, hypertension here with reports of generalized weakness. Pt was discharged from [facility] yesterday after being there for short-term rehab. She tells me since being home she has generalized weakness and is not feel safe being home. She feels like she needs to go back to [facility]. No chest pain, shortness of breath, cough, urinary symptoms, fevers or chills. Related Data Home Medications Medication Instructions Recorded Confirmed atorvastatin 40 mg tablet 1 tab PO BEDTIME 08/21/21 08/21/21 carvedilol 12.5 mg tablet 12.5 mg PO BID 08/21/21 08/21/21 cyclobenzaprine 5 mg tablet 5 mg PO BID PRN Muscle Pain 08/21/21 08/21/21 dapagliflozin 10 mg tablet 10 mg PO DAILY 08/21/21 08/21/21 fexofenadine 180 mg tablet 180 mg PO DAILY 08/21/21 08/21/21 fluticasone 250 mcg-salmeterol 50 1 inh inhalation Q12H 08/21/21 08/21/21 mcg/dose blistr powdr for inhalation (Advair Diskus) furosemide 20 mg tablet 1 tab PO DAILY 08/21/21 08/21/21 ketorolac 0.5 % eye drops 1 drp ophthalmic-Left BID 08/21/21 08/21/21 levothyroxine 50 mcg tablet 1 tab PO SUMOTUWETHFR 08/21/21 08/21/21 lidocaine 4 % topical patch 1 patch topical DAILY 08/21/21 08/21/21 potassium chloride 20 mEq 20 meq PO DAILY 08/21/21 08/21/21 tablet,extended release sacubitril 49 mg-valsartan 51 mg 1 tab PO BID 08/21/21 08/21/21 tablet (Entresto) sodium chloride 1 gram tablet 1,000 mg PO DAILY 08/21/21 08/21/21 tamsulosin 0.4 mg capsule 0.4 mg PO DAILY 08/21/21 08/21/21 warfarin 3 mg tablet 1.5 mg PO DAILY 08/21/21 08/21/21 Allergies Allergy/AdvReac Type Severity Reaction Status Date / Time Iodinated Contrast Media Allergy Unknown HIVES Verified 06/24/21 15:38 [CONTRAST, IV] mite-Dermatophagoides Allergy Unknown UNKNOWN Verified 06/24/21 15:38 farinae, joleen [DUST MITES] mold [MOLD] Allergy Unknown UNKNOWN Verified 06/24/21 15:38 Sulfa (Sulfonamide AdvReac Intermediate UNKNOWN Verified 06/24/21 15:38 Antibiotics) DUST Allergy Unknown UNKNOWN Uncoded 06/24/21 15:38 Review of Systems Review of Systems: Yes all other systems are reviewed and are negative Constitutional: Constitutional: Reports no additional constitutional complaints, Denies body ache(s), Denies chills, Denies fever(s), Denies headache(s) and Reports weakness Eyes: Eyes: Reports no additional eye complaints and Denies change in vision ENT: Reports system reviewed and no additional complaints, except as documented, Denies dizziness, Denies headache(s), Denies nasal congestion, Denies nasal discharge and Denies neck pain Cardiovascular: Cardiovascular: Reports no additional cardiovascular complaints, Denies chest pain, Denies leg edema and Denies dyspnea Respiratory: Respiratory: Reports no additional respiratory complaints, Denies cough and Denies dyspnea Gastrointestinal: Gastrointestinal: Reports no additional gastrointestinal complaints, Denies abdominal pain, Denies diarrhea, Denies nausea and Denies vomiting Genitourinary: Genitourinary: Reports no additional female genitourinary complaints and Denies urinary incontinence Musculoskeletal: Musculoskeletal: Reports no additional musculoskeletal complaints, Denies back pain, Denies arthralgias, Denies joint swelling, Denies neck pain, Denies numbness and Denies tingling Integumentary/Breasts: Skin/Breast: Reports system reviewed and no additional complaints, except as docu and Denies rash Neurologic: Reports system reviewed and no additional complaints, except as documented, Denies dizziness, Denies headache(s), Denies numbness, Denies tingling and Reports weakness PMFSH Past Medical History Attestation statement: The following information was validated with the patient. Source: old records reviewed and nursing notes reviewed Medical History A-fib Active asthma Hypothyroid Pacemaker Surgical History Aortic valve replaced Heart valve replaced History of appendectomy Hx of colonoscopy Social History Social History Household Members: Spouse Housing: House Do you presently have visiting nurse or other home services: Yes ([facility]) Alcohol intake: former Patient Tobacco Use Status: Never used Tobacco Advance Directives: Yes Advance Directives on File: Yes Advance Directives Date on File: 06/02/21 service: No Current occupational status: retired Physical Exam ED Vital Signs: Vital Signs - 24 hr 08/21/21 13:28 08/21/21 13:36 08/21/21 14:23 Temperature 98.3 F 98.3 F 98.6 F Pulse Rate 68 68 65 Respiratory Rate 16 16 12 Blood Pressure 116/66 125/63 Pulse Oximetry 96 96 98 Oxygen Delivery Method Room Air Room Air Room Air 08/21/21 15:25 08/21/21 18:53 Temperature 97.1 F Pulse Rate 65 64 Respiratory Rate Blood Pressure 125/63 117/60 Pulse Oximetry 98 96 Oxygen Delivery Method Room Air BMI result Body Mass Index 22.8 Const General: cooperative, healthy appearing, comfortable and no acute distress Orientation/consciousness: patient oriented x3 Limitations: no limitations HENNY Head: Yes normal to inspection Ears: hearing grossly normal bilaterally Eyes General: appearance normal, both eyes and all related structures Pupils: Equal, round and reactive pupils present Neck Neck: Yes normal visual inspection, Yes full ROM, Yes no lymphadenopathy and Yes no meningeal signs Chest Chest palpation & inspection: normal inspection of the chest Resp Effort & Inspection: normal respiratory effort Auscultation: clear to auscultation bilaterally Cardio Rate: regular rate Rhythm: regular rhythm Peripheral pulses: Peripheral pulses 2+ throughout GI Inspection: Yes normal to inspection Palpation (GI): Soft to palpation and nontender Back/Spine/Pelvis Thoracic/Lumbar Spine: thoracic and lumbar spine normal to inspection Skin General skin exam: no rashes or lesions noted Neuro General: patient oriented x3, moves all extremities, no meningeal signs and Unable to assess gait Cranial nerves: Yes CN's II-XII intact bilaterally, Yes Equal, round and reactive pupils present, Yes Bilaterally intact EOM present, Yes Nystagmus not present and Yes Normal facial strength present Cognition (Neuro): normal cognition Gait exam (Neuro): Unable to assess gait Motor exam (neuro): 5/5 motor strength present throughout Sensory Exam: Normal double simultaneous stimulation for sensation Extrem Other: The left heel there is a DTI with no surrounding erythema, tenderness or fluctuance. There is no drainage General: Yes normal to inspection Course Course Course Narrative: Reviewed labs and urine returned normal. Pharmacy reconciled her medications and these were continued. Patient was evaluated by Physical therapy who recommended short-term rehab. Patient will be held in the emergency department overnight for case management consultation in the morning. Will continue physician observation pending disposition Medical Decision Making MDM Narrative Medical decision making narrative: 86-year-old female presents today for generalized weakness after being discharged yesterday from [facility]. Patient was requesting to go back. No additional complaints. Vitals are stable. Will obtain labs, UA, case management physical therapy evaluation Medical Records Medical records reviewed: Yes I reviewed the patient's medical records. Lab Data Lab results reviewed: Yes I reviewed the patient's lab results. Result diagrams: 08/21/21 15:59 08/21/21 15:59 Labs: Lab Results 08/21/21 08/21/21 08/21/21 Range/Units 15:58 15:59 15:59 WBC 10.4 (4.8-10.8) X10*3/uL RBC 3.46 L D (4.20-5.50) X10*6/uL Hgb 10.1 L (12.0-16.0) g/dl Hct 32.5 L (37.0-47.0) % MCV 93.9 (80.0-98.0) fL MCH 29.2 (27.0-33.0) pg MCHC 31.1 (31.0-35.0) g/dl RDW 17.4 H (11.0-16.0) % Plt Count 266 D (160-400) X10*3/uL MPV 10.8 (9.4-12.3) fL Immature Gran % (Auto) 0.4 (0.0-0.4) % Neut % (Auto) 68.8 (45-73) % Lymph % (Auto) 18.9 L (20-40) % [place] % (Auto) 9.7 (2-11) % Eos % (Auto) 1.9 (0-4) % Baso % (Auto) 0.3 (0-2) % Lymph # (Auto) 2.0 (1.2-4.9) X10*3/uL [place] # (Auto) 1.0 (0.1-1.2) X10*3/uL Eos # (Auto) 0.2 (0.0-0.4) X10*3/uL Baso # (Auto) 0.0 (0.0-0.2) X10*3/uL Abs Immat Gran (auto) 0.04 H (0.00-0.03) X10*3/uL Absolute Neuts (auto) 7.1 (2.0-8.3) x10*3/uL Absolute Nucleated RBC 0.000 (0.0-0.012) X10*3/uL Nucleated RBC % (auto) 0.0 (0.0-0.2) /100WBC PT (10.0-13.1) SEC INR (0.9-1.1) Sodium 135 (135-145) mmol/L Potassium 3.2 L (3.3-5.1) mmol/L Chloride 98 (96-108) mmol/L Carbon Dioxide 27 (22-29) mmol/L Anion Gap 13 (12-20) BUN 13 (9-16) mg/dL Creatinine 0.62 (0.5-1.4) mg/dL Estim Creat Clear Calc 58.3 Estimated GFR > 60 Random Glucose 119 H (60-115) mg/dL Calcium 8.3 L D (8.4-10.2) mg/dL Total Bilirubin 1.2 H (0.0-1.0) mg/dL Direct Bilirubin 0.6 H (0.0-0.5) mg/dL AST 27 (5-31) U/L ALT 13 (0-31) U/L Alkaline Phosphatase 114 D (39-117) U/L Total Protein 6.6 D (6.5-8.0) g/dL Albumin 3.0 L (3.5-5.0) g/dL Urine Color STRAW Urine Appearance CLEAR Urine pH 6.0 (5.0-8.0) Ur Specific [place] <= 1.005 (1.005-1.025) Urine Protein NEG (NEG-TRACE) MG/DL Urine Glucose (UA) NEG (NEG) MG/DL Urine Ketones NEG (NEG) MG/DL Urine Blood NEG (NEG) Urine Nitrite POS H (NEG) Ur Leukocyte Esterase NEG (NEG) Urine RBC 0 (0) /HPF Urine WBC 0-2 (0-4) /HPF Ur Squamous Epith Cells TRACE /LPF Amorphous Sediment 1+ /LPF Urine Bacteria TRACE /LPF COVID-19 (KADY) (Negative) COVID-19 Clin Com 08/21/21 08/21/21 Range/Units 15:59 16:41 WBC (4.8-10.8) X10*3/uL RBC (4.20-5.50) X10*6/uL Hgb (12.0-16.0) g/dl Hct (37.0-47.0) % MCV (80.0-98.0) fL MCH (27.0-33.0) pg MCHC (31.0-35.0) g/dl RDW (11.0-16.0) % Plt Count (160-400) X10*3/uL MPV (9.4-12.3) fL Immature Gran % (Auto) (0.0-0.4) % Neut % (Auto) (45-73) % Lymph % (Auto) (20-40) % [place] % (Auto) (2-11) % Eos % (Auto) (0-4) % Baso % (Auto) (0-2) % Lymph # (Auto) (1.2-4.9) X10*3/uL [place] # (Auto) (0.1-1.2) X10*3/uL Eos # (Auto) (0.0-0.4) X10*3/uL Baso # (Auto) (0.0-0.2) X10*3/uL Abs Immat Gran (auto) (0.00-0.03) X10*3/uL Absolute Neuts (auto) (2.0-8.3) x10*3/uL Absolute Nucleated RBC (0.0-0.012) X10*3/uL Nucleated RBC % (auto) (0.0-0.2) /100WBC PT 26.6 H (10.0-13.1) SEC INR 2.2 H (0.9-1.1) Sodium (135-145) mmol/L Potassium (3.3-5.1) mmol/L Chloride (96-108) mmol/L Carbon Dioxide (22-29) mmol/L Anion Gap (12-20) BUN (9-16) mg/dL Creatinine (0.5-1.4) mg/dL Estim Creat Clear Calc Estimated GFR Random Glucose (60-115) mg/dL Calcium (8.4-10.2) mg/dL Total Bilirubin (0.0-1.0) mg/dL Direct Bilirubin (0.0-0.5) mg/dL AST (5-31) U/L ALT (0-31) U/L Alkaline Phosphatase (39-117) U/L Total Protein (6.5-8.0) g/dL Albumin (3.5-5.0) g/dL Urine Color Urine Appearance Urine pH (5.0-8.0) Ur Specific [place] (1.005-1.025) Urine Protein (NEG-TRACE) MG/DL Urine Glucose (UA) (NEG) MG/DL Urine Ketones (NEG) MG/DL Urine Blood (NEG) Urine Nitrite (NEG) Ur Leukocyte Esterase (NEG) Urine RBC (0) /HPF Urine WBC (0-4) /HPF Ur Squamous Epith Cells /LPF Amorphous Sediment /LPF Urine Bacteria /LPF COVID-19 (KADY) Negative (Negative) COVID-19 Clin Com See Note Discharge Plan Discharge Clinical Impression: Weakness Patient Disposition: Still a Patient Prescriptions: No Action atorvastatin 40 mg tablet 1 tab PO BEDTIME fexofenadine 180 mg Tablet 180 mg PO DAILY levothyroxine 50 mcg tablet 1 tab PO SUMOTUWETHFR furosemide 20 mg tablet 1 tab PO DAILY fluticasone propion-salmeterol [Advair Diskus] 250-50 mcg/dose Blister With Device 1 inh INHALATION Q12H ketorolac 0.5 % Drops 1 drp ophthalmic-Left BID tamsulosin 0.4 mg Capsule 0.4 mg PO DAILY cyclobenzaprine 5 mg Tablet 5 mg PO BID PRN (Reason: Muscle Pain) potassium chloride 20 mEq Tablet Extended Release 20 meq PO DAILY carvedilol 12.5 mg Tablet 12.5 mg PO BID Rx Instructions: must administer with a meal/food lidocaine 4 % Adhesive Patch,Medicated 1 patch TOPICAL DAILY sodium chloride 1 gram Tablet 1,000 mg PO DAILY warfarin 3 mg Tablet 1.5 mg PO DAILY dapagliflozin 10 mg Tablet 10 mg PO DAILY Entresto 49-51 mg Tablet 1 tab PO BID
[2021-08-21 14:23] VITALS: BP 125/63; PULSE 65; RESP 12; TEMP 37; O2SAT 98
--- NOTE | 2021-08-21 14:30 | PC.NURSE ---
Preliminary med rec completed for pharmacy review. Difficult due to sheer number of repeated medication of various strength. Primary RN aware.
--- NOTE | 2021-08-21 15:01 | PC.NURSE ---
PHYSICAL THERAPY AT BEDSIDE, PT AWARE OF PLAN OF CARE.
[2021-08-21 15:25] VITALS: BP 125/63; PULSE 65; O2SAT 98
[2021-08-21 16:05] LABS: Basophils Percent Auto 0.3 % (0-2); Eosinophils Absolute Auto 0.2 X10*3/uL (0.0-0.4); Eosinophils Percent Auto 1.9 % (0-4); Hematocrit 32.5 % (37.0-47.0); Hemoglobin 10.1 g/dl (12.0-16.0); Imm Gran Abs Auto 0.04 X10*3/uL (0.00-0.03); Imm Gran Pct Auto 0.4 % (0.0-0.4); Lymphocytes Percent Auto 18.9 % (20-40); MANUAL DIFF FLAG NO; Mean Corpuscular HGB Conc 31.1 g/dl (31.0-35.0); Mean Corpuscular Hemoglobin 29.2 pg (27.0-33.0); Mean Corpuscular Volume 93.9 fL (80.0-98.0); Mean Platelet Volume 10.8 fL (9.4-12.3); Monocytes Percent Auto 9.7 % (2-11); Neutrophils Absolute Auto 7.1 x10*3/uL (2.0-8.3); Neutrophils Percent Auto 68.8 % (45-73); Platelet Count 266 X10*3/uL (160-400); Red Blood Count 3.46 X10*6/uL (4.20-5.50); Red Cell Distribution Width 17.4 % (11.0-16.0); White Blood Count 10.4 X10*3/uL (4.8-10.8)
[2021-08-21 16:17] LABS: Appearance Urine CLEAR; Color Urine STRAW; Glucose Urine UA NEG (NEG); Leukocyte Esterase Urine NEG (NEG); Nitrite Urine POS (NEG); Specific Gravity - Urine <= 1.005 (1.005-1.025); UACC Culture Trigger YES; Urine Blood NEG (NEG); Urine Ketones NEG (NEG); Urine Protein NEG (NEG-TRACE)
[2021-08-21 16:21] LABS: Alanine Aminotransferase 13 U/L (0-31); Alkaline Phosphatase 114 U/L (39-117); Anion Gap 13 (12-20); Aspartate Amino Transferase 27 U/L (5-31); Bilirubin Direct 0.6 mg/dL (0.0-0.5); Bilirubin Total 1.2 mg/dL (0.0-1.0); Blood Urea Nitrogen 13 mg/dL (9-16); Calcium 8.3 mg/dL (8.4-10.2); Carbon Dioxide 27 mmol/L (22-29); Chloride 98 mmol/L (96-108); Creatinine Clr Calc Pharmacy 58.3; Estimated Glomerular Filt Rate > 60; Glucose Random 119 mg/dL (60-115); Potassium 3.2 mmol/L (3.3-5.1); Sodium 135 mmol/L (135-145); Total Protein 6.6 g/dL (6.5-8.0)
[2021-08-21 16:24] LABS: COVID-19 Test Negative (Negative)
[2021-08-21 16:26] LABS: Amorphous Sediment Urine 1+ /LPF; Bacteria Urine TRACE /LPF; RBC Urine 0 /HPF (0); Squamous Epithelial Cell Urine TRACE /LPF; WBC Urine 0-2 /HPF (0-4)
[2021-08-21 16:51] LABS: INTERNATIONAL NORM RATIO 2.2 (0.9-1.1); Prothrombin Time 26.6 SEC (10.0-13.1)
[2021-08-21 18:53] VITALS: BP 117/60; PULSE 64; TEMP 36.2; O2SAT 96
--- NOTE | 2021-08-21 19:57 | PHA.MEDREC ---
Pharmacy Consult ? Medication Reconciliation Pharmacy has reviewed the medication reconciliation completed by Farhana. I contacted [facility] for a list of medications that patient had on discharge 08/21. Carvedilol, Entresto, levothyoxine and warfarin doses were updated. l added lidocaine patches and sodium chloride to the med list. Barb Parker, JenniferD
[2021-08-21 21:01] VITALS: BP 126/61; PULSE 63; TEMP 36.2; O2SAT 95
[2021-08-21] MEDS: carvediloL 12.5 MG TABLET PO (21:26)
[2021-08-21] MEDS: Sacubitril/Valsartan 49/51 1 TAB TABLET PO (21:27)
[2021-08-21] MEDS: Atorvastatin Calcium 40 MG TABLET PO (21:30)
--- NOTE | 2021-08-21 22:55 | PC.NURSE ---
PT HAS BEEN SLEEPING SINCE ARRIVAL TO ED, EASILY ROUSED BY VERBAL STIMULI, ABLE TO ANSWER QUESTIONS APPROPRIATELY THOUGH SLIGHTLY DISORIENTED AT TIMES.
[2021-08-22] VITALS (9 sets, daily range): BP systolic 98–126; BP diastolic 46–63; PULSE 60–94; RESP 10–18; TEMP 36.5–36.6; O2SAT 93–100
[2021-08-22] MEDS: Levothyroxine Sodium 50 MCG TABLET PO (05:18)
--- NOTE | 2021-08-22 05:26 | PC.NURSE ---
administered medication per MAR
--- NOTE | 2021-08-22 06:45 | PC.NURSE ---
Patient's odom catheter fell out when patient's was being changed after having a bowel movement. No bleeding. The catheter appears to have been in a while. Catheter was not replaced.
--- NOTE | 2021-08-22 07:01 | PC.NURSE ---
Patient Stated she had a BM. She was moved into ED Bed 20, Washed up and put into [facility]. At that time her Rivera Cath (Not From our Facility) came out and Refused a new one offered by [facility]
[2021-08-22] MEDS: Furosemide 20 MG TABLET PO (08:30)
[2021-08-22] MEDS: Loratadine 10 MG TABLET PO (08:30)
[2021-08-22] MEDS: carvediloL 12.5 MG TABLET PO ×2 (08:31→23:59)
[2021-08-22] MEDS: Sodium Chloride Tab 1 GM TABLET PO (08:31)
[2021-08-22] MEDS: Tamsulosin HCL 0.4 MG CAPSULE PO (08:31)
[2021-08-22] MEDS: Potassium Chloride ER 20 MEQ TAB.ER.PRT PO (08:32)
[2021-08-22] MEDS: Sacubitril/Valsartan 49/51 1 TAB TABLET PO (08:39)
[2021-08-22] MEDS: Empagliflozin 10 MG TABLET PO (08:39)
--- NOTE | 2021-08-22 09:07 | PC.NURSE ---
Patient is alert and oriented. Patient tolerated PO medications with applesauce. Reports no pain at this time. Patient incontinent, reminded to call for assistance to go to the bathroom.
[2021-08-22] MEDS: Fluticasone/Vilanterol 100/25 BLST.W.DEV 1 PUFF INHALE (09:11)
--- NOTE | 2021-08-22 11:52 | MHC.CM.ED ---
Received case management consult overnight. Patient came to the ER due to weakness. Work up essentially negative. Physical therapy eval completed. Short term rehab is recommended. Attempted to meet with patient multiple times. Nursing care being provided. Spoke with patient's daughter/HCP, Gabriella, via telephone at [phone]. Patient was discharged from [facility] on 08/20 and was set up with [facility]. Gabriella doesn't know the agency that was arranged. Patient has a heel wound that developed at [facility]. Gabriella feels patient received very good care at [facility]. Gabriella requesting referral to [facility]. Referral made via [facility]. List of facilities sent to Gabriella via email. Continue to monitor for d/c needs.
[2021-08-22 11:57] LABS: INTERNATIONAL NORM RATIO 2.3 (0.9-1.1); Prothrombin Time 26.9 SEC (10.0-13.1)
--- NOTE | 2021-08-22 12:00 | PC.NURSE ---
Wound dressing applied to left heal. Incontinent with loose BM. Perineal care provided. Barrier cream applied to blancheable sacrum area.
--- NOTE | 2021-08-22 17:47 | PC.NURSE ---
Incontinent with loose BM. Perineal care provided. Barrier cream applied to blancheable sacrum area.
[2021-08-22] MEDS: Atorvastatin Calcium 40 MG TABLET PO (19:56)
[2021-08-22] MEDS: Warfarin Sodium 0.5 MG HALFTAB 1.5 MG PO (19:56)
[2021-08-23] VITALS (8 sets, daily range): BP systolic 104–127; BP diastolic 51–65; PULSE 62–90; RESP 14–18; TEMP 36.4–36.6; O2SAT 96–100
[2021-08-23] MEDS: Levothyroxine Sodium 50 MCG TABLET PO (05:53)
[2021-08-23 08:17] LABS: Prothrombin Time 23.7 SEC (10.0-13.1)
[2021-08-23] MEDS: carvediloL 12.5 MG TABLET PO ×2 (08:24→22:40)
[2021-08-23] MEDS: Tamsulosin HCL 0.4 MG CAPSULE PO (08:24)
[2021-08-23] MEDS: Furosemide 20 MG TABLET PO (08:24)
[2021-08-23] MEDS: Loratadine 10 MG TABLET PO (08:24)
[2021-08-23] MEDS: Sodium Chloride Tab 1 GM TABLET PO (08:24)
[2021-08-23] MEDS: Potassium Chloride ER 20 MEQ TAB.ER.PRT PO (08:24)
--- NOTE | 2021-08-23 12:02 | MHC.CM.ED ---
[facility] and [facility] are able to offer a bed. Spoke with patient's daughter, Gabriella via telephone at [phone]. Patient and family accept bed at [facility]. Patient can leave at 2pm. [facility] booked. Med nec with chart. Patient, GabriellaGloria RN and Dr Wise are aware. Continue to monitor for d/c needs.
--- NOTE | 2021-08-23 12:35 | PC.NURSE ---
When attempting to give pt mediations and reposition pt stating Do not touch me, get out of here and was unwilling to allow for any care. Will re-attempt at a later time.
--- NOTE | 2021-08-23 13:59 | ECG_ITS ---
Test Reason : ams Blood Pressure : / mmHG Vent. Rate : 063 BPM Atrial Rate : 000 BPM P-R Int : 000 ms QRS Dur : 196 ms QT Int : 564 ms P-R-T Axes : 000 019 228 degrees QTc Int : 577 ms Ventricular-paced rhythm Abnormal ECG When compared with ECG of 22-JUN-2021 17:28, No significant change was found Referred By: Monika Wise Electronically Signed By:
--- NOTE | 2021-08-23 14:21 | MHC.CM.ED ---
Received notification from Dr Wise and Gloria PUENTE that patient had episode of lethargy. Patient's d/c to [facility] put on hold at this time. [facility] on hold. Left voicemail for patient's daughter, Gabriella, via telephone at [phone] explaining discharge is being held at this time. Continue to monitor for d/c needs.
[2021-08-23 14:38] LABS: MANUAL DIFF FLAG NO
[2021-08-23 14:49] LABS: Basophils Percent Auto 0.4 % (0-2); Eosinophils Absolute Auto 0.2 X10*3/uL (0.0-0.4); Eosinophils Percent Auto 3.1 % (0-4); Hemoglobin 11.2 g/dl (12.0-16.0); Imm Gran Abs Auto 0.03 X10*3/uL (0.00-0.03); Imm Gran Pct Auto 0.4 % (0.0-0.4); Lymphocytes Absolute Auto 1.6 X10*3/uL (1.2-4.9); Lymphocytes Percent Auto 22.5 % (20-40); Mean Corpuscular HGB Conc 31.1 g/dl (31.0-35.0); Mean Corpuscular Hemoglobin 29.5 pg (27.0-33.0); Mean Corpuscular Volume 94.7 fL (80.0-98.0); Mean Platelet Volume 10.8 fL (9.4-12.3); Monocytes Absolute Auto 0.6 X10*3/uL (0.1-1.2); Monocytes Percent Auto 7.7 % (2-11); Neutrophils Absolute Auto 4.7 x10*3/uL (2.0-8.3); Neutrophils Percent Auto 65.9 % (45-73); Platelet Count 305 X10*3/uL (160-400); Red Cell Distribution Width 17.5 % (11.0-16.0); White Blood Count 7.2 X10*3/uL (4.8-10.8)
[2021-08-23 15:00] LABS: Alanine Aminotransferase 12 U/L (0-31); Alkaline Phosphatase 108 U/L (39-117); Anion Gap 12 (12-20); Aspartate Amino Transferase 22 U/L (5-31); Blood Urea Nitrogen 11 mg/dL (9-16); Calcium 8.2 mg/dL (8.4-10.2); Carbon Dioxide 28 mmol/L (22-29); Chloride 100 mmol/L (96-108); Creatinine Clr Calc Pharmacy 56.4; Estimated Glomerular Filt Rate > 60; Glucose Random 105 mg/dL (60-115); Sodium 137 mmol/L (135-145); Total Protein 6.7 g/dL (6.5-8.0)
[2021-08-23] MEDS: 0.9 % Sodium Chloride 1,000 ML 999 ML IV (15:00)
[2021-08-23 16:22] LABS: Glucose, Whole Blood 90 mg/dL (60-115)
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
[2021-08-23 17:18] LABS: Magnesium 1.6 mg/dL (1.6-2.6)
[2021-08-23] MEDS: Potassium Chloride/H20 10 MEQ/100 ML PIGGYBACK 100 MEQ IV ×4 (17:32→21:23)
[2021-08-23] MEDS: Sacubitril/Valsartan 49/51 1 TAB TABLET PO (22:40)
[2021-08-23] MEDS: Atorvastatin Calcium 40 MG TABLET PO (22:40)
[2021-08-23 22:51] LABS: Ammonia 19 umol/L (13-55)
[2021-08-23 23:01] LABS: Venous Blood Gas Refer to POC result
[2021-08-23 23:02] LABS: VBG Base Excess -6.9 mmol/L; VBG HCO3 15 mmol/L (22-26); VBG pCO2 23 mmHg; VBG pH 7.42 (7.32-7.43); VBG pO2 47 mmHg
--- NOTE | 2021-08-24 00:04 | PC.NURSE ---
PATIENT WAS INC OF URINE ,CARE GIVEN AND PATIENT REPOSITION ON HER SIDE WITH PILLOW .
--- NOTE | 2021-08-24 02:37 | PC.NURSE ---
patient was check on 0200 rounding ,patient is dry .
[2021-08-24] MEDS: Levothyroxine Sodium 50 MCG TABLET PO (07:10)
[2021-08-24 08:09] VITALS: PULSE 74; RESP 18; O2SAT 97
[2021-08-24] MEDS: Fluticasone/Vilanterol 100/25 BLST.W.DEV 1 PUFF INHALE (08:09)
[2021-08-24 08:19] LABS: INTERNATIONAL NORM RATIO 2.1 (0.9-1.1); Prothrombin Time 25.4 SEC (10.0-13.1)
[2021-08-24 08:30] VITALS: BP 124/62; PULSE 83; RESP 18; O2SAT 97
--- NOTE | 2021-08-24 08:57 | MHC.CM.ED ---
Patient remains in ER. Will transfer to [facility] at 10am via BLS. Patient, daughter Ekta Quiroz RN and Annabella HEBERT aware. Continue to monitor for d/c needs.
--- NOTE | 2021-08-24 09:45 | PC.NURSE ---
report given to anna meng at [facility]
[2021-08-24] MEDS: Potassium Chloride ER 20 MEQ TAB.ER.PRT PO (09:51)
[2021-08-24] MEDS: Sodium Chloride Tab 1 GM TABLET PO (09:51)
[2021-08-24] MEDS: Furosemide 20 MG TABLET PO (09:51)
[2021-08-24] MEDS: Tamsulosin HCL 0.4 MG CAPSULE PO (09:52)
[2021-08-24] MEDS: Loratadine 10 MG TABLET PO (09:52)
[2021-08-24] MEDS: carvediloL 12.5 MG TABLET PO (09:52)
[2021-08-24 10:00] VITALS: BP 126/61; PULSE 80; RESP 18; O2SAT 99
== END 2021-08-24 10:30 | disposition skilled nursing facility (03) ==
PROVIDERS: Nurse Practitioner Family; Student in an Organized Health Care Education/Training Program; Emergency Provider Internal Medicine; PCP Internal Medicine
DX: R53.1 Weakness (principal); Z20.822 Contact with and (suspected) exposure to COVID-19; I48.91 Unspecified atrial fibrillation; I10 Essential (primary) hypertension; Z79.02 Long term (current) use of antithrombotics/antiplatelets; Z79.899 Other long term (current) drug therapy; Z95.0 Presence of cardiac pacemaker
CPT/HCPCS: 36415; 70450; 74176; 80048; 80053; 80076; 81001; 82140; 82803; 82947; 83735; 85025; 85610; 87086; 87635; 93005; 94640; 96360; 96361; 96365; 96366; 97162; 99285

== ENCOUNTER 2021-08-23 06:43 | Outpatient (REF) | payer MEDICARE, OTHER, SELFPAY | END 2021-08-23 06:44 | disposition home or self-care (01) | LOC: HO.MMNH1L 06:43 | PROVIDERS: Visit Provider Family Medicine | DX: Z13.89 Encounter for screening for other disorder (principal) ==

== ENCOUNTER → 2021-10-07 15:10 | Outpatient (BNVA) | payer MEDICARE, OTHER, SELFPAY | PROVIDERS: PCP Internal Medicine; Visit Provider Internal Medicine | DX: Z95.2 Presence of prosthetic heart valve (principal); Z51.81 Encounter for therapeutic drug level monitoring; Z79.01 Long term (current) use of anticoagulants | CPT/HCPCS: Q3014 ==

== ENCOUNTER → 2021-10-12 08:15 | Outpatient (BNVA) | payer MEDICARE, OTHER, SELFPAY | PROVIDERS: PCP Internal Medicine; Visit Provider Internal Medicine | DX: Z95.2 Presence of prosthetic heart valve (principal); Z51.81 Encounter for therapeutic drug level monitoring; Z79.01 Long term (current) use of anticoagulants | CPT/HCPCS: Q3014 ==

== ENCOUNTER → 2021-10-15 15:13 | Outpatient (BNVA) | payer MEDICARE, OTHER, SELFPAY | PROVIDERS: PCP Internal Medicine; Visit Provider Internal Medicine | DX: Z95.2 Presence of prosthetic heart valve (principal); Z79.01 Long term (current) use of anticoagulants; Z51.81 Encounter for therapeutic drug level monitoring | CPT/HCPCS: Q3014 ==

== ENCOUNTER → 2021-10-22 11:26 | Outpatient (BNVA) | payer MEDICARE, OTHER, SELFPAY | PROVIDERS: PCP Internal Medicine; Visit Provider Internal Medicine | DX: Z95.2 Presence of prosthetic heart valve (principal); Z79.01 Long term (current) use of anticoagulants; Z51.81 Encounter for therapeutic drug level monitoring | CPT/HCPCS: Q3014 ==

== ENCOUNTER 2021-11-01 12:33 | Outpatient (RCR) | payer MEDICARE, OTHER, SELFPAY | END 2021-12-06 12:00 | disposition home or self-care (01) | LOC: HO.WCC 12:33 | PROVIDERS: PCP Internal Medicine; Visit Provider Physician Assistant | DX: E11.621 Type 2 diabetes mellitus with foot ulcer (principal); L89.623 Pressure ulcer of left heel, stage 3; I73.9 Peripheral vascular disease, unspecified; I48.91 Unspecified atrial fibrillation; I11.0 Hypertensive heart disease with heart failure; I50.9 Heart failure, unspecified; R60.9 Edema, unspecified; Z87.891 Personal history of nicotine dependence; Z95.0 Presence of cardiac pacemaker | CPT/HCPCS: 11042; 97597; 99212 ==

== ENCOUNTER → 2021-11-08 14:41 | Outpatient (BNVA) | payer MEDICARE, OTHER, SELFPAY | PROVIDERS: PCP Internal Medicine; Visit Provider Internal Medicine | DX: Z95.2 Presence of prosthetic heart valve (principal); Z79.01 Long term (current) use of anticoagulants; Z51.81 Encounter for therapeutic drug level monitoring | CPT/HCPCS: Q3014 ==

== ENCOUNTER → 2021-11-30 11:22 | Outpatient (BNVA) | payer MEDICARE, OTHER, SELFPAY | PROVIDERS: PCP Internal Medicine; Visit Provider Internal Medicine | DX: Z95.2 Presence of prosthetic heart valve (principal); Z79.01 Long term (current) use of anticoagulants; Z51.81 Encounter for therapeutic drug level monitoring | CPT/HCPCS: Q3014 ==

== ENCOUNTER 2021-12-08 10:24 | Inpatient (IN) | payer MEDICARE, OTHER, SELFPAY ==
[2021-12-08] VITALS (15 sets, daily range): BP systolic 97–143; BP diastolic 46–65; PULSE 60–89; RESP 12–25; TEMP 34.1–37.7; O2SAT 95–100; BMI 18.3; BMI 23.8
--- NOTE | ~2021-12-08 | CT_ITS ---
EXAMINATION: CT HEAD WITHOUT CONTRAST CLINICAL INFORMATION: Head pain status post fall. COMPARISON: 08/23/[address] scan. TECHNIQUE: Contiguous axial imaging was performed from the skull base to vertex without intravenous administration of contrast. Coronal and sagittal reformatted images were obtained. This CT examination was performed using dose optimization techniques as appropriate, variously including the following: *Automated exposure control *Adjustment of mA and/or kV according to patient size (this includes techniques or standardized protocols for targeted exams where dose is matched to indication/reason for exam; i.e. extremities or head) *Use of iterative reconstruction technique DLP: 861 mGy-cm FINDINGS: There is mild widening of the cortical sulci and associated ventriculomegaly. The lateral ventricles are symmetrical. Mild periventricular microvascular changes. The third and fourth ventricles are in their normal midline position. The basilar and prepontine cisterns are unremarkable. There is no acute intra or extracerebral abnormality. There is no mass effect or midline shift. Sections through the bony calvarium are unremarkable. The orbits are intact. The paranasal sinuses show mild mucosal thickening. No air-fluid levels. The mastoid air cells are clear. Mild anterior nasal septal deviation, apex of the left. CT/CT head/brain wo IV con IMPRESSION: No acute intracranial pathology.
--- NOTE | ~2021-12-08 | XR_ITS ---
EXAMINATION: XR CHEST CLINICAL INFORMATION: Line placement. COMPARISON: 06/22/2021 chest radiograph. TECHNIQUE: Frontal view of the chest was obtained. FINDINGS: Support devices: Endotracheal tube with tip terminating approximately 2.5 cm proximal to jet. Right internal jugular catheter with tip terminating in the superior vena cava. Left-sided pacemaker device with leads in place without abnormality. Cardiac valve prosthesis in place. Multilevel sternotomy wires are intact. No significant abnormality is noted involving the heart, lungs, mediastinum, bony thorax or soft tissues. XR/XR chest 1V IMPRESSION: 1. Support devices as detailed above. 2. No acute cardiopulmonary process.
[2021-12-08] MEDS: Magnesium Sulfate/H2O 2 GM/50 ML PIGGYBACK IV (10:32)
--- NOTE | 2021-12-08 10:59 | ED_ITS ---
HPI - CPR General Stated Complaint: cardiac arrest Time Seen by Provider: 12/08/21 10:37 Source: family, EMS and old records reviewed Limitations: altered mental status History of Present Illness HPI narrative: Patient with history of hypertension and the hospitalization in June of this year for ischemic colitis, presents with witnessed cardiac arrest. Per her she was in her usual state of health and feeling in good when she suddenly slumped over in a chair today. She did not fall. He called 911. On fire department arrival she was pulseless. They started CPR and placed a defibrillator. After defibrillation they cont inued CPR. ALS arrived and found the patient to be in PE a with a wide complex rhythm. They continued CPR until they achieved return of spontaneous circulation. Patient has remained unresponsive since return of circulation. Related Data Home Medications Medication Instructions Recorded Confirmed atorvastatin 40 mg tablet 1 tab PO BEDTIME 08/21/21 10/29/21 carvedilol 12.5 mg tablet 12.5 mg PO BID 08/21/21 10/29/21 dapagliflozin 10 mg tablet 10 mg PO DAILY 08/21/21 10/29/21 fexofenadine 180 mg tablet 180 mg PO DAILY 08/21/21 10/29/21 furosemide 20 mg tablet 1 tab PO DAILY 08/21/21 10/29/21 ketorolac 0.5 % eye drops 1 drp ophthalmic-Left BID 08/21/21 10/29/21 levothyroxine 50 mcg tablet 1 tab PO DAILY 08/21/21 10/29/21 lidocaine 4 % topical patch 1 patch topical DAILY 08/21/21 10/29/21 potassium chloride 20 mEq 20 meq PO DAILY 08/21/21 10/29/21 tablet,extended release sacubitril 49 mg-valsartan 51 mg 1 tab PO BID 08/21/21 10/29/21 tablet (Entresto) sodium chloride 1 gram tablet 1,000 mg PO DAILY 08/21/21 10/29/21 tamsulosin 0.4 mg capsule 0.4 mg PO DAILY 08/21/21 10/29/21 warfarin 2.5 mg tablet 2.5 mg PO DAILY 10/04/21 12/07/21 cyclobenzaprine 5 mg tablet 1 tab PO TID PRN Spasms 12/08/21 metoprolol succinate 25 mg 1 tab PO DAILY 12/08/21 tablet,extended release 24 hr Allergies Allergy/AdvReac Type Severity Reaction Status Date / Time Iodinated Contrast Media Allergy Unknown HIVES Verified 12/07/21 14:49 [CONTRAST, IV] mite-Dermatophagoides Allergy Unknown UNKNOWN Verified 12/07/21 14:49 farinae, joleen [DUST MITES] mold [MOLD] Allergy Unknown UNKNOWN Verified 12/07/21 14:49 Sulfa (Sulfonamide AdvReac Intermediate UNKNOWN Verified 12/07/21 14:49 Antibiotics) DUST Allergy Unknown UNKNOWN Uncoded 12/07/21 14:49 Review of Systems Review of Systems: No recent complaints per her PMFSH Past Medical History Medical History A-fib Active asthma Hypothyroid Pacemaker Surgical History Aortic valve replaced Heart valve replaced History of appendectomy Hx of colonoscopy Social History Social History Household Members: Spouse Housing: House Do you presently have visiting nurse or other home services: Yes ([facility]) Alcohol intake: former Patient Tobacco Use Status: Never used Tobacco Advance Directives: Yes Advance Directives on File: Yes Advance Directives Date on File: 06/02/21 service: No Current occupational status: retired Physical Exam Vital Signs: Vital Signs: Last Vital Signs Temp 97.0 F 12/08/21 13:00 Pulse 73 12/08/21 13:00 Resp 20 12/08/21 13:00 BP 129/58 L 12/08/21 13:00 Pulse Ox 100 12/08/21 13:00 O2 Del Method 12/08/21 13:00 FiO2 50 12/08/21 10:42 Const: Other: Patient is unresponsive to painful stimuli. She postures, decorticate type, with deep suctioning only. No obvious trauma HEENT: Other: Normocephalic atraumatic Chest: Other: Suction cup gokul from Anibal device on chest. Otherwise no other abnormalities Resp: Other: Intubated. Breath sounds equal bilaterally with ventilations. No spontaneous respirations at this time Cardio: Other: Irregular with a heart rate of around 100. GI: Other: Nondistended. Soft. No pulsatile masses Skin: Other: Warm pink and dry. No cyanosis Neuro: Other: Decorticate posturing with deep suction. Otherwise no spontaneous movement. No movement with painful stimuli such as nailbed pinch Extrem: Other: No obvious trauma. Intraosseous device right tibia in place and functional Course Course Course Narrative: Cardiac arrest. 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 He understands the severity of her situation. He cannot come to the hospital at the moment as he is a double amputee and is waiting for family to arrive. Requests full code for now. His daughter is driving in from the [employer]. Case discussed with ICU. Awaiting placement. 12:33. Lactic acid is 4.8, presumably secondary to poor perfusion during cardiac arrest and not infectious or sepsis related. Ultrasound by high value associate showed large IVC, fluid boluses not indicated 12:38. Potassium is 2.5 and troponin is 209. Potassium IV ordered 13:20. Repeat EKG shows paced rhythm with frequent PVCs. Computer reading of ST- elevation OK appears to be a misinterpretation. No obvious criteria for ST- elevation myocardial infarction. Will continue to monitor MDM - Cardiac Arrest/CPR Lab Data Result diagrams: 12/08/21 11:58 12/08/21 11:58 Labs: Lab Results 12/08/21 12/08/21 12/08/21 Range/Units 11:17 11:55 11:55 WBC (4.8-10.8) X10*3/uL RBC (4.20-5.50) X10*6/uL Hgb (12.0-16.0) g/dl Hct (37.0-47.0) % MCV (80.0-98.0) fL MCH (27.0-33.0) pg MCHC (31.0-35.0) g/dl RDW (11.0-16.0) % Plt Count (160-400) X10*3/uL MPV (9.4-12.3) fL Immature Gran % (Auto) (0.0-0.4) % Neut % (Auto) (45-73) % Lymph % (Auto) (20-40) % [place] % (Auto) (2-11) % Eos % (Auto) (0-4) % Baso % (Auto) (0-2) % Lymph # (Auto) (1.2-4.9) X10*3/uL [place] # (Auto) (0.1-1.2) X10*3/uL Eos # (Auto) (0.0-0.4) X10*3/uL Baso # (Auto) (0.0-0.2) X10*3/uL Abs Immat Gran (auto) (0.00-0.03) X10*3/uL Absolute Neuts (auto) (2.0-8.3) x10*3/uL Absolute Nucleated RBC (0.0-0.012) X10*3/uL Nucleated RBC % (auto) (0.0-0.2) /100WBC PT 38.7 H (10.0-13.1) SEC INR 3.2 H (0.9-1.1) Sodium (135-145) mmol/L Potassium (3.3-5.1) mmol/L Chloride (96-108) mmol/L Carbon Dioxide (22-29) mmol/L Anion Gap (12-20) BUN (9-16) mg/dL Creatinine (0.5-1.4) mg/dL Estim Creat Clear Calc Estimated GFR Random Glucose (60-115) mg/dL Lactic Acid 4.8 H* (0.5-2.0) mmol/L Calcium (8.4-10.2) mg/dL Magnesium (1.6-2.6) mg/dL Total Bilirubin (0.0-1.0) mg/dL AST (5-31) U/L ALT (0-31) U/L Alkaline Phosphatase (39-117) U/L Troponin I High Sens (<3.5-17.0) ng/L Total Protein (6.5-8.0) g/dL Albumin (3.5-5.0) g/dL COVID-19 (KADY) Negative (Negative) COVID-19 Clin Com See Note 12/08/21 12/08/21 12/08/21 Range/Units 11:58 11:58 11:58 WBC 17.1 H (4.8-10.8) X10*3/uL RBC 3.80 L (4.20-5.50) X10*6/uL Hgb 11.7 L (12.0-16.0) g/dl Hct 37.0 (37.0-47.0) % MCV 97.4 (80.0-98.0) fL MCH 30.8 (27.0-33.0) pg MCHC 31.6 (31.0-35.0) g/dl RDW 15.9 (11.0-16.0) % Plt Count 180 D (160-400) X10*3/uL MPV 12.4 H (9.4-12.3) fL Immature Gran % (Auto) 2.8 H (0.0-0.4) % Neut % (Auto) 86.5 H (45-73) % Lymph % (Auto) 5.5 L (20-40) % [place] % (Auto) 4.4 (2-11) % Eos % (Auto) 0.6 (0-4) % Baso % (Auto) 0.2 (0-2) % Lymph # (Auto) 0.9 L (1.2-4.9) X10*3/uL [place] # (Auto) 0.8 (0.1-1.2) X10*3/uL Eos # (Auto) 0.1 (0.0-0.4) X10*3/uL Baso # (Auto) 0.0 (0.0-0.2) X10*3/uL Abs Immat Gran (auto) 0.48 H (0.00-0.03) X10*3/uL Absolute Neuts (auto) 14.8 H (2.0-8.3) x10*3/uL Absolute Nucleated RBC 0.000 (0.0-0.012) X10*3/uL Nucleated RBC % (auto) 0.0 (0.0-0.2) /100WBC PT (10.0-13.1) SEC INR (0.9-1.1) Sodium 139 (135-145) mmol/L Potassium 2.5 L* (3.3-5.1) mmol/L Chloride 99 (96-108) mmol/L Carbon Dioxide 20 L (22-29) mmol/L Anion Gap 23 H (12-20) BUN 14 (9-16) mg/dL Creatinine 0.74 (0.5-1.4) mg/dL Estim Creat Clear Calc TNP Estimated GFR > 60 Random Glucose 166 H (60-115) mg/dL Lactic Acid (0.5-2.0) mmol/L Calcium 8.7 D (8.4-10.2) mg/dL Magnesium 2.2 (1.6-2.6) mg/dL Total Bilirubin 1.5 H (0.0-1.0) mg/dL AST 38 H D (5-31) U/L ALT 16 (0-31) U/L Alkaline Phosphatase 105 (39-117) U/L Troponin I High Sens 209.8 H* D (<3.5-17.0) ng/L Total Protein 7.1 (6.5-8.0) g/dL Albumin 3.6 (3.5-5.0) g/dL COVID-19 (KADY) (Negative) COVID-19 Clin Com Discharge Plan Discharge Clinical Impression: Cardiac arrest Patient Disposition: Admitted As Inpatient
[2021-12-08] MEDS: Amiodarone/Dextrose 150 MG/100 ML PLAST..BAG 600 MG IV (11:01)
[2021-12-08] MEDS: 0.9 % Sodium Chloride 500 ML IV (11:02)
[2021-12-08 11:34] LABS: COVID-19 Test Negative (Negative)
[2021-12-08 12:05] LABS: MANUAL DIFF FLAG NO
[2021-12-08] MEDS: Midazolam HCl/PF 2 MG/2 ML VIAL IVPUSH ×2 (12:06→20:01)
[2021-12-08 12:08] LABS: Basophils Percent Auto 0.2 % (0-2); Eosinophils Absolute Auto 0.1 X10*3/uL (0.0-0.4); Eosinophils Percent Auto 0.6 % (0-4); Hemoglobin 11.7 g/dl (12.0-16.0); Imm Gran Abs Auto 0.48 X10*3/uL (0.00-0.03); Imm Gran Pct Auto 2.8 % (0.0-0.4); Lymphocytes Absolute Auto 0.9 X10*3/uL (1.2-4.9); Lymphocytes Percent Auto 5.5 % (20-40); Mean Corpuscular HGB Conc 31.6 g/dl (31.0-35.0); Mean Corpuscular Hemoglobin 30.8 pg (27.0-33.0); Mean Corpuscular Volume 97.4 fL (80.0-98.0); Mean Platelet Volume 12.4 fL (9.4-12.3); Monocytes Absolute Auto 0.8 X10*3/uL (0.1-1.2); Monocytes Percent Auto 4.4 % (2-11); Neutrophils Absolute Auto 14.8 x10*3/uL (2.0-8.3); Neutrophils Percent Auto 86.5 % (45-73); Platelet Count 180 X10*3/uL (160-400); Red Cell Distribution Width 15.9 % (11.0-16.0); White Blood Count 17.1 X10*3/uL (4.8-10.8)
[2021-12-08 12:18] LABS: Lactic Acid 4.8 mmol/L (0.5-2.0)
[2021-12-08 12:36] LABS: Alanine Aminotransferase 16 U/L (0-31); Albumin Level 3.6 g/dL (3.5-5.0); Alkaline Phosphatase 105 U/L (39-117); Anion Gap 23 (12-20); Aspartate Amino Transferase 38 U/L (5-31); Bilirubin Total 1.5 mg/dL (0.0-1.0); Blood Urea Nitrogen 14 mg/dL (9-16); Calcium 8.7 mg/dL (8.4-10.2); Carbon Dioxide 20 mmol/L (22-29); Chloride 99 mmol/L (96-108); Estimated Glomerular Filt Rate > 60; Glucose Random 166 mg/dL (60-115); Magnesium 2.2 mg/dL (1.6-2.6); Potassium 2.5 mmol/L (3.3-5.1); Sodium 139 mmol/L (135-145); Total Protein 7.1 g/dL (6.5-8.0); Troponin-I High Sensitivity 209.8 ng/L (<3.5-17.0)
[2021-12-08 12:37] LABS: INTERNATIONAL NORM RATIO 3.2 (0.9-1.1); Prothrombin Time 38.7 SEC (10.0-13.1)
--- NOTE | 2021-12-08 12:58 | ECG_ITS ---
Test Reason : REPEAT Blood Pressure : / mmHG Vent. Rate : 076 BPM Atrial Rate : 076 BPM P-R Int : 000 ms QRS Dur : 142 ms QT Int : 524 ms P-R-T Axes : 000 -39 235 degrees QTc Int : 589 ms Electronic ventricular pacemaker with Premature ventricular complexes in a pattern of bigeminy Left axis deviation Left ventricular hypertrophy with QRS widening ( R in aVL , Chuck product ) Right bundle branch block ST depression in Lateral leads Abnormal ECG When compared with ECG of 08-DEC-2021 10:33, ST more depressed Lateral leads Referred By: Mo Velez Electronically Signed By:TANA OLIVO MD
[2021-12-08] MEDS: KCl 40 mEq in 0.9 % Sodium Chl 40 MEQ/1,000 ML IV.SOLN 150 MEQ IVCONT (13:13)
--- NOTE | 2021-12-08 13:30 | PHA.MEDREC ---
Pharmacy Consult ? Medication Reconciliation Pharmacy has completed the medication reconciliation. Patient uses [facility] ([phone]). Pt recertified 12/03/2021. PER [facility], NO LONGER ON COREG, FARXIGA, OR ANYTHING NOT ON HER MED LIST SELWYN
[2021-12-08 13:59] LABS: Reflex Lactate? Lactic Acid Added
[2021-12-08 14:19] LABS: HBc Num1 0.09 S/CO (0.00-0.79); HBsAGNum1 0.21 S/CO (0.00-0.99); HIV AB/AG Nonreactive (Nonreactive); HIV Num 1 0.11 S/CO (0.00-0.99); Hepatitis B Core Antibody Nonreactive (Nonreactive); Hepatitis B Surface Antigen Negative (Negative); ~Hepatitis B Surface Antibody NONREACTIVE (Nonreactive)
--- NOTE | 2021-12-08 14:24 | CA_ITS ---
Transthoracic Echocardiogram Patient (Last, First, Middle): Raven Carbajal, Gender: Female Date of : 1935 Age: 86 Procedure Date: 12/08/2021 Procedure Type: Transthoracic Echocardiogram Location: ICU Height: 157.48 cm Weight: 44.99 kg BSA: 1.42 m2 Heart Rate: bpm BP: 129 / 58 mmHg Senior Manager Creative Services: MARCOS Referring MD: Leticia Bansal NP State'S Attorney: Olivier Oliva MD Symptoms: s/p cardiac arrest Study Quality: Fair ECG Rhythm: Atrial Fibrillation Conclusions: - 1. Severely reduced LV systolic function with LVEF of 15-20% next 2. Mechanical aortic and mitral prosthetic valves with normal flow velocities 3. Dilated RV with reduced systolic function 4. Severely dilated atria 5. No gross pericardial effusion Findings Left Ventricle Normal left ventricular cavity size. There is moderately increased left ventricular wall thickness. The left ventricular systolic function is severely decreased. The visually estimated ejection fraction is between 15 20%. Regional wall motion abnormalities can not be excluded due to suboptimal endocardial definition. There is severe global hypokinesis. Diastolic function is indeterminate on the basis of available data. Right Ventricle Moderately increased right ventricular cavity size. There is moderately decreased right ventricular systolic function. There is a pacemaker wire seen in the right ventricle. Atria The left atrium is severely dilated. Interatrial shunt cannot be excluded. The right atrium is severely dilated. Aortic Valve A mechanical prosthetic aortic valve is present. The prosthetic aortic valve appears to be functioning normally. The mean gradient is 5 mmHg. There is no aortic valve regurgitation. the prosthetic valve is well seated without any abnormal rocking motion Mitral Valve A mechanical prosthetic mitral valve is present. The prosthetic mitral valve appears to be functioning normally. the prosthetic valve is well seated without any abnormal rocking motion Pulmonic Valve The pulmonic valve was not well visualized. Tricuspid Valve Likely normal tricuspid valve structure and function. There is mild to moderate tricuspid valve regurgitation. Tricuspid regurgitation envelope is inadequate for calculation of right ventricular systolic pressure. Great Vessels All visible segments of the aorta are normal in size. The pulmonary artery was not well visualized. Venous The inferior vena cava is moderately dilated and does not collapse with inspiration. Pericardium/Pleural There is no evidence of pericardial effusion. Prior Study Comparison No prior study available for comparison. Measurements 2D Linear Measurements IVSd: 1.52 0.6-0.9/0.6-1.0 cm LVIDd: 4.59 3.9-5.3/4.2-5.9 cm LVIDd Index: 3.23 2.4-3.2/2.2-3.1 cm/m2 LVIDs: 4.24 2.0-3.6 cm LVPWd: 1.41 0.7-1.1 cm Ao Root: 3.80 2.1-3.5 cm LA Diam: 4.90 2.7-3.8/3.0-4.0 cm LAIDs Index: 3.45 1.5-2.3 cm/m2 LV Mass: 341.70 67-162/88-224 g LV Mass Index: 240.63 43-95/49-115 g/m2 LVOT Diam: 2.00 3.0+(-)1.3 cm Mitral Valve MV VTI: 0.30 MV Pk Khadar: 0.95 MV Mn Khadar: 0.53 MV Pk Grad: 4.00 MV Mn Grad: 1.00 MV Pk E: 0.80 MV Decel Time: 335.00 E'Lateral: 4.90 E'Medial: 2.50 E/E' Med: 32.00 E/E' Lat: 16.30 PHT: 98.00 MVA PHT: 2.24 MVA Continuity: 1.87 Decel [place]: 2.39 Aortic Valve AoV Pk Khadar: 1.54 AoV Mn Khadar: 0.98 AoV VTI: 0.30 AoV Pk Grad: 9.00 Aov Mn Grad: 5.00 RONEL Cont.VTI: 1.88 LVOT LVOT Pk Khadar: 1.10 LVOT Mn Khadar: 0.68 LVOT VTI: 0.18 LVOT Pk Grad: 5.00 LVOT Mn Grad: 2.00 LVOT Diam: 2.00 LVOT Area: 3.14 Diastolic Function MV Pk E: 0.80 E'Medial: 2.50 E/E' Med: 32.00 E' Laterial: 4.90 E/E' Lat: 16.30 Great Vessels Aorta Ao Root-2D: 3.80 2.0-3.7 cm Pulmonary Valve PV Pk Khadar: 1.07 Peak PV Grad: 5.00 Updated in Other Vendor System with Status of Final Olivier Oliva MD electronically signed on 12/08/2021 5:27:01 PM with status of Final
[2021-12-08] MEDS: fentaNYL citrate/PF 100 MCG/2 ML VIAL 50 MCG IVPUSH ×2 (14:35→14:40)
--- NOTE | 2021-12-08 16:25 | P.HPCC_ITS ---
History of Present Illness Date of Service: 12/08/21 Attending physician on admission: Cain Antonio Chief Complaint: CARDIAC ARREST Mrs. Carbajal is being admitted to the ICU this afternoon after [id number] cardiac arrest. The patient is an 86-year-old female w PMHx of AFib, PPM, mechanical aortic and MV replacements, CHF, asthma, hypothyroidism. She was hospitalized in June of this year for ischemic colitis, from which she recovered. During that hospitalization, she had DNR/DNI status. She's had COVID 3 times, the last occurrence in August of this year. She lives with and cares for her who has Alzheimer's and is a double amputee. She ambulates with a walker, and is partially independent with ADLs: She toilets by herself, ambulates and eats by herself, even does some light cooking. She needs help with dressing and bathing. The patient's reported that she was in her usual state of health when she suddenly slumped over in her chair and became unresponsive. ?She did not fall. ?He called 911. ?The police and fire department arrived in minutes, placed an AED and delivered 1 shock, and continued w CPR. ?ALS arrived 5-10 minutes later and found the patient to be in PEA with a wide complex rhythm. She was given 1 dose of epinephrine. They continued CPR until they achieved ROSC. The patient was intubated in the field and BIBA to the ED. Upon arrival to the ED, HR 62, BP 113/46, RR 10, SpO2 100%. Labs were notable for WBC 17.1, H/H 11.7/37.0, INR 3.2, K 2.5, CO2 20, BUN 14, creatinine 0.74, lactic acid 4.8. ?She was given 2 g of magnesium, 2 mg of midazolam, 150 mg of amiodarone, 500 cc bolus of NS. ?? We saw the patient in the ED. HR 73, BP 129/58. Intubated. RR 20, SpO2 100%. She was unresponsive. ?Looks borderline cachectic. She was intubated. Breath sounds equal bilaterally with ventilations. No spontaneous respirations. Heart rhythm irregular, V paced. Midsternal ecchymosis with small abrasion due to use of the Anibal device noted. Abdomen is benign.? No peripheral edema noted. ? My bedside echo with Dr. Antonio:? LV wall thickness normal. Marked global LV hypokinesis, EF about 20%, with marked RWMA: LV free wall and apex looked dyskinetic. RV looked top-normal size. Mechanical AV and MV. No AI or MR. Mild TR, w CWD measuring 2.2 m/s. IVC measured 2.4 cm with no insp collapse. Head CT: NAD. IMPRESSION: 1. Underlying CHF, s/p AVR and MVR 2. S/P AICD/PPM 3. Cardiac arrest 4. Coma. 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 5. Adequate circulating volume. Needs Rivera catheter. 6. Lactic acidosis. s/p cardiac arrest. 7. Hypokalemia: Replete. 8.??Hypomagnesemia: Replete. 9. At least mild PCM. We spoke to the patient's daughter Gabriella by phone at length . She is the HCP (we have a copy in her chart). She gave me more history about the patient (as above). ADDENDUM: A central line was placed (separate procedure). Watched the echo by the tool rental technician: Severe dilated CMOP w EF about 10%. RV size top normal, prob normal fxn. AV and MV OK. 2+ TR with CWD envelope measuring 3.0 m/s. IV measured 2.5 cm with no insp collapse. RVSP 51mm. Subsquently the patient had three long runs of nonpulsatile NSVT, up to 60 beats. AICD did not fire. Potassium not yet replaced. Hung 40 mEq over 1 hour. Spoke to daughter Gabriella again by phone, twice. She is on the way. For now, fu ll support. I also spoke to the at length. He does not have a good grasp of the situation. Waiting for Gabriella to arrive to make decisions. Critical care time (including multiple extended d/w ED staff; full old chart rev; mult visits to the bedside in ED and ICU; excluding procedures): 3+ hours Review of Systems Constitutional: Constitutional: Reports as per HPI [facility] Past Medical History Medical History A-fib Active asthma Hypothyroid Pacemaker Surgical History Surgical History Aortic valve replaced Heart valve replaced History of appendectomy Hx of colonoscopy Social History Social History (Updated 12/08/21 @ 15:26 by Hannah Collins RN) Household Members: Spouse Housing: House Are you a primary direct care provider to a significant other at home: Yes (pt is primary caregiver for her and herself) Do you presently have visiting nurse or other home services: Yes ([facility]) Unable to assess alcohol history related to: Unable to respond Alcohol intake: former Patient Tobacco Use Status: Former Tobacco user Tobacco use type: Cigarette Smoked in Last 30 Days: No e-Cigarette/Vaping Use: Never Used Patient Interested in Nicotine Replacement: No Patient Given Instructions on How to Stop Smoking: No Advance Directives: Yes Advance Directives on File: Yes Advance Directives Date on File: 06/02/21 service: No Current occupational status: retired Meds Allergies Allergy/AdvReac Type Severity Reaction Status Date / Time Iodinated Contrast Media Allergy Unknown HIVES Verified 12/07/21 14:49 [CONTRAST, IV] mite-Dermatophagoides Allergy Unknown UNKNOWN Verified 12/07/21 14:49 farinae, joleen [DUST MITES] mold [MOLD] Allergy Unknown UNKNOWN Verified 12/07/21 14:49 Sulfa (Sulfonamide AdvReac Intermediate UNKNOWN Verified 12/07/21 14:49 Antibiotics) DUST Allergy Unknown UNKNOWN Uncoded 12/07/21 14:49 Active Medications: Current Medications Fentanyl (Fentanyl Citrate/Pf 100 Mcg/2 Ml Vial) 50 mcg IVPUSH Q5M PRN PRN Reason: wob Fentanyl (Fentanyl Citrate/Pf 100 Mcg/2 Ml Vial) 100 mcg IVPUSH Q1H PRN PRN Reason: wob Potassium Chloride/Sodium Chloride (Kcl 40 Meq In 0.9 % Sodium Chl) 40 meq in 1,000 mls @ 150 mls/hr IVCONT .Q6H40M DOROTEO Last Admin: 12/08/21 13:13 Dose: 150 mls/hr Fentanyl (Sublimaze/Ns) 1,000 mcg in 100 mls @ 0 mls/hr IVCONT .Q0M DOROTEO; Protocol Home Medications Medication Instructions Recorded Confirmed Last Taken Type atorvastatin 40 mg tablet 1 tab PO BEDTIME 08/21/21 12/08/21 Unknown History furosemide 20 mg tablet 1 tab PO DAILY 08/21/21 12/08/21 Unknown History levothyroxine 50 mcg tablet 1 tab PO BEDTIME 08/21/21 12/08/21 Unknown History potassium chloride 20 mEq 20 meq PO DAILY 08/21/21 12/08/21 Unknown History tablet,extended release sacubitril 49 mg-valsartan 51 mg 1 tab PO BID 08/21/21 12/08/21 Unknown History tablet (Entresto) warfarin 2.5 mg tablet 2.5 mg PO DAILY 10/04/21 12/07/21 Unknown History fluticasone propionate 50 1 spray intranasal DAILY 12/08/21 12/08/21 Unknown History mcg/actuation nasal spray,suspension metoprolol succinate 25 mg 1 tab PO DAILY 12/08/21 12/08/21 Unknown History tablet,extended release 24 hr warfarin 5 mg tablet 5 mg PO DAILY@1800 12/08/21 12/08/21 Unknown History Physical Exam Vital Signs: Vital Signs: Last Vital Signs Temp 97.0 F 12/08/21 13:00 Pulse 66 12/08/21 16:00 Resp 20 12/08/21 16:00 BP 107/56 L 12/08/21 16:00 Pulse Ox 98 12/08/21 16:00 O2 Del Method 12/08/21 16:00 FiO2 30 12/08/21 16:08 BMI result Body Mass Index 23.8 Const: Orientation/consciousness: Other orientation findings (Unresponsive) Results Labs CBC and Chem 7: 12/08/21 11:58 12/08/21 17:05 Labs: Laboratory Results - last 24 hr 12/08/21 12/08/21 12/08/21 11:17 11:55 11:55 MCV MCH MCHC RDW Plt Count MPV Immature Gran % (Auto) Neut % (Auto) Lymph % (Auto) [place] % (Auto) Eos % (Auto) Baso % (Auto) Lymph # (Auto) [place] # (Auto) Eos # (Auto) Baso # (Auto) Abs Immat Gran (auto) Absolute Neuts (auto) Absolute Nucleated RBC Nucleated RBC % (auto) PT 38.7 H INR 3.2 H Anion Gap Estim Creat Clear Calc Estimated GFR Random Glucose Lactic Acid 4.8 H* Calcium Magnesium Total Bilirubin AST ALT Alkaline Phosphatase Troponin I High Sens Total Protein Albumin COVID-19 (KADY) Negative COVID-19 Clin Com See Note Hep Bs Antigen Hep Bs Antibody Hep B Core Total Ab HIV 1&2 Ab/P24 Ag 4thGn 12/08/21 12/08/21 12/08/21 11:58 11:58 11:58 MCV 97.4 MCH 30.8 MCHC 31.6 RDW 15.9 Plt Count 180 D MPV 12.4 H Immature Gran % (Auto) 2.8 H Neut % (Auto) 86.5 H Lymph % (Auto) 5.5 L [place] % (Auto) 4.4 Eos % (Auto) 0.6 Baso % (Auto) 0.2 Lymph # (Auto) 0.9 L [place] # (Auto) 0.8 Eos # (Auto) 0.1 Baso # (Auto) 0.0 Abs Immat Gran (auto) 0.48 H Absolute Neuts (auto) 14.8 H Absolute Nucleated RBC 0.000 Nucleated RBC % (auto) 0.0 PT INR Anion Gap 23 H Estim Creat Clear Calc TNP Estimated GFR > 60 Random Glucose 166 H Lactic Acid Calcium 8.7 D Magnesium 2.2 Total Bilirubin 1.5 H AST 38 H D ALT 16 Alkaline Phosphatase 105 Troponin I High Sens 209.8 H* D Total Protein 7.1 Albumin 3.6 COVID-19 (KADY) COVID-19 Clin Com Hep Bs Antigen Hep Bs Antibody Hep B Core Total Ab HIV 1&2 Ab/P24 Ag 4thGn 12/08/21 13:25 MCV MCH MCHC RDW Plt Count MPV Immature Gran % (Auto) Neut % (Auto) Lymph % (Auto) [place] % (Auto) Eos % (Auto) Baso % (Auto) Lymph # (Auto) [place] # (Auto) Eos # (Auto) Baso # (Auto) Abs Immat Gran (auto) Absolute Neuts (auto) Absolute Nucleated RBC Nucleated RBC % (auto) PT INR Anion Gap Estim Creat Clear Calc Estimated GFR Random Glucose Lactic Acid Calcium Magnesium Total Bilirubin AST ALT Alkaline Phosphatase Troponin I High Sens Total Protein Albumin COVID-19 (KADY) COVID-19 Clin Com Hep Bs Antigen Negative Hep Bs Antibody NONREACTIVE Hep B Core Total Ab Nonreactive HIV 1&2 Ab/P24 Ag 4thGn Nonreactive Imaging Radiologist's Impressions: Impressions Head CT 12/08/21 12:52 IMPRESSION: No acute intracranial pathology. Critical Care Time Critical Care Time (minutes): 180
[2021-12-08 17:08] LABS: VBG Base Excess 2.8 mmol/L; VBG HCO3 25 mmol/L (22-26); VBG pCO2 32 mmHg; VBG pH 7.49 (7.32-7.43); VBG pO2 42 mmHg
[2021-12-08] MEDS: fentaNYL citrate/PF 100 MCG/2 ML VIAL IVPUSH (17:22)
[2021-12-08 17:34] LABS: Anion Gap 18 (12-20); Blood Urea Nitrogen 16 mg/dL (9-16); Calcium 8.4 mg/dL (8.4-10.2); Carbon Dioxide 24 mmol/L (22-29); Chloride 101 mmol/L (96-108); Creatinine Clr Calc Pharmacy 41.4; Estimated Glomerular Filt Rate > 60; Glucose Random 141 mg/dL (60-115); Potassium 2.6 mmol/L (3.3-5.1); Sodium 140 mmol/L (135-145)
[2021-12-08 17:36] LABS: ~Lactic Acid-LAB USE ONLY 2.6 mmol/L (0.5-2.0)
[2021-12-08 17:43] LABS: B Type Natriuretic Peptide 2589 pg/mL (<100)
--- NOTE | 2021-12-08 17:52 | W.PM.CCHP ---
Procedures Date of Service Date of Service: 12/08/21 Central Line Placement Right SC: Central Line Comments: PROCEDURE:? Insertion right subclavian central venous line. INDICATION:? S/P cardiac arrest with acute respiratory failure, shock, coma. ANESTHESIA:? Local. PROCEDURE:? Vascular ultrasound was used to examine the right side.? A large compressible superficial infraclavicular SCL vein was noted, and confirmed by color deb Doppler. The right subclavian area was widely prepped and draped in full sterile fashion.? Local anesthesia was applied to the needle insertion site.? The right subclavian vein was again identified by sterile US, and cannulated on the first pass of the 18 gauge thin wall under direct US guidance.? The wire was threaded without incident.? A 7 [place] by 16 cm triple-lumen catheter was advanced into the vein up to 14cm via the Seldinger technique without incident.? There was good blood return x3.? The catheter was sutured x3 and a Biopatch and dry sterile dressing were applied. Postop chest x-ray showed the line in good position with no pneumothorax.? The patient tolerated the procedure well w no complications. Consent for Procedure: Elective - informed consent obtained
--- NOTE | 2021-12-08 17:58 | PC.NURSE ---
1415-pt to icu 254 from er with RN. left forearm IV occluded, rt wrist IV and rt hernandez IO intact. NS with 40 kcl infusing through left wrist. pt NSR with first degree heart block noted on monitor BP stable. CHG bath completed. pt intubated. 1445-odom cath placed per dr. givens. minimal output noted after placement. 1543-Rt SC central line placed by dr. givens. 1610-CXR at bedside. 6 beat vtach noted. pts internal defib. converted pt out and pt being a-paced, pt did not loose pulse during vtach. dr givens updated. 1635-Echo performed. pt going have runs of vtach, able to palpate pulse through these episodes. 1645-pt had pulseless run vtach. chest compressions started for 15 seconds before pt converted to a/v paced and palpable rhythm felt. bunble branch block noted. dr. givens notified. 1650-potassium rider started. 1715-pt's at bedside and updated 1745-pts daughter at bedside. 1800-pt's health care proxy at bedside. all family updated.
[2021-12-08] MEDS: Potassium Chloride/H20 40 MEQ/100 ML PIGGYBACK 100 MEQ IV (18:40)
--- NOTE | 2021-12-08 18:51 | PC.NURSE ---
1840-pts family changed code status to DNR. 1851-pts belongings, which include clothes, watch, and ring were given to family to take home.
--- NOTE | 2021-12-08 19:05 | PM.CCN ---
Critical Care Event Note Summary Date of Service: 12/08/21 Code activated: No Narrative: Mrs. Carbajal was admitted to ICU this afternoon after [facility]. ?(See H&P).? She remains densely comatose. ?Pupils 5-6mm and very sluggish, if reactive at all.? Dolls? eyes very sluggish, if reactive at all. IMO, the likelihood of her regaining any kind of neurologic fxn that would be meaningful to her or her family is very low.? I met with the large family at the bedside (including two daughters who are the HCP, and the ) and discussed the situation w them at length. ?I expressed my opinion to the family and they fully understand.? According to both the and the daughter Holly, the patient had many conversations with them where she expressed that she would not have wanted any kind of resuscitation. The family is in agreement that we will not do further CPR or resuscitation.? They are planning extubation to comfort measures.? Just deciding on when. Critical Care Time (minutes): 30 Critical Care Time Critical Care Time (minutes): 30
[2021-12-08 19:12] LABS: Reflex Lactate? 2 Y
[2021-12-08 19:37] LABS: Cancel Lactic Acid Canceled
[2021-12-08] MEDS: HYDROmorphone HCl 1 MG/ML SYRINGE IVPUSH ×3 (19:51→20:55)
[2021-12-08] MEDS: Scopolamine 1.5 MG PATCH.TD.3 EAR-BEHIND (19:59)
--- NOTE | 2021-12-08 20:06 | PC.NURSE ---
STABLE HELPER, extubated at 19:58. medicated with Hydromorphone 1 mg prior extubation. restrains removed . mediacated with Verset 2 mg IV after extubation, Hydromorphone 1 mg and scopalamine patch
--- NOTE | 2021-12-08 21:39 | P.PNCC_ITS ---
Subjective Subjective Date of Service: 12/08/21 Interval History: After lengthy discussion with the patient's family done by Dr. Antonio, then by myself, the family have agreed to make the patient ALMOND ROASTER, however they were not ready to be in the room when this happens.? They did say their goodbyes and explicitly asked me to do a terminal extubation. At this point patient will be ALMOND ROASTER , she will be started on Dilaudid which will be given prior to extubation, she does have secretions both in the oral cavity as well as in her eyes, scopolamine will be given, Versed for comfort and agitation prn. At 19:55, the patient was extubated, all drips were stopped, the patient did have some evidence of distress for which an additional dose of Dilaudid was given, Versed and scopolamine patch was placed.? I also placed a magnet over the patient's pacer/AICD.? The patient is quickly be desatting but still able to breathe spontaneously.? She appears more comfortable at this point. Slowly, the patient became more and more hypoxic, apneic and at 09:09pm , the patient stopped breathing, there was no spontaneous ?respirations.? No pulse palpable a pulses.? Pupils are fixed at 5 mm bilaterally without reactivity, no corneal reflexes present. Patient was pronounced at 21:09 pm,. ?The patient's daughter Gabriella was notified and was happy with the care. Case was discussed in detail with Dr. Antonio.? He is aware of all the above as well as the plan of care for this patient. Total critical care time 60 minutes for dedicated comfort care. Critical Care Time (minutes): 60 Physical Exam Vital Signs: Vital Signs: Last Vital Signs Temp 99.9 F 12/08/21 19:40 Pulse 62 12/08/21 19:40 Resp 13 12/08/21 19:40 BP 120/58 L 12/08/21 19:40 Pulse Ox 98 12/08/21 19:40 O2 Del Method 12/08/21 19:40 FiO2 35 12/08/21 19:40 BMI result Body Mass Index 23.8 Objective Data Labs CBC & Chem 7: 12/08/21 11:58 12/08/21 17:05 Labs: Laboratory Results - last 24 hr 12/08/21 12/08/21 12/08/21 11:17 11:55 11:55 WBC RBC Hgb Hct MCV MCH MCHC RDW Plt Count MPV Immature Gran % (Auto) Neut % (Auto) Lymph % (Auto) [place] % (Auto) Eos % (Auto) Baso % (Auto) Lymph # (Auto) [place] # (Auto) Eos # (Auto) Baso # (Auto) Abs Immat Gran (auto) Absolute Neuts (auto) Absolute Nucleated RBC Nucleated RBC % (auto) PT 38.7 H INR 3.2 H VBG pH VBG pCO2 VBG pO2 VBG HCO3 VBG O2 Saturation VBG Base Excess Sodium Potassium Chloride Carbon Dioxide Anion Gap BUN Creatinine Estim Creat Clear Calc Estimated GFR Random Glucose Lactic Acid 4.8 H* Lactic Acid F/U @ 2Hr Calcium Magnesium Total Bilirubin AST ALT Alkaline Phosphatase Troponin I High Sens B-Natriuretic Peptide Total Protein Albumin COVID-19 (KADY) Negative COVID-19 Clin Com See Note Hep Bs Antigen Hep Bs Antibody Hep B Core Total Ab HIV 1&2 Ab/P24 Ag 4thGn 12/08/21 12/08/21 12/08/21 11:58 11:58 11:58 WBC 17.1 H RBC 3.80 L Hgb 11.7 L Hct 37.0 MCV 97.4 MCH 30.8 MCHC 31.6 RDW 15.9 Plt Count 180 D MPV 12.4 H Immature Gran % (Auto) 2.8 H Neut % (Auto) 86.5 H Lymph % (Auto) 5.5 L [place] % (Auto) 4.4 Eos % (Auto) 0.6 Baso % (Auto) 0.2 Lymph # (Auto) 0.9 L [place] # (Auto) 0.8 Eos # (Auto) 0.1 Baso # (Auto) 0.0 Abs Immat Gran (auto) 0.48 H Absolute Neuts (auto) 14.8 H Absolute Nucleated RBC 0.000 Nucleated RBC % (auto) 0.0 PT INR VBG pH VBG pCO2 VBG pO2 VBG HCO3 VBG O2 Saturation VBG Base Excess Sodium 139 Potassium 2.5 L* Chloride 99 Carbon Dioxide 20 L Anion Gap 23 H BUN 14 Creatinine 0.74 Estim Creat Clear Calc TNP Estimated GFR > 60 Random Glucose 166 H Lactic Acid Lactic Acid F/U @ 2Hr Calcium 8.7 D Magnesium 2.2 Total Bilirubin 1.5 H AST 38 H D ALT 16 Alkaline Phosphatase 105 Troponin I High Sens 209.8 H* D B-Natriuretic Peptide Total Protein 7.1 Albumin 3.6 COVID-19 ([facility]ADY) COVID-19 Clin Com Hep Bs Antigen Hep Bs Antibody Hep B Core Total Ab HIV 1&2 Ab/P24 Ag 4thGn 12/08/21 12/08/21 12/08/21 13:25 17:02 17:05 WBC RBC Hgb Hct MCV MCH MCHC RDW Plt Count MPV Immature Gran % (Auto) Neut % (Auto) Lymph % (Auto) [place] % (Auto) Eos % (Auto) Baso % (Auto) Lymph # (Auto) [place] # (Auto) Eos # (Auto) Baso # (Auto) Abs Immat Gran (auto) Absolute Neuts (auto) Absolute Nucleated RBC Nucleated RBC % (auto) PT INR VBG pH 7.49 H VBG pCO2 32 VBG pO2 42 VBG HCO3 25 VBG O2 Saturation 60.0 VBG Base Excess 2.8 Sodium Potassium Chloride Carbon Dioxide Anion Gap BUN Creatinine Estim Creat Clear Calc Estimated GFR Random Glucose Lactic Acid Lactic Acid F/U @ 2Hr 2.6 H* Calcium Magnesium Total Bilirubin AST ALT Alkaline Phosphatase Troponin I High Sens B-Natriuretic Peptide Total Protein Albumin COVID-19 ([facility]ADY) COVID-19 Clin Com Hep Bs Antigen Negative Hep Bs Antibody NONREACTIVE Hep B Core Total Ab Nonreactive HIV 1&2 Ab/P24 Ag 4thGn Nonreactive 12/08/21 12/08/21 12/08/21 17:05 17:05 17:05 WBC RBC Hgb Hct MCV MCH MCHC RDW Plt Count MPV Immature Gran % (Auto) Neut % (Auto) Lymph % (Auto) [place] % (Auto) Eos % (Auto) Baso % (Auto) Lymph # (Auto) [place] # (Auto) Eos # (Auto) Baso # (Auto) Abs Immat Gran (auto) Absolute Neuts (auto) Absolute Nucleated RBC Nucleated RBC % (auto) PT INR VBG pH VBG pCO2 VBG pO2 VBG HCO3 VBG O2 Saturation VBG Base Excess Sodium 140 Potassium 2.6 L Chloride 101 Carbon Dioxide 24 Anion Gap 18 BUN 16 Creatinine 0.80 Estim Creat Clear Calc 41.4 Estimated GFR > 60 Random Glucose 141 H Lactic Acid Cancelled Lactic Acid F/U @ 2Hr Calcium 8.4 Magnesium Total Bilirubin AST ALT Alkaline Phosphatase Troponin I High Sens B-Natriuretic Peptide 2589 H Total Protein Albumin COVID-19 (KADY) COVID-19 Clin Com Hep Bs Antigen Hep Bs Antibody Hep B Core Total Ab HIV 1&2 Ab/P24 Ag 4thGn Quality Stroke Does the patient have a stroke diagnosis?: No VTE Prior VTE?: No VTE Risk Level:: Medical - moderate - high VTE Device Contraindication: N/A - Device Ordered VTE Drug Contraindication: Treatment Not Indicated
--- NOTE | 2021-12-08 21:43 | P.DS_ITS ---
DS: Providers Provider Date of Service: 12/08/21 Date of admission: 12/08/21 12:56 Date of discharge: 12/08/21 Primary care physician: Unknown Physician Admitting clinician: Cain Jarquin Attending physician on admission: Cain Jarquin Consults: ADMISSION/DISCHARGE DIAGNOSIS CARDIAC ARREST HYPOXIC RESPIRATORY FAILURE UNDERLYING CHF STATUS POST AVR AND MVR STATUS POST AICD AND PPM COMATOSE STATE WITH ANOXIC ENCEPHALOPATHY LACTIC ACIDOSIS STATUS POST CARDIAC ARREST HYPOKALEMIA HYPO MAGNESEMIA PROTEIN CALORIE MALNUTRITION SYNDROME COMORBIDITIES ASTHMA HYPOTHYROIDISM ISCHEMIC COLITIS COVID INFECTION X3 ? HPI/HOSPITAL COURSE Mrs. Carbajal is being admitted to the ICU this afternoon after [id number] cardiac arrest; PATIENT WAS SEEN BY DR. JARQUIN The patient is an 86-year-old female w PMHx of AFib, PPM, mechanical aortic and MV replacements, CHF, asthma, hypothyroidism.? She was hospitalized in June of this year for ischemic colitis, from which she recovered.? During that hospitalization, she had DNR/DNI status. She's had COVID 3 times, the last occurrence in August of this year. The patient's reported that she was in her usual state of health when she suddenly slumped over in her chair and became unresponsive. ?She did not fall. ?He called 911. ?The police and fire department arrived in minutes, placed an AED and delivered 1 shock, and continued w CPR. ?ALS arrived 5-10 minutes later and found the patient to be in PEA with a wide complex rhythm. She was given 1 dose of epinephrine. They continued CPR until they achieved ROSC. The patient was intubated in the field and BIBA to the ED. Upon arrival to the ED, HR 62, BP 113/46, RR 10, SpO2 100%. Labs were notable for WBC 17.1, H/H 11.7/37.0, INR 3.2, K 2.5, CO2 20, BUN 14, creatinine 0.74, lactic acid 4.8. ?She was given 2 g of magnesium, 2 mg of midazolam, 150 mg of amiodarone, 500 cc bolus of NS. ?? We saw the patient in the ED. HR 73, BP 129/58.? Intubated.? RR 20, SpO2 100%.? She was unresponsive. ?Looks borderline cachectic.? She was intubated.? Breath sounds equal bilaterally with ventilations. No spontaneous respirations. Heart rhythm irregular, V paced. Midsternal ecchymosis with small abrasion due to use of the Anibal device noted. Abdomen is benign.? No peripheral edema noted. ? My bedside echo with Dr. Jarquin:? LV wall thickness normal.? Marked global LV hypokinesis, EF about 20%, with marked RWMA:? LV free wall and apex looked dyskinetic.? RV looked top-normal size.? Mechanical AV and MV.? No AI or MR.? Mild TR, w CWD measuring 2.2 m/s.? IVC measured 2.4 cm with no insp collapse. Head CT:? NAD. We spoke to the patient's daughter Gabriella by phone at length .? She is the HCP (we have a copy in her chart).? She gave me more history about the patient (as above). A central line was placed (separate procedure).? Watched the echo by the critical power technician:? Severe dilated CMOP w EF about 10%.? RV size top normal, prob normal fxn.? AV and MV OK.? 2+ TR with CWD envelope measuring 3.0 m/s.? IV measured 2.5 cm with no insp collapse.? RVSP 51mm. Subsquently the patient had three long runs of nonpulsatile NSVT, up to 60 beats.? AICD did not fire.? Potassium not yet replaced.? Hung 40 mEq over [address] Jarquin spoke to daughter Gabriella again by phone, twice.? She is on the way.? For now, full support.? I also spoke to the at length.? He does not have a good grasp of the situation.? Waiting for Gabriella to arrive to make decisions. Received shift from the above-mentioned physician with appropriate sign-out, I was introduced to the family. ? After lengthy discussion with the patient's family done by Dr. Jarquin, then by myself, the family have agreed to make the patient PRESS SMITH HELPER, however they were not ready to be in the room when this happens.? They did say their goodbyes and explicitly asked me to do a terminal extubation. At this point patient will be PRESS SMITH HELPER , she will be started on Dilaudid which will be given prior to extubation, she does have secretions both in the oral cavity as well as in her eyes, scopolamine will be given, Versed for comfort and agitation prn. At 19:55, the patient was extubated, all drips were stopped, the patient did have some evidence of distress for which an additional dose of Dilaudid was given, Versed and scopolamine patch was placed.? I also placed a magnet over the patient's pacer/AICD.? The patient is quickly be desatting but still able to breathe spontaneously.? She appears more comfortable at this point. Slowly, the patient became more and more hypoxic, apneic and at 09:09pm , the patient stopped breathing, there was no spontaneous ?respirations.? No pulse palpable a pulses.? Pupils are fixed at 5 mm bilaterally without reactivity, no corneal reflexes present. Patient was pronounced at 21:09 pm,. ?The patient's daughter Gabriella was notified and was happy with the care. Attending physician on discharge: Cain Jarquin Discharging clinician: Reji Horan DS: Summary Time Spent with Patient Time attestation: Total time spent providing and/or coordinating discharge services: Discharge coordination time: Greater than 30 minutes Quality: Safe Use of Opioids Does Pt have an Active Cancer Diagnosis on the Problem List?: No Quality: Stroke Does the patient have a stroke diagnosis?: No Physical Exam Vital Signs: Vital Signs: Last Vital Signs Temp 99.9 F 12/08/21 19:40 Pulse 62 12/08/21 19:40 Resp 13 12/08/21 19:40 BP 120/58 L 12/08/21 19:40 Pulse Ox 98 12/08/21 19:40 O2 Del Method 12/08/21 19:40 FiO2 35 12/08/21 19:40 BMI result Body Mass Index 23.8 DS: Data Data Completed and Pending Completed studies during hospitalization [Text1]: Procedures Inspection of Lower Intestinal Tract, Via Natural or Artificial Opening Endoscopic (06/22/21) Labs on day of discharge: Laboratory Results - last 24 hr 12/08/21 12/08/21 12/08/21 11:17 11:55 11:55 WBC RBC Hgb Hct MCV MCH MCHC RDW Plt Count MPV Immature Gran % (Auto) Neut % (Auto) Lymph % (Auto) [place] % (Auto) Eos % (Auto) Baso % (Auto) Lymph # (Auto) [place] # (Auto) Eos # (Auto) Baso # (Auto) Abs Immat Gran (auto) Absolute Neuts (auto) Absolute Nucleated RBC Nucleated RBC % (auto) PT 38.7 H INR 3.2 H VBG pH VBG pCO2 VBG pO2 VBG HCO3 VBG O2 Saturation VBG Base Excess Sodium Potassium Chloride Carbon Dioxide Anion Gap BUN Creatinine Estim Creat Clear Calc Estimated GFR Random Glucose Lactic Acid 4.8 H* Lactic Acid F/U @ 2Hr Calcium Magnesium Total Bilirubin AST ALT Alkaline Phosphatase Troponin I High Sens B-Natriuretic Peptide Total Protein Albumin COVID-19 ([facility]Y) Negative COVID-19 Clin Com See Note Hep Bs Antigen Hep Bs Antibody Hep B Core Total Ab HIV 1&2 Ab/P24 Ag 4thGn 12/08/21 12/08/21 12/08/21 11:58 11:58 11:58 WBC 17.1 H RBC 3.80 L Hgb 11.7 L Hct 37.0 MCV 97.4 MCH 30.8 MCHC 31.6 RDW 15.9 Plt Count 180 D MPV 12.4 H Immature Gran % (Auto) 2.8 H Neut % (Auto) 86.5 H Lymph % (Auto) 5.5 L [place] % (Auto) 4.4 Eos % (Auto) 0.6 Baso % (Auto) 0.2 Lymph # (Auto) 0.9 L [place] # (Auto) 0.8 Eos # (Auto) 0.1 Baso # (Auto) 0.0 Abs Immat Gran (auto) 0.48 H Absolute Neuts (auto) 14.8 H Absolute Nucleated RBC 0.000 Nucleated RBC % (auto) 0.0 PT INR VBG pH VBG pCO2 VBG pO2 VBG HCO3 VBG O2 Saturation VBG Base Excess Sodium 139 Potassium 2.5 L* Chloride 99 Carbon Dioxide 20 L Anion Gap 23 H BUN 14 Creatinine 0.74 Estim Creat Clear Calc TNP Estimated GFR > 60 Random Glucose 166 H Lactic Acid Lactic Acid F/U @ 2Hr Calcium 8.7 D Magnesium 2.2 Total Bilirubin 1.5 H AST 38 H D ALT 16 Alkaline Phosphatase 105 Troponin I High Sens 209.8 H* D B-Natriuretic Peptide Total Protein 7.1 Albumin 3.6 COVID-19 ([facility]) COVID-19 Clin Com Hep Bs Antigen Hep Bs Antibody Hep B Core Total Ab HIV 1&2 Ab/P24 Ag 4thGn 12/08/21 12/08/21 12/08/21 13:25 17:02 17:05 WBC RBC Hgb Hct MCV MCH MCHC RDW Plt Count MPV Immature Gran % (Auto) Neut % (Auto) Lymph % (Auto) [place] % (Auto) Eos % (Auto) Baso % (Auto) Lymph # (Auto) [place] # (Auto) Eos # (Auto) Baso # (Auto) Abs Immat Gran (auto) Absolute Neuts (auto) Absolute Nucleated RBC Nucleated RBC % (auto) PT INR VBG pH 7.49 H VBG pCO2 32 VBG pO2 42 VBG HCO3 25 VBG O2 Saturation 60.0 VBG Base Excess 2.8 Sodium Potassium Chloride Carbon Dioxide Anion Gap BUN Creatinine Estim Creat Clear Calc Estimated GFR Random Glucose Lactic Acid Lactic Acid F/U @ 2Hr 2.6 H* Calcium Magnesium Total Bilirubin AST ALT Alkaline Phosphatase Troponin I High Sens B-Natriuretic Peptide Total Protein Albumin COVID-19 ([facility]ADY) COVID-19 Clin Com Hep Bs Antigen Negative Hep Bs Antibody NONREACTIVE Hep B Core Total Ab Nonreactive HIV 1&2 Ab/P24 Ag 4thGn Nonreactive 12/08/21 12/08/21 12/08/21 17:05 17:05 17:05 WBC RBC Hgb Hct MCV MCH MCHC RDW Plt Count MPV Immature Gran % (Auto) Neut % (Auto) Lymph % (Auto) [place] % (Auto) Eos % (Auto) Baso % (Auto) Lymph # (Auto) [place] # (Auto) Eos # (Auto) Baso # (Auto) Abs Immat Gran (auto) Absolute Neuts (auto) Absolute Nucleated RBC Nucleated RBC % (auto) PT INR VBG pH VBG pCO2 VBG pO2 VBG HCO3 VBG O2 Saturation VBG Base Excess Sodium 140 Potassium 2.6 L Chloride 101 Carbon Dioxide 24 Anion Gap 18 BUN 16 Creatinine 0.80 Estim Creat Clear Calc 41.4 Estimated GFR > 60 Random Glucose 141 H Lactic Acid Cancelled Lactic Acid F/U @ 2Hr Calcium 8.4 Magnesium Total Bilirubin AST ALT Alkaline Phosphatase Troponin I High Sens B-Natriuretic Peptide 2589 H Total Protein Albumin COVID-19 (KADY) COVID-19 Clin Com Hep Bs Antigen Hep Bs Antibody Hep B Core Total Ab HIV 1&2 Ab/P24 Ag 4thGn Discharge Plan Discharge Date/Time: 12/08/21 21:09 Patient Disposition: Discharge Diagnosis: CARDIAC ARREST Referrals: Physician,Unknown J [Primary Care Provider] - 1 Week Discharge Medications: Discontinued atorvastatin 40 mg tablet 1 tab PO BEDTIME Entresto 49-51 mg Tablet 1 tab PO BID metoprolol succinate 25 mg tablet extended release 24 hr 1 tab PO DAILY warfarin 5 mg Tablet 5 mg PO DAILY@1800 warfarin 2.5 mg tablet 2.5 mg PO DAILY Protocol: Dose Management Condition: Monday (Week One) Dose/Route: 5 mg Instruction: 2 x 2.5 mg tablets Condition: Monday Dose/Route: 5 mg Instruction: 2 x 2.5 mg tablets Condition: Monday Dose/Route: 5 mg Instruction: 2 x 2.5 mg tablets Condition: Monday Dose/Route: 5 mg Instruction: 2 x 2.5 mg tablets Condition: Dose/Route: 5 mg Instruction: 2 x 2.5 mg tablets Condition: Monday Dose/Route: 5 mg Instruction: 2 x 2.5 mg tablets Condition: Monday Dose/Route: 5 mg Instruction: 2 x 2.5 mg tablets Condition: Monday (Week Two) Dose/Route: 5 mg Instruction: 2 x 2.5 mg tablets Condition: Monday Dose/Route: 5 mg Instruction: 2 x 2.5 mg tablets Condition: Monday Dose/Route: 5 mg Instruction: 2 x 2.5 mg tablets Condition: Monday Dose/Route: 5 mg Instruction: 2 x 2.5 mg tablets Condition: Dose/Route: 5 mg Instruction: 2 x 2.5 mg tablets Condition: Monday Dose/Route: 5 mg Instruction: 2 x 2.5 mg tablets Condition: Monday Dose/Route: 5 mg Instruction: 2 x 2.5 mg tablets Protocol Text: Adjustment Start Date: Monday12/07/21 INR Value: 3.3 INR Date: 12/07/21 Recheck Date: 12/14/21 Additional Instructions: cont reg dosing balance reds and greens No Action levothyroxine 50 mcg tablet 1 tab PO BEDTIME furosemide 20 mg tablet 1 tab PO DAILY potassium chloride 20 mEq Tablet Extended Release 20 meq PO DAILY fluticasone propionate [Flonase] 50 mcg/actuation [place],Suspension 1 spray INTRANASAL DAILY Rx Instructions: administer into each nostril Discharge Orders: Discharge Order (Routine); Ordered 12/08/21 Ordered By: Reji Horan Discharge Date/Time: 12/08/21 22:37
--- NOTE | 2021-12-08 22:07 | PC.NURSE ---
comfort care patient, no pulse no respiration at 21:09. pronounced by Audie HEBERT
[2021-12-09 07:49] LABS: ~HepC Num1 0.26 S/CO (0.00-0.79)
[2021-12-09 08:02] LABS: Hepatitis C Ab Exposure Source NonReactive (Nonreactive)
--- NOTE | 2021-12-23 13:30 | P.CDIR_ITS ---
Documented by User: Sakina Arreguin RN 12/24/21 13:46 Retrospective Query PHYSICIAN'S DOCUMENTATION REQUEST Date of Query: 12/23/21 1331 Patient Name: Raven Carbajal Admit Date: 12/08/21 Dear Doctor, A review of the medical record indicates additional documentation may be needed. Please review below and update the documentation accordingly. Clinical Indicators: Risk Factors/Clinical Indicators/Treatments Per H&P: PMH of CHF BNP on 12/08/21: 2589 Bedside ECHO on 12/08/21: ?LV wall thickness normal.? Marked global LV hypokinesis, EF about 20%, with marked RWMA:? LV free wall and apex looked dyskinetic.? RV looked top-normal size.? Mechanical AV and MV.? No AI or MR.? Mild TR, w CWD measuring 2.2 m/s.? IVC measured 2.4 cm with no insp collapse. Please provide further specificity regarding the most likely type and acuity of CHF you are evaluating, treating, or monitoring. Examples include: Type: * Systolic * Diastolic * Combined Systolic/Diastolic * Other ? please specify * Unable to determine Acuity: * Acute * Chronic * Acute on chronic * Unable to determine Use of terms such as suspected, likely, concern for, or probable (associated with a specific diagnosis that is being evaluated, monitored, or treated as if it exists) are acceptable and can be coded in the inpatient setting, when documented at the time of discharge. Thank you, Sakian Arreguin RN Extension: [phone] Please use your independent medical judgment in providing your response. THIS QUERY IS PART OF THE PERMANENT MEDICAL RECORD Documented by User: Cain Antonio MD 12/26/21 12:43 Retrospective Query Provider Response: Other (Chronic systolic heart failure)
== END 2021-12-08 22:37 | disposition expired | DRG 91 ==
LOC: HO.ED 11:10 → HO.EDOVER 13:12 → HO.ICU 13:38
PROVIDERS: Anesthesiology; Admitting Provider Nurse Practitioner Family; Emergency Provider Emergency Medicine; Visit Provider Nurse Practitioner Family
DX: G93.1 Anoxic brain damage, not elsewhere classified (principal); J96.01 Acute respiratory failure with hypoxia; R40.20 Unspecified coma; E87.20 Acidosis, unspecified; E44.1 Mild protein-calorie malnutrition; I47.1 Supraventricular tachycardia; K55.9 Vascular disorder of intestine, unspecified; I48.20 Chronic atrial fibrillation, unspecified; I50.22 Chronic systolic (congestive) heart failure; E87.6 Hypokalemia; E83.42 Hypomagnesemia; E03.9 Hypothyroidism, unspecified; Z20.822 Contact with and (suspected) exposure to COVID-19; Z95.0 Presence of cardiac pacemaker; Z95.2 Presence of prosthetic heart valve; Z51.5 Encounter for palliative care; Z68.23 Body mass index [BMI] 23.0-23.9, adult; Z86.74 Personal history of sudden cardiac arrest; Z87.891 Personal history of nicotine dependence; Z86.16 Personal history of COVID-19; Z91.041 Radiographic dye allergy status; Z88.2 Allergy status to sulfonamides; Z79.01 Long term (current) use of anticoagulants; Z79.51 Long term (current) use of inhaled steroids; Z79.890 Hormone replacement therapy; Z79.899 Other long term (current) drug therapy
CPT/HCPCS: 70450; 71045; 80048; 80053; 82803; 83605; 83735; 83880; 84484; 85025; 85610; 86803; 87040; 87205; 87635; 93005; 93306; 94002; 99285; J0282; J1170; J2250; J3010; J3475